=== PATIENT | female | born 1935 | race Caucasian/White ===

== ENCOUNTER 2020-07-05 07:04 | Outpatient (REF) | payer MEDICARE, SELFPAY ==
[2020-07-05 07:37] LABS: MANUAL DIFF FLAG NO
[2020-07-05 07:38] LABS: Basophils Percent Auto 0.3 % (0-2); Eosinophils Absolute Auto 0.3 X10*3/uL (0.0-0.4); Eosinophils Percent Auto 3.9 % (0-4); Hematocrit 40.5 % (37-47); Hemoglobin 12.7 g/dl (12.0-16.0); Imm Gran Abs Auto 0.02 X10*3/uL (0.00-0.03); Imm Gran Pct Auto 0.3 % (0.0-0.4); Lymphocytes Absolute Auto 1.1 X10*3/uL (1.2-4.9); Mean Corpuscular HGB Conc 31.4 g/dl (31.0-35.0); Mean Corpuscular Hemoglobin 29.1 pg (27.0-33.0); Mean Corpuscular Volume 92.9 fL (80-98); Mean Platelet Volume 10.6 fL (9.4-12.3); Monocytes Absolute Auto 0.5 X10*3/uL (0.1-1.2); Neutrophils Absolute Auto 4.7 X10*3/uL (2.0-8.3); Neutrophils Percent Auto 71.5 % (45-73); Platelet Count 166 X10*3/uL (160-400); Red Blood Count 4.36 X10*6/uL (4.20-5.50); Red Cell Distribution Width 14.3 % (11.0-16.0); White Blood Count 6.6 X10*3/uL (4.8-10.8)
[2020-07-05 08:06] LABS: Alanine Aminotransferase 16 U/L (0-31); Albumin Level 4.5 g/dL (3.5-5.0); Alkaline Phosphatase 102 U/L (39-117); Anion Gap 14 (12-20); Aspartate Amino Transferase 19 U/L (5-31); Bilirubin Total 0.6 mg/dL (0.0-1.0); Blood Urea Nitrogen 34 mg/dL (9-16); Calcium 9.4 mg/dL (8.4-10.2); Carbon Dioxide 32 mmol/L (22-29); Chloride 102 mmol/L (96-108); Cholesterol 109 mg/dL; Estimated Glomerular Filt Rate 29; Glucose Fasting 117 mg/dL (60-99); HDL Cholesterol 53 mg/dL; LDL Cholesterol Calculated 45 mg/dl; Magnesium 2.4 mg/dL (1.6-2.6); Potassium 4.1 mmol/l (3.3-5.1); Sodium 144 mmol/L (135-145); Total Protein 7.5 g/dL (6.5-8.0); Triglycerides 59 mg/dL
[2020-07-05 08:13] LABS: B Type Natriuretic Peptide 198 pg/mL (<100)
[2020-07-05 08:28] LABS: T4 Thyroxine 7.7 ug/dL (4.5-12.0); Thyroid Stimulating Hormone 1.16 uIU/mL (0.32-4.0); Vitamin D 25-OH Total 44.3 ng/mL (>30)
[2020-07-05 08:37] LABS: Creatinine Urine 93.92 mg/dL; Microalbum/Creatinine Ratio Ur 113.9 ug/mg cr
[2020-07-07 09:12] LABS: Folate > 20.0 ng/mL (> or = 4.0); Vitamin B12 859 pg/mL (200-900)
== END 2020-07-05 07:05 | disposition home or self-care (01) ==
LOC: HO.LAB 07:04
PROVIDERS: PCP Internal Medicine; Visit Provider Internal Medicine
DX: E11.65 Type 2 diabetes mellitus with hyperglycemia (principal); E78.00 Pure hypercholesterolemia, unspecified; I35.0 Nonrheumatic aortic (valve) stenosis; E66.01 Morbid (severe) obesity due to excess calories; I13.0 Hypertensive heart and chronic kidney disease with heart failure and stage 1 through stage 4 chronic kidney disease, or unspecified chronic kidney disease; N18.9 Chronic kidney disease, unspecified; I50.9 Heart failure, unspecified
CPT/HCPCS: 36415; 80053; 80061; 82043; 82306; 82607; 82746; 83735; 83880; 84436; 84443; 85025

== ENCOUNTER 2020-09-25 09:08 | Outpatient (REF) | payer MEDICARE, SELFPAY ==
--- NOTE | 2020-09-25 10:35 | XR_ITS ---
EXAMINATION: XR PELVIS CLINICAL INFORMATION: Pain in the hip COMPARISON: 11/02/2018 TECHNIQUE: AP view of the pelvis. FINDINGS: There is a total right hip arthroplasty. The femoral head component articulates appropriately with the acetabular component. No periprosthetic lucency or fracture. Mild degenerative change of the left hip with joint space narrowing and sclerosis. Pelvic rim is intact. The sacroiliac joints and pubic symphysis are intact. Otherwise bowel gas pattern is unremarkable. Vascular calcifications noted. XR/XR pelvis 1-2V IMPRESSION: Total right hip arthroplasty in typical positioning and alignment. Mild degenerative change at the left hip.
== END 2020-09-25 09:09 | disposition home or self-care (01) ==
LOC: HO.HOSX 09:08
PROVIDERS: Visit Provider Orthopaedic Surgery
DX: M25.551 Pain in right hip (principal); Z96.641 Presence of right artificial hip joint
CPT/HCPCS: 72170; 99202

== ENCOUNTER 2020-10-04 07:07 | Outpatient (REF) | payer MEDICARE, SELFPAY ==
[2020-10-04 08:43] LABS: MANUAL DIFF FLAG NO
[2020-10-04 08:49] LABS: Basophils Percent Auto 0.4 % (0-2); Eosinophils Absolute Auto 0.3 X10*3/uL (0.0-0.4); Eosinophils Percent Auto 4.5 % (0-4); Hematocrit 39.8 % (37-47); Hemoglobin 12.2 g/dl (12.0-16.0); Imm Gran Abs Auto 0.02 X10*3/uL (0.00-0.03); Imm Gran Pct Auto 0.3 % (0.0-0.4); Lymphocytes Absolute Auto 1.2 X10*3/uL (1.2-4.9); Lymphocytes Percent Auto 15.5 % (20-40); Mean Corpuscular HGB Conc 30.7 g/dl (31.0-35.0); Mean Corpuscular Hemoglobin 28.7 pg (27.0-33.0); Mean Corpuscular Volume 93.6 fL (80-98); Mean Platelet Volume 10.7 fL (9.4-12.3); Monocytes Absolute Auto 0.7 X10*3/uL (0.1-1.2); Monocytes Percent Auto 8.6 % (2-11); Neutrophils Absolute Auto 5.3 X10*3/uL (2.0-8.3); Neutrophils Percent Auto 70.7 % (45-73); Platelet Count 180 X10*3/uL (160-400); Red Blood Count 4.25 X10*6/uL (4.20-5.50); Red Cell Distribution Width 14.2 % (11.0-16.0); White Blood Count 7.6 X10*3/uL (4.8-10.8)
[2020-10-04 09:02] LABS: Anion Gap 16 (12-20); Blood Urea Nitrogen 28 mg/dL (9-16); Calcium 9.4 mg/dL (8.4-10.2); Carbon Dioxide 28 mmol/L (22-29); Chloride 103 mmol/L (96-108); Estimated Glomerular Filt Rate 33; Magnesium 2.4 mg/dL (1.6-2.6); Phosphorus 4.4 mg/dL (2.7-4.5); Potassium 3.9 mmol/L (3.3-5.1); Sodium 143 mmol/L (135-145)
[2020-10-04 09:05] LABS: Alanine Aminotransferase 16 U/L (0-31); Albumin Level 4.5 g/dL (3.5-5.0); Alkaline Phosphatase 94 U/L (39-117); Anion Gap 13 (12-20); Aspartate Amino Transferase 18 U/L (5-31); Bilirubin Total 0.7 mg/dL (0.0-1.0); Blood Urea Nitrogen 28 mg/dL (9-16); Calcium 9.7 mg/dL (8.4-10.2); Carbon Dioxide 31 mmol/L (22-29); Chloride 104 mmol/L (96-108); Estimated Glomerular Filt Rate 32; Glucose Random 120 mg/dL (60-115); Potassium 4.2 mmol/L (3.3-5.1); Sodium 144 mmol/L (135-145); Total Protein 7.5 g/dL (6.5-8.0)
[2020-10-04 09:05] LABS: Glucose Urine UA NEG (NEG); Leukocyte Esterase Urine 1+ (NEG); Nitrite Urine POS (NEG); Specific Gravity - Urine 1.015 (1.005-1.025); UACC Culture Trigger YES; Urine Blood NEG (NEG); Urine Ketones NEG (NEG); Urine Protein NEG (NEG-TRACE)
[2020-10-04 09:12] LABS: Appearance Urine HAZY; Color Urine YELLOW
[2020-10-04 09:19] LABS: B Type Natriuretic Peptide 190 pg/mL (<100)
[2020-10-04 09:24] LABS: Bacteria Urine 3+ /LPF; RBC Urine 0 /HPF (0); Squamous Epithelial Cell Urine 1+ /LPF; UACC CULT YES
[2020-10-04 09:25] LABS: Vitamin D 25-OH Total 45.8 ng/mL (>30)
[2020-10-04 09:40] LABS: Creatinine Urine 58.05 mg/dL; Microalbum/Creatinine Ratio Ur 182.6 ug/mg cr; Total Protein Urine Random 21 mg/dL (<12)
[2020-10-04 10:14] LABS: Renal w Reflex Lab Use Only Order verified
[2020-10-06 18:37] LABS: Calcium (PTHI) 9.8 mg/dL (8.6-10.4); PTHI 130 pg/mL (14-64)
== END 2020-10-04 07:08 | disposition home or self-care (01) ==
LOC: HO.LAB 07:07
PROVIDERS: PCP Internal Medicine; Visit Provider Internal Medicine Nephrology
DX: I13.0 Hypertensive heart and chronic kidney disease with heart failure and stage 1 through stage 4 chronic kidney disease, or unspecified chronic kidney disease (principal); E11.22 Type 2 diabetes mellitus with diabetic chronic kidney disease; N18.4 Chronic kidney disease, stage 4 (severe); I50.32 Chronic diastolic (congestive) heart failure; D63.1 Anemia in chronic kidney disease; N17.9 Acute kidney failure, unspecified
CPT/HCPCS: 36415; 80051; 80053; 81001; 82043; 82306; 82310; 82565; 83735; 83880; 83970; 84100; 84156; 84520; 85025; 87086

== ENCOUNTER → 2020-12-24 10:18 | Outpatient (REF) | payer MEDICARE, SELFPAY ==
--- NOTE | 2020-12-24 10:30 | CA_ITS ---
Transthoracic Echocardiogram Patient (Last, First, Middle): Allie Gonzalez M Gender: Female Date of : 1935 Age: 85 Procedure Date: 12/24/2020 Procedure Type: Transthoracic Echocardiogram Location: OP Height: 170.18 cm Weight: 113.4 kg BSA: 2.22 m2 Heart Rate: bpm BP: 126 / 72 mmHg Traffic Police Officer: BRI Antoine MD: Greg Thomas MD Fios Line Installer: Preston Kothari MD Symptoms: I35.0 NON RHEUMATIC Study Quality: Fair ECG Rhythm: Sinus Conclusions: - 1. Normal LV systolic function with mild LVH with grade 2 diastolic dysfunction 2. Moderately dilated left atrium 3. At least moderate aortic stenosis with valve area of 1 0-1.1 centimeters sq with mean gradient of 28 mm of mercury 4. Moderate mitral regurgitation with severe mitral annular calcification 5. Mildly elevated right ventricular systolic pressure 6. No pericardial effusion Findings Left Ventricle Normal left ventricular size and systolic function. There is mildly increased left ventricular wall thickness. The visually estimated ejection fraction is between 60-65%. Spectral Doppler is indicative of a pseudonormal filling pattern. E/E prime ratio is >15, consistent with elevated filling pressures. Evidence suggests grade II (moderate) diastolic dysfunction. Right Ventricle Normal right ventricular cavity size and systolic function. Atria The left atrium is moderately dilated. There is lipomatous hypertrophy of the interatrial septum. There is no evidence of interatrial shunt. The right atrium is likely dilated. Aortic Valve There is moderate calcification of the aortic valve. There is moderate thickening of the aortic valve. There is moderate to severe aortic valve stenosis. The peak aortic gradient is 53 mmHg.The aortic valve area is 1.01 cm2. There is mild aortic valve regurgitation. Mitral Valve There is moderate anterior and severe posterior mitral leaflet thickening. There is severe mitral annular calcification. There is moderate mitral valve regurgitation. There is no mitral valve stenosis. Pulmonic Valve The pulmonic valve was not well visualized. Tricuspid Valve Likely normal tricuspid valve structure and function. There is mild tricuspid valve regurgitation. Mild pulmonary hypertension is present. Great Vessels All visible segments of the aorta are normal in size. The pulmonary artery was not well visualized. Venous The inferior vena cava is normal in size and collapses greater than 50% with inspiration. Pericardium/Pleural There is no evidence of pericardial effusion. Prior Study Comparison No significant change compared to prior study dated: 04/29/2020. Measurements 2D Linear Measurements IVSd: 1.19 0.6-0.9/0.6-1.0 cm LVIDd: 4.12 3.9-5.3/4.2-5.9 cm LVIDd Index: 1.86 2.4-3.2/2.2-3.1 cm/m2 LVIDs: 3.31 2.0-3.6 cm LVPWd: 1.21 0.7-1.1 cm Ao Root: 3.10 2.1-3.5 cm LA Diam: 4.20 2.7-3.8/3.0-4.0 cm LAIDs Index: 1.89 1.5-2.3 cm/m2 LV Mass: 215.52 67-162/88-224 g LV Mass Index: 97.08 43-95/49-115 g/m2 LVOT Diam: 2.10 3.0+(-)1.3 cm 2D Systolic Function EF 4C: 66.90 >55% EF 2C: 63.10 >55% EF BiP: 65.70 >55% Mitral Valve MV VTI: 0.53 MV Pk Roland: 2.10 MV Mn Roland: 1.28 MV Pk Grad: 18.00 MV Mn Grad: 8.00 MV Pk E: 1.78 MV PK A: 1.49 MV Decel Time: 211.00 E/A: 1.20 E'Lateral: 7.64 E'Medial: 6.09 E/E' Med: 29.20 E/E' Lat: 23.30 PHT: 62.00 MVA PHT: 3.55 MVA Continuity: 1.63 Decel O'Brien: 8.44 Aortic Valve AoV Pk Roland: 3.64 AoV Mn Roland: 2.50 AoV VTI: 0.86 AoV Pk Grad: 53.00 Aov Mn Grad: 28.00 ARIANA Cont.VTI: 1.01 AI Pk Roland: 3.85 AI O'Brien: 3.20 LVOT LVOT Pk Roland: 1.08 LVOT Mn Roland: 0.78 LVOT VTI: 0.25 LVOT Pk Grad: 5.00 LVOT Mn Grad: 3.00 LVOT Diam: 2.10 LVOT Area: 3.46 Diastolic Function MV Pk E: 1.78 MV Pk A: 1.49 E/A: 1.20 E'Medial: 6.09 E/E' Med: 29.20 E' Laterial: 7.64 E/E' Lat: 23.30 Tricuspid Valve TR Pk Roland: 2.84 TR Pk Grad: 32.00 RA Press: 8.00 RVSP: 40.00 Great Vessels Aorta Ao Root-2D: 3.10 2.0-3.7 cm Ao Asc: 3.30 2.1-3.4 cm Updated in Other Vendor System with Status of Final Preston Kothari MD electronically signed on 12/24/2020 3:37:39 PM with status of Final
== END ==
LOC: HO.CARD 10:18
PROVIDERS: Visit Provider Internal Medicine
DX: I35.0 Nonrheumatic aortic (valve) stenosis (principal)
CPT/HCPCS: 93306

== ENCOUNTER → 2020-12-31 12:07 | Outpatient (BNVA) | payer MEDICARE, SELFPAY | PROVIDERS: PCP Internal Medicine; Visit Provider Internal Medicine | DX: I35.0 Nonrheumatic aortic (valve) stenosis (principal); I50.32 Chronic diastolic (congestive) heart failure; I44.30 Unspecified atrioventricular block; I10 Essential (primary) hypertension | CPT/HCPCS: 93005; 99212 ==

== ENCOUNTER 2021-04-18 07:01 | Outpatient (REF) | payer MEDICARE, SELFPAY ==
[2021-04-18 08:11] LABS: MANUAL DIFF FLAG NO
[2021-04-18 08:20] LABS: Basophils Percent Auto 0.3 % (0-2); Eosinophils Absolute Auto 0.4 X10*3/uL (0.0-0.4); Eosinophils Percent Auto 5.9 % (0-4); Hematocrit 39.6 % (37-47); Hemoglobin 12.4 g/dl (12.0-16.0); Imm Gran Abs Auto 0.02 X10*3/uL (0.00-0.03); Imm Gran Pct Auto 0.3 % (0.0-0.4); Lymphocytes Percent Auto 15.8 % (20-40); Mean Corpuscular HGB Conc 31.3 g/dl (31.0-35.0); Mean Corpuscular Hemoglobin 28.9 pg (27.0-33.0); Mean Corpuscular Volume 92.3 fL (80-98); Monocytes Absolute Auto 0.5 X10*3/uL (0.1-1.2); Monocytes Percent Auto 8.1 % (2-11); Neutrophils Absolute Auto 4.6 X10*3/uL (2.0-8.3); Neutrophils Percent Auto 69.6 % (45-73); Platelet Count 160 X10*3/uL (160-400); Red Blood Count 4.29 X10*6/uL (4.20-5.50); Red Cell Distribution Width 14.2 % (11.0-16.0); White Blood Count 6.6 X10*3/uL (4.8-10.8)
[2021-04-18 08:48] LABS: Estimated Average Glucose 134 mg/dL; Hemoglobin A1c % 6.3 %
[2021-04-18 08:56] LABS: Alanine Aminotransferase 16 U/L (0-31); Albumin Level 4.4 g/dL (3.5-5.0); Alkaline Phosphatase 84 U/L (39-117); Anion Gap 12 (12-20); Aspartate Amino Transferase 16 U/L (5-31); Bilirubin Total 0.7 mg/dL (0.0-1.0); Blood Urea Nitrogen 28 mg/dL (9-16); Carbon Dioxide 31 mmol/L (22-29); Chloride 104 mmol/L (96-108); Cholesterol 106 mg/dL; Estimated Glomerular Filt Rate 31; Glucose Random 113 mg/dL (60-115); HDL Cholesterol 45 mg/dL; LDL Cholesterol Calculated 45 mg/dl; Magnesium 2.3 mg/dL (1.6-2.6); Phosphorus 4.3 mg/dL (2.7-4.5); Potassium 4.1 mmol/L (3.3-5.1); Sodium 143 mmol/L (135-145); Total Protein 7.3 g/dL (6.5-8.0); Triglycerides 84 mg/dL
[2021-04-18 09:03] LABS: B Type Natriuretic Peptide 188 pg/mL (<100)
[2021-04-18 09:18] LABS: Free T4 (Free Thyroxine) 1.04 ng/dL (0.71-1.85); Thyroid Stimulating Hormone 1.39 uIU/mL (0.32-4.0); Vitamin D 25-OH Total 46.8 ng/mL (>30)
[2021-04-18 11:32] LABS: Glucose Urine UA NEG (NEG); Leukocyte Esterase Urine 2+ (NEG); Nitrite Urine POS (NEG); PH 7.5 (5.0-8.0); Urine Blood NEG (NEG); Urine Ketones NEG (NEG); Urine Protein NEG (NEG-TRACE)
[2021-04-18 11:36] LABS: Appearance Urine HAZY; Color Urine YELLOW
[2021-04-18 11:46] LABS: Bacteria Urine 4+ /LPF; Squamous Epithelial Cell Urine 1+ /LPF
[2021-04-18 11:53] LABS: Creatinine Urine 94.61 mg/dL; Microalbum/Creatinine Ratio Ur 39.1 ug/mg cr
[2021-04-18 12:10] LABS: Creatinine Urine 94.33 mg/dL; Protein/Creatinine Ratio, Ur 0.14 (<0.2); Total Protein Urine Random 13 mg/dL (<12)
[2021-04-20 04:10] LABS: Folate > 20.0 ng/mL (> or = 4.0); Vitamin B12 787 pg/mL (200-900)
[2021-04-20 13:41] LABS: Calcium (PTHI) 9.7 mg/dL (8.6-10.4); PTHI 101 pg/mL (14-64)
== END 2021-04-18 07:02 | disposition home or self-care (01) ==
LOC: HO.LAB 07:01
PROVIDERS: Absent Provider Internal Medicine Nephrology; PCP Internal Medicine; Visit Provider Internal Medicine
DX: I50.32 Chronic diastolic (congestive) heart failure (principal); E78.00 Pure hypercholesterolemia, unspecified; E11.65 Type 2 diabetes mellitus with hyperglycemia; E11.21 Type 2 diabetes mellitus with diabetic nephropathy; E11.22 Type 2 diabetes mellitus with diabetic chronic kidney disease; N18.32 Chronic kidney disease, stage 3b; N25.0 Renal osteodystrophy; Z79.4 Long term (current) use of insulin
CPT/HCPCS: 36415; 80053; 80061; 81001; 82043; 82306; 82607; 82746; 83036; 83735; 83880; 83970; 84100; 84156; 84439; 84443; 85025; 87086; 87088; 87186

== ENCOUNTER 2021-04-24 16:04 | Outpatient (REF) | payer MEDICARE, SELFPAY ==
--- NOTE | ~2021-04-24 | XR_ITS ---
EXAMINATION: XR CHEST CLINICAL INFORMATION: Shortness of breath COMPARISON: None TECHNIQUE: Frontal view of the chest was obtained. FINDINGS: The cardiac silhouette is upper normal in size. There are increased perihilar markings, right greater than left, particularly in the right infrahilar region. Appearance is more suggestive of pneumonia than pulmonary edema. There may be linear scarring or subsegmental atelectasis in the right upper lung. There is no pleural effusion or pneumothorax. There are degenerative changes of the spine. XR/XR chest 1V IMPRESSION: Upper normal-size cardiac silhouette. Increased perihilar markings, right greater than left. Chest x-ray appearance is more suggestive of pneumonia than pulmonary edema. Clinical correlation recommended.
== END 2021-04-24 16:05 | disposition home or self-care (01) ==
LOC: HO.XRAY 16:04
PROVIDERS: PCP Internal Medicine; Visit Provider Nurse Practitioner Family
DX: Z20.822 Contact with and (suspected) exposure to COVID-19 (principal); R06.02 Shortness of breath
CPT/HCPCS: 71045; U0003; U0005

== ENCOUNTER → 2021-06-09 13:32 | Outpatient (BNVA) | payer MEDICARE, SELFPAY | PROVIDERS: PCP Internal Medicine; Referring Provider Internal Medicine; Visit Provider Nurse Practitioner Family | DX: I44.2 Atrioventricular block, complete (principal); I35.0 Nonrheumatic aortic (valve) stenosis; I13.0 Hypertensive heart and chronic kidney disease with heart failure and stage 1 through stage 4 chronic kidney disease, or unspecified chronic kidney disease; I50.32 Chronic diastolic (congestive) heart failure; N18.4 Chronic kidney disease, stage 4 (severe); E11.22 Type 2 diabetes mellitus with diabetic chronic kidney disease; E11.65 Type 2 diabetes mellitus with hyperglycemia; E78.00 Pure hypercholesterolemia, unspecified; R53.83 Other fatigue; E66.9 Obesity, unspecified; Z68.39 Body mass index [BMI] 39.0-39.9, adult; Z45.018 Encounter for adjustment and management of other part of cardiac pacemaker; Z88.6 Allergy status to analgesic agent; Z88.0 Allergy status to penicillin; Z79.4 Long term (current) use of insulin; Z79.899 Other long term (current) drug therapy | CPT/HCPCS: 93005; 99212 ==

== ENCOUNTER 2021-06-27 07:00 | Outpatient (REF) | payer MEDICARE, SELFPAY ==
[2021-06-27 07:21] LABS: MANUAL DIFF FLAG NO
[2021-06-27 07:29] LABS: Basophils Percent Auto 0.2 % (0-2); Eosinophils Absolute Auto 0.3 X10*3/uL (0.0-0.4); Eosinophils Percent Auto 3.9 % (0-4); Hematocrit 35.7 % (37-47); Hemoglobin 11.1 g/dl (12.0-16.0); Imm Gran Abs Auto 0.02 X10*3/uL (0.00-0.03); Imm Gran Pct Auto 0.2 % (0.0-0.4); Lymphocytes Absolute Auto 0.8 X10*3/uL (1.2-4.9); Lymphocytes Percent Auto 8.9 % (20-40); Mean Corpuscular HGB Conc 31.1 g/dl (31.0-35.0); Mean Corpuscular Hemoglobin 29.1 pg (27.0-33.0); Mean Corpuscular Volume 93.5 fL (80-98); Mean Platelet Volume 10.3 fL (9.4-12.3); Monocytes Absolute Auto 0.6 X10*3/uL (0.1-1.2); Monocytes Percent Auto 7.4 % (2-11); Neutrophils Absolute Auto 6.8 X10*3/uL (2.0-8.3); Neutrophils Percent Auto 79.4 % (45-73); Platelet Count 197 X10*3/uL (160-400); Red Blood Count 3.82 X10*6/uL (4.20-5.50); Red Cell Distribution Width 15.4 % (11.0-16.0); White Blood Count 8.5 X10*3/uL (4.8-10.8)
[2021-06-27 07:52] LABS: Albumin Level 4.3 g/dL (3.5-5.0); Anion Gap 15 (12-20); Blood Urea Nitrogen 35 mg/dL (9-16); Calcium 9.6 mg/dL (8.4-10.2); Carbon Dioxide 30 mmol/L (22-29); Chloride 102 mmol/L (96-108); Estimated Glomerular Filt Rate 28; Magnesium 2.5 mg/dL (1.6-2.6); Phosphorus 4.4 mg/dL (2.7-4.5); Potassium 4.7 mmol/L (3.3-5.1); Sodium 142 mmol/L (135-145)
[2021-06-27 07:56] LABS: Appearance Urine HAZY; Color Urine YELLOW; Glucose Urine UA NEG (NEG); Leukocyte Esterase Urine 1+ (NEG); Nitrite Urine NEG (NEG); Urine Blood TRACE (NEG); Urine Ketones NEG (NEG); Urine Protein 2+ MG/DL (NEG-TRACE)
[2021-06-27 08:11] LABS: Bacteria Urine TRACE /LPF; RBC Urine 0-2 /HPF (0); Squamous Epithelial Cell Urine 3+ /LPF
[2021-06-27 08:15] LABS: Vitamin D 25-OH Total 51.6 ng/mL (>30)
[2021-06-27 08:41] LABS: Creatinine Urine 95.37 mg/dL; Protein/Creatinine Ratio, Ur 0.87 (<0.2); Total Protein Urine Random 83 mg/dL (<12)
[2021-06-27 08:45] LABS: Microalbum/Creatinine Ratio Ur 531.6 ug/mg cr
[2021-06-29 14:31] LABS: Calcium (PTHI) 9.7 mg/dL (8.6-10.4); PTHI 128 pg/mL (14-64)
== END 2021-06-27 07:01 | disposition home or self-care (01) ==
LOC: HO.LAB 07:00
PROVIDERS: PCP Internal Medicine; Visit Provider Internal Medicine Nephrology
DX: N17.9 Acute kidney failure, unspecified (principal); N25.0 Renal osteodystrophy; N18.32 Chronic kidney disease, stage 3b; E11.21 Type 2 diabetes mellitus with diabetic nephropathy
CPT/HCPCS: 36415; 80051; 81001; 82040; 82043; 82306; 82310; 82565; 83735; 83970; 84100; 84156; 84520; 85025; 87086

== ENCOUNTER → 2021-07-01 12:44 | Outpatient (BNVA) | payer MEDICARE, SELFPAY | PROVIDERS: PCP Internal Medicine; Referring Provider Internal Medicine; Visit Provider Internal Medicine | DX: I35.0 Nonrheumatic aortic (valve) stenosis (principal); I11.0 Hypertensive heart disease with heart failure; I50.33 Acute on chronic diastolic (congestive) heart failure; I44.30 Unspecified atrioventricular block; Z95.0 Presence of cardiac pacemaker | CPT/HCPCS: 99212 ==

== ENCOUNTER → 2021-07-10 07:41 | Outpatient (REF) | payer MEDICARE, SELFPAY ==
--- NOTE | 2021-07-10 07:54 | CA_ITS ---
Transthoracic Echocardiogram Patient (Last, First, Middle): Allie Gonzalez M Gender: Female Date of : 1935 Age: 86 Procedure Date: 07/10/2021 Procedure Type: Transthoracic Echocardiogram Location: OP Height: 170.18 cm Weight: 107.05 kg BSA: 2.17 m2 Heart Rate: bpm BP: 126 / 69 mmHg Human Machine Interface Engineer: BRI Referring MD: Greg Thomas MD Symptoms: I35.0 - Nonrheumatic aortic (valve) stenosis Study Quality: Fair ECG Rhythm: Ventriculary paced rhythm Conclusions: - The left ventricular systolic function is normal. The visually estimated ejection fraction is between 60-65%. - Evidence suggests grade II (moderate) diastolic dysfunction. - Moderately increased right ventricular cavity size. - There is severe calcification of the aortic valve. Borderline severe aortic stenosis. - Cannot exclude mild to moderate mitral stenosis. - Moderate to severe pulmonary hypertension is present. - The inferior vena cava is dilated and collapses less than 50% with inspiration. Findings Left Ventricle Normal left ventricular cavity size. There is mildly increased left ventricular wall thickness. The left ventricular systolic function is normal. The visually estimated ejection fraction is between 60-65%. There is no evidence of regional wall motion abnormalities. Evidence suggests grade II (moderate) diastolic dysfunction. Right Ventricle Moderately increased right ventricular cavity size. There is normal right ventricular systolic function. Atria The left atrium is severely dilated. The right atrium is normal in size. Aortic Valve There is severe calcification of the aortic valve. The peak aortic velocity is 3.85 m/s with a calculated peak gradient of 59 mmHg. The mean gradient is 38 mmHg. The aortic valve area is 0.92 cm2. Dimensionless index 0.26. Stroke volume index 40ml. Borderline severe aortic stenosis. Mitral Valve There is severe mitral annular calcification. There is mild mitral valve regurgitation. Mean gradient across the mitral valve 8 mm Hg at 80/min; calculated mitral valve area 2.5 sq cm by pressure half-time. Cannot exclude mild to moderate mitral stenosis. Pulmonic Valve The pulmonic valve was not well visualized. Tricuspid Valve Normal tricuspid valve structure. There is mild tricuspid valve regurgitation. The right ventricular systolic pressure is 66 mmHg. Moderate to severe pulmonary hypertension is present. Great Vessels The aortic annulus, sinuses of valsalva, and asc aorta are normal in size. Venous The inferior vena cava is dilated and collapses less than 50% with inspiration. Pericardium/Pleural There is no evidence of pericardial effusion. Prior Study Comparison Changes noted compared to prior study dated: 12/24/2020. Progression of valvular abnormalities; pulmonary hypertension. Measurements 2D Linear Measurements IVSd: 1.22 0.6-0.9/0.6-1.0 cm LVIDd: 4.20 3.9-5.3/4.2-5.9 cm LVIDd Index: 1.94 2.4-3.2/2.2-3.1 cm/m2 LVIDs: 2.79 2.0-3.6 cm LVPWd: 1.15 0.7-1.1 cm Ao Root: 3.00 2.1-3.5 cm LA Diam: 4.80 2.7-3.8/3.0-4.0 cm LAIDs Index: 2.21 1.5-2.3 cm/m2 LV Mass: 217.89 67-162/88-224 g LV Mass Index: 100.41 43-95/49-115 g/m2 LVOT Diam: 2.10 3.0+(-)1.3 cm 2D Systolic Function EF 4C: 59.70 >55% EF 2C: 60.30 >55% EF BiP: 60.30 >55% Mitral Valve MV VTI: 0.66 MV Pk Roland: 2.25 MV Mn Roland: 1.28 MV Pk Grad: 20.00 MV Mn Grad: 8.00 MV Pk E: 1.80 MV PK A: 1.59 MV Decel Time: 244.00 E/A: 1.10 E'Lateral: 7.07 E'Medial: 6.09 E/E' Med: 29.60 E/E' Lat: 25.50 PHT: 85.00 MVA PHT: 2.59 MVA Continuity: 1.33 Decel Hart: 7.95 Aortic Valve AoV Pk Roland: 3.85 AoV Mn Roland: 2.99 AoV VTI: 0.94 AoV Pk Grad: 59.00 Aov Mn Grad: 38.00 ARIANA Cont.VTI: 0.92 LVOT LVOT Pk Roland: 1.02 LVOT Mn Roland: 0.71 LVOT VTI: 0.25 LVOT Pk Grad: 4.00 LVOT Mn Grad: 2.00 LVOT Diam: 2.10 LVOT Area: 3.46 Diastolic Function MV Pk E: 1.80 MV Pk A: 1.59 E/A: 1.10 E'Medial: 6.09 E/E' Med: 29.60 E' Laterial: 7.07 E/E' Lat: 25.50 Right Ventricle TAPSE (mm): 2.58 TVS' Roland: 10.10 Tricuspid Valve TR Pk Roland: 3.57 TR Pk Grad: 51.00 RA Press: 15.00 RVSP: 66.00 Great Vessels Aorta Ao Root-2D: 3.00 2.0-3.7 cm Ao Asc: 2.90 2.1-3.4 cm Updated in Other Vendor System with Status of Final Greg Thomas MD electronically signed on 07/11/2021 2:57:55 PM with status of Final
[2021-07-10 08:34] LABS: Anion Gap 12 (12-20); Blood Urea Nitrogen 31 mg/dL (9-16); Calcium 9.6 mg/dL (8.4-10.2); Carbon Dioxide 32 mmol/L (22-29); Chloride 101 mmol/L (96-108); Estimated Glomerular Filt Rate 30; Glucose Random 201 mg/dL (60-115); Potassium 4.1 mmol/L (3.3-5.1); Sodium 141 mmol/L (135-145)
[2021-07-10 08:37] LABS: B Type Natriuretic Peptide 495 pg/mL (<100)
== END ==
LOC: HO.CARD 07:41
PROVIDERS: PCP Internal Medicine; Visit Provider Internal Medicine
DX: I35.0 Nonrheumatic aortic (valve) stenosis (principal)
CPT/HCPCS: 36415; 80048; 83880; 93306

== ENCOUNTER → 2021-07-14 09:49 | Outpatient (BNVA) | payer MEDICARE, SELFPAY | PROVIDERS: PCP Internal Medicine; Referring Provider Internal Medicine; Visit Provider Internal Medicine | DX: Z45.018 Encounter for adjustment and management of other part of cardiac pacemaker (principal) | CPT/HCPCS: 99212 ==

== ENCOUNTER 2021-09-10 06:31 | Outpatient (REF) | payer MEDICARE, SELFPAY ==
[2021-09-10 06:47] LABS: MANUAL DIFF FLAG NO
[2021-09-10 07:17] LABS: Basophils Percent Auto 0.4 % (0-2); Eosinophils Absolute Auto 0.5 X10*3/uL (0.0-0.4); Eosinophils Percent Auto 6.6 % (0-4); Hematocrit 36.1 % (37.0-47.0); Hemoglobin 10.9 g/dl (12.0-16.0); Imm Gran Abs Auto 0.03 X10*3/uL (0.00-0.03); Imm Gran Pct Auto 0.4 % (0.0-0.4); Lymphocytes Absolute Auto 0.7 X10*3/uL (1.2-4.9); Lymphocytes Percent Auto 10.6 % (20-40); Mean Corpuscular HGB Conc 30.2 g/dl (31.0-35.0); Mean Corpuscular Hemoglobin 27.5 pg (27.0-33.0); Mean Corpuscular Volume 90.9 fL (80.0-98.0); Mean Platelet Volume 10.2 fL (9.4-12.3); Monocytes Absolute Auto 0.6 X10*3/uL (0.1-1.2); Monocytes Percent Auto 8.1 % (2-11); Neutrophils Absolute Auto 5.2 x10*3/uL (2.0-8.3); Neutrophils Percent Auto 73.9 % (45-73); Platelet Count 195 X10*3/uL (160-400); Red Blood Count 3.97 X10*6/uL (4.20-5.50); Red Cell Distribution Width 15.7 % (11.0-16.0)
[2021-09-10 07:38] LABS: B Type Natriuretic Peptide 731 pg/mL (<100)
[2021-09-10 07:44] LABS: Alanine Aminotransferase 13 U/L (0-31); Albumin Level 4.3 g/dL (3.5-5.0); Alkaline Phosphatase 75 U/L (39-117); Anion Gap 17 (12-20); Aspartate Amino Transferase 16 U/L (5-31); Bilirubin Total 0.6 mg/dL (0.0-1.0); Blood Urea Nitrogen 32 mg/dL (9-16); Calcium 10.1 mg/dL (8.4-10.2); Carbon Dioxide 28 mmol/L (22-29); Chloride 102 mmol/L (96-108); Estimated Glomerular Filt Rate 24; Glucose Random 123 mg/dL (60-115); Potassium 4.2 mmol/L (3.3-5.1); Sodium 143 mmol/L (135-145); Total Protein 7.4 g/dL (6.5-8.0)
[2021-09-10 07:53] LABS: Thyroid Stimulating Hormone 1.72 uIU/mL (0.32-4.0)
[2021-09-10 08:06] LABS: Estimated Average Glucose 137 mg/dL; Hemoglobin A1c % 6.4 %
[2021-09-10 09:05] LABS: Creatinine Urine 117.66 mg/dL
== END 2021-09-10 06:32 | disposition home or self-care (01) ==
LOC: HO.LAB 06:31
PROVIDERS: PCP Internal Medicine; Visit Provider Internal Medicine
DX: E11.65 Type 2 diabetes mellitus with hyperglycemia (principal); I73.9 Peripheral vascular disease, unspecified; Z79.4 Long term (current) use of insulin
CPT/HCPCS: 36415; 80053; 83036; 83880; 84443; 85025

== ENCOUNTER → 2021-11-18 08:24 | Outpatient (REF) | payer MEDICARE, SELFPAY ==
[2021-10-28 13:19] VITALS: BP 128/64; BP 140/74
--- NOTE | 2021-11-18 08:30 | CA_ITS ---
Transthoracic Echocardiogram Patient (Last, First, Middle): Allie Gonzalez M Gender: Female Date of : 1935 Age: 86 Procedure Date: 11/18/2021 Procedure Type: Transthoracic Echocardiogram Location: OP Height: 167.64 cm Weight: 106.6 kg BSA: 2.14 m2 Heart Rate: bpm BP: 128 / 60 mmHg Reconsignment Clerk: Referring MD: Greg Thomas MD Director Of Managed Services: Preston Kothari MD Symptoms: Z95.3 - Presence of xenogenic heart valve, TAVR Study Quality: Fair ECG Rhythm: Sinus Conclusions: - 1. Normal LV systolic function with mild LVH with grade 2 diastolic dysfunction 2. Moderate left atrial enlargement 3. Moderately dilated right ventricle with normal systolic function 4. Bioprosthetic aortic valve present with mean gradient of 8 mmHg with normal function 5. Severe mitral calcification with possible mitral stenosis with [id number] mitral regurgitation 6. Moderately elevated right ventricular systolic pressure with elevated right atrial pressures 7. No gross pericardial effusion Findings Left Ventricle Normal left ventricular size and systolic function. There is mildly increased left ventricular wall thickness. The visually estimated ejection fraction is between 60-65%. Spectral Doppler is indicative of a pseudonormal filling pattern. E/E prime ratio is >15, consistent with elevated filling pressures. Evidence suggests grade II (moderate) diastolic dysfunction. Right Ventricle Moderately increased right ventricular cavity size. There is normal right ventricular systolic function. Atria The left atrium is moderately dilated. There is lipomatous hypertrophy of the interatrial septum. Interatrial shunt cannot be excluded. The right atrium is mildly dilated. Aortic Valve A bioprosthetic aortic valve is present. The prosthetic aortic valve appears to be functioning normally. The mean gradient is 8 mmHg. There is no aortic valve regurgitation. the bioprosthetic valve is well seated without abnormal rocking motion. The calculated effective orifice area is 1.55 centimeters sq Mitral Valve There is moderate anterior and severe posterior mitral leaflet thickening. The anterior mitral leaflet has restricted mobility and the posterior mitral leaflet is immobile. There is severe mitral annular calcification. There is mild to moderate mitral valve regurgitation. mean gradient across mitral valve is 6-7 mmHg. Mitral stenosis cannot be ruled out Pulmonic Valve The pulmonic valve was not well visualized. Tricuspid Valve Normal tricuspid valve structure. There is mild to moderate tricuspid valve regurgitation. Mildly elevated right atrial pressure. Moderate pulmonary hypertension is present. Great Vessels All visible segments of the aorta are normal in size. The pulmonary artery was not well visualized. Venous The inferior vena cava is moderately dilated and collapses less than 50% with inspiration. Pericardium/Pleural There is no evidence of pericardial effusion. Prior Study Comparison Changes noted compared to prior study dated: 07/10/2021. normally function bioprosthetic aortic valve is present in place of severe aortic stenosis. RV systolic pressure have improved mildly Measurements 2D Linear Measurements IVSd: 1.32 0.6-0.9/0.6-1.0 cm LVIDd: 5.10 3.9-5.3/4.2-5.9 cm LVIDd Index: 2.38 2.4-3.2/2.2-3.1 cm/m2 LVIDs: 3.35 2.0-3.6 cm LVPWd: 1.35 0.7-1.1 cm LA Diam: 5.20 2.7-3.8/3.0-4.0 cm LAIDs Index: 2.43 1.5-2.3 cm/m2 LV Mass: 349.90 67-162/88-224 g LV Mass Index: 163.51 43-95/49-115 g/m2 LVOT Diam: 2.00 3.0+(-)1.3 cm Mitral Valve MV VTI: 0.54 MV Pk Roland: 2.05 MV Mn Roland: 1.17 MV Pk Grad: 17.00 MV Mn Grad: 7.00 MV Pk E: 1.52 MV PK A: 1.33 MV Decel Time: 170.00 E/A: 1.10 E'Lateral: 9.14 E'Medial: 4.46 E/E' Med: 34.10 E/E' Lat: 16.60 PHT: 57.00 MVA PHT: 3.86 MVA Continuity: 1.19 Decel Baylor: 9.15 MR VTI: 1.95 Aortic Valve AoV Pk Roland: 1.81 AoV Mn Roland: 1.33 AoV VTI: 0.42 AoV Pk Grad: 13.00 Aov Mn Grad: 8.00 ARIANA Cont.VTI: 1.55 LVOT LVOT Pk Roland: 0.80 LVOT Mn Roland: 0.54 LVOT VTI: 0.21 LVOT Pk Grad: 3.00 LVOT Mn Grad: 1.00 LVOT Diam: 2.00 LVOT Area: 3.14 Diastolic Function MV Pk E: 1.52 MV Pk A: 1.33 E/A: 1.10 E'Medial: 4.46 E/E' Med: 34.10 E' Laterial: 9.14 E/E' Lat: 16.60 Right Ventricle TAPSE (mm): 35.00 TVS' Roland: 16.00 Tricuspid Valve TR Pk Roland: 3.50 TR Pk Grad: 49.00 RA Press: 8.00 RVSP: 57.00 Great Vessels Aorta Sinus of Valsalva: 2.80 2.0-3.5 cm Ao Asc: 3.10 2.1-3.4 cm Pulmonary Valve PV Pk Roland: 1.04 Peak PV Grad: 4.00 Updated in Other Vendor System with Status of Final Preston Kothari MD electronically signed on 11/18/2021 10:29:38 AM with status of Final
== END ==
LOC: HO.CARD 08:24
PROVIDERS: PCP Internal Medicine; Visit Provider Internal Medicine Interventional Cardiology
DX: Z95.3 Presence of xenogenic heart valve (principal)
CPT/HCPCS: 93306

== ENCOUNTER → 2021-11-25 14:49 | Outpatient (BNVA) | payer MEDICARE, SELFPAY ==
[2021-10-28 13:19] VITALS: BP 128/64; BP 140/74
== END ==
PROVIDERS: PCP Internal Medicine; Referring Provider Internal Medicine; Visit Provider Internal Medicine
DX: I44.30 Unspecified atrioventricular block (principal); E11.22 Type 2 diabetes mellitus with diabetic chronic kidney disease; I13.0 Hypertensive heart and chronic kidney disease with heart failure and stage 1 through stage 4 chronic kidney disease, or unspecified chronic kidney disease; N18.4 Chronic kidney disease, stage 4 (severe); I50.32 Chronic diastolic (congestive) heart failure; E11.8 Type 2 diabetes mellitus with unspecified complications; Z95.2 Presence of prosthetic heart valve; Z95.0 Presence of cardiac pacemaker
CPT/HCPCS: 99212

== ENCOUNTER 2021-12-28 06:49 | Outpatient (REF) | payer MEDICARE, SELFPAY ==
[2021-11-25 15:18] VITALS: BP 128/64; BP 140/74
[2021-12-28 06:49] VITALS: BP 108/60; BMI 36.8
[2021-12-28 08:40] LABS: MANUAL DIFF FLAG NO
[2021-12-28 08:51] LABS: Basophils Percent Auto 0.3 % (0-2); Eosinophils Absolute Auto 0.3 X10*3/uL (0.0-0.4); Eosinophils Percent Auto 4.4 % (0-4); Hematocrit 33.9 % (37.0-47.0); Hemoglobin 10.3 g/dl (12.0-16.0); Imm Gran Abs Auto 0.02 X10*3/uL (0.00-0.03); Imm Gran Pct Auto 0.3 % (0.0-0.4); Lymphocytes Absolute Auto 0.6 X10*3/uL (1.2-4.9); Lymphocytes Percent Auto 7.9 % (20-40); Mean Corpuscular HGB Conc 30.4 g/dl (31.0-35.0); Mean Corpuscular Hemoglobin 26.8 pg (27.0-33.0); Mean Corpuscular Volume 88.1 fL (80.0-98.0); Mean Platelet Volume 10.5 fL (9.4-12.3); Monocytes Absolute Auto 0.7 X10*3/uL (0.1-1.2); Monocytes Percent Auto 9.7 % (2-11); Neutrophils Absolute Auto 5.7 x10*3/uL (2.0-8.3); Neutrophils Percent Auto 77.4 % (45-73); Platelet Count 194 X10*3/uL (160-400); Red Blood Count 3.85 X10*6/uL (4.20-5.50); Red Cell Distribution Width 16.9 % (11.0-16.0); White Blood Count 7.3 X10*3/uL (4.8-10.8)
[2021-12-28 09:14] LABS: Albumin Level 4.1 g/dL (3.5-5.0); Anion Gap 17 (12-20); Blood Urea Nitrogen 59 mg/dL (9-16); Calcium 10.4 mg/dL (8.4-10.2); Carbon Dioxide 27 mmol/L (22-29); Chloride 100 mmol/L (96-108); Estimated Glomerular Filt Rate 18; Magnesium 2.4 mg/dL (1.6-2.6); Phosphorus 4.6 mg/dL (2.7-4.5); Potassium 4.5 mmol/L (3.3-5.1); Sodium 139 mmol/L (135-145)
[2021-12-28 09:36] LABS: Vitamin D 25-OH Total 53.8 ng/mL (>30)
[2021-12-28 09:55] LABS: Appearance Urine CLEAR; Color Urine YELLOW; Glucose Urine UA 500 MG/DL (NEG); Leukocyte Esterase Urine NEG (NEG); Nitrite Urine NEG (NEG); PH 5.5 (5.0-8.0); Specific Gravity - Urine 1.015 (1.005-1.025); Urine Blood TRACE (NEG); Urine Ketones NEG (NEG); Urine Protein 1+ MG/DL (NEG-TRACE)
[2021-12-28 10:07] LABS: Hyaline Casts Urine 0-2 /LPF; Squamous Epithelial Cell Urine 1+ /LPF
[2021-12-28 10:10] LABS: Granular Casts Urine 0-2 /LPF; Red Blood Cell Casts Urine 0-2 /LPF
[2021-12-28 10:11] LABS: Bacteria Urine TRACE /LPF; WBC Urine 0-2 /HPF (0-4)
[2021-12-28 10:48] LABS: Creatinine Urine 57.51 mg/dL; Microalbum/Creatinine Ratio Ur 558.1 ug/mg cr; Protein/Creatinine Ratio, Ur 0.82 (<0.2); Total Protein Urine Random 47 mg/dL (<12)
[2021-12-29 12:37] LABS: Calcium (PTHI) 10.2 mg/dL (8.6-10.4); PTHI 57 pg/mL (16-77)
== END 2021-12-28 06:50 | disposition home or self-care (01) ==
LOC: HO.LAB 06:49
PROVIDERS: PCP Internal Medicine; Visit Provider Internal Medicine Nephrology
DX: E11.29 Type 2 diabetes mellitus with other diabetic kidney complication (principal); I12.9 Hypertensive chronic kidney disease with stage 1 through stage 4 chronic kidney disease, or unspecified chronic kidney disease; N18.32 Chronic kidney disease, stage 3b; N25.0 Renal osteodystrophy
CPT/HCPCS: 36415; 80051; 81001; 82040; 82043; 82306; 82310; 82565; 83735; 83970; 84100; 84156; 84520; 85025; 87086

== ENCOUNTER 2022-01-05 09:16 | Outpatient (REF) | payer MEDICARE, SELFPAY ==
[2021-11-25 15:18] VITALS: BP 128/64; BP 140/74
[2022-01-05 10:56] LABS: Uric Acid 8.8 mg/dL (2.4-5.7)
== END 2022-01-05 09:17 | disposition home or self-care (01) ==
LOC: HO.LAB 09:16
PROVIDERS: PCP Internal Medicine; Visit Provider Nurse Practitioner Family
DX: M79.89 Other specified soft tissue disorders (principal)
CPT/HCPCS: 36415; 84550

== ENCOUNTER → 2022-02-08 13:26 | Outpatient (BNVA) | payer MEDICARE, SELFPAY ==
[2021-11-25 15:18] VITALS: BP 128/64; BP 140/74
[2022-02-04 15:36] VITALS: BP 126/50; BMI 35.5
== END ==
PROVIDERS: PCP Internal Medicine; Referring Provider Internal Medicine; Visit Provider Internal Medicine
DX: I13.0 Hypertensive heart and chronic kidney disease with heart failure and stage 1 through stage 4 chronic kidney disease, or unspecified chronic kidney disease (principal); I50.32 Chronic diastolic (congestive) heart failure; N18.4 Chronic kidney disease, stage 4 (severe); E11.22 Type 2 diabetes mellitus with diabetic chronic kidney disease; I44.30 Unspecified atrioventricular block; Z79.4 Long term (current) use of insulin; Z79.82 Long term (current) use of aspirin; Z45.018 Encounter for adjustment and management of other part of cardiac pacemaker; Z95.2 Presence of prosthetic heart valve
CPT/HCPCS: 93280; 99212

== ENCOUNTER 2022-02-12 07:01 | Outpatient (REF) | payer MEDICARE, SELFPAY ==
[2022-02-12 07:01] VITALS: BP 108/60; BP 118/64; BP 124/60; BMI 35.9
[2022-02-12 07:44] LABS: Anion Gap 13 (12-20); Blood Urea Nitrogen 40 mg/dL (9-16); Calcium 9.5 mg/dL (8.4-10.2); Carbon Dioxide 30 mmol/L (22-29); Chloride 101 mmol/L (96-108); Estimated Glomerular Filt Rate 22; Glucose Random 142 mg/dL (60-115); Potassium 4.4 mmol/L (3.3-5.1); Sodium 140 mmol/L (135-145)
== END 2022-02-12 07:02 | disposition home or self-care (01) ==
LOC: HO.LAB 07:01
PROVIDERS: PCP Internal Medicine; Visit Provider Internal Medicine
DX: I50.32 Chronic diastolic (congestive) heart failure (principal)
CPT/HCPCS: 36415; 80048

== ENCOUNTER 2022-03-27 07:02 | Outpatient (REF) | payer MEDICARE, SELFPAY ==
[2022-03-27 07:19] LABS: MANUAL DIFF FLAG NO
[2022-03-27 08:36] LABS: Basophils Percent Auto 0.4 % (0-2); Eosinophils Absolute Auto 0.3 X10*3/uL (0.0-0.4); Eosinophils Percent Auto 5.3 % (0-4); Hematocrit 35.8 % (37.0-47.0); Hemoglobin 11.2 g/dl (12.0-16.0); Imm Gran Abs Auto 0.01 X10*3/uL (0.00-0.03); Imm Gran Pct Auto 0.2 % (0.0-0.4); Lymphocytes Absolute Auto 0.7 X10*3/uL (1.2-4.9); Lymphocytes Percent Auto 14.1 % (20-40); Mean Corpuscular HGB Conc 31.3 g/dl (31.0-35.0); Mean Corpuscular Hemoglobin 28.6 pg (27.0-33.0); Mean Corpuscular Volume 91.3 fL (80.0-98.0); Mean Platelet Volume 10.7 fL (9.4-12.3); Monocytes Absolute Auto 0.6 X10*3/uL (0.1-1.2); Monocytes Percent Auto 11.5 % (2-11); Neutrophils Absolute Auto 3.4 x10*3/uL (2.0-8.3); Neutrophils Percent Auto 68.5 % (45-73); Platelet Count 153 X10*3/uL (160-400); Red Blood Count 3.92 X10*6/uL (4.20-5.50)
[2022-03-27 09:05] LABS: Albumin Level 4.5 g/dL (3.5-5.0); Anion Gap 18 (12-20); Blood Urea Nitrogen 45 mg/dL (9-16); Calcium 10.3 mg/dL (8.4-10.2); Carbon Dioxide 30 mmol/L (22-29); Chloride 98 mmol/L (96-108); Estimated Glomerular Filt Rate 21; Magnesium 2.4 mg/dL (1.6-2.6); Phosphorus 4.8 mg/dL (2.7-4.5); Potassium 4.8 mmol/L (3.3-5.1); Sodium 141 mmol/L (135-145)
[2022-03-27 09:27] LABS: Appearance Urine HAZY; Color Urine YELLOW; Glucose Urine UA 100 MG/DL (NEG); Leukocyte Esterase Urine 1+ (NEG); Nitrite Urine NEG (NEG); Specific Gravity - Urine 1.015 (1.005-1.025); Urine Blood TRACE (NEG); Urine Ketones NEG (NEG); Urine Protein 1+ MG/DL (NEG-TRACE)
[2022-03-27 09:43] LABS: Creatinine Urine 60.93 mg/dL; Microalbum/Creatinine Ratio Ur 421.7 ug/mg cr; Protein/Creatinine Ratio, Ur 0.66 (<0.2); Total Protein Urine Random 40 mg/dL (<12)
[2022-03-27 09:58] LABS: Squamous Epithelial Cell Urine 1+ /LPF
[2022-03-27 09:59] LABS: Bacteria Urine TRACE /LPF; RBC Urine 0-2 /HPF (0)
[2022-03-29 16:51] LABS: Calcium (PTHI) 10.4 mg/dL (8.6-10.4); PTHI 77 pg/mL (16-77)
== END 2022-03-27 07:03 | disposition home or self-care (01) ==
LOC: HO.LAB 07:02
PROVIDERS: PCP Internal Medicine; Visit Provider Internal Medicine Nephrology
DX: I12.9 Hypertensive chronic kidney disease with stage 1 through stage 4 chronic kidney disease, or unspecified chronic kidney disease (principal); N18.4 Chronic kidney disease, stage 4 (severe); E11.22 Type 2 diabetes mellitus with diabetic chronic kidney disease; N25.0 Renal osteodystrophy; M1A.9XX1 Chronic gout, unspecified, with tophus (tophi)
CPT/HCPCS: 36415; 80051; 81001; 82040; 82043; 82306; 82310; 82565; 83735; 83970; 84100; 84156; 84520; 84550; 85025; 87086

== ENCOUNTER → 2022-05-06 10:04 | Outpatient (BNVA) | payer MEDICARE, SELFPAY | PROVIDERS: PCP Internal Medicine; Visit Provider Internal Medicine Rheumatology | DX: M1A.9XX1 Chronic gout, unspecified, with tophus (tophi) (principal); M19.041 Primary osteoarthritis, right hand; M19.042 Primary osteoarthritis, left hand; N18.4 Chronic kidney disease, stage 4 (severe) | CPT/HCPCS: 99202 ==

== ENCOUNTER 2022-05-15 07:26 | Outpatient (REF) | payer MEDICARE, SELFPAY ==
--- NOTE | ~2022-05-15 | XR_ITS ---
EXAMINATION: XR HAND, RIGHT XR HAND, LEFT CLINICAL INFORMATION: Chronic gout with tophus. COMPARISON: None. TECHNIQUE: AP, oblique, and lateral views of the right and left hand. FINDINGS: Right Hand: Diffuse periarticular erosions throughout the interphalangeal joints as well as at to a lesser degree within the metacarpophalangeal joints. Findings are most severe at the 2nd distal interphalangeal joint where the head of the middle phalanx and distal phalanx are severely attenuated. There is prominent adjacent soft tissue swelling. Additional joint space narrowing with prominent marginal osteophytes and subchondral cystic change at the triscaphe and 1st carpometacarpal joints. No acute fracture or dislocation. Left Hand: Diffuse periarticular erosions with bony remodeling throughout the interphalangeal joints and to a lesser degree at the metacarpophalangeal joints. There is surrounding soft tissue swelling with small soft tissue calcifications adjacent to the 2nd distal interphalangeal joint. Additional severe joint space narrowing with subchondral cystic change and marginal osteophytes at the triscaphe and 1st carpometacarpal joints. No acute fracture or dislocation. XR/XR hand RT min 3V IMPRESSION: RIGHT HAND: Severe arthritis throughout the interphalangeal joints and to a lesser degree at the metacarpophalangeal joints. Prominent associated periarticular erosions, most severe at the 2nd distal interphalangeal joint with prominent soft tissue swelling. Findings are consistent with gout arthritis. LEFT HAND: Severe arthritis throughout the interphalangeal joints as well as to a lesser degree at the metacarpophalangeal joints with prominent periarticular erosions. Findings are consistent with gout arthritis.
--- NOTE | ~2022-05-15 | XR_ITS ---
EXAMINATION: XR HAND, RIGHT XR HAND, LEFT CLINICAL INFORMATION: Chronic gout with tophus. COMPARISON: None. TECHNIQUE: AP, oblique, and lateral views of the right and left hand. FINDINGS: Right Hand: Diffuse periarticular erosions throughout the interphalangeal joints as well as at to a lesser degree within the metacarpophalangeal joints. Findings are most severe at the 2nd distal interphalangeal joint where the head of the middle phalanx and distal phalanx are severely attenuated. There is prominent adjacent soft tissue swelling. Additional joint space narrowing with prominent marginal osteophytes and subchondral cystic change at the triscaphe and 1st carpometacarpal joints. No acute fracture or dislocation. Left Hand: Diffuse periarticular erosions with bony remodeling throughout the interphalangeal joints and to a lesser degree at the metacarpophalangeal joints. There is surrounding soft tissue swelling with small soft tissue calcifications adjacent to the 2nd distal interphalangeal joint. Additional severe joint space narrowing with subchondral cystic change and marginal osteophytes at the triscaphe and 1st carpometacarpal joints. No acute fracture or dislocation. XR/XR hand LT min 3V IMPRESSION: RIGHT HAND: Severe arthritis throughout the interphalangeal joints and to a lesser degree at the metacarpophalangeal joints. Prominent associated periarticular erosions, most severe at the 2nd distal interphalangeal joint with prominent soft tissue swelling. Findings are consistent with gout arthritis. LEFT HAND: Severe arthritis throughout the interphalangeal joints as well as to a lesser degree at the metacarpophalangeal joints with prominent periarticular erosions. Findings are consistent with gout arthritis.
[2022-05-15 08:37] LABS: Estimated Glomerular Filt Rate 23; Uric Acid 7.2 mg/dL (2.4-5.7)
== END 2022-05-15 07:27 | disposition home or self-care (01) ==
LOC: HO.LAB 07:26
PROVIDERS: PCP Internal Medicine; Visit Provider Internal Medicine Rheumatology
DX: M1A.9XX1 Chronic gout, unspecified, with tophus (tophi) (principal); M19.041 Primary osteoarthritis, right hand; M19.042 Primary osteoarthritis, left hand; N18.4 Chronic kidney disease, stage 4 (severe)
CPT/HCPCS: 36415; 73130; 82565; 84550

== ENCOUNTER 2022-06-17 11:10 | Outpatient (REF) | payer MEDICARE, SELFPAY ==
[2022-06-17 13:53] LABS: Estimated Glomerular Filt Rate 22; Uric Acid 4.9 mg/dL (2.4-5.7)
== END 2022-06-17 11:11 | disposition home or self-care (01) ==
LOC: HO.10HDL 11:10
PROVIDERS: Visit Provider Internal Medicine Rheumatology
DX: M1A.9XX1 Chronic gout, unspecified, with tophus (tophi) (principal); N18.4 Chronic kidney disease, stage 4 (severe); Z79.899 Other long term (current) drug therapy
CPT/HCPCS: 36415; 82565; 84550; 99212

== ENCOUNTER → 2022-08-10 15:03 | Outpatient (BNVA) | payer MEDICARE, SELFPAY ==
[2022-08-10 15:43] VITALS: BP 108/60; BP 118/64; BP 124/60; BMI 35.9
== END ==
PROVIDERS: PCP Internal Medicine; Referring Provider Internal Medicine; Visit Provider Internal Medicine
DX: I13.0 Hypertensive heart and chronic kidney disease with heart failure and stage 1 through stage 4 chronic kidney disease, or unspecified chronic kidney disease (principal); I50.32 Chronic diastolic (congestive) heart failure; E11.22 Type 2 diabetes mellitus with diabetic chronic kidney disease; N18.4 Chronic kidney disease, stage 4 (severe); I44.30 Unspecified atrioventricular block; Z95.2 Presence of prosthetic heart valve; Z95.0 Presence of cardiac pacemaker; Z79.4 Long term (current) use of insulin; Z79.82 Long term (current) use of aspirin
CPT/HCPCS: 93005; 99212

== ENCOUNTER 2022-09-13 06:37 | Outpatient (REF) | payer MEDICARE, SELFPAY ==
[2022-08-10 15:43] VITALS: BP 108/60; BP 118/64; BP 124/60; BMI 35.9
[2022-09-13 08:50] LABS: Estimated Glomerular Filt Rate 22; Uric Acid 4.9 mg/dL (2.4-5.7)
== END 2022-09-13 06:38 | disposition home or self-care (01) ==
LOC: HO.LAB 06:37
PROVIDERS: PCP Internal Medicine; Visit Provider Internal Medicine Rheumatology
DX: M1A.9XX1 Chronic gout, unspecified, with tophus (tophi) (principal); N18.4 Chronic kidney disease, stage 4 (severe)
CPT/HCPCS: 36415; 82565; 84550

== ENCOUNTER → 2022-09-22 10:23 | Outpatient (BNVA) | payer MEDICARE, SELFPAY ==
[2022-08-10 15:43] VITALS: BP 108/60; BP 118/64; BP 124/60; BMI 35.9
== END ==
PROVIDERS: PCP Internal Medicine; Visit Provider Internal Medicine Rheumatology
DX: M1A.9XX1 Chronic gout, unspecified, with tophus (tophi) (principal); N18.4 Chronic kidney disease, stage 4 (severe); M81.0 Age-related osteoporosis without current pathological fracture; M19.041 Primary osteoarthritis, right hand; M19.042 Primary osteoarthritis, left hand; M17.0 Bilateral primary osteoarthritis of knee
CPT/HCPCS: 99212

== ENCOUNTER → 2022-10-27 12:46 | Outpatient (REF) | payer MEDICARE, SELFPAY ==
[2022-08-10 15:43] VITALS: BP 108/60; BP 118/64; BP 124/60; BMI 35.9
--- NOTE | 2022-10-27 12:50 | CA_ITS ---
Transthoracic Echocardiogram Patient (Last, First, Middle): Allie Gonzalez M Gender: Female Date of : 1935 Age: 87 Procedure Date: 10/27/2022 Procedure Type: Transthoracic Echocardiogram Location: OP Height: 167.64 cm Weight: 98.88 kg BSA: 2.07 m2 Heart Rate: 75 bpm BP: 150 / 70 mmHg Hr Intern: SHELLIE Referring MD: Lianna Bolaños CNP Cds Sales Advisor: Preston Kothari MD Symptoms: S/P TRANSAORTIV VALVE REPLACEMENT Study Quality: Adequate ECG Rhythm: Arrhythmia Conclusions: - 1. Low normal LV systolic function with LVEF of 50-55%, with pseudonormal filling pattern. 2. Left atrium is moderately dilated. 3. Normally functioning bioprosthetic aortic valve. 4. 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 Normal RVSP Findings Left Ventricle Normal left ventricular cavity size. There is mildly increased left ventricular wall thickness. The left ventricular systolic function is low normal. The visually estimated ejection fraction is between 50-55%. Spectral Doppler is indicative of a pseudonormal filling pattern. Right Ventricle Normal right ventricular cavity size. Atria The left atrium is moderately dilated. Interatrial shunt cannot be excluded. The right atrium is likely dilated. Aortic Valve A bioprosthetic aortic valve is present. The prosthetic aortic valve appears to be functioning normally. The mean gradient is 4 mmHg. Mitral Valve There is moderate anterior and severe posterior mitral leaflet thickening. There is moderate mitral annular calcification. There is mild to moderate mitral valve regurgitation. There is no mitral valve stenosis. Pulmonic Valve The pulmonic valve is likely normal. There is trace to mild pulmonic valve regurgitation. Tricuspid Valve Normal tricuspid valve structure. There is mild tricuspid valve regurgitation. The right ventricular systolic pressure is 32 mmHg. There is no evidence of pulmonary hypertension. Great Vessels All visible segments of the aorta are normal in size. The pulmonary artery was not well visualized. Venous The inferior vena cava is normal in size and collapses greater than 50% with inspiration. Pericardium/Pleural There is no evidence of pericardial effusion. Prior Study Comparison No significant change compared to prior study dated: 11/18/2021. Measurements 2D Linear Measurements IVSd: 1.12 0.6-0.9/0.6-1.0 cm LVIDd: 4.27 3.9-5.3/4.2-5.9 cm LVIDd Index: 2.06 2.4-3.2/2.2-3.1 cm/m2 LVIDs: 3.57 2.0-3.6 cm LVPWd: 1.23 0.7-1.1 cm LA Diam: 4.60 2.7-3.8/3.0-4.0 cm LAIDs Index: 2.22 1.5-2.3 cm/m2 LV Mass: 220.75 67-162/88-224 g LV Mass Index: 106.64 43-95/49-115 g/m2 LVOT Diam: 1.80 3.0+(-)1.3 cm 2D Systolic Function EF 4C: 50.00 >55% EF 2C: 56.00 >55% EF BiP: 52.20 >55% Mitral Valve MV VTI: 0.48 MV Pk Roland: 1.91 MV Mn Roland: 1.19 MV Pk Grad: 15.00 MV Mn Grad: 7.00 MV Pk E: 1.92 MV PK A: 1.53 MV Decel Time: 261.00 E/A: 1.30 E'Lateral: 8.81 E'Medial: 5.77 E/E' Med: 33.30 E/E' Lat: 21.80 PHT: 76.00 MVA PHT: 2.89 MVA Continuity: 1.33 Decel Citrus: 7.37 MR Vol - PW Dopp: 8.70 MR VTI: 1.74 MR ERO: 5.00 MR Alias Roland: 0.47 MR RAD: 0.30 Aortic Valve AoV Pk Roland: 1.42 AoV Mn Roland: 0.94 AoV VTI: 0.30 AoV Pk Grad: 8.00 Aov Mn Grad: 4.00 ARIANA Cont.VTI: 2.16 LVOT LVOT Pk Roland: 1.23 LVOT Mn Roland: 0.84 LVOT VTI: 0.25 LVOT Pk Grad: 6.00 LVOT Mn Grad: 3.00 LVOT Diam: 1.80 LVOT Area: 2.54 Diastolic Function MV Pk E: 1.92 MV Pk A: 1.53 E/A: 1.30 E'Medial: 5.77 E/E' Med: 33.30 E' Laterial: 8.81 E/E' Lat: 21.80 Right Ventricle TAPSE (mm): 22.60 TVS' Roland: 9.55 Tricuspid Valve TR Pk Roland: 2.70 TR Pk Grad: 29.00 RA Press: 3.00 RVSP: 32.00 Great Vessels Aorta Sinus of Valsalva: 2.90 2.0-3.5 cm Ao Asc: 3.00 2.1-3.4 cm Pulmonary Valve PV Pk Roland: 1.00 Peak PV Grad: 4.00 Updated in Other Vendor System with Status of Final Preston Kohtari MD electronically signed on 10/28/2022 12:00:05 PM with status of Final
== END ==
LOC: HO.CARD 12:46
PROVIDERS: PCP Internal Medicine; Visit Provider Nurse Practitioner Acute Care
DX: Z95.4 Presence of other heart-valve replacement (principal)
CPT/HCPCS: 93306

== ENCOUNTER 2022-11-16 09:30 | Outpatient (RCR) | payer MEDICARE, SELFPAY ==
[2022-08-10 15:43] VITALS: BP 108/60; BP 118/64; BP 124/60; BMI 35.9
--- NOTE | 2022-10-11 16:34 | MHC.OT.EP ---
[address] [phone] Occupational Therapy Plan of Care Date of Evaluation: 10/08/22 Diagnosis: Right hand OA, Left hand OA Pain Location: 3-7 right index finger Pain Score: 7 Pain Scale Used: Numeric (0 - 10) Aggravating Factors: Using right hand Alleviating Factors: [place]tar[place] Medication Assessment: Pt is an 87 yo female with a 6 month ho worsening bilateral hand pain due to OA and right index with gout ~1 yr ago. She reports severe difficulty with some daily activities due to pain, weakness and right index finger deformity. Her goal is to have better use of her right hand for using a pen, using eating utensils and brushing her hair. 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 Thank you once again for your referral.
--- NOTE | 2022-11-16 13:15 | MHC.OT.DC ---
[address] [phone] F: [phone] Occupational Therapy Discharge Note Patient Name: Allie Gonzalez Provider: Yaya Cook Diagnosis: Right hand OA, Left hand OA Date of Surgery: Date of Evaluation: 10/08/22 Date of Discharge: Treatments to Date: 6 Cancellations to Date: 3 No Shows to Date: Discharge Status: Achieved Goals Improved Function Independent with HEP Discharge Summary: Bilateral hand pain and hand strength significantly improved R director of planning from 12 lb to 32 lb... L director of planning 35 lb from 25 lb Pt is indep with her HEP , awareness of jt protection and AD for hand OA She continues to avoid right index unstable DIP jt and wrapping for protection with Coban as needed I anticipate continued improvement in strength with her HEP Goals met. Electronically Signed By: Ellen Nicholas OT CHT CLT Reviewed/agree with student documentation: Therapist: Please Sign and return to therapist, thank you for your referral.
== END 2022-11-16 13:16 | disposition home or self-care (01) ==
LOC: HO.OT 09:30
PROVIDERS: PCP Internal Medicine; Visit Provider Internal Medicine Rheumatology
DX: M19.041 Primary osteoarthritis, right hand (principal); M19.042 Primary osteoarthritis, left hand
CPT/HCPCS: 29130; 97110; 97167; 97760

== ENCOUNTER 2022-12-03 06:44 | Outpatient (REF) | payer MEDICARE, SELFPAY ==
[2022-08-10 15:43] VITALS: BP 108/60; BP 118/64; BP 124/60; BMI 35.9
[2022-12-03 07:00] LABS: MANUAL DIFF FLAG NO
[2022-12-03 07:24] LABS: Basophils Percent Auto 0.7 % (0-2); Eosinophils Absolute Auto 0.3 X10*3/uL (0.0-0.4); Eosinophils Percent Auto 5.4 % (0-4); Hematocrit 36.1 % (37.0-47.0); Hemoglobin 11.6 g/dl (12.0-16.0); Imm Gran Abs Auto 0.02 X10*3/uL (0.00-0.03); Imm Gran Pct Auto 0.4 % (0.0-0.4); Lymphocytes Absolute Auto 1.2 X10*3/uL (1.2-4.9); Mean Corpuscular HGB Conc 32.1 g/dl (31.0-35.0); Mean Corpuscular Hemoglobin 30.2 pg (27.0-33.0); Mean Platelet Volume 10.9 fL (9.4-12.3); Monocytes Absolute Auto 0.6 X10*3/uL (0.1-1.2); Monocytes Percent Auto 10.5 % (2-11); Neutrophils Absolute Auto 3.4 x10*3/uL (2.0-8.3); Platelet Count 171 X10*3/uL (160-400); Red Blood Count 3.84 X10*6/uL (4.20-5.50); Red Cell Distribution Width 15.3 % (11.0-16.0); White Blood Count 5.5 X10*3/uL (4.8-10.8)
[2022-12-03 07:58] LABS: B Type Natriuretic Peptide 190 pg/mL (<100)
[2022-12-03 08:17] LABS: Alanine Aminotransferase 16 U/L (0-31); Albumin Level 4.5 g/dL (3.5-5.0); Alkaline Phosphatase 101 U/L (39-117); Anion Gap 15 (12-20); Aspartate Amino Transferase 23 U/L (5-31); Blood Urea Nitrogen 39 mg/dL (9-16); Calcium 9.9 mg/dL (8.4-10.2); Carbon Dioxide 29 mmol/L (22-29); Chloride 101 mmol/L (96-108); Cholesterol 133 mg/dL; Estimated Glomerular Filt Rate 22; Glucose Random 113 mg/dL (60-115); HDL Cholesterol 60 mg/dL; LDL Cholesterol Calculated 57 mg/dl; Sodium 141 mmol/L (135-145); Total Protein 7.1 g/dL (6.5-8.0); Triglycerides 84 mg/dL
[2022-12-03 08:35] LABS: Folate 18.2 ng/mL (> or = 4.0); Free T4 (Free Thyroxine) 0.96 ng/dL (0.71-1.85); Thyroid Stimulating Hormone 1.77 uIU/mL (0.32-4.0); Vitamin B12 1139 pg/mL (200-900); Vitamin D 25-OH Total 52.8 ng/mL (>30)
[2022-12-03 09:36] LABS: Creatinine Urine 78.17 mg/dL; Microalbum/Creatinine Ratio Ur 539.8 ug/mg cr
== END 2022-12-03 06:45 | disposition home or self-care (01) ==
LOC: HO.LAB 06:44
PROVIDERS: Absent Provider Internal Medicine; PCP Internal Medicine; Visit Provider Internal Medicine Rheumatology
DX: I50.32 Chronic diastolic (congestive) heart failure (principal); E78.00 Pure hypercholesterolemia, unspecified; E11.22 Type 2 diabetes mellitus with diabetic chronic kidney disease; E11.65 Type 2 diabetes mellitus with hyperglycemia; N18.4 Chronic kidney disease, stage 4 (severe); M1A.9XX1 Chronic gout, unspecified, with tophus (tophi); Z79.4 Long term (current) use of insulin
CPT/HCPCS: 36415; 80053; 80061; 82043; 82306; 82607; 82746; 83880; 84439; 84443; 84550; 85025

== ENCOUNTER → 2022-12-14 08:30 | Outpatient (BNVA) | payer MEDICARE, SELFPAY ==
[2022-08-10 15:43] VITALS: BP 108/60; BP 118/64; BP 124/60; BMI 35.9
== END ==
PROVIDERS: PCP Internal Medicine; Visit Provider Internal Medicine Rheumatology
DX: M1A.9XX1 Chronic gout, unspecified, with tophus (tophi) (principal); M19.042 Primary osteoarthritis, left hand; M19.041 Primary osteoarthritis, right hand; E11.65 Type 2 diabetes mellitus with hyperglycemia; E11.22 Type 2 diabetes mellitus with diabetic chronic kidney disease; I50.32 Chronic diastolic (congestive) heart failure; I13.0 Hypertensive heart and chronic kidney disease with heart failure and stage 1 through stage 4 chronic kidney disease, or unspecified chronic kidney disease; N18.4 Chronic kidney disease, stage 4 (severe); Z95.0 Presence of cardiac pacemaker; Z95.2 Presence of prosthetic heart valve
CPT/HCPCS: 99212

== ENCOUNTER 2023-01-07 12:59 | Outpatient (REF) | payer MEDICARE, SELFPAY ==
[2022-08-10 15:43] VITALS: BP 108/60; BP 118/64; BP 124/60; BMI 35.9
--- NOTE | ~2023-01-07 | MM_ITS ---
EXAMINATION: BONE DENSITOMETRY CLINICAL INDICATION: Osteoporosis. COMPARISON: None (current study represents initial baseline exam). TECHNIQUE: Using a [employer] DXA System (software version: 13.1) manufactured by [employer], dual-energy x-ray absorptiometry was performed of the lumbar spine and left hip. The images are of good technical quality. Summary results are attached. FINDINGS: AP SPINE L3-L4 (excluding L1 and L2): The data of L1-L4 has been changed to exclude the L1 and L2 vertebral bodies, because degenerative changes at these levels may cause overestimation of lumbar spine density. BMD 1.665 g/cm2, Z-score 4.7, T-score 3.9, normal. LEFT FEMUR, NECK: BMD 0.769 g/cm2, Z-score -0.3, T-score -1.9, osteopenia. LEFT FEMUR, TOTAL: BMD 0.795 g/cm2, Z-score -0.2, T-score -1.7, osteopenia. IDENTIFIED RISK FACTORS: Early menopause, hysterectomy, left oophorectomy, osteoporosis, renal, rheumatoid arthritis, secondary osteoporosis. HISTORY OF FRACTURE: None listed. MEDICATIONS: Multivitamin. MM/XR DEXA axial skeleton IMPRESSION: 1. DIAGNOSIS: Osteopenia based on the lowest T-score value of -1.9 in the femoral neck applying World Health Organization criteria. 2. 10-YEAR FRACTURE RISK PREDICTION, FRAX: Major osteoporotic fracture (clinical spine, forearm, hip or shoulder) 18.3%. Hip fracture 5.9%. 3. Treatment Recommendations: NOF guidelines recommend consideration for treatment in postmenopausal women and men age 50 and older presenting with the following: -A hip or vertebral (clinical or morphometric) fracture. -T-score less than or equal to -2.5 at the femoral neck or spine after appropriate evaluation to exclude secondary causes. -Low bone mass at the hip or spine and a 10-year fracture probability by FRAX of greater than or equal to 3% for hip fracture or greater than or equal to 20% for major osteoporotic fracture based on the [place] adapted WHO algorithm. 4. Other Recommendations: All treatment decisions require clinical judgment and consideration of individual patient factors, including patient preferences, comorbidities, previous drug use, risk factors not captured in the FRAX model (e.g. frailty, falls, vitamin D deficiency, increased bone turnover, interval significant decline in bone density) and possible under or overestimation of fracture risk by FRAX. Additional medical evaluation for secondary cause of low bone mineral density may be appropriate. FUTURE SCAN RECOMMENDATION: People with diagnosed cases of osteoporosis or at high risk for fracture should have regular bone mineral density tests. For patients eligible for Medicare, routine testing is allowed once every 2 years. The testing frequency can be increased to one year for patients who have rapidly progressing disease, those who are receiving or discontinuing medical therapy to restore bone mass, or have additional risk factors.
--- NOTE | ~2023-01-07 | MM_ITS ---
EXAMINATION: MM SCREENING DIGITAL BREAST TOMOSYNTHESIS, BILATERAL CLINICAL INFORMATION: Screening. Asymptomatic. COMPARISON: Mammography: 11/10/2017, 920 05/04/2018, 01/23/2015, 01/11/2014 TECHNIQUE: Digital breast tomosynthesis is performed in both the craniocaudal and mediolateral oblique views along with computer-aided detection (CAD). Synthesized 2D images are generated from the tomosynthesis. FINDINGS: There are scattered areas of fibroglandular density (ACR BI-RADS breast composition Category b). There are no significant masses, abnormal calcifications, or other abnormalities. Breast tissue composition borders on predominantly fatty. Background stromal and fibroglandular densities are similar to prior studies. Again, there are numerous bilateral predominantly ductal secretory calcifications as well as some benign round and vascular calcifications. Low posterior right axillary tail node is similar to 2014. There is no developing density or architectural abnormality. Portion of a pacemaker generator is seen at the posterior margin upper left breast on MLO view. No significant changes. MM/MM tomosynthesis screening BI IMPRESSION: No mammographic evidence of malignancy. ASSESSMENT: BI-RADS 2: Benign RECOMMENDATION: Routine annual mammography screening. This patient's information was entered into a reminder system with a target due date for their next mammogram.
== END 2023-01-07 13:00 | disposition home or self-care (01) ==
LOC: HO.MAMMO 12:59
PROVIDERS: PCP Internal Medicine; Visit Provider Internal Medicine
DX: Z12.31 Encounter for screening mammogram for malignant neoplasm of breast (principal); M81.0 Age-related osteoporosis without current pathological fracture
CPT/HCPCS: 77063; 77067; 77080

== ENCOUNTER 2023-03-07 12:28 | Outpatient (AMB) | payer MEDICARE, SELFPAY ==
[2022-08-10 15:43] VITALS: BP 108/60; BP 118/64; BP 124/60; BMI 35.9
[2023-03-07 12:56] VITALS: BP 124/50; PULSE 69; BMI 37.8
--- NOTE | 2023-03-07 12:56 | MHC.OFFVIS ---
Intake Vital Signs 03/07/23 12:56 Height 5 ft 4 in Weight 220 lb 7.396 oz BMI 37.8 BP 124/50 L Blood Pressure Location Lt brachial Position Sitting Pulse 69 Intake Visit Reasons: 6 mth f/up s/p echo and medtr[employer] Intake Note: 6 month follow up Fourth Officer Required: No Accompanied by: Daughter Allergies Penicillins [PENICILLINS] Allergy (Severe, Verified 03/07/23 12:57) SWELLING codeine [CODEINE] Allergy (Intermediate, Verified 03/07/23 12:57) SWELLING, Hives Medication List - Last Reconciled 03/07/23 by Greg Thomas MD acetaminophen (Tylenol) 325 mg PO QID PRN allopurinol 100 mg PO BID amlodipine 5 mg PO DAILY aspirin (Adult Aspirin Regimen) 81 mg PO DAILY atorvastatin 10 mg PO DAILY blood sugar diagnostic (FreeStyle Lite Strips) 1 strip miscellaneous TID 90 days colchicine 0.3 mg (1/2 x 0.6 mg) PO DAILY 30 days compress.stocking,knee,reg,lrg As directed 20-30 mm HG dapagliflozin propanediol (Farxiga) 5 mg PO DAILY 90 days diclofenac sodium 1% (Arthritis Pain (diclofenac)) 2 grams topical QID PRN dulaglutide (Trulicity) 0.75 mg (0.5 mL) subcut QWEEK fexofenadine 180 mg PO DAILY furosemide 20 mg PO Q12H insulin glargine (Lantus Solostar U-100 Insulin) 5 units (0.05 mL) subcut QPM insulin lispro (Humalog KwikPen (U-100) Insulin) inject 3 units before breakfast, 2 units before lunch, 3 units at dinner or as directed; 30 days lancets (FreeStyle Lancets) 28 gauge topical TID 90 days latanoprost 0.005% 0 drps ophthalmic (eye) meclizine 25 mg PO TID PRN miscellaneous medical supply miscellaneous; 2 pair of toeless, knee high compression stockings peg 400-propylene glycol (PF) 0.4-0.3 % (Systane Hydration (PF)) 1 drp ophthalmic (eye) TID PRN pen needle, diabetic As directed pen needle, diabetic (BD Ultra-Fine Mini Pen Needle) 1 ea subcut QID HPI HPI Comments History of Present Illness Details Allie returns for follow-up regarding various cardiac issues including TAVR, pacemaker, heart failure among others. Overall, she is doing okay. No specific cardiac complaints. [facility] Medical History Aortic stenosis, moderate Cataract Chronic heart failure with preserved ejection fraction CKD (chronic kidney disease) stage 4, GFR 15-29 ml/min DVT (deep venous thrombosis) Heart block atrioventricular Hypercholesterolemia Hypertension Normally functioning cardiac pacemaker present Obesity Thrombosis of right saphenous vein Type 2 diabetes mellitus with hyperglycemia Type 2 diabetes mellitus with unspecified complications URI (upper respiratory infection) Surgical History History of cholecystectomy History of eye surgery History of partial hysterectomy History of permanent cardiac pacemaker placement (~05/06/21) History of right hip replacement History of surgical procedure on eye proper using laser Status post transcatheter aortic valve replacement Family History Father No problems noted. Mother No problems noted. Social History Housing: House Alcohol intake: never Patient Tobacco Use Status: Never used Tobacco e-Cigarette/Vaping Use: Never Used Second Hand Smoke Exposure: Yes service: No Current occupational status: retired Cognitive needs: Yes (walker ) Hearing needs: No Vision needs: Yes Review of Systems Const Denies weakness ENT Denies dizziness Card Denies chest pain, Denies chest pain with activity, Denies syncope, Denies rapid heart rate, Denies pedal edema, Denies edema, Denies leg edema, Denies lightheadedness, Denies palpitations, Denies dyspnea, Denies dyspnea on exertion and Denies orthopnea Resp Denies cough, Denies dyspnea and Denies dyspnea on exertion GI Denies hematochezia and Denies change in stool character Musc Denies abnormal gait, Denies muscle cramps, Denies muscle weakness, Denies numbness, Denies radiating pain into limb and Denies tingling Neuro Denies abnormal gait, Denies dizziness, Denies syncope, Denies numbness, Denies tingling and Denies weakness Endo Denies palpitations Physical Exam Vital Signs: Last Vital Signs Pulse 69 03/07/23 12:56 BP 124/50 L 03/07/23 12:56 BMI result Body Mass Index 37.8 Const General: comfortable and no acute distress Orientation/consciousness: patient oriented x3 HEENT Other: Unremarkable Head: Yes normal to inspection Neck Neck: Yes normal visual inspection Chest Chest palpation & inspection: normal inspection of the chest Resp Auscultation: clear to auscultation bilaterally Cardio Palpation: normal PMI Heart sounds: S1 normal heart sound present, S2 normal heart sound present, no gallops, no murmurs and no rubs GI Palpation (GI): Soft to palpation Back/Spine/Pelvis Other: unremarkable Skin General skin exam: no rashes or lesions noted Neuro General: patient oriented x3 Extrem General: Yes normal to inspection Psych Mental Status: mental status grossly normal Office Procedures Cardiac Device Check Cardiac Device Check Details: Pacemaker interrogated today. Dual-chamber device, programmed in DDD mode. Battery status 10.5 years. Normal lead parameters. Atrial pacing 3%. Ventricular pacing 99.8%. Atrial fibrillation episode for about 30 minutes. Otherwise, nonsustained VT episodes. Overall, normal device function. 24276-LD Cardiac Device Check, pacemaker dual lead Procedure code (CPT) selection complete Assessment & Plan Assessment & Plan (1) Paroxysmal atrial fibrillation: Code(s): I48.0 - Paroxysmal atrial fibrillation Plan: Pacemaker interrogation episode of controlled atrial fibrillation for about 30 minutes. Discussed with patient daughter. We can stop the aspirin. Start Eliquis. (2) Chronic diastolic (congestive) heart failure: Code(s): I50.32 - Chronic diastolic (congestive) heart failure Plan: Continue diuretics. Very stable. (3) Status post transcatheter aortic valve replacement: Code(s): Z95.2 - Presence of prosthetic heart valve Plan: Last echocardiogram with normal prosthetic valve function. Usual infective endocarditis prophylaxis. In the past, nonobstructive disease on cardiac catheterization. (4) Heart block atrioventricular: Code(s): I44.30 - Unspecified atrioventricular block Plan: Status post pacemaker implantation. Office interrogation with normal pacemaker function. (5) Essential hypertension: Code(s): I10 - Essential (primary) hypertension Plan: Continue amlodipine. (6) Type 2 diabetes mellitus with unspecified complications: Code(s): E11.8 - Type 2 diabetes mellitus with unspecified complications Plan: On insulin, Trulicity, Farxiga. Last hemoglobin A1c 6.2%. (7) CKD (chronic kidney disease) stage 4, GFR 15-29 ml/min: Code(s): N18.4 - Chronic kidney disease, stage 4 (severe) Plan: Most recent creatinine is 2.1. Seems to be about the baseline. Plan Discussed with daughter who came for appointment. Medications: New apixaban (Eliquis) 2.5 mg PO BID 90 days 180 tabs 3RF Coding Level of Care Code Est Pt Level 4 (43815) Diagnoses Paroxysmal atrial fibrillation I48.0 Chronic diastolic (congestive) heart failure I50.32 Status post transcatheter aortic valve replacement Z95.2 Heart block atrioventricular I44.30 Essential hypertension I10 Type 2 diabetes mellitus with unspecified complications E11.8 CKD (chronic kidney disease) stage 4, GFR 15-29 ml/min N18.4 CPT Codes Cardiac Device Check - Cardiac Device 2: 28522-OF Cardiac Device Check, pacemaker dual lead ([id number])
== END 2023-03-07 13:24 | disposition home or self-care (01) ==
PROVIDERS: Visit Provider Internal Medicine
DX: I48.0 Paroxysmal atrial fibrillation (principal); I50.32 Chronic diastolic (congestive) heart failure; Z95.2 Presence of prosthetic heart valve; I44.30 Unspecified atrioventricular block; I12.9 Hypertensive chronic kidney disease with stage 1 through stage 4 chronic kidney disease, or unspecified chronic kidney disease; E11.8 Type 2 diabetes mellitus with unspecified complications; N18.4 Chronic kidney disease, stage 4 (severe)
CPT/HCPCS: 93280; 99214

== ENCOUNTER → 2023-03-07 12:28 | Outpatient (BNVA) | payer MEDICARE, SELFPAY ==
[2022-08-10 15:43] VITALS: BP 108/60; BP 118/64; BP 124/60; BMI 35.9
== END ==
PROVIDERS: Visit Provider Internal Medicine
DX: Z45.018 Encounter for adjustment and management of other part of cardiac pacemaker (principal); E11.22 Type 2 diabetes mellitus with diabetic chronic kidney disease; I13.0 Hypertensive heart and chronic kidney disease with heart failure and stage 1 through stage 4 chronic kidney disease, or unspecified chronic kidney disease; N18.4 Chronic kidney disease, stage 4 (severe); I50.32 Chronic diastolic (congestive) heart failure; I48.0 Paroxysmal atrial fibrillation; I44.30 Unspecified atrioventricular block; Z95.2 Presence of prosthetic heart valve
CPT/HCPCS: 93280; 99212

== ENCOUNTER 2023-04-04 09:32 | Outpatient (AMB) | payer MEDICARE, SELFPAY ==
[2022-08-10 15:43] VITALS: BP 108/60; BP 118/64; BP 124/60; BMI 35.9
[2023-04-04 09:39] VITALS: BP 136/70; PULSE 75; O2SAT 96; BMI 38.3
--- NOTE | 2023-04-04 09:39 | MHC.PC.OV ---
Vital Signs 04/04/23 09:39 Height 5 ft 4 in Weight 223 lb BMI 38.3 BP 136/70 Blood Pressure Location Lt brachial Position Sitting Pulse 75 Pulse Source Pulse Oximeter Pulse Oximetry (%) 96 Oxygen Delivery Method Room Air Intake Visit Reasons: DM , s/pAVR Allergies Penicillins [PENICILLINS] Allergy (Severe, Verified 04/04/23 09:39) SWELLING codeine [CODEINE] Allergy (Intermediate, Verified 04/04/23 09:39) SWELLING, Hives Tobacco use date assessed: 12/21/22 Fall risk assessment: No Falls in past year Last assessed Fall Risk: 04/04/23 Dental Screening Dental Screen Date: 04/04/23 Did you have a dental visit in the last 12 months?: Yes Did you have a dental problem in the last 6 months where you did not have access to dental care?: No Was dental information given to patient?: Patient has dentist HPI DM , s/pAVR HPI Details 87-year-old obese female with controlled diabetes mellitus aortic stenosis status post TAVR hypertension, hypercholesterolemia chronic kidney disease gout coming in for follow-up. Last seen in November 2022 blood work was requested. Patient is here for follow-up patient follows up with cardiology last seen in February 2023 pacemaker interrogated controlled atrial fibrillation aspirin. Continue with Eliquis 2.5 mg twice a day. Echocardiogram October 2022Low normal LV systolic function with LVEF of 50-55%, with ? pseudonormal filling pattern.? 2. Left atrium is moderately dilated.? 3. Normally functioning bioprosthetic aortic valve.? 4. 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 5. Normal RVSP ? Been doing fine otherwise review of the notes from rheumatology stops the colchicine and will monitor on gout. Patient's blood sugar has been going down times and discussed on taking out the short-acting insulin for now. Otherwise no other problems ? [facility] Medical History (Updated 04/04/23 @ 09:41 by Roberto Mckinney MD) Aortic stenosis, moderate Cataract Chronic heart failure with preserved ejection fraction CKD (chronic kidney disease) stage 4, GFR 15-29 ml/min DVT (deep venous thrombosis) Heart block atrioventricular Hypercholesterolemia Hypertension Normally functioning cardiac pacemaker present Obesity Thrombosis of right saphenous vein Type 2 diabetes mellitus with hyperglycemia Type 2 diabetes mellitus with unspecified complications URI (upper respiratory infection) Surgical History (Updated 04/04/23 @ 09:43 by Roberto Mckinney MD) History of cholecystectomy History of eye surgery History of partial hysterectomy History of permanent cardiac pacemaker placement (~05/06/21) History of right hip replacement History of surgical procedure on eye proper using laser Status post transcatheter aortic valve replacement Family History Father No problems noted. Mother No problems noted. Social History Housing: House Alcohol intake: never Patient Tobacco Use Status: Never used Tobacco e-Cigarette/Vaping Use: Never Used Second Hand Smoke Exposure: Yes service: No Current occupational status: retired Cognitive needs: Yes (walker ) Hearing needs: No Vision needs: Yes Questionnaire PHQ-9 Over the last 2 weeks, how often have you been bothered by any of the following problems? 1. Little interest or pleasure in doing things: not at all 2. Feeling down, depressed, or hopeless: not at all 3. Trouble falling or staying asleep, or sleeping too much: not at all 4. Feeling tired or having little energy: not at all 5. Poor appetite or overeating: not at all 6. Feeling bad about yourself - or that you are a failure or have let yourself or your family down: not at all 7. Trouble concentrating on things, such as reading the newspaper or watching television: not at all 8. Moving or speaking so slowly that other people could have noticed. Or the opposite - being so fidgety or restless that you have been moving around a lot more than usual: not at all 9. Thoughts that you would be better off or of hurting yourself in some way: not at all Total score: 0 Depression Screening Interpretation: Negative Source: Developed by Drs. Enrrique Avila, Asmita Quigley, Demond Aviles and colleagues, with an educational ruma from [employer]. Thrive Questionnaire Date Thrive assessed: 09/22/22 AUDIT C Alcohol Use Questionnaire (AUDIT-C) 1. How often do you have a drink containing alcohol?: Never 3. How often do you have six or more drinks on one occasion?: Never Total Score: 0 Score Reviewed/Action Taken: No AZAR-7 AMB Questionnaire AZAR-7 Date AZAR - 7 assessed: 09/22/22 Source: Developed by Drs. Enrrique Avila, Asmita Quigley, Demond Aviles and colleagues, with an educational ruma from [employer]. Physical exam (Primary Care) Vital Signs: Last Vital Signs Pulse 75 04/04/23 09:39 BP 136/70 04/04/23 09:39 Pulse Ox 96 04/04/23 09:39 Oxygen Delivery Method Room Air 04/04/23 09:39 BMI result Body Mass Index 38.3 Tobacco/Smoking Status: Tobacco use Status Tobacco use date assessed 12/21/22 04/04/23 09:40 Patient Tobacco Use Status Never used Tobacco 04/04/23 09:40 e-Cigarette/Vaping Use Never Used 04/04/23 09:40 PHQ-9: PHQ-9 Score PHQ-9: Total score 0 04/04/23 09:40 Depression Screening Interpretation: Negative Thrive Assessment: Date of Thrive Assessment Date Thrive assessed 09/22/22 04/04/23 09:40 Const General: alert; No acute distress Eyes Conjunctivae: conjunctivae normal Resp Auscultation: clear to auscultation bilaterally Cardio Rate: regular rate Rhythm: regular rhythm GI Inspection: Yes normal to inspection Extrem General: Yes normal to inspection and No edema Results AMB Hemoglobin A1c AMB Hemoglobin A1c 5.7 % Last Edit by Nani Powell CMA on 04/04/23 10:01 Assessment and Plan Assessment & Plan (1) Type 2 diabetes mellitus with hyperglycemia: Comment: Dr. Cisse 11/2022 Code(s): E11.65 - Type 2 diabetes mellitus with hyperglycemia Qualifiers: Diabetes mellitus buttermaker continuous churn insulin use: with shelter use Qualified Code(s): E11.65 - Type 2 diabetes mellitus with hyperglycemia; Z79.4 - buttermaker (current) use of insulin Plan: Decrease the amount of carbohydrate intake, pasta, bread, rice and potatoes are all sugar and that is aside from all the sweet stuff, remember that fruits are good but they are Sweet also. Hemoglobin A1c goal of less than 7.0 patient is presently on for seek a, Trulicity, Lantus and Humalog sliding scale. AIC is normal- 5.7 advised to stop the humalog (short acting insulin for now) (2) Status post transcatheter aortic valve replacement (TAVR) using bioprosthesis: Comment: September 2021, echocardiogram October 2022 Code(s): Z95.3 - Presence of xenogenic heart valve Plan: Patient is being followed up by Cardiology (3) Heart block atrioventricular: Code(s): I44.30 - Unspecified atrioventricular block Plan: Patient on a pacemaker and interrogation done cardiology (4) Hypertension: Comment: Cardiac catheterization no obstruction July 2015 Code(s): I10 - Essential (primary) hypertension Qualifiers: Hypertension type: essential hypertension Qualified Code(s): I10 - Essential (primary) hypertension Plan: Continue with blood pressure medication. Decrease salt intake and exercise continue with amlodipine 5 mg once a day (5) Obesity: Code(s): E66.9 - Obesity, unspecified Qualifiers: Body mass index: BMI 40.0-44.9 Obesity classification: adult class 3 (BMI >= 40) Obesity type: due to excess calories Serious obesity comorbidity presence: with serious comorbidity Qualified Code(s): E66.01 - Morbid (severe) obesity due to excess calories; Z68.41 - Body mass index [BMI]40.0-44.9, adult Plan: Diet and exercise (6) Osteopenia: Comment: December 2022 Code(s): M85.80 - Other specified disorders of bone density and structure, unspecified site Plan: Discussed about calcium and vitamin-D for the bone density in keeping active (7) Paroxysmal atrial fibrillation: Code(s): I48.0 - Paroxysmal atrial fibrillation Plan: Continue with anticoagulation with Eliquis (8) Hypercholesterolemia: Code(s): E78.00 - Pure hypercholesterolemia, unspecified Plan: Avoid fried foods, chicken skin, eggs, butter margarine, pastries and meat. Be it pork or beef they have a lot of cholesterol patient is on atorvastatin 10 mg once a day LDL last tested in July 2022 Orders: Orders AMB Hemoglobin A1c Today Z13.9 - Encounter for screening, unspecified Medications: Changed From insulin lispro (Humalog KwikPen (U-100) Insulin) inject 3 units before breakfast, 2 units before lunch, 3 units at dinner or as directed; 30 days 15 mL 11RF To insulin lispro (Humalog KwikPen (U-100) Insulin) inject 1 u TID 30 days 15 mL 11RF Discontinued colchicine (gout) Discontinued Reason: Doctor's Order 0.3 mg (1/2 x 0.6 mg) PO DAILY 30 days 30 tabs 3RF M10.9 - Gout, unspecified Coding Level of Care Code Est Pt Level 4 (80507) Diagnoses Type 2 diabetes mellitus with hyperglycemia E11.65; Z79.4 Diabetes mellitus shelter insulin use: with shelter use Status post transcatheter aortic valve replacement (TAVR) using bioprosthesis Z95.3 Heart block atrioventricular I44.30 Hypertension I10 Hypertension type: essential hypertension Obesity E66.01; Z68.41 Body mass index: BMI 40.0-44.9 Obesity classification: adult class 3 (BMI >= 40) Obesity type: due to excess calories Serious obesity comorbidity presence: with serious comorbidity Osteopenia M85.80 Paroxysmal atrial fibrillation I48.0 Hypercholesterolemia E78.00
== END 2023-04-04 10:42 | disposition home or self-care (01) ==
PROVIDERS: Visit Provider Internal Medicine
DX: E11.65 Type 2 diabetes mellitus with hyperglycemia (principal); Z79.4 Long term (current) use of insulin; I44.30 Unspecified atrioventricular block; I10 Essential (primary) hypertension; E66.01 Morbid (severe) obesity due to excess calories; Z68.41 Body mass index [BMI] 40.0-44.9, adult; I48.0 Paroxysmal atrial fibrillation
CPT/HCPCS: 83036; 99214

== ENCOUNTER 2023-05-20 05:56 | Inpatient (IN) | payer MEDICARE, SELFPAY ==
[2022-08-10 15:43] VITALS: BP 108/60; BP 118/64; BP 124/60; BMI 35.9
[2023-05-20] VITALS (7 sets, daily range): BP systolic 139–182; BP diastolic 57–80; PULSE 59–81; RESP 16–20; TEMP 36.2–37.3; O2SAT 90–98; BMI 34.5; BMI 37.2
--- NOTE | 2023-05-20 | ECG_ITS ---
Test Reason : DYSPNEA Blood Pressure : / mmHG Vent. Rate : 060 BPM Atrial Rate : 264 BPM P-R Int : 000 ms QRS Dur : 138 ms QT Int : 520 ms P-R-T Axes : 000 012 -05 degrees QTc Int : 520 ms Ventricular-paced rhythm Abnormal ECG When compared with ECG of 14-JUN-2017 15:31, Electronic ventricular pacemaker has replaced Sinus rhythm Referred By: Generic ED Physician Electronically Signed By:JN MONTES
--- NOTE | ~2023-05-20 | XR_ITS ---
EXAMINATION: XR CHEST CLINICAL INFORMATION: Shortness of breath. COMPARISON: 04/24/2021 TECHNIQUE: Frontal view of the chest was obtained. FINDINGS: Cardiac silhouette is within normal size range for an anteroposterior chest radiograph. Dual-chamber pacemaker in place. Multiple EKG wires overlie the chest. Status post transcatheter aortic valve replacement. Mitral valve annulus is calcified. There is atherosclerotic calcification of the aorta. The central pulmonary vessels are prominent. There appears to be pulmonary vascular congestion but no overt edema or pleural effusion. The perihilar regions of the lungs are somewhat difficult to evaluate on this anteroposterior chest radiograph. The visualized bones are intact. There are osteophytes at mildly degenerated glenohumeral joints. XR/XR chest 1V IMPRESSION: * Dual-chamber pacemaker in place. No fractured or abandoned leads. * Pulmonary vascular congestion without overt edema. * Prior transcatheter aortic valve replacement.
--- NOTE | 2023-05-20 07:19 | PC.NURSE ---
placed on 2L nasal cannula at 93%
[2023-05-20 07:34] LABS: MANUAL DIFF FLAG NO
[2023-05-20 07:35] LABS: Basophils Percent Auto 0.3 % (0-2); Eosinophils Absolute Auto 0.2 X10*3/uL (0.0-0.4); Eosinophils Percent Auto 1.7 % (0-4); Hematocrit 34.6 % (37.0-47.0); Hemoglobin 11.1 g/dl (12.0-16.0); Imm Gran Abs Auto 0.03 X10*3/uL (0.00-0.03); Imm Gran Pct Auto 0.3 % (0.0-0.4); Lymphocytes Absolute Auto 0.5 X10*3/uL (1.2-4.9); Lymphocytes Percent Auto 5.6 % (20-40); Mean Corpuscular HGB Conc 32.1 g/dl (31.0-35.0); Mean Corpuscular Hemoglobin 30.2 pg (27.0-33.0); Mean Corpuscular Volume 94.3 fL (80.0-98.0); Mean Platelet Volume 10.5 fL (9.4-12.3); Monocytes Absolute Auto 0.5 X10*3/uL (0.1-1.2); Monocytes Percent Auto 5.5 % (2-11); Neutrophils Absolute Auto 7.5 x10*3/uL (2.0-8.3); Neutrophils Percent Auto 86.6 % (45-73); Platelet Count 170 X10*3/uL (160-400); Red Blood Count 3.67 X10*6/uL (4.20-5.50); Red Cell Distribution Width 15.1 % (11.0-16.0); White Blood Count 8.7 X10*3/uL (4.8-10.8)
--- NOTE | 2023-05-20 07:40 | PC.NURSE ---
placed on roll weigher with paced rhythm. changed over into hospital attire, found to be 89-91% on room air, placed on 2L at 94%. labs and covid obtained. resting comfortably in room. call chicas within reach, daughter at bedside.
[2023-05-20 07:50] LABS: Alanine Aminotransferase 24 U/L (0-31); Albumin Level 4.3 g/dL (3.5-5.0); Alkaline Phosphatase 91 U/L (39-117); Anion Gap 15 (12-20); Aspartate Amino Transferase 23 U/L (5-31); Bilirubin Total 0.8 mg/dL (0.0-1.0); Blood Urea Nitrogen 43 mg/dL (9-16); Calcium 9.9 mg/dL (8.4-10.2); Carbon Dioxide 23 mmol/L (22-29); Chloride 107 mmol/L (96-108); Creatinine Clr Calc Pharmacy 22.5; Estimated Glomerular Filt Rate 21; Glucose Random 150 mg/dL (60-115); Potassium 4.4 mmol/L (3.3-5.1); Sodium 141 mmol/L (135-145); Total Protein 7.4 g/dL (6.5-8.0)
[2023-05-20 07:55] LABS: B Type Natriuretic Peptide 812 pg/mL (<100); Troponin-I High Sensitivity 38.5 ng/L (<3.5-17.0)
[2023-05-20 08:07] LABS: COVID-19 Test Negative (Negative); IDNOW Serial# BCCEAD1C
--- NOTE | 2023-05-20 10:24 | ED.SOB ---
HPI - SOB/Dyspnea General Chief Complaint: Dyspnea Stated Complaint: SoB Time Seen by Provider: 05/20/23 10:23 Source: patient and RN notes reviewed Mode of arrival: ambulatory Limitations: no limitations History of Present Illness HPI Narrative: This is a 87-year-old female, with a past medical history of aortic stenosis, CHF with preserved ejection fraction, chronic kidney disease stage 4, DVT, atrioventricular heart block, hypercholesterolemia, hypertension, type 2 diabetes, who presents to the emergency department with complaints of shortness of breath for the last several days. She states that she has specially notices this when she is laying down. She reports that yesterday she noticed a cough with clear colored sputum. She denies any fevers, chills, chest pain, headaches, dizziness, abdominal pain, nausea, vomiting or diarrhea. She is not typically on oxygen. No other complaints or concerns at this time. MD elicited complaint: shortness of breath and cough Pertinent past history: congestive heart failure and diabetes Onset (ago): day(s) Timing: constant Severity: moderate Exacerbating factors: lying flat and exertion Relieving factors: oxygen Known history of: congestive heart failure and diabetes Associated symptoms: cough and orthopnea Related Data Home oxygen amount: none Home Medications Medication Instructions Recorded Confirmed acetaminophen 325 mg tablet 325 mg PO QID PRN 07/15/20 03/07/23 (Tylenol) fexofenadine 180 mg tablet 180 mg PO DAILY 07/15/20 03/07/23 latanoprost 0.005 % eye drops 0 drp ophthalmic (eye) 07/14/21 03/07/23 meclizine 25 mg tablet 25 mg PO TID PRN 05/06/22 03/07/23 peg 400 0.4 %-propylene glycol 1 drp ophthalmic (eye) TID PRN 05/06/22 03/07/23 (PF) 0.3 % eye drops (Systane Hydration (PF)) Previous Rx's Medication Instructions Recorded pen needle, diabetic 31 gauge x #1,200 ea 10/14/2001/11 compress.stocking,knee,reg,lrg #12 ea 06/08/21 diclofenac sodium 1 % topical gel 2 g topical QID PRN pain #100 grams 01/05/22 (Arthritis Pain (diclofenac)) miscellaneous medical supply See Rx Instructions miscellaneous 07/02/22 .COMPLEX 20-30 mm HG #2 ea pen needle, diabetic 31 gauge x 1 ea subcut QID #400 ea 08/05/22 3/16 (BD Ultra-Fine Mini Pen Needle) amlodipine 5 mg tablet 5 mg PO DAILY #90 tabs 09/02/22 allopurinol 100 mg tablet 100 mg PO BID #180 tabs 09/22/22 insulin glargine 100 unit/mL (3 5 unit (0.05 mL) subcut QPM #15 mL 09/30/22 mL) subcutaneous pen (Lantus Solostar U-100 Insulin) dapagliflozin propanediol 5 mg 5 mg PO DAILY 90 days #90 tabs 10/30/22 tablet (Farxiga) blood sugar diagnostic (FreeStyle 1 strip miscellaneous TID 90 days 12/14/22 Lite Strips) #300 strips lancets 28 gauge (FreeStyle 28 gauge topical TID for diabetes 12/14/22 Lancets) mellitus 90 days #300 caps dulaglutide 0.75 mg/0.5 mL 0.75 mg (0.5 mL) subcut QWEEK #6 mL 01/09/23 subcutaneous pen injector (Trulicity) atorvastatin 10 mg tablet 10 mg PO DAILY #90 tabs 01/25/23 apixaban 2.5 mg tablet (Eliquis) 2.5 mg PO BID 90 days #180 tabs 03/07/23 insulin lispro 100 unit/mL See Rx Instructions .Route 04/04/23 subcutaneous pen (Humalog KwikPen .COMPLEX 30 days #15 mL (U-100) Insulin) furosemide 20 mg tablet 20 mg PO DIRECTED #630 tabs 05/16/23 Allergies Allergy/AdvReac Type Severity Reaction Status Date / Time Penicillins [PENICILLINS] Allergy Severe SWELLING Verified 04/04/23 09:39 codeine [CODEINE] Allergy Intermediate SWELLING, Verified 04/04/23 09:39 Hives Review of Systems Review of Systems: Yes all other systems are reviewed and are negative Constitutional: Constitutional: Reports as per [facility] Past Medical History Attestation statement: The following information was validated with the patient. Medical History (Updated 05/20/23 @ 11:37 by SHANA Stout) Type 2 diabetes mellitus with unspecified complications Normally functioning cardiac pacemaker present URI (upper respiratory infection) Heart block atrioventricular Chronic heart failure with preserved ejection fraction Thrombosis of right saphenous vein Hypercholesterolemia Cataract Hypertension Obesity Aortic stenosis, moderate CKD (chronic kidney disease) stage 4, GFR 15-29 ml/min DVT (deep venous thrombosis) Type 2 diabetes mellitus with hyperglycemia Surgical History (Updated 04/04/23 @ 09:43 by Roberto Mckinney MD) Status post transcatheter aortic valve replacement History of permanent cardiac pacemaker placement (~05/06/21) History of eye surgery History of surgical procedure on eye proper using laser History of right hip replacement History of partial hysterectomy History of cholecystectomy Family History Family History Father No problems noted. Mother No problems noted. Social History Social History Housing: House Alcohol intake: never Patient Tobacco Use Status: Never used Tobacco e-Cigarette/Vaping Use: Never Used Second Hand Smoke Exposure: Yes Advance Directives: Yes Advance Directives Information Provided: Yes Advance Directives on File: No service: No Current occupational status: retired Cognitive needs: Yes (walker ) Hearing needs: No Vision needs: Yes Physical Exam Vital Signs: Vital Signs: Last Vital Signs Temp 98.2 F 05/20/23 11:34 Pulse 66 05/20/23 11:34 Resp 20 05/20/23 11:34 BP 139/59 L 05/20/23 11:34 Pulse Ox 96 05/20/23 11:34 O2 Del Method Nasal Cannula 05/20/23 11:34 O2 Flow Rate 2 05/20/23 11:34 BMI result Body Mass Index 34.5 Const: Other: 2-3 words per sentences given dyspnea. General: cooperative, comfortable and no acute distress Orientation/consciousness: patient oriented x3 Limitations: no limitations HEENT: Head: Yes normal to inspection, Yes normocephalic and Yes atraumatic Ears: hearing grossly normal bilaterally General nose exam: Normal external nose present Face and sinus: Yes normal facial exam Mouth: Normal oral and palatal mucosa present, oropharynx normal and moist mucous membranes Throat: Yes posterior oropharynx normal Eyes: General: appearance normal, both eyes and all related structures Eyelids: Yes eyelids normal Conjunctivae: conjunctivae normal Sclerae: sclerae normal Pupils: Equal, round and reactive pupils present EOM: EOMs intact bilaterally Neck: Neck: Yes normal visual inspection, Yes full ROM and Yes no lymphadenopathy Lymphatic: no lymphadenopathy noted Chest: Chest palpation & inspection: normal inspection of the chest Resp: Other: faint crackles heard throughout all lung obrien, worse at the bilateral lower obrien. Effort & Inspection: normal respiratory effort and able to speak in complete sentences Auscultation: clear to auscultation bilaterally, no crackles, no rales, no rhonchi and no wheezes Cardio: Rate: regular rate Rhythm: regular rhythm Heart sounds: S1 normal heart sound present and S2 normal heart sound present GI: Inspection: Yes normal to inspection Skin: General skin exam: no rashes or lesions noted Trauma: no lacerations or abrasions Wounds: no wounds Neuro: General: patient oriented x3 and moves all extremities Cranial nerves: Yes Equal, round and reactive pupils present Extrem: Other: no pitting edema noted. No calf tenderness General: Yes normal to inspection Right upper extremity: normal to inspection Left upper extremity: normal to inspection Right lower extremity: normal to inspection Left lower extremity: normal to inspection Course Reevaluation(s) Reevaluation #1: BNP elevated at 812, troponin 38.5, creatinine 2.21 which is around her baseline. Patient appears to be in acute on chronic CHF. Chest x-ray does not show any consolidations to suggest pneumonia however does reveal pulmonary congestion, consistent with CHF. Patient will be medicated with Lasix 60 mg IV push. Discussed case with Dr. Govea, who agrees with this treatment plan and well talk to hospitalist for further treatment and evaluation and transfer of care. Time: 11:28 Reevaluation #2: Spoke to daughterBree, daughter [phone]. spoke about current status and plans to admit, no current questions at this time. Time: 12:20 Medications Administered Discontinued Medications Generic Name Dose Route Start Last Admin Trade Name Freq PRN Reason Stop Dose Admin Furosemide 60 mg 05/20/23 11:27 05/20/23 11:59 Furosemide 100 Mg/10 Ml Vial IVPUSH 05/20/23 11:28 60 mg ONCE ONE Administration Protocol Medical Decision Making Medical Decision Making MDM Narrative: This is a 87-year-old female, with a hx of aortic stenosis, CHF with preserved ejection fraction, chronic kidney disease stage 4, DVT, atrioventricular heart block, hypercholesterolemia, hypertension, type 2 diabetes, presenting to the emergency department for evaluation of shortness of breath. on arrival, patient oxygen saturation 91% on room air. Patient is not typically on oxygen at home. differential diagnoses include CHF exacerbation, pneumonia, ACS. Will obtain labs, EKG, chest x-ray, viral swabs. Will continue to stay on oxygen until further workup is performed. Differential Diagnosis Differential Diagnoses: The differential diagnosis associated with the presentation includes CHF exacerbation, ACS, pneumonia Admission/Observation Consideration of admission/observation: Escalation of care including admission/observation considered patient needs to be admitted for further management of acute on chronic CHF. Consult Healthcare Provider Management of the patient was discussed with: Hospitalist Lab Data MDM Lab Attestation statement: I reviewed the patient's lab results. No leukocytosis, normocytic anemia, at her baseline, creatinine 2.21, which is around her baseline, BNP 812 which is 8 times her normal level. Troponin elevated at 38.5. Likely demand ischemia. Second troponin is ordered 05/20/23 07:29 05/20/23 07:29 Labs: Lab Results 05/20/23 05/20/23 Range/Units 07:29 11:44 WBC 8.7 (4.8-10.8) X10*3/uL RBC 3.67 L (4.20-5.50) X10*6/uL Hgb 11.1 L (12.0-16.0) g/dl Hct 34.6 L (37.0-47.0) % MCV 94.3 (80.0-98.0) fL MCH 30.2 (27.0-33.0) pg MCHC 32.1 (31.0-35.0) g/dl RDW 15.1 (11.0-16.0) % Plt Count 170 (160-400) X10*3/uL MPV 10.5 (9.4-12.3) fL Immature Gran % (Auto) 0.3 (0.0-0.4) % Neut % (Auto) 86.6 H (45-73) % Lymph % (Auto) 5.6 L (20-40) % [place] % (Auto) 5.5 (2-11) % Eos % (Auto) 1.7 (0-4) % Baso % (Auto) 0.3 (0-2) % Lymph # (Auto) 0.5 L (1.2-4.9) X10*3/uL [place] # (Auto) 0.5 (0.1-1.2) X10*3/uL Eos # (Auto) 0.2 (0.0-0.4) X10*3/uL Baso # (Auto) 0.0 (0.0-0.2) X10*3/uL Abs Immat Gran (auto) 0.03 (0.00-0.03) X10*3/uL Absolute Neuts (auto) 7.5 (2.0-8.3) x10*3/uL Absolute Nucleated RBC 0.000 (0.0-0.012) X10*3/uL Nucleated RBC % (auto) 0.0 (0.0-0.2) /100WBC Sodium 141 (135-145) mmol/L Potassium 4.4 (3.3-5.1) mmol/L Chloride 107 (96-108) mmol/L Carbon Dioxide 23 (22-29) mmol/L Anion Gap 15 (12-20) BUN 43 H (9-16) mg/dL Creatinine 2.21 H (0.5-1.4) mg/dL Estim Creat Clear Calc 22.5 Estimated GFR 21 Random Glucose 150 H (60-115) mg/dL Calcium 9.9 (8.4-10.2) mg/dL Total Bilirubin 0.8 (0.0-1.0) mg/dL AST 23 (5-31) U/L ALT 24 (0-31) U/L Alkaline Phosphatase 91 (39-117) U/L Troponin I High Sens 38.5 H 44.3 H (<3.5-17.0) ng/L B-Natriuretic Peptide 812 H (<100) pg/mL Total Protein 7.4 (6.5-8.0) g/dL Albumin 4.3 (3.5-5.0) g/dL COVID-19 ([facility]) Negative (Negative) COVID-19 Clin Com See Note Independent Interpretation I performed an independent interpretation of an: EKG Interpretation: ventricular paced rhythm at a rate of 60 beats per minute, QRS 138. Radiology Impression Discussion of test interpretation with radiology: I have reviewed the radiologist's reading. Radiologist Impression: TECHNIQUE: Frontal view of the chest was obtained. FINDINGS: Cardiac silhouette is within normal size range for an anteroposterior chest radiograph. Dual-chamber pacemaker in place. Multiple EKG wires overlie the chest. Status post transcatheter aortic valve replacement. Mitral valve annulus is calcified. There is atherosclerotic calcification of the aorta. The central pulmonary vessels are prominent. There appears to be pulmonary vascular congestion but no overt edema or pleural effusion. The perihilar regions of the lungs are somewhat difficult to evaluate on this anteroposterior chest radiograph. The visualized bones are intact. There are osteophytes at mildly degenerated glenohumeral joints. XR/XR chest 1V IMPRESSION: * Dual-chamber pacemaker in place. No fractured or abandoned leads. * Pulmonary vascular congestion without overt edema. * Prior transcatheter aortic valve replacement. Dictated By: Ryder Benitez MD Discharge Plan Discharge Clinical Impression: CHF (congestive heart failure) Qualifiers: Heart failure type: unspecified Heart failure chronicity: acute on chronic Qualified Code(s): I50.9 - Heart failure, unspecified Prescriptions: No Action diclofenac sodium [Arthritis Pain (diclofenac)] 1 % gel 2 g topical QID PRN (Reason: pain) Qty: 100 0RF Rx Instructions: apply to single elbow, wrist or hand; for hand includes palm/fingers/back of hand pen needle, diabetic [BD Ultra-Fine Mini Pen Needle] 31 gauge x 3/16 needle 1 ea subcut QID Qty: 400 3RF amlodipine 5 mg tablet 5 mg PO DAILY Qty: 90 3RF Lantus Solostar U-100 Insulin 100 unit/mL (3 mL) insulin pen 5 unit subcut QPM Qty: 15 3RF Farxiga 5 mg tablet 5 mg PO DAILY 90 Days Qty: 90 2RF lancets [FreeStyle Lancets] 28 gauge misc 28 gauge topical TID 90 Days Qty: 300 6RF FreeStyle Lite Strips Strip 1 strip miscellaneous TID 90 Days Qty: 300 3RF Trulicity 0.75 mg/0.5 mL pen injector 0.75 mg subcut QWEEK Qty: 6 5RF atorvastatin 10 mg tablet 10 mg PO DAILY Qty: 90 3RF furosemide 20 mg tablet 20 mg PO DIRECTED Qty: 630 2RF Rx Instructions: Take 4 tabs (80mg) in the AM and 3 tabs (60mg) in the afternoon daily acetaminophen [Tylenol] 325 mg tablet 325 mg PO QID PRN fexofenadine 180 mg tablet 180 mg PO DAILY meclizine 25 mg tablet 25 mg PO TID PRN (DME) pen needle, diabetic 31 gauge x 5/16 needle See Rx Instructions .ROUTE .MEDSUPPLY Qty: 1200 3RF Rx Instructions: As directed (DME) compress.stocking,knee,reg,lrg Misc See Rx Instructions .Route Qty: 12 0RF Rx Instructions: As directed 20-30 mm HG insulin lispro [Humalog KwikPen Insulin] 100 unit/mL insulin pen See Rx Instructions .ROUTE .COMPLEX 30 Days Qty: 15 11RF Rx Instructions: inject 1 u TID miscellaneous medical supply Misc See Rx Instructions miscellaneous .COMPLEX Qty: 2 0RF Rx Instructions: miscellaneous; 2 pair of toeless, knee high compression stockings latanoprost 0.005 % drops 0 drp ophthalmic (eye) allopurinol 100 mg tablet 100 mg PO BID Qty: 180 5RF Eliquis 2.5 mg tablet 2.5 mg PO BID 90 Days Qty: 180 3RF Systane Hydration (PF) 0.4-0.3 % drops 1 drp ophthalmic (eye) TID PRN
[2023-05-20] MEDS: Furosemide 100 MG/10 ML VIAL 60 MG IVPUSH (11:59)
[2023-05-20 12:10] LABS: Troponin-I High Sensitivity 44.3 ng/L (<3.5-17.0)
--- NOTE | 2023-05-20 12:28 | PC.NURSE ---
ambulates to bathroom using walker. pt output <100 mL. reporting shortness of breath upon ambulating with oxygen however better with oxygen than past few days. iv established, medicated per the OCT.
--- NOTE | 2023-05-20 13:17 | P.HPHOSP_ITS ---
History of Present Illness Date of Service: 05/20/23 Attending physician on admission: Imelda Coles Chief Complaint: SOB Pt is an 87-year-old female with a PMH significant for?HFpEF with EF 50-55%, rheumatic fever, peripheral vascular disease, aortic stenosis s/p TAVR in September 2021, CAD, CKD 4, HTN, HLD, insulin-dependent diabetes type 2, pacemaker placed in 2020, and paroxysmal AFib on Eliquis who presents to the ED with?worsening shortness of breath the past few days. Patient says she began noticing increasing SOB with exertion 3-4 days ago that progressively worsened. Last night the patient could barely sleep because she kept waking up because she could not breathe. Has also experienced a mostly nonproductive cough. Patient is normally active and walks with assistance of a walker. Patient otherwise denies any acute medical complaints: No chest pain/pressure, palpitations. Denies fever, chills, nausea, vomiting, diarrhea. No abdominal pain. Patient states she has been eating and drinking normally, follows a low-salt diet. Has been compliant with her medications. Denies smoking or illicit substance use, occasional alcohol consumption. In the ED patient was afebrile but hypertensive up to 160/58, satting as low as 90% on RA. Labs were significant for stable normocytic anemia of 11.1/34.6, BUN 43, creatinine 2.21(from baseline), troponin 30 he 0.5 with repeat flat at 44.3, BNP elevated at 812. CXR showed pulmonary vascular congestion without overt edema. EKG demonstrated ventricular paced rhythm without evidence of ST elevattions or depressions. Pt was treated with furosemide 60 mg IV. Pt will be admitted to the hospital for treatment and further evaluation of acute HFpEF exacerbation. Review of Systems 2 Review of Systems: Worsening shortness of breath, dyspnea with exertion Orthopnea Fatigue Denies chest pain/pressure, palpitations No fever, chills, nausea, vomiting, diarrhea, abdominal pain Yes all other systems are reviewed and are negative [facility] Medical History Type 2 diabetes mellitus with unspecified complications Normally functioning cardiac pacemaker present URI (upper respiratory infection) Heart block atrioventricular Chronic heart failure with preserved ejection fraction Thrombosis of right saphenous vein Hypercholesterolemia Cataract Hypertension Obesity Aortic stenosis, moderate CKD (chronic kidney disease) stage 4, GFR 15-29 ml/min DVT (deep venous thrombosis) Type 2 diabetes mellitus with hyperglycemia Family History Father No problems noted. Mother No problems noted. Surgical History Status post transcatheter aortic valve replacement History of permanent cardiac pacemaker placement (~05/06/21) History of eye surgery History of surgical procedure on eye proper using laser History of right hip replacement History of partial hysterectomy History of cholecystectomy Social History Household Members: Family Housing: House Alcohol intake: never Patient Tobacco Use Status: Never used Tobacco e-Cigarette/Vaping Use: Never Used Second Hand Smoke Exposure: Yes Use of substances other than those prescribed or required for medical reasons: No Currently Displaying Signs/Symptoms of Drug Intoxication Withdrawal: No Have you been hit, kicked, punched, or otherwise hurt by someone within the past year? If so, by whom?: No Do you feel safe in your current relationship?: No Current Relationship Is there a partner from a previous relationship who is making you feel unsafe now?: No Are you made to feel afraid or neglected: No Advance Directives: Yes Advance Directives Information Provided: Yes Advance Directives on File: No Advance Directives Date on File: 05/20/23 Do you have thoughts of harming others: None Do you have a plan to hurt others: No Plan Recently lost weight without trying: No Nutrition Risks: No Nutritional Risk Patient : No : No Poor oral hygiene: No service: No Current occupational status: retired Cognitive needs: Yes (walker ) Hearing needs: No Vision needs: Yes Meds Allergies Allergy/AdvReac Type Severity Reaction Status Date / Time Penicillins [PENICILLINS] Allergy Severe SWELLING Verified 04/04/23 09:39 codeine [CODEINE] Allergy Intermediate SWELLING, Verified 04/04/23 09:39 Hives Home Medications Medication Instructions Recorded Confirmed Last Taken Type acetaminophen 325 mg tablet 325 mg PO QID PRN Pain 07/15/20 05/20/23 Unknown History (Tylenol) latanoprost 0.005 % eye drops 1 drp ophthalmic (eye) BEDTIME 07/14/21 05/20/2305/19/23 History calcium carbonate 600 mg-vitamin 1 tab PO DAILY 05/20/23 05/20/23 05/19/23 History D3 10 mcg (400 unit) tablet (Calcium 600 + D(3)) diclofenac sodium 1 % topical gel 2 g topical QD-BID PRN Pain 05/20/23 05/20/23 Unknown History fexofenadine 180 mg tablet 180 mg PO DAILY 05/20/23 05/20/23 05/19/23 History furosemide 20 mg tablet 60 mg PO BEDTIME 05/20/23 05/20/23 05/19/23 History furosemide 20 mg tablet 80 mg PO DAILY 05/20/23 05/20/23 05/19/23 History insulin glargine 100 unit/mL (3 5 unit subcut BEDTIME 05/20/23 05/20/23 05/19/23 History mL) subcutaneous pen (Lantus Solostar U-100 Insulin) multivitamin 1 tab PO DAILY 05/20/23 05/20/23 05/19/23 History propylene glycol 0.6 % eye drops 1 drp ophthalmic (eye) TID PRN Dry 05/20/23 05/20/23 Unknown History (Systane Complete) Eyes Physical Exam 2 Vital Signs and Narrative: Vital Signs: Last Vital Signs Temp 98.2 F 05/20/23 11:34 Pulse 66 05/20/23 11:34 Resp 20 05/20/23 11:34 BP 139/59 L 05/20/23 11:34 Pulse Ox 96 05/20/23 11:34 O2 Del Method Nasal Cannula 05/20/23 11:34 O2 Flow Rate 2 05/20/23 11:34 BMI result Body Mass Index 34.5 Constitutional: Alert, in no acute distress. Mental Status: Oriented to person, place and time. Eyes: Pupils are equal, round, and reactive to light. Ear, Nose, and Throat: Oropharynx clear, mucous membranes moist. Ears and nose without deformities. Trachea midline. Respiratory: Clear to auscultation bilaterally. No wheezing, rales, or rhonchi. Cardiovascular: S1, S2 regular. No murmurs, rubs, or gallops. Gastrointestinal: Abdomen soft, non-tender, non-distended. Normal bowel sounds. Neurologic: Cranial nerves II-XII are grossly intact bilaterally. No focal neurological deficits. Moves all extremities spontaneously. Skin: No rashes or lesions noted. Musculoskeletal: No cyanosis or clubbing. Extremities: 1+ bilateral pitting lower leg edema. Psychiatric: Normal mood and affect. Results Labs 05/21/23 06:55 05/21/23 06:55 Labs: Laboratory Results - last 24 hr 05/20/23 07:29 MCV 94.3 MCH 30.2 MCHC 32.1 RDW 15.1 Plt Count 170 MPV 10.5 Immature Gran % (Auto) 0.3 Neut % (Auto) 86.6 H Lymph % (Auto) 5.6 L [place] % (Auto) 5.5 Eos % (Auto) 1.7 Baso % (Auto) 0.3 Lymph # (Auto) 0.5 L [place] # (Auto) 0.5 Eos # (Auto) 0.2 Baso # (Auto) 0.0 Abs Immat Gran (auto) 0.03 Absolute Neuts (auto) 7.5 Absolute Nucleated RBC 0.000 Nucleated RBC % (auto) 0.0 Anion Gap 15 Estim Creat Clear Calc 22.5 Estimated GFR 21 Random Glucose 150 H Calcium 9.9 Total Bilirubin 0.8 AST 23 ALT 24 Alkaline Phosphatase 91 B-Natriuretic Peptide 812 H Total Protein 7.4 Albumin 4.3 COVID-19 ([facility]) Negative COVID-19 Clin Com See Note Imaging Radiologist's Impressions: Impressions Chest X-Ray 05/20/23 10:10 IMPRESSION: * Dual-chamber pacemaker in place. No fractured or abandoned leads. * Pulmonary vascular congestion without overt edema. * Prior transcatheter aortic valve replacement. Assessment and Plan (1) CHF (congestive heart failure): Qualifiers: Heart failure chronicity: acute on chronic Heart failure type: d iastolic Qualified Code(s): I50.33 - Acute on chronic diastolic (congestive) heart failure Status: Acute Plan Pt is an 87-year-old female with a PMH significant for?HFpEF with EF 50-55%, rheumatic fever, peripheral vascular disease, aortic stenosis s/p TAVR in September 2021, CAD, CKD 4, HTN, HLD, insulin-dependent diabetes type 2, pacemaker placed in 2020, and paroxysmal AFib on Eliquis who presents to the ED with?worsening shortness of breath the past few days. Acute on chronic HFpEF exacerbation Unclear etiology: Patient follows low-salt diet, says compliant with home medications, though has significant cardiac history Has been experiencing increasing SOB, bilateral pitting edema, elevated BNP, CXR showing pulmonary vascular congestion, hypoxia Furosemide 40 mg IV b.i.d. Follow lytes, MG, I/O Daily weights, low-salt diet Titrate supplemental O2 >92, wean as necessary Monitor on telemetry Paroxysmal AFib Continue Eliquis Insulin-dependent diabetes type 2 Sliding-scale insulin, Lantus Diabetic diet Gout Continue allopurinol HTN Continue amlodipine HLD Continue statin Full Code Attending:?Dr. Coles DVT Prophylaxis: On Eliquid Pt will require a hospitalization of at least two nights for treatment of?acute at CHF exacerbation with IV diuretics and close monitoring. Time Spent With Patient Time: Total time managing care of this patient today ____ minutes. Quality Stroke Does the patient have a stroke diagnosis?: No VTE Prior VTE?: No VTE Risk Level:: Medical - moderate - high VTE Device Contraindication: Treatment Not Indicated VTE Drug Contraindication: N/A - Med Ordered
--- NOTE | 2023-05-20 14:28 | PHA.MEDREC ---
Pharmacy Consult ? Medication Reconciliation Pharmacy has completed the medication reconciliation. Spoke to patient's daughter Bree to verified medication list. For furosemide 20mg, patient is taking 80mg in the morning and 60mg in the evening.
--- NOTE | 2023-05-20 15:10 | MHC.CM.PN ---
Met with pt to review d/c planning needs: Pt resides w/dtr and son in law who assist pt with any needs she may have including transportation. Pt uses a wheeled walker but has no service needs at this time. Pt states she will follow up with outpt services upon d/c. HCP copy requested from home, PCP Dr. Mckinney. D/C Plan: Home: no services anticipated: family to transport
[2023-05-20 16:45] LABS: Glucose, Whole Blood 120 mg/dL (60-115)
[2023-05-20] MEDS: Multivitamin TABLET 1 TAB PO (17:07)
[2023-05-20] MEDS: 0.9 % Sodium Chloride Flush 3 ML SYRINGE IVFLUSH ×2 (17:07→21:15)
[2023-05-20] MEDS: Atorvastatin Calcium 10 MG TABLET PO (17:07)
[2023-05-20] MEDS: amLODIPine Besylate 5 MG TABLET PO (17:07)
[2023-05-20] MEDS: Furosemide 40 MG/4 ML VIAL IVPUSH (18:32)
[2023-05-20 20:27] LABS: Glucose, Whole Blood 140 mg/dL (60-115)
[2023-05-20] MEDS: Insulin Glargine,Hum.rec.anlog 100 UNIT/ML 10 ML VIAL SUBCUT (21:14)
[2023-05-20] MEDS: allopurinoL 100 MG TABLET PO (21:14)
[2023-05-20] MEDS: Apixaban 2.5 MG TABLET PO (21:14)
[2023-05-20] MEDS: Latanoprost 0.005 % Ophth Sol 2.5 ML DROPS 1 DROP EYE-BOTH (21:23)
[2023-05-21 02:58] VITALS: BP 158/69; PULSE 80; RESP 18; TEMP 36.1; O2SAT 94
[2023-05-21 07:01] LABS: Glucose, Whole Blood 106 mg/dL (60-115)
[2023-05-21 07:14] VITALS: BP 167/74; PULSE 60; RESP 20; TEMP 37.4; O2SAT 95
[2023-05-21 07:15] LABS: Hematocrit 31.9 % (37.0-47.0); Hemoglobin 9.9 g/dl (12.0-16.0); Mean Corpuscular Volume 96.7 fL (80.0-98.0); Mean Platelet Volume 10.6 fL (9.4-12.3); Platelet Count 176 X10*3/uL (160-400); Red Cell Distribution Width 15.2 % (11.0-16.0)
[2023-05-21 07:30] LABS: Anion Gap 17 (12-20); Blood Urea Nitrogen 41 mg/dL (9-16); Calcium 9.3 mg/dL (8.4-10.2); Carbon Dioxide 25 mmol/L (22-29); Chloride 106 mmol/L (96-108); Creatinine Clr Calc Pharmacy 25.6; Estimated Glomerular Filt Rate 23; Glucose Random 117 mg/dL (60-115); Magnesium 2.6 mg/dL (1.6-2.6); Potassium 4.4 mmol/L (3.3-5.1); Sodium 144 mmol/L (135-145)
[2023-05-21 08:11] LABS: B Type Natriuretic Peptide 874 pg/mL (<100)
[2023-05-21] MEDS: amLODIPine Besylate 5 MG TABLET PO (10:27)
[2023-05-21] MEDS: Apixaban 2.5 MG TABLET PO ×2 (10:27→21:04)
[2023-05-21] MEDS: allopurinoL 100 MG TABLET PO ×2 (10:27→21:05)
[2023-05-21] MEDS: Atorvastatin Calcium 10 MG TABLET PO (10:27)
[2023-05-21] MEDS: Multivitamin TABLET 1 TAB PO (10:27)
[2023-05-21] MEDS: 0.9 % Sodium Chloride Flush 3 ML SYRINGE IVFLUSH ×3 (10:28→21:10)
[2023-05-21] MEDS: Furosemide 40 MG/4 ML VIAL IVPUSH ×2 (10:31→18:50)
[2023-05-21 10:57] LABS: Glucose, Whole Blood 173 mg/dL (60-115)
[2023-05-21 11:11] VITALS: BP 161/67; PULSE 60; RESP 20; TEMP 36.9; O2SAT 97
--- NOTE | 2023-05-21 11:54 | PM.CNCAR ---
History of Present Illness History of Present Illness Date of Service: 05/21/23 Requesting physician: Imelda Coles Chief complaint: CHF exacerbation Narrative: [age] year female status post transcatheter aortic valve replacement for aortic valve stenosis, chronic diastolic heart failure, paroxysmal atrial fibrillation, hypertension hyperlipidemia is presenting with shortness of breath progressive over the last few days. Clinically noticed to be in heart failure. She has been started on IV diuretics and is feeling little better. She has chronic lower extremity edema and uses compression stockings. Previous pacemaker placement. Appears to be compliant with medications. [facility] Past Medical History Medical History Type 2 diabetes mellitus with unspecified complications Normally functioning cardiac pacemaker present URI (upper respiratory infection) Heart block atrioventricular Chronic heart failure with preserved ejection fraction Thrombosis of right saphenous vein Hypercholesterolemia Cataract Hypertension Obesity Aortic stenosis, moderate CKD (chronic kidney disease) stage 4, GFR 15-29 ml/min DVT (deep venous thrombosis) Type 2 diabetes mellitus with hyperglycemia Family History Family History Father No problems noted. Mother No problems noted. Surgical History Surgical History Status post transcatheter aortic valve replacement History of permanent cardiac pacemaker placement (~05/06/21) History of eye surgery History of surgical procedure on eye proper using laser History of right hip replacement History of partial hysterectomy History of cholecystectomy Social History Social History Household Members: Family Housing: House Alcohol intake: never Patient Tobacco Use Status: Never used Tobacco e-Cigarette/Vaping Use: Never Used Second Hand Smoke Exposure: Yes Use of substances other than those prescribed or required for medical reasons: No Currently Displaying Signs/Symptoms of Drug Intoxication Withdrawal: No Have you been hit, kicked, punched, or otherwise hurt by someone within the past year? If so, by whom?: No Do you feel safe in your current relationship?: No Current Relationship Is there a partner from a previous relationship who is making you feel unsafe now?: No Are you made to feel afraid or neglected: No Advance Directives: Yes Advance Directives Information Provided: Yes Advance Directives on File: No Advance Directives Date on File: 05/20/23 Do you have thoughts of harming others: None Do you have a plan to hurt others: No Plan Recently lost weight without trying: No Nutrition Risks: No Nutritional Risk Patient : No : No Poor oral hygiene: No service: No Current occupational status: retired Cognitive needs: Yes (walker ) Hearing needs: No Vision needs: Yes Meds Allergies Allergy/AdvReac Type Severity Reaction Status Date / Time Penicillins [PENICILLINS] Allergy Severe SWELLING Verified 04/04/23 09:39 codeine [CODEINE] Allergy Intermediate SWELLING, Verified 04/04/23 09:39 Hives Active Medications: Current Medications Acetaminophen (Acetaminophen 325 Mg Tablet) 650 mg PO Q6H PRN PRN Reason: Pain, Mild (Pain Scale 1-3) Allopurinol (Allopurinol 100 Mg Tablet) 100 mg PO BID [facility] Last Admin: 05/21/23 10:27 Dose: 100 mg Amlodipine Besylate (Amlodipine Besylate 5 Mg Tablet) 5 mg PO DAILY [facility]; Protocol Last Admin: 05/21/23 10:27 Dose: 5 mg Apixaban (Apixaban 2.5 Mg Tablet) 2.5 mg PO BID [facility] Last Admin: 05/21/23 10:27 Dose: 2.5 mg Atorvastatin Calcium (Atorvastatin Calcium 10 Mg Tablet) 10 mg PO DAILY [facility] Last Admin: 05/21/23 10:27 Dose: 10 mg Dextrose (Dextrose 50 % 25 Gm/50 Ml Syringe) 25 gm IVPUSH Q15M PRN; Protocol PRN Reason: per Hypoglycemia Standing Ord. Docusate Sodium (Docusate Sodium 100 Mg Capsule) 100 mg PO DAILY PRN PRN Reason: Constipation Furosemide (Furosemide 40 Mg/4 Ml Vial) 40 mg IVPUSH BID@0900,1800 [facility]; Protocol Last Admin: 05/21/23 10:31 Dose: 40 mg Glucose (Glucose Gel 15 Gm Gel..Gram.) 15 gm PO Q15M PRN; Protocol PRN Reason: per Hypoglycemia Standing Ord. Insulin Glargine (Insulin Glargine,Hum.Rec.Anlog 100 Unit/Ml 10 Ml Vial) 4 unit SUBCUT BEDTIME [facility] Last Admin: 05/20/23 21:14 Dose: 4 unit Insulin Human Lispro (Insulin Lispro 100 Unit/Ml 3 Ml Vial) 0 unit SUBCUT QIDACHS [facility]; Protocol Last Admin: 05/21/23 10:28 Dose: Not Given Latanoprost (Latanoprost 0.005 % Ophth Barbara 2.5 Ml Drops) 1 drop EYE-BOTH BEDTIME [facility] Last Admin: 05/20/23 21:23 Dose: 1 drop Multivitamins/Vitamin C (Multivitamin Tablet) 1 tab PO DAILY [facility] Last Admin: 05/21/23 10:27 Dose: 1 tab Ondansetron HCl (Ondansetron Hcl 4 Mg/2 Ml Vial) 4 mg IVPUSH Q8H PRN PRN Reason: Nausea and Vomiting Sodium Chloride (0.9 % Sodium Chloride Flush 3 Ml Syringe) 3 ml IVFLUSH QSHIFT [facility] Last Admin: 05/21/23 10:28 Dose: 3 ml Home Medications Medication Instructions Recorded Confirmed Last Taken Type acetaminophen 325 mg tablet 325 mg PO QID PRN Pain 07/15/20 05/20/23 Unknown History (Tylenol) latanoprost 0.005 % eye drops 1 drp ophthalmic (eye) BEDTIME 07/14/21 05/20/23 05/19/23 History calcium carbonate 600 mg-vitamin 1 tab PO DAILY 05/20/23 05/20/23 05/19/23 History D3 10 mcg (400 unit) tablet (Calcium 600 + D(3)) diclofenac sodium 1 % topical gel 2 g topical QD-BID PRN Pain 05/20/23 05/20/23 Unknown History fexofenadine 180 mg tablet 180 mg PO DAILY 05/20/23 05/20/23 05/19/23 History furosemide 20 mg tablet 60 mg PO BEDTIME 05/20/23 05/20/23 05/19/23 History furosemide 20 mg tablet 80 mg PO DAILY 05/20/23 05/20/23 05/19/23 History insulin glargine 100 unit/mL (3 5 unit subcut BEDTIME 05/20/23 05/20/23 05/19/23 History mL) subcutaneous pen (Lantus Solostar U-100 Insulin) multivitamin 1 tab PO DAILY 05/20/23 05/20/23 05/19/23 History propylene glycol 0.6 % eye drops 1 drp ophthalmic (eye) TID PRN Dry 05/20/23 05/20/23 Unknown History (Systane Complete) Eyes Physical Exam Vital Signs: Vital Signs: Last Vital Signs Temp 98.4 F 05/21/23 11:11 Pulse 60 05/21/23 11:11 Resp 20 05/21/23 11:11 BP 161/67 H 05/21/23 11:11 Pulse Ox 97 05/21/23 11:11 O2 Del Method Nasal Cannula 05/21/23 11:11 O2 Flow Rate 2 05/21/23 11:11 BMI result Body Mass Index 37.2 GENERAL APPEARANCE: in no acute distress, pleasant. NECK: no carotid bruit, + jugular venous distention. SKIN: no suspicious lesions, warm and dry. HEART: no murmurs, regular rate and rhythm. LUNGS: Crackles at bases. ABDOMEN: soft, nontender. EXTREMITIES: no edema. PERIPHERAL PULSES: equal. 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 Objective Labs and Meds 05/21/23 06:55 05/21/23 06:55 Lab results: Laboratory Results - last 24 hr 05/20/23 05/20/23 05/20/23 11:44 16:41 20:22 WBC RBC Hgb Hct MCV MCH MCHC RDW Plt Count MPV Absolute Nucleated RBC Nucleated RBC % (auto) Sodium Potassium Chloride Carbon Dioxide Anion Gap BUN Creatinine Estim Creat Clear Calc Estimated GFR POC Glucose 120 H 140 H Random Glucose Calcium Magnesium Troponin I High Sens 44.3 H B-Natriuretic Peptide 05/21/23 05/21/23 05/21/23 06:55 06:57 10:50 WBC 7.0 RBC 3.30 L Hgb 9.9 L Hct 31.9 L MCV 96.7 MCH 30.0 MCHC 31.0 RDW 15.2 Plt Count 176 MPV 10.6 Absolute Nucleated RBC 0.000 Nucleated RBC % (auto) 0.0 Sodium 144 Potassium 4.4 Chloride 106 Carbon Dioxide 25 Anion Gap 17 BUN 41 H Creatinine 2.03 H Estim Creat Clear Calc 25.6 Estimated GFR 23 POC Glucose 106 173 H Random Glucose 117 H Calcium 9.3 D Magnesium 2.6 Troponin I High Sens B-Natriuretic Peptide 874 H Assessment and Plan (1) CHF (congestive heart failure): Qualifiers: Heart failure chronicity: acute on chronic Heart failure type: diastolic Qualified Code(s): I50.33 - Acute on chronic diastolic (congestive) heart failure Status: Acute Plan [age] year female presenting with congestive heart failure. She has known history of diastolic heart failure. Clinically appears to be overloaded. Continue IV Lasix 40 mg b.i.d.. If she does not respond well to that that can be changed to 80 mg twice a day. Blood pressure is elevated. Her amlodipine is at 5 mg. She has significant peripheral edema and I think amlodipine should not be increased further. Would add some isosorbide mononitrate which may help with some decongestion too. Thank you for allowing me to participate in the care of your patient. Please feel free to contact me if you have any questions. Time Spent With Patient Time: Total time managing care of this patient today ____ minutes. Procedures Date of Service Date of Service: 05/21/23
--- NOTE | 2023-05-21 13:02 | HO.PM.IMPN ---
Subjective Subjective Date of Service: 05/21/23 Interval History: chf excerebation Review of Systems sob somewhat improving has leg edema patient says she urinating a lot No cough or phlegm or fever or chest pain Physical Exam Vital Signs: Vital Signs: Last Vital Signs Temp 98.4 F 05/21/23 11:11 Pulse 60 05/21/23 11:11 Resp 20 05/21/23 11:11 BP 161/67 H 05/21/23 11:11 Pulse Ox 97 05/21/23 11:11 O2 Del Method Nasal Cannula 05/21/23 11:11 O2 Flow Rate 2 05/21/23 11:11 BMI result Body Mass Index 37.2 Appearance: Alert.? Oriented X3.? cvs: rrr, [id number] ,jvd + res: clear to auscultation ,no rhonchii or wheezing abd: no rebound or guarding ,nt, bs present. ext pulses present , no cyanosis ,leg edema . neuro: axo3 , nonfocal. Objective Data Active Medications Acetaminophen (Acetaminophen 325 Mg Tablet) 650 mg PO Q6H PRN PRN Reason: Pain, Mild (Pain Scale 1-3) Allopurinol (Allopurinol 100 Mg Tablet) 100 mg PO BID [facility] Last Admin: 05/21/23 10:27 Dose: 100 mg Documented By: AMERICA Amlodipine Besylate (Amlodipine Besylate 5 Mg Tablet) 5 mg PO DAILY [facility]; Protocol Last Admin: 05/21/23 10:27 Dose: 5 mg Documented By: AMERICA Apixaban (Apixaban 2.5 Mg Tablet) 2.5 mg PO BID [facility] Last Admin: 05/21/23 10:27 Dose: 2.5 mg Documented By: AMERICA Atorvastatin Calcium (Atorvastatin Calcium 10 Mg Tablet) 10 mg PO DAILY [facility] Last Admin: 05/21/23 10:27 Dose: 10 mg Documented By: AMERICA Dextrose (Dextrose 50 % 25 Gm/50 Ml Syringe) 25 gm IVPUSH Q15M PRN; Protocol PRN Reason: per Hypoglycemia Standing Ord. Docusate Sodium (Docusate Sodium 100 Mg Capsule) 100 mg PO DAILY PRN PRN Reason: Constipation Furosemide (Furosemide 40 Mg/4 Ml Vial) 40 mg IVPUSH BID@0900,1800 [facility]; Protocol Last Admin: 05/21/23 10:31 Dose: 40 mg Documented By: AMERICA Glucose (Glucose Gel 15 Gm Gel..Gram.) 15 gm PO Q15M PRN; Protocol PRN Reason: per Hypoglycemia Standing Ord. Insulin Glargine (Insulin Glargine,Hum.Rec.Anlog 100 Unit/Ml 10 Ml Vial) 4 unit SUBCUT BEDTIME [facility] Last Admin: 05/20/23 21:14 Dose: 4 unit Documented By: ROSARIO Insulin Human Lispro (Insulin Lispro 100 Unit/Ml 3 Ml Vial) 0 unit SUBCUT QIDACHS [facility]; Protocol Last Admin: 05/21/23 10:28 Dose: Not Given Documented By: AMERICA Non-Admin Reason: No Insulin Coverage Latanoprost (Latanoprost 0.005 % Ophth Barbara 2.5 Ml Drops) 1 drop EYE-BOTH BEDTIME [facility] Last Admin: 05/20/23 21:23 Dose: 1 drop Documented By: ROSARIO Multivitamins/Vitamin C (Multivitamin Tablet) 1 tab PO DAILY [facility] Last Admin: 05/21/23 10:27 Dose: 1 tab Documented By: AMERICA Ondansetron HCl (Ondansetron Hcl 4 Mg/2 Ml Vial) 4 mg IVPUSH Q8H PRN PRN Reason: Nausea and Vomiting Sodium Chloride (0.9 % Sodium Chloride Flush 3 Ml Syringe) 3 ml IVFLUSH QSHIFT [facility] Last Admin: 05/21/23 10:28 Dose: 3 ml Documented By: AMERICA Labs 05/21/23 06:55 05/21/23 06:55 Labs: Laboratory Results - last 24 hr 05/20/23 05/20/23 05/21/23 16:41 20:22 06:55 MCV 96.7 MCH 30.0 MCHC 31.0 RDW 15.2 Plt Count 176 MPV 10.6 Absolute Nucleated RBC 0.000 Nucleated RBC % (auto) 0.0 Anion Gap 17 Estim Creat Clear Calc 25.6 Estimated GFR 23 POC Glucose 120 H 140 H Random Glucose 117 H Calcium 9.3 D Magnesium 2.6 B-Natriuretic Peptide 874 H 05/21/23 05/21/23 06:57 10:50 MCV MCH MCHC RDW Plt Count MPV Absolute Nucleated RBC Nucleated RBC % (auto) Anion Gap Estim Creat Clear Calc Estimated GFR POC Glucose 106 173 H Random Glucose Calcium Magnesium B-Natriuretic Peptide Assessment and Plan (1) CHF (congestive heart failure): Status: Acute Plan 87-year-old female with a PMH significant for?HFpEF with EF 50-55%, rheumatic fever, peripheral vascular disease, aortic stenosis s/p TAVR in September 2021, CAD, CKD 4, HTN, HLD, insulin-dependent diabetes type 2, pacemaker placed in 2020, and paroxysmal AFib on Eliquis who presents to the ED with?worsening shortness of breath the past few days. Acute on chronic HFpEF exacerbation Unclear etiology: Patient follows low-salt diet, says compliant with home medications, though has significant cardiac history Has been experiencing increasing SOB, bilateral pitting edema, elevated BNP, CXR showing pulmonary vascular congestion, hypoxia sob somewhat improving,patient says she urinating a lot ( staff is aware to moniter i/o closely) her weight was 101 kg ( pcp visit 04/04/23), this admission weight 107.7 kg. bnp slightly up 874( on admisssion it was 812) Furosemide 40 mg IV b.i.d. Follow lytes, MG, I/O Daily weights, low-salt diet Titrate supplemental O2 >92, wean as necessary Monitor on telemetry Paroxysmal AFib Continue Eliquis Insulin-dependent diabetes type 2 Sliding-scale insulin, Lantus Diabetic diet Gout Continue allopurinol HTN Continue amlodipine HLD Continue statin Full Code DVT Prophylaxis: On Eliquid ongoing hospitalization -need treatment of?acute at CHF exacerbation with IV diuretics , i/o ,renal function/electrolytes as well as close respiratory monitoring. Time Spent With Patient Time: Total time managing care of this patient today ____ minutes. Quality Stroke Does the patient have a stroke diagnosis?: No VTE Prior VTE?: No VTE Risk Level:: Medical - moderate - high VTE Device Contraindication: Treatment Not Indicated VTE Drug Contraindication: N/A - Med Ordered
[2023-05-21] MEDS: Insulin Lispro 100 UNIT/ML 3 ML VIAL SUBCUT ×2 (13:29→21:05)
[2023-05-21 15:39] VITALS: BP 170/70; PULSE 60; RESP 20; TEMP 37.1; O2SAT 95
[2023-05-21 16:23] LABS: Glucose, Whole Blood 131 mg/dL (60-115)
[2023-05-21 19:23] VITALS: BP 157/70; PULSE 72; RESP 16; TEMP 36.3; O2SAT 96
[2023-05-21 20:55] LABS: Glucose, Whole Blood 169 mg/dL (60-115)
[2023-05-21] MEDS: Insulin Glargine,Hum.rec.anlog 100 UNIT/ML 10 ML VIAL SUBCUT (21:05)
[2023-05-21] MEDS: Latanoprost 0.005 % Ophth Sol 2.5 ML DROPS 1 DROP EYE-BOTH (21:05)
[2023-05-21 23:12] VITALS: BP 155/68; PULSE 63; RESP 18; TEMP 36.6; O2SAT 97
[2023-05-22 03:40] VITALS: BP 130/71; PULSE 60; RESP 18; TEMP 36.8; O2SAT 96
[2023-05-22 07:11] LABS: Glucose, Whole Blood 126 mg/dL (60-115)
[2023-05-22 07:22] VITALS: BP 160/72; PULSE 66; RESP 18; TEMP 37; O2SAT 96
[2023-05-22 08:42] LABS: Anion Gap 15 (12-20); Blood Urea Nitrogen 41 mg/dL (9-16); Calcium 9.5 mg/dL (8.4-10.2); Carbon Dioxide 24 mmol/L (22-29); Chloride 107 mmol/L (96-108); Creatinine Clr Calc Pharmacy 26.1; Estimated Glomerular Filt Rate 24; Glucose Random 128 mg/dL (60-115); Potassium 4.1 mmol/L (3.3-5.1); Sodium 142 mmol/L (135-145)
[2023-05-22 08:42] LABS: B Type Natriuretic Peptide 732 pg/mL (<100)
[2023-05-22] MEDS: amLODIPine Besylate 5 MG TABLET PO (09:26)
[2023-05-22] MEDS: Atorvastatin Calcium 10 MG TABLET PO (09:26)
[2023-05-22] MEDS: allopurinoL 100 MG TABLET PO ×2 (09:26→21:11)
[2023-05-22] MEDS: Apixaban 2.5 MG TABLET PO ×2 (09:26→21:11)
[2023-05-22] MEDS: Furosemide 40 MG/4 ML VIAL IVPUSH (09:26)
[2023-05-22] MEDS: Multivitamin TABLET 1 TAB PO (09:26)
[2023-05-22] MEDS: 0.9 % Sodium Chloride Flush 3 ML SYRINGE IVFLUSH ×3 (09:27→21:11)
[2023-05-22 11:11] LABS: Glucose, Whole Blood 158 mg/dL (60-115)
[2023-05-22 11:18] VITALS: BP 145/68; PULSE 61; RESP 20; TEMP 36.9; O2SAT 96
[2023-05-22] MEDS: Isosorbide Mononitrate 30 MG TAB.ER.24H PO (11:20)
[2023-05-22] MEDS: Insulin Lispro 100 UNIT/ML 3 ML VIAL SUBCUT ×3 (11:20→21:11)
--- NOTE | 2023-05-22 12:43 | PM.PNCARD ---
Subjective Subjective Date of Service: 05/22/23 Interval history: Seen and examined at bedside. Still short of breath. Physical Exam Vital Signs: Last Vital Signs Temp 98.4 F 05/22/23 11:18 Pulse 61 05/22/23 11:18 Resp 20 05/22/23 11:18 BP 145/68 H 05/22/23 11:18 Pulse Ox 96 05/22/23 11:18 O2 Del Method Nasal Cannula 05/22/23 11:18 O2 Flow Rate 2 05/22/23 11:18 BMI result Body Mass Index 37.2 GENERAL APPEARANCE: in no acute distress, pleasant. NECK: no carotid bruit, + jugular venous distention. SKIN: no suspicious lesions, warm and dry. HEART: no murmurs, regular rate and rhythm. LUNGS: Crackles at bases. ABDOMEN: soft, nontender. EXTREMITIES: no edema. PERIPHERAL PULSES: equal. 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 Objective Labs and Meds 05/21/23 06:55 05/22/23 07:59 Lab results: Laboratory Results - last 24 hr 05/21/23 05/21/23 05/22/23 16:18 20:48 07:02 Sodium Potassium Chloride Carbon Dioxide Anion Gap BUN Creatinine Estim Creat Clear Calc Estimated GFR POC Glucose 131 H 169 H 126 H Random Glucose Calcium B-Natriuretic Peptide 05/22/23 05/22/23 05/22/23 07:58 07:59 10:59 Sodium 142 Potassium 4.1 Chloride 107 Carbon Dioxide 24 Anion Gap 15 BUN 41 H Creatinine 1.99 H Estim Creat Clear Calc 26.1 Estimated GFR 24 POC Glucose 158 H Random Glucose 128 H Calcium 9.5 B-Natriuretic Peptide 732 H Progress Note: A&P Assessment and plan (1) CHF (congestive heart failure): Status: Acute Plan [age] year female with acute on chronic diastolic heart failure. Still volume overloaded. Increase the Lasix to 60 mg IV b.i.d.. Monitor electrolytes closely. Creatinine is stable. BNP level is coming down slowly. Thank you for allowing me to participate in the care of your patient. Please feel free to contact me if you have any questions. Time Spent With Patient Time: Total time managing care of this patient today ____ minutes. Progress Note: Quality Stroke Does the patient have a stroke diagnosis?: No Procedures Date of Service Date of Service: 05/22/23
[2023-05-22 15:28] VITALS: BP 152/70; PULSE 63; RESP 18; TEMP 36.6; O2SAT 95
[2023-05-22 16:05] LABS: Glucose, Whole Blood 164 mg/dL (60-115)
--- NOTE | 2023-05-22 16:11 | P.PNIM_ITS ---
Subjective Subjective Date of Service: 05/22/23 Interval History: chf execerebation Review of Systems Still gets short of breath with minimal exertion, has leg edema. Denies any cough or phlegm or fever. Physical Exam 2 Vital Signs: Vital Signs: Last Vital Signs Temp 97.8 F 05/22/23 15:28 Pulse 63 05/22/23 15:28 Resp 18 05/22/23 15:28 BP 152/70 H 05/22/23 15:28 Pulse Ox 95 05/22/23 15:28 O2 Del Method Nasal Cannula 05/22/23 15:28 O2 Flow Rate 2 05/22/23 15:28 BMI result Body Mass Index 37.2 Appearance: Alert.? Oriented X3.? cvs: rrr, [id number] ,jvd + res: clear to auscultation ,no rhonchii or wheezing abd: no rebound or guarding ,nt, bs present. ext pulses present , no cyanosis ,leg edema . neuro: axo3 , nonfocal. Objective Data Active Medications Acetaminophen (Acetaminophen 325 Mg Tablet) 650 mg PO Q6H PRN PRN Reason: Pain, Mild (Pain Scale 1-3) Allopurinol (Allopurinol 100 Mg Tablet) 100 mg PO BID [facility] Last Admin: 05/22/23 09:26 Dose: 100 mg Documented By: WARREN Amlodipine Besylate (Amlodipine Besylate 5 Mg Tablet) 5 mg PO DAILY [facility]; Protocol Last Admin: 05/22/23 09:26 Dose: 5 mg Documented By: WARREN Apixaban (Apixaban 2.5 Mg Tablet) 2.5 mg PO BID [facility] Last Admin: 05/22/23 09:26 Dose: 2.5 mg Documented By: WARREN Atorvastatin Calcium (Atorvastatin Calcium 10 Mg Tablet) 10 mg PO DAILY [facility] Last Admin: 05/22/23 09:26 Dose: 10 mg Documented By: WARREN Dextrose (Dextrose 50 % 25 Gm/50 Ml Syringe) 25 gm IVPUSH Q15M PRN; Protocol PRN Reason: per Hypoglycemia Standing Ord. Docusate Sodium (Docusate Sodium 100 Mg Capsule) 100 mg PO DAILY PRN PRN Reason: Constipation Furosemide (Furosemide 40 Mg/4 Ml Vial) 60 mg IVPUSH BID@0900,1800 [facility]; Protocol Glucose (Glucose Gel 15 Gm Gel..Gram.) 15 gm PO Q15M PRN; Protocol PRN Reason: per Hypoglycemia Standing Ord. Insulin Glargine (Insulin Glargine,Hum.Rec.Anlog 100 Unit/Ml 10 Ml Vial) 4 unit SUBCUT BEDTIME [facility] Last Admin: 05/21/23 21:05 Dose: 4 unit Documented By: ROSARIO Insulin Human Lispro (Insulin Lispro 100 Unit/Ml 3 Ml Vial) 0 unit SUBCUT QIDACHS [facility]; Protocol Last Admin: 05/22/23 11:20 Dose: 2 unit Documented By: WARREN Isosorbide Mononitrate (Isosorbide Mononitrate 30 Mg Tab.Er.24h) 30 mg PO DAILY [facility]; Protocol Last Admin: 05/22/23 11:20 Dose: 30 mg Documented By: WARREN Latanoprost (Latanoprost 0.005 % Ophth Barbara 2.5 Ml Drops) 1 drop EYE-BOTH BEDTIME [facility] Last Admin: 05/21/23 21:05 Dose: 1 drop Documented By: ROSARIO Multivitamins/Vitamin C (Multivitamin Tablet) 1 tab PO DAILY [facility] Last Admin: 05/22/23 09:26 Dose: 1 tab Documented By: WARREN Ondansetron HCl (Ondansetron Hcl 4 Mg/2 Ml Vial) 4 mg IVPUSH Q8H PRN PRN Reason: Nausea and Vomiting Sodium Chloride (0.9 % Sodium Chloride Flush 3 Ml Syringe) 3 ml IVFLUSH QSHIFT [facility] Last Admin: 05/22/23 09:27 Dose: 3 ml Documented By: WARREN Labs 05/21/23 06:55 05/22/23 07:59 Labs: Laboratory Results - last 24 hr 05/21/23 05/21/23 05/22/23 16:18 20:48 07:02 Anion Gap Estim Creat Clear Calc Estimated GFR POC Glucose 131 H 169 H 126 H Random Glucose Calcium B-Natriuretic Peptide 05/22/23 05/22/23 05/22/23 07:58 07:59 10:59 Anion Gap 15 Estim Creat Clear Calc 26.1 Estimated GFR 24 POC Glucose 158 H Random Glucose 128 H Calcium 9.5 B-Natriuretic Peptide 732 H 05/22/23 15:27 Anion Gap Estim Creat Clear Calc Estimated GFR POC Glucose 164 H Random Glucose Calcium B-Natriuretic Peptide Assessment and Plan (1) CHF (congestive heart failure): Status: Acute Plan 87-year-old female with a PMH significant for?HFpEF with EF 50-55%, rheumatic fever, peripheral vascular disease, aortic stenosis s/p TAVR in September 2021, CAD, CKD 4, HTN, HLD, insulin-dependent diabetes type 2, pacemaker placed in 2020, and paroxysmal AFib on Eliquis who presents to the ED with?worsening shortness of breath the past few days. Acute on chronic HFpEF exacerbation Unclear etiology: Patient follows low-salt diet, says compliant with home medications, though has significant cardiac history Has been experiencing increasing SOB, bilateral pitting edema, elevated BNP, CXR showing pulmonary vascular congestion, hypoxia sob somewhat improving,patient says she urinating a lot ( staff is aware to moniter i/o closely) her weight was 101 kg ( pcp visit 04/04/23), this admission weight 107.7 kg. bnp slightly up [phone] switch to Furosemide 60 mg IV b.i.d. Follow lytes, MG, I/O:-320 ml Daily weights, low-salt diet Titrate supplemental O2 >92, wean as necessary Monitor on telemetry Paroxysmal AFib Continue Eliquis Insulin-dependent diabetes type 2 Sliding-scale insulin, Lantus Diabetic diet Gout Continue allopurinol HTN Continue amlodipine HLD Continue statin Full Code DVT Prophylaxis: On Eliquis ongoing hospitalization -need treatment of?acute at CHF exacerbation with IV diuretics , i/o ,renal function/electrolytes as well as close respiratory monitoring. Time Spent With Patient Time: Total time managing care of this patient today ____ minutes. Quality Stroke Does the patient have a stroke diagnosis?: No VTE Prior VTE?: No VTE Risk Level:: Medical - moderate - high VTE Device Contraindication: Treatment Not Indicated VTE Drug Contraindication: N/A - Med Ordered
[2023-05-22] MEDS: Furosemide 40 MG/4 ML VIAL 60 MG IVPUSH (17:08)
[2023-05-22 20:00] VITALS: BP 154/67; PULSE 69; RESP 18; TEMP 37.1; O2SAT 95
[2023-05-22 20:13] LABS: Glucose, Whole Blood 170 mg/dL (60-115)
[2023-05-22] MEDS: Insulin Glargine,Hum.rec.anlog 100 UNIT/ML 10 ML VIAL SUBCUT (21:11)
[2023-05-22] MEDS: Latanoprost 0.005 % Ophth Sol 2.5 ML DROPS 1 DROP EYE-BOTH (21:13)
[2023-05-22 23:15] VITALS: BP 106/61; PULSE 67; RESP 18; TEMP 37; O2SAT 97
[2023-05-23 03:21] VITALS: BP 153/70; PULSE 62; RESP 18; TEMP 36.7; O2SAT 97
[2023-05-23 07:26] VITALS: BP 159/68; PULSE 60; RESP 20; TEMP 37.3; O2SAT 96
[2023-05-23 07:38] LABS: Anion Gap 15 (12-20); Blood Urea Nitrogen 41 mg/dL (9-16); Calcium 9.5 mg/dL (8.4-10.2); Carbon Dioxide 25 mmol/L (22-29); Chloride 106 mmol/L (96-108); Creatinine Clr Calc Pharmacy 24.8; Estimated Glomerular Filt Rate 23; Glucose Random 136 mg/dL (60-115); Potassium 4.2 mmol/L (3.3-5.1); Sodium 142 mmol/L (135-145)
[2023-05-23 07:44] LABS: B Type Natriuretic Peptide 533 pg/mL (<100)
[2023-05-23 07:57] LABS: Glucose, Whole Blood 132 mg/dL (60-115)
[2023-05-23] MEDS: 0.9 % Sodium Chloride Flush 3 ML SYRINGE IVFLUSH ×3 (08:56→20:53)
[2023-05-23] MEDS: Furosemide 40 MG/4 ML VIAL 60 MG IVPUSH (08:56)
[2023-05-23] MEDS: allopurinoL 100 MG TABLET PO ×2 (08:58→20:52)
[2023-05-23] MEDS: Atorvastatin Calcium 10 MG TABLET PO (08:59)
[2023-05-23] MEDS: Isosorbide Mononitrate 30 MG TAB.ER.24H PO (08:59)
[2023-05-23] MEDS: Multivitamin TABLET 1 TAB PO (08:59)
[2023-05-23] MEDS: Apixaban 2.5 MG TABLET PO ×2 (08:59→20:53)
[2023-05-23] MEDS: amLODIPine Besylate 5 MG TABLET PO (09:02)
--- NOTE | 2023-05-23 10:32 | PM.PNCARD ---
Subjective Subjective Date of Service: 05/23/23 Principal diagnosis: CHF, paroxysmal atrial fibrillation, TAVR Interval history: Patient says she stayed up all night going to the bathroom. She denies any worsening shortness of breath says this has improved. Blood pressure is elevated. Denies any bleeding issues or neurologic events. Leg edema is improved. Unclear about accuracy of urine output Review of Systems Constitutional: Reports no additional constitutional complaints Cardiovascular: Denies chest pain, Reports leg edema, Denies Loss of Consciousness, Denies palpitations and Reports dyspnea Respiratory: Reports dyspnea Endocrine: Denies palpitations Physical Exam Vital Signs: Last Vital Signs Temp 99.1 F 05/23/23 07:26 Pulse 60 05/23/23 07:26 Resp 20 05/23/23 07:26 BP 159/68 H 05/23/23 07:26 Pulse Ox 96 05/23/23 07:26 O2 Del Method Nasal Cannula 05/23/23 07:26 O2 Flow Rate 2 05/23/23 07:26 BMI result Body Mass Index 37.2 GENERAL APPEARANCE: in no acute distress, pleasant. NECK: no carotid bruit, + jugular venous distention. SKIN: no suspicious lesions, warm and dry. HEART: no murmurs, regular rate and rhythm. LUNGS: Crackles at bases. ABDOMEN: soft, nontender. EXTREMITIES: no edema. PERIPHERAL PULSES: equal. 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 Objective Labs and Meds 05/21/23 06:55 05/23/23 06:59 Lab results: Laboratory Results - last 24 hr 05/22/23 05/22/23 05/22/23 10:59 15:27 20:02 Sodium Potassium Chloride Carbon Dioxide Anion Gap BUN Creatinine Estim Creat Clear Calc Estimated GFR POC Glucose 158 H 164 H 170 H Random Glucose Calcium B-Natriuretic Peptide 05/23/23 05/23/23 06:59 07:53 Sodium 142 Potassium 4.2 Chloride 106 Carbon Dioxide 25 Anion Gap 15 BUN 41 H Creatinine 2.09 H Estim Creat Clear Calc 24.8 Estimated GFR 23 POC Glucose 132 H Random Glucose 136 H Calcium 9.5 B-Natriuretic Peptide 533 H Progress Note: A&P Assessment and plan (1) CHF (congestive heart failure): Status: Acute Assessment and Plan: Acute CHF with somewhat tepid response to diuretic which was increased yesterday. She says overnight she has had good urine output. She is feeling better from heart failure perspective. Continue IV Lasix for 1 more day. Trend renal function and BNP tomorrow. Can transition to oral diuretic and consider transitioning to Bumex 2 mg daily as an outpatient with additional as needed. Heart failure education to be provided. Continue better blood pressure control. Consider increasing amlodipine to 10 mg daily. (2) Paroxysmal atrial fibrillation: Status: Acute Assessment and Plan: Paroxysmal atrial fibrillation, currently rhythm control. Doing well from that perspective. Continue current therapy. Continue full oral anticoagulation Eliquis which is renally dose adjusted. (3) Status post transcatheter aortic valve replacement (TAVR) using bioprosthesis: Status: Acute Assessment and Plan: Status post aortic valve replacement which seems to be function well clinically. Continue oral anticoagulation as above. SBE prophylaxis as per [facility] guidelines. Will sign of the case. Will follow if need be. Thank you for allowing me to partake in her care Time Spent With Patient Time: Total time managing care of this patient today ____ minutes. Progress Note: Quality Stroke Does the patient have a stroke diagnosis?: No Procedures Date of Service Date of Service: 05/23/23
[2023-05-23 11:16] LABS: Glucose, Whole Blood 217 mg/dL (60-115)
[2023-05-23 11:32] VITALS: BP 150/62; PULSE 68; RESP 20; TEMP 36.7; O2SAT 96
[2023-05-23] MEDS: Insulin Lispro 100 UNIT/ML 3 ML VIAL SUBCUT ×2 (12:38→20:54)
--- NOTE | 2023-05-23 13:53 | MHC.CM.PN ---
Per rounds patient is not ready for discharge, potentially tomorrow.
[2023-05-23 16:20] VITALS: BP 171/74; PULSE 78; RESP 15; TEMP 36.4; O2SAT 98
[2023-05-23 16:38] LABS: Glucose, Whole Blood 118 mg/dL (60-115)
--- NOTE | 2023-05-23 16:53 | P.PNIM_ITS ---
Subjective Subjective Date of Service: 05/23/23 Interval History: chf execerbation Review of Systems short of breath at rest-somewhat improving but with exertion still for still feels short of breath. Denies any chest pain or nausea vomiting. Physical Exam 2 Vital Signs: Vital Signs: Last Vital Signs Temp 97.5 F 05/23/23 16:20 Pulse 78 05/23/23 16:20 Resp 15 05/23/23 16:20 BP 171/74 H 05/23/23 16:20 Pulse Ox 98 05/23/23 16:20 O2 Del Method Nasal Cannula 05/23/23 16:20 O2 Flow Rate 3 05/23/23 16:20 BMI result Body Mass Index 37.2 Appearance: Alert.? Oriented X3.? cvs: rrr, [id number] ,jvd equivocal res: clear to auscultation ,no rhonchii or wheezing abd: no rebound or guarding ,nt, bs present. ext pulses present , no cyanosis ,leg edema1+ . neuro: axo3 , nonfocal. Objective Data Active Medications Acetaminophen (Acetaminophen 325 Mg Tablet) 650 mg PO Q6H PRN PRN Reason: Pain, Mild (Pain Scale 1-3) Allopurinol (Allopurinol 100 Mg Tablet) 100 mg PO BID [facility] Last Admin: 05/23/23 08:58 Dose: 100 mg Documented By: ESTEBAN Amlodipine Besylate (Amlodipine Besylate 5 Mg Tablet) 5 mg PO DAILY [facility]; Protocol Last Admin: 05/23/23 09:02 Dose: 5 mg Documented By: ESTEBAN Apixaban (Apixaban 2.5 Mg Tablet) 2.5 mg PO BID [facility] Last Admin: 05/23/23 08:59 Dose: 2.5 mg Documented By: ESTEBAN Atorvastatin Calcium (Atorvastatin Calcium 10 Mg Tablet) 10 mg PO DAILY [facility] Last Admin: 05/23/23 08:59 Dose: 10 mg Documented By: ESTEBAN Dextrose (Dextrose 50 % 25 Gm/50 Ml Syringe) 25 gm IVPUSH Q15M PRN; Protocol PRN Reason: per Hypoglycemia Standing Ord. Docusate Sodium (Docusate Sodium 100 Mg Capsule) 100 mg PO DAILY PRN PRN Reason: Constipation Furosemide (Furosemide 40 Mg/4 Ml Vial) 60 mg IVPUSH DAILY [facility]; Protocol Furosemide (Furosemide 100 Mg/10 Ml Vial) 60 mg IVPUSH DAILY@1500 [facility]; Protocol Glucose (Glucose Gel 15 Gm Gel..Gram.) 15 gm PO Q15M PRN; Protocol PRN Reason: per Hypoglycemia Standing Ord. Insulin Glargine (Insulin Glargine,Hum.Rec.Anlog 100 Unit/Ml 10 Ml Vial) 4 unit SUBCUT BEDTIME [facility] Last Admin: 05/22/23 21:11 Dose: 4 unit Documented By: FERN Insulin Human Lispro (Insulin Lispro 100 Unit/Ml 3 Ml Vial) 0 unit SUBCUT QIDACHS [facility]; Protocol Last Admin: 05/23/23 12:38 Dose: 4 unit Documented By: ESTEBAN Isosorbide Mononitrate (Isosorbide Mononitrate 30 Mg Tab.Er.24h) 30 mg PO DAILY [facility]; Protocol Last Admin: 05/23/23 08:59 Dose: 30 mg Documented By: ESTEBAN Latanoprost (Latanoprost 0.005 % Ophth Barbara 2.5 Ml Drops) 1 drop EYE-BOTH BEDTIME [facility] Last Admin: 05/22/23 21:13 Dose: 1 drop Documented By: FERN Multivitamins/Vitamin C (Multivitamin Tablet) 1 tab PO DAILY [facility] Last Admin: 05/23/23 08:59 Dose: 1 tab Documented By: ESTEBAN Ondansetron HCl (Ondansetron Hcl 4 Mg/2 Ml Vial) 4 mg IVPUSH Q8H PRN PRN Reason: Nausea and Vomiting Sodium Chloride (0.9 % Sodium Chloride Flush 3 Ml Syringe) 3 ml IVFLUSH QSHIFT [facility] Last Admin: 05/23/23 08:56 Dose: 3 ml Documented By: ESTEBAN Labs 05/21/23 06:55 05/23/23 06:59 Labs: Laboratory Results - last 24 hr 05/22/23 05/23/23 05/23/23 20:02 06:59 07:53 Anion Gap 15 Estim Creat Clear Calc 24.8 Estimated GFR 23 POC Glucose 170 H 132 H Random Glucose 136 H Calcium 9.5 B-Natriuretic Peptide 533 H 05/23/23 05/23/23 11:12 16:28 Anion Gap Estim Creat Clear Calc Estimated GFR POC Glucose 217 H 118 H Random Glucose Calcium B-Natriuretic Peptide Assessment and Plan (1) CHF (congestive heart failure): Status: Acute Plan 87-year-old female with a PMH significant for?HFpEF with EF 50-55%, rheumatic fever, peripheral vascular disease, aortic stenosis s/p TAVR in September 2021, CAD, CKD 4, HTN, HLD, insulin-dependent diabetes type 2, pacemaker placed in 2020, and paroxysmal AFib on Eliquis who presents to the ED with?worsening shortness of breath the past few days. Acute on chronic HFpEF exacerbation Unclear etiology: Patient follows low-salt diet, says compliant with home medications, though has significant cardiac history Has been experiencing increasing SOB, bilateral pitting edema, elevated BNP, CXR showing pulmonary vascular congestion, hypoxia sob somewhat improving,patient says she urinating a lot ( staff is aware to moniter i/o closely) her weight was 101 kg ( pcp visit 04/04/23), this admission weight 107.7 kg. bnp slightly up [phone] Furosemide 60 mg IV b.i.d. Follow lytes, MG, I/O:-360 ml( patient says she is urinating a lot, staff is aware to do strict I&O.) Daily weights, low-salt diet Titrate supplemental O2 >92, wean as necessary Monitor on telemetry Paroxysmal AFib Continue Eliquis Insulin-dependent diabetes type 2 Sliding-scale insulin, Lantus Diabetic diet Gout Continue allopurinol HTN Continue amlodipine HLD Continue statin Full Code DVT Prophylaxis: On Eliquis ongoing hospitalization -need treatment of?acute at CHF exacerbation with IV diuretics , i/o ,renal function/electrolytes as well as close respiratory monitoring. Time Spent With Patient Time: Total time managing care of this patient today ____ minutes. Quality Stroke Does the patient have a stroke diagnosis?: No VTE Prior VTE?: No VTE Risk Level:: Medical - moderate - high VTE Device Contraindication: Treatment Not Indicated VTE Drug Contraindication: N/A - Med Ordered
[2023-05-23] MEDS: Furosemide 100 MG/10 ML VIAL 60 MG IVPUSH (16:54)
[2023-05-23 17:00] VITALS: BP 146/66; PULSE 69
[2023-05-23 19:03] VITALS: BP 149/68; PULSE 73; RESP 18; TEMP 36.6; O2SAT 97
[2023-05-23 20:49] LABS: Glucose, Whole Blood 195 mg/dL (60-115)
[2023-05-23] MEDS: Latanoprost 0.005 % Ophth Sol 2.5 ML DROPS 1 DROP EYE-BOTH (20:53)
[2023-05-23] MEDS: Insulin Glargine,Hum.rec.anlog 100 UNIT/ML 10 ML VIAL SUBCUT (20:53)
[2023-05-24] VITALS: BP 148/67; PULSE 60; RESP 15; TEMP 36.7; O2SAT 100
[2023-05-24 04:00] VITALS: BP 160/69; PULSE 60; RESP 16; TEMP 36.3; O2SAT 97
[2023-05-24 06:00] VITALS: BMI 37.2
[2023-05-24 07:08] VITALS: BP 160/72; PULSE 62; RESP 16; TEMP 37; O2SAT 96
[2023-05-24 07:19] LABS: Glucose, Whole Blood 137 mg/dL (60-115)
[2023-05-24 07:27] LABS: B Type Natriuretic Peptide 513 pg/mL (<100)
[2023-05-24 07:46] LABS: Anion Gap 17 (12-20); Blood Urea Nitrogen 41 mg/dL (9-16); Calcium 9.4 mg/dL (8.4-10.2); Carbon Dioxide 25 mmol/L (22-29); Chloride 103 mmol/L (96-108); Creatinine Clr Calc Pharmacy 25.3; Estimated Glomerular Filt Rate 23; Glucose Random 135 mg/dL (60-115); Potassium 4.1 mmol/L (3.3-5.1); Sodium 141 mmol/L (135-145)
[2023-05-24] MEDS: Atorvastatin Calcium 10 MG TABLET PO (09:13)
[2023-05-24] MEDS: Multivitamin TABLET 1 TAB PO (09:13)
[2023-05-24] MEDS: Isosorbide Mononitrate 30 MG TAB.ER.24H PO (09:13)
[2023-05-24] MEDS: Apixaban 2.5 MG TABLET PO (09:13)
[2023-05-24] MEDS: Bumetanide 1 MG TABLET 2 MG PO (09:13)
[2023-05-24] MEDS: amLODIPine Besylate 5 MG TABLET PO (09:14)
[2023-05-24] MEDS: allopurinoL 100 MG TABLET PO (09:14)
[2023-05-24] MEDS: 0.9 % Sodium Chloride Flush 3 ML SYRINGE IVFLUSH (09:16)
[2023-05-24 11:14] VITALS: BP 162/71; PULSE 63; RESP 16; TEMP 36.4; O2SAT 90
[2023-05-24 11:24] LABS: Glucose, Whole Blood 184 mg/dL (60-115)
[2023-05-24] MEDS: Insulin Lispro 100 UNIT/ML 3 ML VIAL SUBCUT (11:59)
--- NOTE | 2023-05-24 13:17 | P.PNIM_ITS ---
Subjective Subjective Date of Service: 05/24/23 Interval History: feels better, less swelling in the legs Physical Exam 2 Vital Signs: Vital Signs: Last Vital Signs Temp 97.6 F 05/24/23 11:14 Pulse 63 05/24/23 11:14 Resp 16 05/24/23 11:14 BP 162/71 H 05/24/23 11:14 Pulse Ox 90 L 05/24/23 11:14 O2 Del Method Room Air 05/24/23 11:14 O2 Flow Rate 2 05/24/23 07:08 BMI result Body Mass Index 37.2 Const: Other: General: AO X 3, no acute distress Resp: CTA bilateral CVS: S1,S2, 2+ pitting leg edema GI: +BS, NT, no distention Skin: No rash Neuro: motor grossly intact Psych: appropriate affect Objective Data Active Medications Acetaminophen (Acetaminophen 325 Mg Tablet) 650 mg PO Q6H PRN PRN Reason: Pain, Mild (Pain Scale 1-3) Allopurinol (Allopurinol 100 Mg Tablet) 100 mg PO BID [facility] Last Admin: 05/24/23 09:14 Dose: 100 mg Documented By: ESTEBAN Amlodipine Besylate (Amlodipine Besylate 5 Mg Tablet) 5 mg PO DAILY [facility]; Protocol Last Admin: 05/24/23 09:14 Dose: 5 mg Documented By: ESTEBAN Apixaban (Apixaban 2.5 Mg Tablet) 2.5 mg PO BID [facility] Last Admin: 05/24/23 09:13 Dose: 2.5 mg Documented By: ESTEBAN Atorvastatin Calcium (Atorvastatin Calcium 10 Mg Tablet) 10 mg PO DAILY [facility] Last Admin: 05/24/23 09:13 Dose: 10 mg Documented By: ESTEBAN Bumetanide (Bumetanide 1 Mg Tablet) 2 mg PO DAILY [facility]; Protocol Last Admin: 05/24/23 09:13 Dose: 2 mg Documented By: ESTEBAN Dextrose (Dextrose 50 % 25 Gm/50 Ml Syringe) 25 gm IVPUSH Q15M PRN; Protocol PRN Reason: per Hypoglycemia Standing Ord. Docusate Sodium (Docusate Sodium 100 Mg Capsule) 100 mg PO DAILY PRN PRN Reason: Constipation Glucose (Glucose Gel 15 Gm Gel..Gram.) 15 gm PO Q15M PRN; Protocol PRN Reason: per Hypoglycemia Standing Ord. Insulin Glargine (Insulin Glargine,Hum.Rec.Anlog 100 Unit/Ml 10 Ml Vial) 4 unit SUBCUT BEDTIME [facility] Last Admin: 05/23/23 20:53 Dose: 4 unit Documented By: MATHEW Insulin Human Lispro (Insulin Lispro 100 Unit/Ml 3 Ml Vial) 0 unit SUBCUT QIDACHS [facility]; Protocol Last Admin: 05/24/23 11:59 Dose: 2 unit Documented By: ESTEBAN Isosorbide Mononitrate (Isosorbide Mononitrate 30 Mg Tab.Er.24h) 30 mg PO DAILY [facility]; Protocol Last Admin: 05/24/23 09:13 Dose: 30 mg Documented By: ESTEBAN Latanoprost (Latanoprost 0.005 % Ophth Barbara 2.5 Ml Drops) 1 drop EYE-BOTH BEDTIME [facility] Last Admin: 05/23/23 20:53 Dose: 1 drop Documented By: MATHEW Multivitamins/Vitamin C (Multivitamin Tablet) 1 tab PO DAILY [facility] Last Admin: 05/24/23 09:13 Dose: 1 tab Documented By: ESTEBAN Ondansetron HCl (Ondansetron Hcl 4 Mg/2 Ml Vial) 4 mg IVPUSH Q8H PRN PRN Reason: Nausea and Vomiting Sodium Chloride (0.9 % Sodium Chloride Flush 3 Ml Syringe) 3 ml IVFLUSH QSHIFT [facility] Last Admin: 05/24/23 09:16 Dose: 3 ml Documented By: ESTEBAN Labs 05/21/23 06:55 05/24/23 06:05 Labs: Laboratory Results - last 24 hr 05/23/23 05/23/23 05/24/23 16:28 19:49 06:05 Anion Gap 17 Estim Creat Clear Calc 25.3 Estimated GFR 23 POC Glucose 118 H 195 H Random Glucose 135 H Calcium 9.4 B-Natriuretic Peptide 513 H 05/24/23 05/24/23 07:12 11:20 Anion Gap Estim Creat Clear Calc Estimated GFR POC Glucose 137 H 184 H Random Glucose Calcium B-Natriuretic Peptide Assessment and Plan (1) CHF (congestive heart failure): Status: Acute Plan 87-year-old female with a PMH significant for?HFpEF with EF 50-55%, rheumatic fever, peripheral vascular disease, aortic stenosis s/p TAVR in September 2021, CAD, CKD 4, HTN, HLD, insulin-dependent diabetes type 2, pacemaker placed in 2020, and paroxysmal AFib on Eliquis who presents to the ED with?worsening shortness of breath the past few days. Acute on chronic HFpEF exacerbation--acute exacerbation resolved,has been transitioned to oral Bumex 2 mg daily per cardiology recommendaton, off O2 Paroxysmal AFib Continue Eliquis Insulin-dependent diabetes type 2 Sliding-scale insulin, Lantus Diabetic diet Gout Continue allopurinol HTN Continue amlodipine HLD Continue statin Full Code DVT Prophylaxis: On Eliquis ongoing hospitalization -need treatment of?acute at CHF exacerbation with IV diuretics , i/o ,renal function/electrolytes as well as close respiratory monitoring. discharge home if daughter able to take her home Time Spent With Patient Time: Total time managing care of this patient today ____ minutes. Quality Stroke Does the patient have a stroke diagnosis?: No VTE Prior VTE?: No VTE Risk Level:: Medical - moderate - high VTE Device Contraindication: Treatment Not Indicated VTE Drug Contraindication: N/A - Med Ordered
[2023-05-24 15:43] VITALS: BP 160/68; PULSE 62; RESP 18; TEMP 36.3; O2SAT 92
--- NOTE | 2023-05-24 16:14 | PM.DS ---
DS: Providers Provider Date of Service: 05/24/23 Date of admission: 05/20/23 13:16 Primary care physician: Roberto Mckinney MD Consults: 05/21/23 07:35 Consult to Cardiology Routine Consulting Provider: [facility] Reason for consultation: chf excerebation Has provider been notified: No DS: Diagnosis Discharge Diagnosis (1) CHF (congestive heart failure): Status: Acute DS: Summary Hospital Course Hospital Course: Chief Complaint: SOB Pt is an 87-year-old female with a PMH significant for?HFpEF with EF 50-55%, rheumatic fever, peripheral vascular disease, aortic stenosis s/p TAVR in September 2021, CAD, CKD 4, HTN, HLD, insulin-dependent diabetes type 2, pacemaker placed in 2020, and paroxysmal AFib on Eliquis who presents to the ED with?worsening shortness of breath the past few days. Patient says she began noticing increasing SOB with exertion 3-4 days ago that progressively worsened. Last night the patient could barely sleep because she kept waking up because she could not breathe. Has also experienced a mostly nonproductive cough. Patient is normally active and walks with assistance of a walker. Patient otherwise denies any acute medical complaints: No chest pain/pressure, palpitations. Denies fever, chills, nausea, vomiting, diarrhea. No abdominal pain. Patient states she has been eating and drinking normally, follows a low-salt diet. Has been compliant with her medications. Denies smoking or illicit substance use, occasional alcohol consumption. In the ED patient was afebrile but hypertensive up to 160/58, satting as low as 90% on RA. Labs were significant for stable normocytic anemia of 11.1/34.6, BUN 43, creatinine 2.21(from baseline), troponin 30 he 0.5 with repeat flat at 44.3, BNP elevated at 812. CXR showed pulmonary vascular congestion without overt edema. EKG demonstrated ventricular paced rhythm without evidence of ST elevattions or depressions. Pt was treated with furosemide 60 mg IV. Pt will be admitted to the hospital for treatment and further evaluation of acute HFpEF exacerbation. Hospital course: Patient presented with shortness of breath, leg edema and weight gain, elevated BNP and was admitted for decompensated HFpEF. She was treated with IV Lasix with improvement in her symptoms, leg edema and overall has been feeling much better; she was initially requiring O2 but is no longer on O2. She was seen in consultation by refrigeration mechanic helper Dr. Kothari with recommendation to change Lasix to Bumex at discharge, she will therefore be on Bumex 2 mg daily and stop lasix. Additionally fluid restriction is advised along with low keshawn. Will arrange for visiting nurse upon discharge Time Spent with Patient Time attestation: Total time managing care of this patient today ____ minutes. Discharge coordination time: Greater than 30 minutes Quality: Safe Use of Opioids Does Pt have an Active Cancer Diagnosis on the Problem List?: No Quality: Stroke Does the patient have a stroke diagnosis?: No Physical Exam Vital Signs: Vital Signs: Last Vital Signs Temp 97.4 F 05/24/23 15:43 Pulse 62 05/24/23 15:43 Resp 18 05/24/23 15:43 BP 160/68 H 05/24/23 15:43 Pulse Ox 92 05/24/23 15:43 O2 Del Method Room Air 05/24/23 15:43 O2 Flow Rate 2 05/24/23 07:08 BMI result Body Mass Index 37.2 Const: Other: see progress note DS: Data Data Completed and Pending Labs on day of discharge: Laboratory Results - last 24 hr 05/23/23 05/23/23 05/24/23 16:28 19:49 06:05 Sodium 141 Potassium 4.1 Chloride 103 Carbon Dioxide 25 Anion Gap 17 BUN 41 H Creatinine 2.05 H Estim Creat Clear Calc 25.3 Estimated GFR 23 POC Glucose 118 H 195 H Random Glucose 135 H Calcium 9.4 B-Natriuretic Peptide 513 H 05/24/23 05/24/23 07:12 11:20 Sodium Potassium Chloride Carbon Dioxide Anion Gap BUN Creatinine Estim Creat Clear Calc Estimated GFR POC Glucose 137 H 184 H Random Glucose Calcium B-Natriuretic Peptide Discharge Plan Discharge Anticipated Discharge Date/Time: 05/24/23 16:01 Patient Disposition: Home Health Service Discharge Diagnosis: Exacerbation of CHF Referrals: Po,Roberto Bruner MD [Primary Care Provider] - 1 Week Discharge Medications: Continued amlodipine 5 mg tablet 5 mg PO DAILY Qty: 90 3RF Farxiga 5 mg tablet 5 mg PO DAILY 90 Days Qty: 90 2RF Trulicity 0.75 mg/0.5 mL pen injector 0.75 mg subcut QWEEK Qty: 6 5RF atorvastatin 10 mg tablet 10 mg PO DAILY Qty: 90 3RF insulin glargine [Lantus Solostar U-100 Insulin] 100 unit/mL (3 mL) insulin pen 5 unit subcut BEDTIME multivitamin Tablet 1 tab PO DAILY calcium carbonate-vitamin D3 [Calcium 600 + D(3)] 600 mg-10 mcg (400 unit) Tablet 1 tab PO DAILY Systane Complete 0.6 % Drops 1 drp OPHTHALMIC (EYE) TID PRN (Reason: Dry Eyes) diclofenac sodium 1 % Gel 2 g TOPICAL QD-BID PRN (Reason: Pain) Rx Instructions: apply to single elbow, wrist or hand; for hand includes palm/fingers/back of hand fexofenadine 180 mg Tablet 180 mg PO DAILY acetaminophen [Tylenol] 325 mg tablet 325 mg PO QID PRN (Reason: Pain) (DME) pen needle, diabetic 31 gauge x 5/16 needle See Rx Instructions .ROUTE .MEDSUPPLY Qty: 1200 3RF Rx Instructions: As directed (DME) compress.stocking,knee,reg,lrg Misc See Rx Instructions .Route Qty: 12 0RF Rx Instructions: As directed 20-30 mm HG insulin lispro [Humalog KwikPen Insulin] 100 unit/mL insulin pen See Rx Instructions .ROUTE .COMPLEX 30 Days Qty: 15 11RF Patient Comments: Dr. Mckinney told patient to hold off on this insulin unless her sugar is greater than 150 per daughter Bree Rx Instructions: inject 1 u TID latanoprost 0.005 % drops 1 drp ophthalmic (eye) BEDTIME allopurinol 100 mg tablet 100 mg PO BID Qty: 180 5RF Eliquis 2.5 mg tablet 2.5 mg PO BID 90 Days Qty: 180 3RF Discontinued furosemide 20 mg tablet 80 mg PO DAILY furosemide 20 mg tablet 60 mg PO BEDTIME Discharge Orders: Discharge Order (Routine); Ordered 05/24/23 Ordered By: Josh Ash Diet: Diabetic diet Activity on Discharge: As tolerated Stand Alone Forms: Patient Portal Discharge page Care Plan Goals: full recovery from heart failure and prevention of rehospitalization Health Concerns: Chronic heart failure Plan of Treatment: Stop taking Lasix and in place Bumex 2 mg daily, avoid drinking too much, no more 1500 ML a day, call your health care proxy if you gain more than 2 Ib in a day, avoid salty food and try to weight yourself daily Assessment: as above
--- NOTE | 2023-05-24 16:29 | W.MHC.F2F ---
Service Date Service Date: 05/24/23 Encounter Date of encounter: 05/24/23 Reasons for Services Signs and symptoms assessed: Heart failure Reason for correction: medication treatment and teach disease management Homebound: Leaving the home is medically contraindicated at this time without the asist of a device and/or another person due th the listed conditions above and below. Reason homebound: shortness of breath with minimal effort Homebound supporting statement: homebound due to heart failure causing shortness of with minimal exertion and therefore needs the help of another person Certification: Based on the above findings, I certify that this patient is confined to the home and needs intermittent correction care, physical therapy and/or speech therapy, or continues to need occupational therapy. The patient is under my care, and I have initiated the establishment of the plan of care. The patient will be followed by a physician who will periodically review the plan of care. Time Spent With Patient Time: Total time managing care of this patient today ____ minutes.
[2023-05-24 16:32] LABS: Glucose, Whole Blood 117 mg/dL (60-115)
== END 2023-05-24 18:18 | disposition home health service (06) | DRG 291 ==
LOC: HO.ED 10:23 → HO.EDOVER 13:29 → HO.IMC 15:26
PROVIDERS: Internal Medicine; Physician Assistant Medical; Admitting Provider Student in an Organized Health Care Education/Training Program; Emergency Provider Emergency Medicine Emergency Medical Services; PCP Internal Medicine; Visit Provider Internal Medicine
DX: I13.0 Hypertensive heart and chronic kidney disease with heart failure and stage 1 through stage 4 chronic kidney disease, or unspecified chronic kidney disease (principal); I50.33 Acute on chronic diastolic (congestive) heart failure; N18.4 Chronic kidney disease, stage 4 (severe); E11.22 Type 2 diabetes mellitus with diabetic chronic kidney disease; E78.00 Pure hypercholesterolemia, unspecified; M10.9 Gout, unspecified; I48.0 Paroxysmal atrial fibrillation; Z20.822 Contact with and (suspected) exposure to COVID-19; Z95.0 Presence of cardiac pacemaker; Z95.2 Presence of prosthetic heart valve; Z79.4 Long term (current) use of insulin; Z79.01 Long term (current) use of anticoagulants; Z79.899 Other long term (current) drug therapy
CPT/HCPCS: 36415; 71045; 80048; 80053; 82947; 83735; 83880; 84484; 85025; 85027; 87635; 93005; 99285; J1940

== ENCOUNTER → 2023-05-20 13:16 | Outpatient (BNV) | payer MEDICARE, SELFPAY ==
[2022-08-10 15:43] VITALS: BP 108/60; BP 118/64; BP 124/60; BMI 35.9
== END ==
PROVIDERS: Admitting Provider Student in an Organized Health Care Education/Training Program; Emergency Provider Emergency Medicine Emergency Medical Services; PCP Internal Medicine; Visit Provider Student in an Organized Health Care Education/Training Program
DX: I50.33 Acute on chronic diastolic (congestive) heart failure (principal)
CPT/HCPCS: 99223; 99232; 99239; G0180

== ENCOUNTER → 2023-05-20 13:16 | Outpatient (BNV) | payer MEDICARE, SELFPAY ==
[2022-08-10 15:43] VITALS: BP 108/60; BP 118/64; BP 124/60; BMI 35.9
== END ==
PROVIDERS: Admitting Provider Student in an Organized Health Care Education/Training Program; Emergency Provider Emergency Medicine Emergency Medical Services; PCP Internal Medicine; Visit Provider Internal Medicine Cardiovascular Disease
DX: I50.33 Acute on chronic diastolic (congestive) heart failure (principal); I48.0 Paroxysmal atrial fibrillation; Z95.3 Presence of xenogenic heart valve
CPT/HCPCS: 99222; 99232; 99233

== ENCOUNTER 2023-05-27 11:24 | Outpatient (AMB) | payer MEDICARE, SELFPAY ==
[2022-08-10 15:43] VITALS: BP 108/60; BP 118/64; BP 124/60; BMI 35.9
[2023-05-27 11:29] VITALS: BP 138/68; PULSE 85; O2SAT 94; BMI 31.6
--- NOTE | 2023-05-27 11:29 | MHC.PC.OV ---
Vital Signs 05/27/23 11:29 Height 5 ft 7 in Weight 202 lb BMI 31.6 BP 138/68 Blood Pressure Location Lt brachial Position Sitting Pulse 85 Pulse Source Pulse Oximeter Pulse Oximetry (%) 94 Oxygen Delivery Method Room Air Intake Visit Reasons: ED f/u SOB, edema Game Operator Required: No Accompanied by: Self / Same As Patient Allergies Penicillins [PENICILLINS] Allergy (Severe, Verified 05/27/23 11:42) SWELLING codeine [CODEINE] Allergy (Intermediate, Verified 05/27/23 11:42) SWELLING, Hives Medication List - Last Reconciled 05/27/23 by ANDREW Ledesma acetaminophen (Tylenol) 325 mg PO QID PRN allopurinol 100 mg PO BID amlodipine 5 mg PO DAILY apixaban (Eliquis) 2.5 mg PO BID 90 days atorvastatin 10 mg PO DAILY bumetanide 2 mg See Protocol PO DAILY calcium carbonate-vitamin D3 600 mg-10 mcg (400 unit) (Calcium 600 + D(3)) 1 tab PO DAILY compress.stocking,knee,reg,lrg As directed 20-30 mm HG dapagliflozin propanediol (Farxiga) 5 mg PO DAILY 90 days diclofenac sodium 1% 2 grams topical QD-BID PRN dulaglutide (Trulicity) 0.75 mg (0.5 mL) subcut QWEEK fexofenadine 180 mg PO DAILY insulin glargine (Lantus Solostar U-100 Insulin) 5 units subcut BEDTIME insulin lispro (Humalog KwikPen (U-100) Insulin) inject 1 u TID 30 days isosorbide mononitrate ER 30 mg See Protocol PO DAILY latanoprost 0.005% 1 drp ophthalmic (eye) BEDTIME multivitamin 1 tab PO DAILY pen needle, diabetic As directed propylene glycol 0.6% (Systane Complete) 1 drp ophthalmic (eye) TID PRN Tobacco use date assessed: 05/27/23 Fall risk assessment: No Falls in past year Last assessed Fall Risk: 05/27/23 Dental Screening Dental Screen Date: 05/27/23 Did you have a dental visit in the last 12 months?: Yes Did you have a dental problem in the last 6 months where you did not have access to dental care?: No Was dental information given to patient?: Patient has dentist HPI HPI Comments History of Present Illness Details 87-year-old female past medical history significant for type 2 diabetes mellitus, moderate aortic stenosis, status post TAVR, CHF, paroxysmal AFib, hypertension, hypercholesteremia, PVD, CKD. Patient of Dr. DOE last seen in march presents today for hospital discharge follow-up. D/ C summary: Dr. Ash Chief Complaint: SOB Pt is an 87-year-old female with a PMH significant for?HFpEF with EF 50-55%, rheumatic fever, peripheral vascular disease, aortic stenosis s/p TAVR in September 2021, CAD, CKD 4, HTN, HLD, insulin-dependent diabetes type 2, pacemaker placed in 2020, and paroxysmal AFib on Eliquis who presents to the ED with?worsening shortness of breath the past few days. Patient says she began noticing increasing SOB with exertion 3-4 days ago that progressively worsened. Last night the patient could barely sleep because she kept waking up because she could not breathe. Has also experienced a mostly nonproductive cough. Patient is normally active and walks with assistance of a walker. Patient otherwise denies any acute medical complaints: No chest pain/pressure, palpitations. Denies fever, chills, nausea, vomiting, diarrhea. No abdominal pain. Patient states she has been eating and drinking normally, follows a low-salt diet. Has been compliant with her medications. Denies smoking or illicit substance use, occasional alcohol consumption. In the ED patient was afebrile but hypertensive up to 160/58, satting as low as 90% on RA. Labs were significant for stable normocytic anemia of 11.1/34.6, BUN 43, creatinine 2.21(from baseline), troponin 30 he 0.5 with repeat flat at 44.3, BNP elevated at 812. CXR showed pulmonary vascular congestion without overt edema. EKG demonstrated ventricular paced rhythm without evidence of ST elevattions or depressions. Pt was treated with furosemide 60 mg IV. Pt will be admitted to the hospital for treatment and further evaluation of acute HFpEF exacerbation. Hospital course: Patient presented with shortness of breath, leg edema and weight gain, elevated BNP and was admitted for decompensated HFpEF. She was treated with IV Lasix with improvement in her symptoms, leg edema and overall has been feeling much better; she was initially requiring O2 but is no longer on O2. She was seen in consultation by cafe or restaurant manager Dr. Kothari with recommendation to change Lasix to Bumex at discharge, she will therefore be on Bumex 2 mg daily and stop lasix. Additionally fluid restriction is advised along with low keshawn. Will arrange for visiting nurse upon discharge Patient presents to this appointment today with her daughter. Patient and daughter report that patient has been experiencing worsening shortness of breath. Patient stated that she thought the day prior to appointment she was improving however now today she feels like she is worsening states that she is short of breath, reports lower extremity edema left greater than right. Patient was discharged home from hospital on Bumex 2 mg p.o. daily. Patient states that she has not yet seen Cardiology. During this appointment patient's daughter called in notify Cardiology of patient's worsening symptoms. This QUALITY INTERN sent message for specialist recommendations to Cardiology nurse practitioner Sol Gonzalez. [facility] Medical History Type 2 diabetes mellitus with unspecified complications Normally functioning cardiac pacemaker present URI (upper respiratory infection) Heart block atrioventricular Chronic heart failure with preserved ejection fraction Thrombosis of right saphenous vein Hypercholesterolemia Cataract Hypertension Obesity Aortic stenosis, moderate CKD (chronic kidney disease) stage 4, GFR 15-29 ml/min DVT (deep venous thrombosis) Type 2 diabetes mellitus with hyperglycemia Surgical History Status post transcatheter aortic valve replacement History of permanent cardiac pacemaker placement (~05/06/21) History of eye surgery History of surgical procedure on eye proper using laser History of right hip replacement History of partial hysterectomy History of cholecystectomy Family History Father No problems noted. Mother No problems noted. Social History Household Members: Family Housing: House Alcohol intake: never Patient Tobacco Use Status: Never used Tobacco e-Cigarette/Vaping Use: Never Used Second Hand Smoke Exposure: Yes Advance Directives Date on File: 05/20/23 service: No Current occupational status: retired Cognitive needs: Yes (walker ) Hearing needs: No Vision needs: Yes Questionnaire PHQ-9 Over the last 2 weeks, how often have you been bothered by any of the following problems? 1. Little interest or pleasure in doing things: not at all 2. Feeling down, depressed, or hopeless: not at all 3. Trouble falling or staying asleep, or sleeping too much: not at all 4. Feeling tired or having little energy: not at all 5. Poor appetite or overeating: not at all 6. Feeling bad about yourself - or that you are a failure or have let yourself or your family down: not at all 7. Trouble concentrating on things, such as reading the newspaper or watching television: not at all 8. Moving or speaking so slowly that other people could have noticed. Or the opposite - being so fidgety or restless that you have been moving around a lot more than usual: not at all 9. Thoughts that you would be better off or of hurting yourself in some way: not at all Total score: 0 Depression Screening Interpretation: Negative Source: Developed by Drs. Enrrique Avila, Asmita Quigley, Demond Aviles and colleagues, with an educational ruma from [employer]. Thrive Questionnaire Date Thrive assessed: 05/27/23 I am a: Patient What is your living situation today?: I have a steady place to live Within the past 12 months, did the food you bought not last and you didn't have the money to get more?: Never true Within the past 12 months, did you worry whether your food would run out before you got money to buy more?: Never true Do you have trouble paying for medicines?: No Do you have trouble getting transportation to medical appointments?: No Do you have trouble paying your heating and electricity bill?: No Do you have trouble taking care of your child, family member or friend?: No Do you have trouble with day-to-day activities such as bathing, preparing meals, shopping, managing finances, etc.?: No Are you currently unemployed and looking for a job?: No Are you interested in more education?: No Please select the resources that you would like help with: None Currently or been in a relationship where the following occur: no concerns reported AUDIT C Alcohol Use Questionnaire (AUDIT-C) 1. How often do you have a drink containing alcohol?: Never 3. How often do you have six or more drinks on one occasion?: Never Total Score: 0 Score Reviewed/Action Taken: No AZAR-7 AMB Questionnaire AZAR-7 Date AZAR - 7 assessed: 05/27/23 Feeling nervous, anxious, or on edge: 0 = Not at all Not being able to stop or control worryin = Not at all Worrying too much about different things: 0 = Not at all Trouble relaxin = Not at all Being so restless that it is hard to sit still: 0 = Not at all Becoming easily annoyed or irritable: 0 = Not at all Feeling afraid as if something awful might happen: 0 = Not at all Total AZAR-7 score (0-4 normal; 5-9 mild; 10-14 moderate; 15-21 severe): 0 Source: Developed by Drs. Enrrique Avila, Asmita Quigley, Demond Aviles and colleagues, with an educational ruma from [employer]. Review of Systems Const Denies chills, Denies fatigue, Denies fever(s) and Denies poor appetite Eyes Denies no additional complaints ENT Reports Normal hearing present Card Denies chest pain, Denies syncope, Denies rapid heart rate, Reports leg edema and Reports dyspnea Resp Denies cough and Reports dyspnea GI Denies change in stool character, Denies constipation, Denies diarrhea, Denies nausea and Denies vomiting Denies urinary frequency, Denies dysuria and Denies urinary urgency Neuro Reports Normal hearing present, Denies confusion and Denies syncope Psych Denies confusion Endo Denies fatigue Physical exam (Primary Care) Vital Signs: Last Vital Signs Pulse 85 05/27/23 11:29 BP 138/68 05/27/23 11:29 Pulse Ox 94 05/27/23 11:29 Oxygen Delivery Method Room Air 05/27/23 11:29 BMI result Body Mass Index 31.6 Tobacco/Smoking Status: Tobacco use Status Tobacco use date assessed 05/27/23 05/27/23 11:36 Patient Tobacco Use Status Never used Tobacco 05/27/23 11:36 e-Cigarette/Vaping Use Never Used 05/27/23 11:36 PHQ-9: PHQ-9 Score PHQ-9: Total score 0 05/27/23 11:36 Depression Screening Interpretation: Negative Thrive Assessment: Date of Thrive Assessment Date Thrive assessed 05/27/23 05/27/23 11:36 Currently or been in a relationship where the following occur: no concerns reported Const General: No confusion Orientation/consciousness: No confusion HENMT Head: Yes normocephalic and Yes atraumatic Eyes Conjunctivae: conjunctivae normal Chest Chest palpation & inspection: normal inspection of the chest Resp Effort & Inspection: normal respiratory effort Auscultation: clear to auscultation bilaterally, no crackles, no rhonchi and no wheezes Cardio Rate: regular rate Rhythm: regular rhythm Heart sounds: S1 normal heart sound present and S2 normal heart sound present GI Inspection: Yes normal to inspection Neuro General: No confusion Cranial nerves: Yes Normal hearing present Extrem General: Yes edema (Bilateral 2+ pitting edema ) Assessment and Plan Assessment & Plan (1) Type 2 diabetes mellitus with hyperglycemia: Comment: Dr. Cisse 11/2022 Code(s): E11.65 - Type 2 diabetes mellitus with hyperglycemia Qualifiers: Diabetes mellitus group home insulin use: with meterman use Qualified Code(s): E11.65 - Type 2 diabetes mellitus with hyperglycemia; Z79.4 - FDC (current) use of insulin Plan: Continue on Humalog, Lantus, Trulicity (2) Hypertension: Comment: Cardiac catheterization no obstruction July 2015 Code(s): I10 - Essential (primary) hypertension Qualifiers: Hypertension type: essential hypertension Qualified Code(s): I10 - Essential (primary) hypertension Plan: Continue on amlodipine, Imdur 30mg. Follow low-salt diet. (3) Hypercholesterolemia: Code(s): E78.00 - Pure hypercholesterolemia, unspecified Plan: Continue on atorvastatin. Follow low-cholesterol diet. (4) Chronic diastolic (congestive) heart failure: Code(s): I50.32 - Chronic diastolic (congestive) heart failure Plan: Cardiology and QUALITY INTERN Sol Gonzalez consulted on this case, Given patient's history of CKD it was recommended by Cardiology patient increases her Bumex to 2 mg b.i.d. x3 days then dropped back down to 2 mg of Bumex daily. Follow low-salt diet and a 40 oz fluid restriction follow-up with cardiology next Tuesday for BMP and BNP labs. Patient's daughter was called and notified of above recommendations and agreeable with plan. Follow up with Cardiology scheduled for next week. (5) Paroxysmal atrial fibrillation: Code(s): I48.0 - Paroxysmal atrial fibrillation Plan: Continue on a Eliquis 2.5 mg b.i.d. (6) Hospital discharge follow-up: Code(s): Z09 - Encounter for follow-up examination after completed treatment for conditions other than malignant neoplasm Plan Keep scheduled follow-up with PCP or follow-up sooner if needed. Orders: Orders B Type Natriuretic Peptide 05/27/23 I50.9 - Heart failure, unspecified Comprehensive Met. Panel 05/27/23 I50.9 - Heart failure, unspecified Complete Blood Count Auto Diff 05/27/23 I50.32 - Chronic diastolic (congestive) heart failure Medications: Refilled bumetanide 2 mg See Protocol PO DAILY 60 tabs 3RF isosorbide mononitrate ER 30 mg See Protocol PO DAILY 30 tabs 2RF Coding Level of Care Code Est Pt Level 4 (83630) Diagnoses Type 2 diabetes mellitus with hyperglycemia, with long-term current use of insulin E11.65; Z79.4 Diabetes mellitus group home insulin use: with group home use Essential hypertension I10 Hypertension type: essential hypertension Hypercholesterolemia E78.00 Chronic diastolic (congestive) heart failure I50.32 Paroxysmal atrial fibrillation I48.0 Hospital discharge follow-up Z09
== END 2023-05-27 12:15 | disposition home or self-care (01) ==
PROVIDERS: PCP Internal Medicine; Visit Provider Nurse Practitioner Family
DX: E11.65 Type 2 diabetes mellitus with hyperglycemia (principal); Z79.4 Long term (current) use of insulin; I11.0 Hypertensive heart disease with heart failure; I50.32 Chronic diastolic (congestive) heart failure; E78.00 Pure hypercholesterolemia, unspecified; I48.0 Paroxysmal atrial fibrillation; Z09 Encounter for follow-up examination after completed treatment for conditions other than malignant neoplasm
CPT/HCPCS: 99214

== ENCOUNTER 2023-05-30 12:28 | Outpatient (AMB) | payer MEDICARE, SELFPAY ==
[2022-08-10 15:43] VITALS: BP 108/60; BP 118/64; BP 124/60; BMI 35.9
--- NOTE | 2023-05-30 12:40 | A.OFFVIS_ITS ---
Intake Vital Signs 05/30/23 12:41 Height 5 ft 7 in Weight 231 lb 7.766 oz BMI 36.3 BP 120/59 L Blood Pressure Location Rt brachial Position Sitting Pulse 79 Intake Visit Reasons: follow-up [facility] [place] Intake Note: follow up Enterprise Data Architect Required: No Accompanied by: Self / Same As Patient Allergies Penicillins [PENICILLINS] Allergy (Severe, Verified 05/30/23 12:43) SWELLING codeine [CODEINE] Allergy (Intermediate, Verified 05/30/23 12:43) SWELLING, Hives Medication List - Last Reconciled 05/30/23 by Greg Thomas MD acetaminophen (Tylenol) 325 mg PO QID PRN allopurinol 100 mg PO BID amlodipine 5 mg PO DAILY apixaban (Eliquis) 2.5 mg PO BID 90 days atorvastatin 10 mg PO DAILY calcium carbonate-vitamin D3 600 mg-10 mcg (400 unit) (Calcium 600 + D(3)) 1 tab PO DAILY compress.stocking,knee,reg,lrg As directed 20-30 mm HG dapagliflozin propanediol (Farxiga) 5 mg PO DAILY 90 days diclofenac sodium 1% 2 grams topical QD-BID PRN dulaglutide (Trulicity) 0.75 mg (0.5 mL) subcut QWEEK fexofenadine 180 mg PO DAILY furosemide 4 tabs am and 3 tabs pm insulin glargine (Lantus Solostar U-100 Insulin) 5 units subcut BEDTIME insulin lispro (Humalog KwikPen (U-100) Insulin) inject 1 u TID 30 days isosorbide mononitrate ER 30 mg See Protocol PO DAILY latanoprost 0.005% 1 drp ophthalmic (eye) BEDTIME multivitamin 1 tab PO DAILY pen needle, diabetic As directed propylene glycol 0.6% (Systane Complete) 1 drp ophthalmic (eye) TID PRN HPI HPI Comments History of Present Illness Details Allie returns for follow-up regarding various cardiac issues including TAVR, pacemaker, heart failure among others. For the last few weeks or so she has not been feeling good. She has been increasingly short of breath and also developed leg swelling. Then she was hospitalized for congestive heart failure. It seems that her Lasix was stopped and she was put on Bumex. However, she still feels short of breath. Leg swelling is not too different either. [facility] Medical History Type 2 diabetes mellitus with unspecified complications Normally functioning cardiac pacemaker present URI (upper respiratory infection) Heart block atrioventricular Chronic heart failure with preserved ejection fraction Thrombosis of right saphenous vein Hypercholesterolemia Cataract Hypertension Obesity Aortic stenosis, moderate CKD (chronic kidney disease) stage 4, GFR 15-29 ml/min DVT (deep venous thrombosis) Type 2 diabetes mellitus with hyperglycemia Surgical History Status post transcatheter aortic valve replacement History of permanent cardiac pacemaker placement (~05/06/21) History of eye surgery History of surgical procedure on eye proper using laser History of right hip replacement History of partial hysterectomy History of cholecystectomy Family History Father No problems noted. Mother No problems noted. Social History Household Members: Family Housing: House Alcohol intake: never Patient Tobacco Use Status: Never used Tobacco e-Cigarette/Vaping Use: Never Used Second Hand Smoke Exposure: Yes Advance Directives Date on File: 05/20/23 service: No Current occupational status: retired Cognitive needs: Yes (walker ) Hearing needs: No Vision needs: Yes Review of Systems Const Denies weakness ENT Denies dizziness Card Denies chest pain, Denies chest pain with activity, Denies syncope, Denies rapid heart rate, Denies pedal edema, Denies edema, Denies leg edema, Denies lightheadedness, Denies palpitations, Denies dyspnea, Denies dyspnea on exertion and Denies orthopnea Resp Denies cough, Denies dyspnea and Denies dyspnea on exertion GI Denies hematochezia and Denies change in stool character Musc Denies abnormal gait, Denies muscle cramps, Denies muscle weakness, Denies numbness, Denies radiating pain into limb and Denies tingling Neuro Denies abnormal gait, Denies dizziness, Denies syncope, Denies numbness, Denies tingling and Denies weakness Endo Denies palpitations Physical Exam Vital Signs: Last Vital Signs Pulse 79 05/30/23 12:41 BP 120/59 L 05/30/23 12:41 BMI result Body Mass Index 36.3 Const General: comfortable and no acute distress Orientation/consciousness: patient oriented x3 HEENT Other: Unremarkable Head: Yes normal to inspection Neck Neck: Yes normal visual inspection Chest Chest palpation & inspection: normal inspection of the chest Resp Other: Few basal inspiratory crackles Cardio Palpation: normal PMI Heart sounds: S1 normal heart sound present, S2 normal heart sound present, no gallops, Murmur heart sound present systolic II/ and at the right sternal border and no rubs GI Palpation (GI): Soft to palpation Back/Spine/Pelvis Other: unremarkable Skin General skin exam: no rashes or lesions noted Neuro General: patient oriented x3 Extrem Other: 2+ edema General: Yes normal to inspection Psych Mental Status: mental status grossly normal Office Procedures EKG Details: EKG with ventricular paced rhythm. Underlying rhythm is either atrial flutter or fibrillation. [id number], Complete Assessment & Plan Assessment & Plan (1) Acute on chronic diastolic (congestive) heart failure: Code(s): I50.33 - Acute on chronic diastolic (congestive) heart failure Plan: She might have gone into acute heart failure due to atrial fibrillation. Explained about this to patient and daughter in law. She has been on uninterrupted anticoagulation. Hence can plan cardioversion. Will try to schedule for the next day or 2. After that, possibly amiodarone. She was doing well on Lasix in the past and hence can just use that for now. Hopefully, with restoring sinus rhythm, she should be back to her baseline fluid status. (2) Paroxysmal atrial fibrillation: Code(s): I48.0 - Paroxysmal atrial fibrillation Plan: Plan cardioversion as above. Continue anticoagulation. Post cardioversion, may use amiodarone. (3) Status post transcatheter aortic valve replacement: Code(s): Z95.2 - Presence of prosthetic heart valve Plan: Last echocardiogram with normal prosthetic valve function. Usual infective endocarditis prophylaxis. In the past, nonobstructive disease on cardiac catheterization. (4) Heart block atrioventricular: Code(s): I44.30 - Unspecified atrioventricular block Plan: Status post pacemaker implantation. Office interrogation with normal pacemaker function. (5) Essential hypertension: Code(s): I10 - Essential (primary) hypertension Plan: Continue amlodipine. (6) Type 2 diabetes mellitus with unspecified complications: Code(s): E11.8 - Type 2 diabetes mellitus with unspecified complications Plan: On insulin, Trulicity, Farxiga. Last hemoglobin A1c 5.7%. (7) CKD (chronic kidney disease) stage 4, GFR 15-29 ml/min: Code(s): N18.4 - Chronic kidney disease, stage 4 (severe) Plan: Most recent creatinine is 2.05. Seems to be about the baseline. Plan Discussed with daughter in law who came for appointment. Coding Level of Care Code Est Pt Level 5 (08949) Diagnoses Acute on chronic diastolic (congestive) heart failure I50.33 Paroxysmal atrial fibrillation I48.0 Status post transcatheter aortic valve replacement Z95.2 Heart block atrioventricular I44.30 Essential hypertension I10 Type 2 diabetes mellitus with unspecified complications E11.8 CKD (chronic kidney disease) stage 4, GFR 15-29 ml/min N18.4 CPT Codes EKG - CPT: 78468-[id number], Complete ([id number])
[2023-05-30 12:41] VITALS: BP 120/59; PULSE 79; BMI 36.3
== END 2023-05-30 13:27 | disposition home or self-care (01) ==
PROVIDERS: PCP Internal Medicine; Visit Provider Internal Medicine
DX: I50.33 Acute on chronic diastolic (congestive) heart failure (principal); I48.0 Paroxysmal atrial fibrillation; Z95.2 Presence of prosthetic heart valve; I44.30 Unspecified atrioventricular block; I12.9 Hypertensive chronic kidney disease with stage 1 through stage 4 chronic kidney disease, or unspecified chronic kidney disease; E11.8 Type 2 diabetes mellitus with unspecified complications; N18.4 Chronic kidney disease, stage 4 (severe)
CPT/HCPCS: 93010; 99215

== ENCOUNTER → 2023-05-30 12:28 | Outpatient (BNVA) | payer MEDICARE, SELFPAY ==
[2022-08-10 15:43] VITALS: BP 108/60; BP 118/64; BP 124/60; BMI 35.9
== END ==
PROVIDERS: PCP Internal Medicine; Visit Provider Internal Medicine
DX: E11.22 Type 2 diabetes mellitus with diabetic chronic kidney disease (principal); I13.0 Hypertensive heart and chronic kidney disease with heart failure and stage 1 through stage 4 chronic kidney disease, or unspecified chronic kidney disease; N18.4 Chronic kidney disease, stage 4 (severe); I50.32 Chronic diastolic (congestive) heart failure; I48.0 Paroxysmal atrial fibrillation; I44.30 Unspecified atrioventricular block; E11.8 Type 2 diabetes mellitus with unspecified complications; Z95.2 Presence of prosthetic heart valve
CPT/HCPCS: 93005; 99212

== ENCOUNTER 2023-06-01 08:08 | Day surgery (SDC) | payer MEDICARE, SELFPAY ==
[2022-08-10 15:43] VITALS: BP 108/60; BP 118/64; BP 124/60; BMI 35.9
--- NOTE | 2023-05-31 09:08 | HO.ANESPROP2 ---
HPI - Anesthesia Eval Consult details Narrative: 88yo F for Cardioversion Pacer in situ S/p TAVR Eliquis for afib 04/2023 [facility] [place] with [place]F [facility] Active Problems Active Problems: All Active Problems (Updated 05/20/23 @ 16:02 by SHANA Ham) CHF (congestive heart failure) (Acute) Osteopenia (Acute) Paroxysmal atrial fibrillation (Acute) Osteoarthritis of knees, bilateral (Acute) Tophaceous gout (Acute) Osteoarthritis of hands, bilateral (Acute) Chronic diastolic (congestive) heart failure (Acute) Status post transcatheter aortic valve replacement (TAVR) using bioprosthesis (Acute) CKD (chronic kidney disease) stage 4, GFR 15-29 ml/min (Acute) Peripheral vascular disease (Acute) Heart block atrioventricular (Acute) Hypercholesterolemia (Acute) Hypertension (Acute) Obesity (Acute) Aortic stenosis, moderate (Acute) Type 2 diabetes mellitus with hyperglycemia (Acute) Past Medical History Medical History CHF (congestive heart failure) Paroxysmal atrial fibrillation Type 2 diabetes mellitus with unspecified complications Normally functioning cardiac pacemaker present URI (upper respiratory infection) Heart block atrioventricular Chronic heart failure with preserved ejection fraction Thrombosis of right saphenous vein Hypercholesterolemia Cataract Hypertension Obesity Aortic stenosis, moderate CKD (chronic kidney disease) stage 4, GFR 15-29 ml/min DVT (deep venous thrombosis) Type 2 diabetes mellitus with hyperglycemia Family History Family History Father No problems noted. Mother No problems noted. Surgical History Surgical History Status post transcatheter aortic valve replacement (TAVR) using bioprosthesis History of permanent cardiac pacemaker placement (~05/06/21) History of eye surgery History of surgical procedure on eye proper using laser History of right hip replacement History of partial hysterectomy History of cholecystectomy Social History Social History Household Members: Family Housing: House Alcohol intake: never Patient Tobacco Use Status: Never used Tobacco e-Cigarette/Vaping Use: Never Used Second Hand Smoke Exposure: Yes Advance Directives Date on File: 05/20/23 service: No Current occupational status: retired Cognitive needs: Yes (walker ) Hearing needs: No Vision needs: Yes Meds Allergies Allergy/AdvReac Type Severity Reaction Status Date / Time Penicillins [PENICILLINS] Allergy Severe SWELLING Verified 06/07/23 14:25 codeine [CODEINE] Allergy Intermediate SWELLING, Verified 06/07/23 14:25 Hives Home Medications Medication Instructions Recorded Confirmed Last Taken Type acetaminophen 325 mg tablet 325 mg PO QID PRN Pain 07/15/20 06/07/23 Unknown History (Tylenol) latanoprost 0.005 % eye drops 1 drp ophthalmic (eye) BEDTIME 07/14/21 06/07/23 05/19/23 History calcium carbonate 600 mg-vitamin 1 tab PO DAILY 05/20/23 06/07/23 05/19/23 History D3 10 mcg (400 unit) tablet (Calcium 600 + D(3)) diclofenac sodium 1 % topical gel 2 g topical QD-BID PRN Pain 05/20/23 06/07/23 Unknown History fexofenadine 180 mg tablet 180 mg PO DAILY 05/20/23 06/07/23 05/19/23 History insulin glargine 100 unit/mL (3 5 unit subcut BEDTIME 05/20/23 06/07/23 05/31/23 21:00 History mL) subcutaneous pen (Lantus 5 units Solostar U-100 Insulin) multivitamin 1 tab PO DAILY 05/20/23 06/07/23 05/19/23 History propylene glycol 0.6 % eye drops 1 drp ophthalmic (eye) TID PRN Dry 05/20/23 06/07/23 Unknown History (Systane Complete) Eyes Exam Exam Date and Time: May 31, 2023 0908 Pertinent Lab Results Pertinent Lab Results: Laboratory Tests 05/21/23 05/24/23 05/24/23 06:55 06:05 06:05 WBC 7.0 Hgb 9.9 L Hct 31.9 L Plt Count 176 Sodium 141 Potassium 4.1 Chloride 103 Carbon Dioxide 25 BUN 41 H Creatinine 2.05 H Narrative Narrative: Cardiac Device Check 02/2023 Details: Pacemaker interrogated today. Dual-chamber device, programmed in DDD mode. Battery status 10.5 years. Normal lead parameters. Atrial pacing 3%. Ventricular pacing 99.8%. Atrial fibrillation episode for about 30 minutes. Otherwise, nonsustained VT episodes. Overall, normal device function. EKG 04/2023 Vent. Rate : 060 BPM Atrial Rate : 264 BPM P-R Int : 000 ms QRS Dur : 138 ms QT Int : 520 ms P-R-T Axes : 000 012 -05 degrees QTc Int : 520 ms Ventricular-paced rhythm Abnormal ECG When compared with ECG of 14-JUN-2017 15:31, Electronic ventricular pacemaker has replaced Sinus rhythm ECHO 10/2022 Conclusions: - 1. Low normal LV systolic function with LVEF of 50-55%, with pseudonormal filling pattern. 2. Left atrium is moderately dilated. 3. Normally functioning bioprosthetic aortic valve. 4. 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 Normal RVSP Assessment and Plan Assessment Anesthesia Assessment: Chart Reviewed
--- NOTE | 2023-06-01 08:46 | ECG_ITS ---
Test Reason : pre op Blood Pressure : / mmHG Vent. Rate : 063 BPM Atrial Rate : 252 BPM P-R Int : 000 ms QRS Dur : 134 ms QT Int : 514 ms P-R-T Axes : 000 -07 -37 degrees QTc Int : 525 ms Ventricular-paced rhythm Abnormal ECG When compared with ECG of 20-MAY-2023 06:18, Vent. rate has increased BY 3 BPM Referred By: Greg Thomas Electronically Signed By:JN MONTES
[2023-06-01 09:04] VITALS: BP 148/67; PULSE 64; RESP 16; TEMP 37.1; O2SAT 95; BMI 35.4
[2023-06-01 09:10] LABS: Glucose, Whole Blood 145 mg/dL (60-115)
[2023-06-01] MEDS: Lactated Ringers 1,000 ML 50 ML IVCONT (09:33)
--- NOTE | 2023-06-01 09:44 | MHC.SHP ---
Pre-Procedural Eval Section A Date of Service: 06/01/23 The patient is an INPATIENT: No The History & Physical has been completed within 30 days and I have reviewed it.: Yes Section B Chief Complaint: Paroxysmal atrial fibrillation Allergies: Allergies Allergy/AdvReac Type Severity Reaction Status Date / Time Penicillins [PENICILLINS] Allergy Severe SWELLING Verified 06/01/23 09:10 codeine [CODEINE] Allergy Intermediate SWELLING, Verified 06/01/23 09:10 Hives Plan I have reviewed the history and physical and performed a pertinent physical examination on my patient. No changes have occurred unless specified. Time Spent With Patient Time: Total time managing care of this patient today ____ minutes.
--- NOTE | 2023-06-01 09:44 | HO.CARDIVERS ---
Cardioversion Procedure Note Cardioversion Date of Procedure: 06/01/2023 Ordering Provider: Dr. Thomas Performing Provider: Dr. Thomas Indication for Procedure: Atrial fibrillation with congestive heart failure Pre-Op Diagnosis: Atrial flutter or fibrillation with controlled rate Post-Op Diagnosis: Sinus rhythm MONTSERRAT findings (if MONTSERRAT Performed): Not performed History: See office notes in detail. Consent: Informed consent obtained. Procedure: After informed consent was obtained, patient was taken to the PACU. The patient was then positioned appropriately. The cardioversion pads were placed in anteroposterior position. Once under anesthesia, 120 joules of synchronized shock was administered. The rhythm converted from atrial fibrillation to sinus rhythm. Patient remained in sinus rhythm after the end of procedure. Complications: None. Impression: Successful cardioversion. Recommendations: Start amiodarone. Will arrange clinic visit/pacemaker check. Discussed with family.
--- NOTE | 2023-06-01 10:02 | ECG_ITS ---
Test Reason : postop Blood Pressure : / mmHG Vent. Rate : 079 BPM Atrial Rate : 079 BPM P-R Int : 170 ms QRS Dur : 136 ms QT Int : 478 ms P-R-T Axes : 065 079 151 degrees QTc Int : 548 ms Atrial-sensed ventricular-paced rhythm Abnormal ECG When compared with ECG of 01-JUN-2023 08:51, Vent. rate has increased BY 16 BPM Referred By: Greg Thomas Electronically Signed By:JN MONTES
[2023-06-01 10:06] VITALS: BP 131/65; PULSE 83; RESP 15; TEMP 36.3; O2SAT 94
[2023-06-01 10:21] VITALS: BP 143/59; PULSE 84; RESP 19; O2SAT 99
[2023-06-01] MEDS: Amiodarone HCL 200 MG TABLET 400 MG PO (10:24)
[2023-06-01 10:36] VITALS: BP 148/57; PULSE 76; RESP 16; TEMP 36.4; O2SAT 96
[2023-06-01 10:51] VITALS: BP 145/73; PULSE 83; RESP 14; TEMP 36.4; O2SAT 96
== END 2023-06-01 12:15 | disposition home or self-care (01) ==
PROVIDERS: PCP Internal Medicine; Visit Provider Internal Medicine
PROC: 5A2204Z Restoration of Cardiac Rhythm, Single (ICD-10-PCS; principal; 2023-06-01 10:00)
DX: I48.0 Paroxysmal atrial fibrillation (principal); I13.0 Hypertensive heart and chronic kidney disease with heart failure and stage 1 through stage 4 chronic kidney disease, or unspecified chronic kidney disease; I50.33 Acute on chronic diastolic (congestive) heart failure; I44.30 Unspecified atrioventricular block; Z95.2 Presence of prosthetic heart valve; N18.4 Chronic kidney disease, stage 4 (severe); E11.22 Type 2 diabetes mellitus with diabetic chronic kidney disease; Z79.4 Long term (current) use of insulin; Z79.85 Long-term (current) use of injectable non-insulin antidiabetic drugs; Z79.01 Long term (current) use of anticoagulants; Z79.899 Other long term (current) drug therapy
CPT/HCPCS: 82947; 92960; 93005

== ENCOUNTER → 2023-06-01 08:08 | Outpatient (BNV) | payer MEDICARE, SELFPAY ==
[2022-08-10 15:43] VITALS: BP 108/60; BP 118/64; BP 124/60; BMI 35.9
== END ==
PROVIDERS: PCP Internal Medicine; Visit Provider Internal Medicine
DX: I48.0 Paroxysmal atrial fibrillation (principal)
CPT/HCPCS: 92960

== ENCOUNTER 2023-06-07 13:58 | Outpatient (AMB) | payer MEDICARE, SELFPAY ==
[2023-06-02 09:54] VITALS: BP 108/60; BP 118/64; BP 124/60; BMI 35.9
--- NOTE | 2023-06-07 14:25 | MHC.OFFVIS ---
Intake Vital Signs 06/07/23 14:26 Height 5 ft 7 in Weight 231 lb 7.766 oz BMI 36.3 BP 118/60 Blood Pressure Location Lt brachial Position Sitting Pulse 82 Intake Visit Reasons: Hemophilia [facility] device check Intake Note: device check w/ EKG Fluid Jet Cutter Operator Required: No Accompanied by: Self / Same As Patient Allergies Penicillins [PENICILLINS] Allergy (Severe, Verified 06/07/23 14:25) SWELLING codeine [CODEINE] Allergy (Intermediate, Verified 06/07/23 14:25) SWELLING, Hives Medication List - Last Reconciled 06/07/23 by Greg Thomas MD acetaminophen (Tylenol) 325 mg PO QID PRN allopurinol 100 mg PO BID amiodarone 200 mg PO DIRECTED amlodipine 5 mg PO DAILY apixaban (Eliquis) 2.5 mg PO BID 90 days atorvastatin 10 mg PO DAILY calcium carbonate-vitamin D3 600 mg-10 mcg (400 unit) (Calcium 600 + D(3)) 1 tab PO DAILY compress.stocking,knee,reg,lrg As directed 20-30 mm HG dapagliflozin propanediol (Farxiga) 5 mg PO DAILY 90 days diclofenac sodium 1% 2 grams topical QD-BID PRN dulaglutide (Trulicity) 0.75 mg (0.5 mL) subcut QWEEK fexofenadine 180 mg PO DAILY furosemide 4 tabs every AM (80mg) and 3 tabs (60mg) every PM insulin glargine (Lantus Solostar U-100 Insulin) 5 units subcut BEDTIME insulin lispro (Humalog KwikPen (U-100) Insulin) inject 1 u TID 30 days isosorbide mononitrate ER 30 mg See Protocol PO DAILY latanoprost 0.005% 1 drp ophthalmic (eye) BEDTIME multivitamin 1 tab PO DAILY pen needle, diabetic As directed propylene glycol 0.6% (Systane Complete) 1 drp ophthalmic (eye) TID PRN HPI HPI Comments History of Present Illness Details Allie returns for follow-up regarding various cardiac issues including TAVR, pacemaker, heart failure among others. Recent hospitalization for congestive heart failure. The precipitating factor seems to be atrial fibrillation. Subsequently, seen in the clinic and then we had arranged elective cardioversion. This was done last week. After that, some improvement. Leg swelling is slightly better. She does not feel as tight in her legs as before. Breathing is just about the same. Otherwise, slight improvement after cardioversion. [facility] Medical History CHF (congestive heart failure) Paroxysmal atrial fibrillation Type 2 diabetes mellitus with unspecified complications Normally functioning cardiac pacemaker present URI (upper respiratory infection) Heart block atrioventricular Chronic heart failure with preserved ejection fraction Thrombosis of right saphenous vein Hypercholesterolemia Cataract Hypertension Obesity Aortic stenosis, moderate CKD (chronic kidney disease) stage 4, GFR 15-29 ml/min DVT (deep venous thrombosis) Type 2 diabetes mellitus with hyperglycemia Surgical History Status post transcatheter aortic valve replacement (TAVR) using bioprosthesis History of permanent cardiac pacemaker placement (~05/06/21) History of eye surgery History of surgical procedure on eye proper using laser History of right hip replacement History of partial hysterectomy History of cholecystectomy Family History Father No problems noted. Mother No problems noted. Social History Household Members: Family Housing: House Alcohol intake: never Patient Tobacco Use Status: Never used Tobacco e-Cigarette/Vaping Use: Never Used Second Hand Smoke Exposure: Yes Advance Directives Date on File: 05/20/23 service: No Current occupational status: retired Cognitive needs: Yes (walker ) Hearing needs: No Vision needs: Yes Review of Systems Const Denies weakness ENT Denies dizziness Card Denies chest pain, Denies chest pain with activity, Denies syncope, Denies rapid heart rate, Denies pedal edema, Denies edema, Denies leg edema, Denies lightheadedness, Denies palpitations, Denies dyspnea, Denies dyspnea on exertion and Denies orthopnea Resp Denies cough, Denies dyspnea and Denies dyspnea on exertion GI Denies hematochezia and Denies change in stool character Musc Denies abnormal gait, Denies muscle cramps, Denies muscle weakness, Denies numbness, Denies radiating pain into limb and Denies tingling Neuro Denies abnormal gait, Denies dizziness, Denies syncope, Denies numbness, Denies tingling and Denies weakness Endo Denies palpitations Physical Exam Vital Signs: Last Vital Signs Pulse 82 06/07/23 14:26 BP 118/60 06/07/23 14:26 BMI result Body Mass Index 36.3 Const General: comfortable and no acute distress Orientation/consciousness: patient oriented x3 HEENT Other: Unremarkable Head: Yes normal to inspection Neck Neck: Yes normal visual inspection Chest Chest palpation & inspection: normal inspection of the chest Resp Other: Few basal inspiratory crackles Cardio Palpation: normal PMI Heart sounds: S1 normal heart sound present, S2 normal heart sound present, no gallops, Murmur heart sound present systolic II/ and at the right sternal border and no rubs GI Palpation (GI): Soft to palpation Back/Spine/Pelvis Other: unremarkable Skin General skin exam: no rashes or lesions noted Neuro General: patient oriented x3 Extrem Other: 1+ edema General: Yes normal to inspection Psych Mental Status: mental status grossly normal Office Procedures Cardiac Device Check Cardiac Device Check Details: Pacemaker interrogated to ensure normal function post cardioversion. Battery status 10 years. Programmed DDD mode. 60/120. Ventricular pacing 99.8%. Atrial pacing 0.9%. Normal lead parameters. Overall, normal device function. [id number] Cardiac Device Check, pacemaker dual lead Procedure code (CPT) selection complete EKG Details: EKG shows atrial sensed, ventricular paced rhythm at 82/Min. QT interval is slightly prolonged but she also has a wide QRS with paced rhythm and hence difficult interpret. Suspect less than computer read. [id number], Complete Assessment & Plan Assessment & Plan (1) Paroxysmal atrial fibrillation: Code(s): I48.0 - Paroxysmal atrial fibrillation Plan: Continue amiodarone. Slight prolongation of QT but there is also difficult interpretation as it is a paced rhythm with wide QRS. Also not much of a choice otherwise. Continue anticoagulation. (2) Acute on chronic diastolic (congestive) heart failure: Code(s): I50.33 - Acute on chronic diastolic (congestive) heart failure Plan: Slight improvement after cardioversion. Leg swelling seems better. Continue Lasix as before. Advised to call us back in a week or 2 if she still does not feel better. In that case, add metolazone. (3) Status post transcatheter aortic valve replacement: Code(s): Z95.2 - Presence of prosthetic heart valve Plan: Last echocardiogram with normal prosthetic valve function. Usual infective endocarditis prophylaxis. In the past, nonobstructive disease on cardiac catheterization. (4) Heart block atrioventricular: Code(s): I44.30 - Unspecified atrioventricular block Plan: Status post pacemaker implantation. (5) Essential hypertension: Code(s): I10 - Essential (primary) hypertension Plan: Continue amlodipine. (6) Type 2 diabetes mellitus with unspecified complications: Code(s): E11.8 - Type 2 diabetes mellitus with unspecified complications Plan: On insulin, Trulicity, Farxiga. Last hemoglobin A1c 5.7%. (7) CKD (chronic kidney disease) stage 4, GFR 15-29 ml/min: Code(s): N18.4 - Chronic kidney disease, stage 4 (severe) Plan: Most recent creatinine is 2.05. Seems to be about the baseline. Plan Discussed with daughter in law who came for appointment. Medications: Discontinued isosorbide mononitrate ER Discontinued Reason: Doctor's Order 30 mg See Protocol PO DAILY 30 tabs 2RF Coding Level of Care Code Est Pt Level 4 (07852) Diagnoses Paroxysmal atrial fibrillation I48.0 Acute on chronic diastolic (congestive) heart failure I50.33 Status post transcatheter aortic valve replacement Z95.2 Heart block atrioventricular I44.30 Essential hypertension I10 Type 2 diabetes mellitus with unspecified complications E11.8 CKD (chronic kidney disease) stage 4, GFR 15-29 ml/min N18.4 CPT Codes Cardiac Device Check - Cardiac Device 2: [id number] Cardiac Device Check, pacemaker dual lead ([id number]) EKG - CPT: 80181-[id number], Complete ([id number])
[2023-06-07 14:26] VITALS: BP 118/60; PULSE 82; BMI 36.3
== END 2023-06-07 14:45 | disposition home or self-care (01) ==
PROVIDERS: PCP Internal Medicine; Visit Provider Internal Medicine
DX: I48.0 Paroxysmal atrial fibrillation (principal); I50.33 Acute on chronic diastolic (congestive) heart failure; Z95.2 Presence of prosthetic heart valve; I44.30 Unspecified atrioventricular block; I12.9 Hypertensive chronic kidney disease with stage 1 through stage 4 chronic kidney disease, or unspecified chronic kidney disease; E11.8 Type 2 diabetes mellitus with unspecified complications; N18.4 Chronic kidney disease, stage 4 (severe)
CPT/HCPCS: 93010; 93280; 99214

== ENCOUNTER → 2023-06-07 13:58 | Outpatient (BNVA) | payer MEDICARE, SELFPAY ==
[2023-06-02 09:54] VITALS: BP 108/60; BP 118/64; BP 124/60; BMI 35.9
== END ==
PROVIDERS: PCP Internal Medicine; Visit Provider Internal Medicine
DX: Z45.018 Encounter for adjustment and management of other part of cardiac pacemaker (principal); E11.8 Type 2 diabetes mellitus with unspecified complications; E11.22 Type 2 diabetes mellitus with diabetic chronic kidney disease; I13.0 Hypertensive heart and chronic kidney disease with heart failure and stage 1 through stage 4 chronic kidney disease, or unspecified chronic kidney disease; N18.4 Chronic kidney disease, stage 4 (severe); I50.33 Acute on chronic diastolic (congestive) heart failure; I48.0 Paroxysmal atrial fibrillation; I44.30 Unspecified atrioventricular block
CPT/HCPCS: 93005; 93280; 99212

== ENCOUNTER 2023-07-02 07:03 | Outpatient (REF) | payer MEDICARE, SELFPAY ==
[2023-06-02 09:54] VITALS: BP 108/60; BP 118/64; BP 124/60; BMI 35.9
[2023-07-02 07:19] LABS: MANUAL DIFF FLAG NO
[2023-07-02 07:34] LABS: Basophils Percent Auto 0.2 % (0-2); Eosinophils Absolute Auto 0.3 X10*3/uL (0.0-0.4); Eosinophils Percent Auto 5.7 % (0-4); Hematocrit 34.4 % (37.0-47.0); Hemoglobin 11.1 g/dl (12.0-16.0); Imm Gran Abs Auto 0.01 X10*3/uL (0.00-0.03); Imm Gran Pct Auto 0.2 % (0.0-0.4); Lymphocytes Absolute Auto 0.6 X10*3/uL (1.2-4.9); Lymphocytes Percent Auto 9.7 % (20-40); Mean Corpuscular HGB Conc 32.3 g/dl (31.0-35.0); Mean Corpuscular Hemoglobin 29.9 pg (27.0-33.0); Mean Corpuscular Volume 92.7 fL (80.0-98.0); Mean Platelet Volume 10.4 fL (9.4-12.3); Monocytes Absolute Auto 0.5 X10*3/uL (0.1-1.2); Monocytes Percent Auto 9.2 % (2-11); Neutrophils Absolute Auto 4.4 x10*3/uL (2.0-8.3); Platelet Count 183 X10*3/uL (160-400); Red Blood Count 3.71 X10*6/uL (4.20-5.50); Red Cell Distribution Width 16.1 % (11.0-16.0); White Blood Count 5.8 X10*3/uL (4.8-10.8)
[2023-07-02 08:01] LABS: Alanine Aminotransferase 14 U/L (0-31); Albumin Level 4.5 g/dL (3.5-5.0); Alkaline Phosphatase 96 U/L (39-117); Anion Gap 16 (12-20); Aspartate Amino Transferase 20 U/L (5-31); Bilirubin Total 0.7 mg/dL (0.0-1.0); Blood Urea Nitrogen 38 mg/dL (9-16); Carbon Dioxide 27 mmol/L (22-29); Chloride 103 mmol/L (96-108); Estimated Glomerular Filt Rate 19; Glucose Random 122 mg/dL (60-115); Potassium 4.1 mmol/L (3.3-5.1); Sodium 142 mmol/L (135-145); Total Protein 7.6 g/dL (6.5-8.0)
[2023-07-02 08:05] LABS: B Type Natriuretic Peptide 608 pg/mL (<100)
[2023-07-02 08:06] LABS: Uric Acid 5.4 mg/dL (2.4-5.7)
== END 2023-07-02 07:04 | disposition home or self-care (01) ==
LOC: HO.LAB 07:03
PROVIDERS: Absent Provider Internal Medicine; PCP Internal Medicine; Visit Provider Nurse Practitioner Family
DX: I50.32 Chronic diastolic (congestive) heart failure (principal); M1A.9XX1 Chronic gout, unspecified, with tophus (tophi)
CPT/HCPCS: 36415; 80053; 83880; 84550; 85025

== ENCOUNTER 2023-07-11 09:33 | Outpatient (AMB) | payer MEDICARE, SELFPAY ==
[2023-06-02 09:54] VITALS: BP 108/60; BP 118/64; BP 124/60; BMI 35.9
[2023-07-11 09:48] VITALS: BP 128/54; PULSE 90; RESP 17; O2SAT 95; BMI 42.7
--- NOTE | 2023-07-11 09:48 | A.OFFPC_ITS ---
Vital Signs 07/11/23 09:48 Height 5 ft 1.02 in Weight 226 lb 6 oz BMI 42.7 BP 128/54 L Blood Pressure Location Lt brachial Position Sitting Respiration 17 Pulse 90 Pulse Source Pulse Oximeter Pulse Oximetry (%) 95 Oxygen Delivery Method Room Air Intake Visit Reasons: 3 month f/u Intake Note: Pt is here for 3 months F/U on DMII [employer] Required: No Accompanied by: Daughter in law Allergies Penicillins [PENICILLINS] Allergy (Severe, Verified 07/11/23 09:55) SWELLING codeine [CODEINE] Allergy (Intermediate, Verified 07/11/23 09:55) SWELLING, Hives Tobacco use date assessed: 05/27/23 Fall risk assessment: No Falls in past year Last assessed Fall Risk: 07/11/23 Dental Screening Dental Screen Date: 07/11/23 Did you have a dental visit in the last 12 months?: Yes Did you have a dental problem in the last 6 months where you did not have access to dental care?: No Was dental information given to patient?: Patient has dentist HPI 3 month f/u HPI Details 88-year-old obese female with controlled diabetes mellitus hypertension hypercholesterolemia congestive heart failure atrial fibrillation coming in for follow-up. Last seen in April 2023 from a hospital discharge. Review of the notes in May followed up with Cardiology status post TAVR having cardioversion(06/01/2023) continuing with amiodarone last echocardiogram normal prosthetic valve pacemaker implantation due to heart block [facility] Medical History (Updated 07/11/23 @ 10:07 by Roberto Mckinney MD) Paroxysmal atrial fibrillation CHF (congestive heart failure) Type 2 diabetes mellitus with unspecified complications Normally functioning cardiac pacemaker present URI (upper respiratory infection) Heart block atrioventricular Chronic heart failure with preserved ejection fraction Thrombosis of right saphenous vein Hypercholesterolemia Cataract Hypertension Obesity Aortic stenosis, moderate CKD (chronic kidney disease) stage 4, GFR 15-29 ml/min DVT (deep venous thrombosis) Type 2 diabetes mellitus with hyperglycemia Surgical History (Updated 07/11/23 @ 10:05 by Roberto Mckinney MD) Status post transcatheter aortic valve replacement (TAVR) using bioprosthesis History of permanent cardiac pacemaker placement (~05/06/21) History of eye surgery History of surgical procedure on eye proper using laser History of right hip replacement History of partial hysterectomy History of cholecystectomy Family History Father No problems noted. Mother No problems noted. Social History Household Members: Family Housing: House Alcohol intake: never Patient Tobacco Use Status: Never used Tobacco e-Cigarette/Vaping Use: Never Used Second Hand Smoke Exposure: Yes Advance Directives Date on File: 05/20/23 service: No Current occupational status: retired Cognitive needs: Yes (walker ) Hearing needs: No Vision needs: Yes Questionnaire Thrive Questionnaire Date Thrive assessed: 05/27/23 AZAR-7 AMB Questionnaire AZAR-7 Date AZAR - 7 assessed: 05/27/23 Source: Developed by Drs. Enrrique Avila, Asmita Quigley, Demond Aviles and colleagues, with an educational ruma from [employer]. Physical exam (Primary Care) Vital Signs: Last Vital Signs Pulse 90 07/11/23 09:48 Resp 17 07/11/23 09:48 BP 128/54 L 07/11/23 09:48 Pulse Ox 95 07/11/23 09:48 Oxygen Delivery Method Room Air 07/11/23 09:48 BMI result Body Mass Index 42.7 Tobacco/Smoking Status: Tobacco use Status Tobacco use date assessed 05/27/23 07/11/23 09:53 Patient Tobacco Use Status Never used Tobacco 07/11/23 09:53 e-Cigarette/Vaping Use Never Used 07/11/23 09:53 Thrive Assessment: Date of Thrive Assessment Date Thrive assessed 05/27/23 07/11/23 09:53 Const General: alert; No acute distress Eyes Conjunctivae: conjunctivae normal Resp Auscultation: clear to auscultation bilaterally Cardio Other: regular rate and rhythm Rate: regular rate Rhythm: regular rhythm GI Inspection: Yes normal to inspection Extrem Other: +2 edema bilateral lower extremities left more than the right General: Yes normal to inspection and Yes edema Results AMB Hemoglobin A1c AMB Hemoglobin A1c 6.6 % Last Edit by KUSHAL Matrínez on 07/11/23 10:15 Assessment and Plan Assessment & Plan (1) Aortic stenosis, moderate: Comment: June 2015 moderate, September 2016, October 2017 normal LV grade 2 diastolic dysfunction moderate , MR November 2018 normal LV II diastolic dysfunction moderate moderate MR, April 2020 Code(s): I35.0 - Nonrheumatic aortic (valve) stenosis Plan: Status post TAVR and last echo stable (2) Status post transcatheter aortic valve replacement (TAVR) using bioprosthesis: Comment: September 2021, echocardiogram October 2022 Code(s): Z95.3 - Presence of xenogenic heart valve Plan: October 2022 echocardiogramLow normal LV systolic function with LVEF of 50-55%, with pseudonormal filling pattern. 2. Left atrium is moderately dilated. 3. Normally functioning bioprosthetic aortic valve. 4. 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 Normal RVSP (3) Paroxysmal atrial fibrillation: Comment: Cardioversion May 2020 Code(s): I48.0 - Paroxysmal atrial fibrillation Plan: Cardioversion done May 2023 patient is on anticoagulation (4) Chronic diastolic (congestive) heart failure: Code(s): I50.32 - Chronic diastolic (congestive) heart failure Plan: Continue with diuretic, weigh daily and record (5) CKD (chronic kidney disease) stage 4, GFR 15-29 ml/min: Code(s): N18.4 - Chronic kidney disease, stage 4 (severe) Plan: Will continue to monitor patient on diuretics congestive heart failure- will be seeing NEPHRO (6) Heart block atrioventricular: Code(s): I44.30 - Unspecified atrioventricular block Plan: Pacemaker present (7) Hypertension: Comment: Cardiac catheterization no obstruction July 2015 Code(s): I10 - Essential (primary) hypertension Qualifiers: Hypertension type: essential hypertension Qualified Code(s): I10 - Essential (primary) hypertension Plan: Continue with blood pressure medication. Decrease salt intake and exercise patient takes amlodipine 5 mg once a day (can cause leg swelling also) (8) Type 2 diabetes mellitus with hyperglycemia: Comment: Dr. Cisse 11/2022 Code(s): E11.65 - Type 2 diabetes mellitus with hyperglycemia Qualifiers: Diabetes mellitus mcc insulin use: with middle or intermediate school principal use Qualified Code(s): E11.65 - Type 2 diabetes mellitus with hyperglycemia; Z79.4 - roasterman (current) use of insulin Plan: Continue with Farxiga, Trulicity Lantus and Humalog. Decrease the amount of carbohydrate intake, pasta, bread, rice and potatoes are all sugar and that is aside from all the sweet stuff, remember that fruits are good but they are Sweet also. Hemoglobin A1c goal of less than 7.0. Orders: Orders AMB Hemoglobin A1c Today E11.65 - Type 2 diabetes mellitus with hyperglycemia Comprehensive Met. Panel 3 Months I50.32 - Chronic diastolic (congestive) heart failure Ferritin 3 Months I50.32 - Chronic diastolic (congestive) heart failure IRON PROFILE 3 Months I50.32 - Chronic diastolic (congestive) heart failure Reticulocyte Count 3 Months I50.32 - Chronic diastolic (congestive) heart failure Vitamin B12 and Folate 3 Months I50.32 - Chronic diastolic (congestive) heart failure Complete Blood Count Auto Diff 3 Months I50.32 - Chronic diastolic (congestive) heart failure B Type Natriuretic Peptide 3 Months I50.32 - Chronic diastolic (congestive) heart failure Magnesium 3 Months I50.32 - Chronic diastolic (congestive) heart failure Coding Level of Care Code Est Pt Level 4 (55324) Diagnoses Aortic stenosis, moderate I35.0 Status post transcatheter aortic valve replacement (TAVR) using bioprosthesis Z95.3 Paroxysmal atrial fibrillation I48.0 Chronic diastolic (congestive) heart failure I50.32 CKD (chronic kidney disease) stage 4, GFR 15-29 ml/min N18.4 Heart block atrioventricular I44.30 Essential hypertension I10 Hypertension type: essential hypertension Type 2 diabetes mellitus with hyperglycemia, with long-term current use of insulin E11.65; Z79.4 Diabetes mellitus middle or intermediate school principal insulin use: with mcc use
== END 2023-07-11 11:06 | disposition home or self-care (01) ==
PROVIDERS: PCP Internal Medicine; Visit Provider Internal Medicine
DX: I13.0 Hypertensive heart and chronic kidney disease with heart failure and stage 1 through stage 4 chronic kidney disease, or unspecified chronic kidney disease (principal); I50.32 Chronic diastolic (congestive) heart failure; E11.65 Type 2 diabetes mellitus with hyperglycemia; N18.4 Chronic kidney disease, stage 4 (severe); I48.0 Paroxysmal atrial fibrillation; Z79.4 Long term (current) use of insulin; I35.0 Nonrheumatic aortic (valve) stenosis; Z95.3 Presence of xenogenic heart valve; I44.30 Unspecified atrioventricular block
CPT/HCPCS: 83036; 99214

== ENCOUNTER 2023-07-19 06:32 | Outpatient (REF) | payer MEDICARE, SELFPAY ==
[2023-06-02 09:54] VITALS: BP 108/60; BP 118/64; BP 124/60; BMI 35.9
[2023-07-19 07:12] LABS: Anion Gap 15 (12-20); Blood Urea Nitrogen 35 mg/dL (9-16); Calcium 10.4 mg/dL (8.4-10.2); Carbon Dioxide 28 mmol/L (22-29); Chloride 102 mmol/L (96-108); Estimated Glomerular Filt Rate 18; Glucose Random 131 mg/dL (60-115); Potassium 4.3 mmol/L (3.3-5.1); Sodium 141 mmol/L (135-145)
[2023-07-19 07:17] LABS: B Type Natriuretic Peptide 622 pg/mL (<100)
== END 2023-07-19 06:33 | disposition home or self-care (01) ==
LOC: HO.LAB 06:32
PROVIDERS: PCP Internal Medicine; Visit Provider Nurse Practitioner
DX: I50.32 Chronic diastolic (congestive) heart failure (principal)
CPT/HCPCS: 36415; 80048; 83880

== ENCOUNTER 2023-08-03 08:53 | Outpatient (AMB) | payer MEDICARE, SELFPAY ==
[2023-06-02 09:54] VITALS: BP 108/60; BP 118/64; BP 124/60; BMI 35.9
--- NOTE | 2023-08-03 08:59 | MHC.OFFVIS ---
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 Accompanied by: Daughter Allergies Penicillins [PENICILLINS] Allergy (Severe, Verified 08/03/23 09:04) SWELLING codeine [CODEINE] Allergy (Intermediate, Verified 08/03/23 09:04) SWELLING, Hives Medication List - Last Reconciled 08/03/23 by Tasia Goode RN acetaminophen (Tylenol) 325 mg PO QID PRN allopurinol 100 mg PO BID amiodarone 200 mg PO DIRECTED amlodipine 5 mg PO DAILY apixaban (Eliquis) 2.5 mg PO BID 90 days atorvastatin 10 mg PO DAILY calcium carbonate-vitamin D3 600 mg-10 mcg (400 unit) (Calcium 600 + D(3)) 1 tab PO DAILY compress.stocking,knee,reg,lrg As directed 20-30 mm HG dapagliflozin propanediol (Farxiga) 5 mg PO DAILY 90 days diclofenac sodium 1% 2 grams topical QD-BID PRN dulaglutide (Trulicity) 0.75 mg (0.5 mL) subcut QWEEK fexofenadine 180 mg PO DAILY furosemide 4 tabs every AM (80mg) and 3 tabs (60mg) every PM insulin glargine (Lantus Solostar U-100 Insulin) 5 units subcut BEDTIME insulin lispro (Humalog KwikPen (U-100) Insulin) inject 1 u TID 30 days latanoprost 0.005% 1 drp ophthalmic (eye) BEDTIME metolazone 2.5 mg PO DIRECTED PRN multivitamin 1 tab PO DAILY pen needle, diabetic As directed propylene glycol 0.6% (Systane Complete) 1 drp ophthalmic (eye) TID PRN HPI HPI Comments History of Present Illness Details The patient returns with her daughter for evaluation of her gout. She remains on allopurinol taking 100 mg twice a day. At her last visit in November I had stopped her colchicine. There have been no flare-ups of gout since then. She did have a hospital admission for CHF associated with atrial fibrillation. She was on higher doses of diuretics initially that have been tapered back. She had a cardioversion as well. She says breathing and leg edema seem back to normal for now. There are no skin rashes. [facility] Medical History Paroxysmal atrial fibrillation CHF (congestive heart failure) Type 2 diabetes mellitus with unspecified complications Normally functioning cardiac pacemaker present URI (upper respiratory infection) Heart block atrioventricular Chronic heart failure with preserved ejection fraction Thrombosis of right saphenous vein Hypercholesterolemia Cataract Hypertension Obesity Aortic stenosis, moderate CKD (chronic kidney disease) stage 4, GFR 15-29 ml/min DVT (deep venous thrombosis) Type 2 diabetes mellitus with hyperglycemia Surgical History Status post transcatheter aortic valve replacement (TAVR) using bioprosthesis History of permanent cardiac pacemaker placement (~05/06/21) History of eye surgery History of surgical procedure on eye proper using laser History of right hip replacement History of partial hysterectomy History of cholecystectomy Family History Father No problems noted. Mother No problems noted. Social History Household Members: Family Housing: House Alcohol intake: never Patient Tobacco Use Status: Never used Tobacco e-Cigarette/Vaping Use: Never Used Second Hand Smoke Exposure: Yes Advance Directives Date on File: 05/20/23 service: No Current occupational status: retired Cognitive needs: Yes (walker ) Hearing needs: No Vision needs: Yes Review of Systems Const Details: Negative for appetite change, weight change, fever, chills, malaise and fatigue ENT Details: Negative for hearing change, tinnitus, oral ulcer, nose bleeds and oral dryness. Card Details: Recent bout with atrial fibrillation giving her CHF but stable now. Still some slight ankle edema but much better. Negative chest pain, palpitations and syncope Resp Details: Negative for SOB, cough and wheezing [place]/Lymph Details: Negative for excessive bruising or bleeding. Physical Exam Vital Signs: Last Vital Signs Temp 97.2 F 08/03/23 09:00 Pulse 73 08/03/23 09:00 Resp 16 08/03/23 09:00 BP 122/54 L 08/03/23 09:00 Pulse Ox 97 08/03/23 09:00 Oxygen Delivery Method Room Air 08/03/23 09:00 BMI result Body Mass Index 39.8 APPEARANCE: Patient in no acute distress EXTREMITIES:? Trace edema, compression stockings in place.? No calf tenderness. SKIN:? No inflammatory or neoplastic lesions.? Normal color and turgor JOINT EXAM:?? Hands:? Right:? There is mild bony enlargement at the thumb IP and all the PIP joints.? Enlargement is most prominent at the 4th PIP with there is decreased range of motion.? The 3rd PIP is slightly tender today. Range of motion at the PIP is slightly diminished.? There is mild bony enlargement at the 3rd through 5th DIP joints and these are not tender.? There is bony enlargement but no tenderness at the 2nd DIP.? That joint also has a flexion deformity and slight ulnar deviation. It has no palpable nodule today. There is laxity of the joints in all planes of motion. It is not able to be actively flex. Today I do not feel any tophus under the skin..? There is no break in the skin currently.? There is minimal nontender in moderate bony enlargement at the base of the thumb.? Left:? There is bony enlargement at all the PIP and the IP joints.? Range of motion at many of the PIP is is somewhat limited.? None of these are particularly tender.? No soft tissue swelling, thenar atrophy or sensory loss. Wrists:? Normal pain-free range of motion without tenderness, swelling, increased warmth or erythema. Elbows:Normal pain-free range of motion without tenderness, swelling, increased warmth or erythema. Shoulders: Full range of motion without pain. No tenderness, weakness, swelling, increased warmth or erythema. Feet: Stockings not removed. No tenderness. 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 She has significant CKD but that seems to be stable. There are multiple findings in the hands consistent with osteoarthritis, this is probably primary OA but there may be some tophaceous deposits that have caused some secondary OA. She should stay with the current dose of allopurinol. We will see her back in about a year. Medications: Refilled allopurinol 100 mg PO BID 180 tabs 5RF M1A.9XX1 - Chronic gout, unspecified, with tophus (tophi) Coding Level of Care Code Est Pt Level 3 (89885) Diagnoses Osteoarthritis of hands, bilateral M19.041; M19.042 CKD (chronic kidney disease) stage 4, GFR 15-29 ml/min N18.4 Tophaceous gout M1A.[id number]
[2023-08-03 09:00] VITALS: BP 122/54; PULSE 73; RESP 16; TEMP 36.2; O2SAT 97; BMI 39.8
== END 2023-08-03 09:50 | disposition home or self-care (01) ==
PROVIDERS: PCP Internal Medicine; Visit Provider Internal Medicine Rheumatology
DX: M19.041 Primary osteoarthritis, right hand (principal); M19.042 Primary osteoarthritis, left hand; N18.4 Chronic kidney disease, stage 4 (severe); M1A.9XX1 Chronic gout, unspecified, with tophus (tophi)
CPT/HCPCS: 99213

== ENCOUNTER → 2023-08-03 08:53 | Outpatient (BNVA) | payer MEDICARE, SELFPAY ==
[2023-06-02 09:54] VITALS: BP 108/60; BP 118/64; BP 124/60; BMI 35.9
== END ==
PROVIDERS: Visit Provider Internal Medicine Rheumatology
DX: M1A.9XX1 Chronic gout, unspecified, with tophus (tophi) (principal); M19.041 Primary osteoarthritis, right hand; M19.042 Primary osteoarthritis, left hand; N18.4 Chronic kidney disease, stage 4 (severe)
CPT/HCPCS: 99212

== ENCOUNTER 2023-08-17 06:34 | Outpatient (REF) | payer MEDICARE, SELFPAY ==
[2023-06-02 09:54] VITALS: BP 108/60; BP 118/64; BP 124/60; BMI 35.9
[2023-08-17 07:31] LABS: Alanine Aminotransferase 14 U/L (0-31); Albumin Level 4.3 g/dL (3.5-5.0); Alkaline Phosphatase 99 U/L (39-117); Anion Gap 16 (12-20); Aspartate Amino Transferase 19 U/L (5-31); B Type Natriuretic Peptide 653 pg/mL (<100); Bilirubin Total 0.6 mg/dL (0.0-1.0); Blood Urea Nitrogen 45 mg/dL (9-16); Carbon Dioxide 28 mmol/L (22-29); Chloride 101 mmol/L (96-108); Estimated Glomerular Filt Rate 15; Glucose Random 114 mg/dL (60-115); Potassium 4.4 mmol/L (3.3-5.1); Sodium 141 mmol/L (135-145); Total Protein 7.6 g/dL (6.5-8.0)
== END 2023-08-17 06:35 | disposition home or self-care (01) ==
LOC: HO.LAB 06:34
PROVIDERS: PCP Internal Medicine; Visit Provider Nurse Practitioner
DX: I50.32 Chronic diastolic (congestive) heart failure (principal)
CPT/HCPCS: 36415; 80053; 83880

== ENCOUNTER 2023-09-02 21:53 | Inpatient (IN) | payer MEDICARE, SELFPAY ==
[2023-06-02 09:54] VITALS: BP 108/60; BP 118/64; BP 124/60; BMI 35.9
[2023-09-02 22:03] VITALS: BP 119/58; BP 120/68; PULSE 100; PULSE 93; RESP 16; TEMP 37.7; O2SAT 91; O2SAT 94; BMI 35.4
[2023-09-02 22:33] VITALS: TEMP 39.1
--- NOTE | 2023-09-02 22:54 | ED.GENADULT ---
HPI - General Adult General Chief complaint: Fall Stated complaint: Fall, flu like s/s, Time Seen by Provider: 09/02/23 22:33 Source: patient and family Mode of arrival: ambulatory Limitations: no limitations History of Present Illness HPI narrative: patient comes to the emergency room accompanied by her daughter. Patient comes by ambulance from home. patient states that today she has been feeling weak, has had fever chills and generalized malaise. Today, patient states that she tried to get out of bed to go to the bathroom, patient slid out of bed. Patient states that this was not a fall, she lowered herself to the ground. Patient did not hit her head or lost consciousness, no pain . Patient states that she was too weak to get up and go to the bathroom, patient needed additional assistance from her family. according to EMS, patient was found saturating at 85% on room air. Patient is not oxygen dependent. Related Data Home Medications Medication Instructions Recorded Confirmed acetaminophen 325 mg tablet 325 mg PO QID PRN Pain 07/15/20 08/03/23 (Tylenol) latanoprost 0.005 % eye drops 1 drp ophthalmic (eye) BEDTIME 07/14/21 08/03/23 calcium carbonate 600 mg-vitamin 1 tab PO DAILY 05/20/23 08/03/23 D3 10 mcg (400 unit) tablet (Calcium 600 + D(3)) diclofenac sodium 1 % topical gel 2 g topical QD-BID PRN Pain 05/20/23 08/03/23 fexofenadine 180 mg tablet 180 mg PO DAILY 05/20/23 08/03/23 insulin glargine 100 unit/mL (3 5 unit subcut BEDTIME 05/20/23 08/03/23 mL) subcutaneous pen (Lantus Solostar U-100 Insulin) multivitamin 1 tab PO DAILY 05/20/23 08/03/23 propylene glycol 0.6 % eye drops 1 drp ophthalmic (eye) TID PRN Dry 05/20/23 08/03/23 (Systane Complete) Eyes Previous Rx's Medication Instructions Recorded pen needle, diabetic 31 gauge x #1,200 ea 10/14/2001/11 compress.stocking,knee,reg,lrg #12 ea 06/08/21 dulaglutide 0.75 mg/0.5 mL 0.75 mg (0.5 mL) subcut QWEEK #6 mL 01/09/23 subcutaneous pen injector (Trulicity) atorvastatin 10 mg tablet 10 mg PO DAILY #90 tabs 01/25/23 apixaban 2.5 mg tablet (Eliquis) 2.5 mg PO BID 90 days #180 tabs 03/07/23 amiodarone 200 mg tablet 200 mg PO DIRECTED #90 tabs 06/08/23 dapagliflozin propanediol 5 mg 5 mg PO DAILY 90 days #90 tabs 06/28/23 tablet (Farxiga) metolazone 2.5 mg tablet 2.5 mg PO DIRECTED PRN fluid 07/20/23 retention #8 tabs allopurinol 100 mg tablet 100 mg PO BID #180 tabs 08/03/23 insulin lispro 100 unit/mL See Rx Instructions .Route 08/08/23 subcutaneous pen (Humalog KwikPen .COMPLEX 30 days #15 mL (U-100) Insulin) amlodipine 5 mg tablet 5 mg PO DAILY #90 tabs 08/10/23 furosemide 20 mg tablet 20 mg PO .COMPLEX 90 days #630 tabs 09/02/23 Allergies Allergy/AdvReac Type Severity Reaction Status Date / Time Penicillins [PENICILLINS] Allergy Severe SWELLING Verified 09/02/23 22:08 codeine [CODEINE] Allergy Intermediate SWELLING, Verified 09/02/23 22:08 Hives Review of Systems Review of Systems: Constitutional : No Weight loss, Complaining of fever and chills, fatigue and weakness,No Night Sweats ENT/Mouth : No Hearing loss, No Ear Pain, No Nasal Congestion, No Sinus Pain, No Hoarseness, No sore throat, No Rhinorrhea, No Swallowing Difficulty Eyes: No Eye Pain, No Swelling, No Redness, No Foreign Body, No Discharge, No Vision Changes Cardiovascular : No Chest Pain, No SOB, No Dyspnea on Exertion, No Orthopnea, No Edema, No Palpitations Respiratory : No Cough, No Sputum, No Wheezing, No Smoke Exposure, No Dyspnea Gastrointestinal : No Nausea, No Vomiting, No Diarrhea, No Constipation, No abdominal Pain, No Hematochezia, No Melena Genitourinary : no irregular bleeding, No Dysuria, No Urinary Frequency, No Hematuria, No Urinary Incontinence, No Urgency, No Flank Pain, No Urinary Flow Changes, No Hesitancy Musculoskeletal : No joint pain, No Myalgias, No Joint Swelling Skin : No Skin Lesions, No rash Neuro : No Weakness, No Numbness, No Paresthesias, No Loss of Consciousness, No Dizziness, No Headache Psych : No Anxiety/Panic, No Depression, No SI/HI/AH/VH, No Social Issues, Heme/Lymph: No Bruising, No Bleeding,No Lymphadenopathy Endocrine : No Polyuria, No Polydipsia, No Temperature Intolerance PMFSH Past Medical History Onset Date is defined in the Problem List Problems that require an onset date and time if occurred within 24 hrs of arrival to the ED Aortic Dissection and Rupture; Neurologic impairment; Cardiopulmonary Arrest; Endotracheal Intubation; Insertion or Replacement of Mechanical Circulatory Assist Device Medical History Paroxysmal atrial fibrillation CHF (congestive heart failure) Type 2 diabetes mellitus with unspecified complications Normally functioning cardiac pacemaker present URI (upper respiratory infection) Heart block atrioventricular Chronic heart failure with preserved ejection fraction Thrombosis of right saphenous vein Hypercholesterolemia Cataract Hypertension Obesity Aortic stenosis, moderate CKD (chronic kidney disease) stage 4, GFR 15-29 ml/min DVT (deep venous thrombosis) Type 2 diabetes mellitus with hyperglycemia Surgical History Status post transcatheter aortic valve replacement (TAVR) using bioprosthesis History of permanent cardiac pacemaker placement (~05/06/21) History of eye surgery History of surgical procedure on eye proper using laser History of right hip replacement History of partial hysterectomy History of cholecystectomy Family History Family History Father No problems noted. Mother No problems noted. Social History Social History Household Members: Family Housing: House Alcohol intake: never Patient Tobacco Use Status: Never used Tobacco Smoked in Last 30 Days: No e-Cigarette/Vaping Use: Never Used Second Hand Smoke Exposure: Yes Use of substances other than those prescribed or required for medical reasons: No Advance Directives: Yes Advance Directives on File: Yes Advance Directives Date on File: 05/20/23 service: No Current occupational status: retired Cognitive needs: Yes (walker ) Hearing needs: No Vision needs: Yes Physical Exam ED Vital Signs: Vital Signs - 24 hr 09/02/23 22:03 09/02/23 22:33 09/03/23 01:05 Temperature 99.9 F 102.3 F H 100.8 F H Pulse Rate 93 84 Respiratory Rate 16 18 Blood Pressure 119/58 L 108/46 L Pulse Oximetry 91 L 96 Oxygen Delivery Method Room Air Nasal Cannula Oxygen Flow Rate 2 BMI result Body Mass Index 35.4 Const Other: Appearance: Alert. Oriented X3. seems weak Eyes: Pupils equal, round and reactive to light. ENT: Pharynx normal. Dry oral mucosa Neck: Normal inspection. Neck supple. No lymph nodes noted. No crepitus CVS: Normal heart rate and rhythm. Pulses normal. Normal S1 and S2 Respiratory: No respiratory distress. Breath sounds normal. No Wheezing. No rales Abdomen: Soft and nontender. No rigidity. No distention. Skin: very warm to touch,Normal skin color. Normal skin turgor. Extremities: No lower extremity edema. No Lacerations. No Rash Neuro: Oriented X 3. No motor deficit. No sensory deficit. Moving all extremities. No slurred speech. CN 2 through 12 grossly intact Psych: calm, cooperative, normal affect Course Course Course Narrative: all of patient's labs and imaging pending - patient is dehydrated, she is receiving fluids, gentle hydration, patient has CHF. - patient has a fever, otherwise vitals are stable. Sepsis is not suspected Medications Administered Generic Name Dose Route Start Last Admin Trade Name Freq PRN Reason Stop Dose Admin Sodium Chloride 1,000 mls @ 200 mls/hr 09/02/23 23:00 09/02/23 23:03 Ns IVCONT 09/03/23 03:59 200 mls/hr .Q5H ROE Administration Discontinued Medications Generic Name Dose Route Start Last Admin Trade Name Freq PRN Reason Stop Dose Admin Acetaminophen 975 mg 09/02/23 22:51 09/02/23 23:03 Acetaminophen 325 Mg Tablet PO 09/02/23 22:52 975 mg ONCE ONE Administration Ceftriaxone Sodium 1 gm/ 50 mls @ 100 mls/hr 09/02/23 23:25 09/03/23 00:15 Sodium Chloride IV 09/02/23 23:54 Infused ONCE ONE Infusion Medical Decision Making Medical Decision Making [facility] Narrative: - patient receiving IV fluids -2319 I received a phone call from the lab at this time, patient has a white blood cell count of 16.6 and 10% bands. Serology is negative for COVID RSV and influenza. The rest of the labs and imaging pending. Patient empirically being treated with ceftriaxone for possible UTI versus pneumonia. Patient's vitals remained stable, still has fever. Patient already received acetaminophen p.o.. - patient likely has a UTI And pneumonia given her respiratory symptoms. - CT scan of the chest without contrast pending. - Sepsis not suspected - discussed the patient with Dr. Myrick, patient being admitted Differential Diagnosis Differential Diagnoses: The differential diagnosis associated with the presentation includes ( UTI, COVID, influenza, pneumonia) Admission/Observation Consideration of admission/observation: Escalation of care including admission/observation considered Consult Healthcare Provider Management of the patient was discussed with: Hospitalist Lab Data MDM Lab Attestation statement: I reviewed the patient's lab results. 09/02/23 22:23 09/02/23 22:23 Labs: Lab Results 09/02/23 09/02/23 09/02/23 Range/Units 22:23 22:35 23:28 WBC 16.6 H (4.8-10.8) X10*3/uL RBC 3.79 L (4.20-5.50) X10*6/uL Hgb 10.9 L (12.0-16.0) g/dl Hct 33.2 L (37.0-47.0) % MCV 87.6 (80.0-98.0) fL MCH 28.8 (27.0-33.0) pg MCHC 32.8 (31.0-35.0) g/dl RDW 17.2 H (11.0-16.0) % Plt Count 154 L (160-400) X10*3/uL MPV 10.5 (9.4-12.3) fL Immature Gran % (Auto) Cancelled Neut % (Auto) Cancelled Lymph % (Auto) Cancelled [place] % (Auto) Cancelled Eos % (Auto) Cancelled Baso % (Auto) Cancelled Lymph # (Auto) Cancelled [place] # (Auto) Cancelled Eos # (Auto) Cancelled Baso # (Auto) Cancelled Abs Immat Gran (auto) Cancelled Absolute Neuts (auto) Cancelled Absolute Nucleated RBC 0.000 (0.0-0.012) X10*3/uL Nucleated RBC % (auto) 0.0 (0.0-0.2) /100WBC Neutrophils % (Manual) 86 H (45-73) % Band Neutrophils % 10 H (3-5) % Lymphocytes % (Manual) 1 L (20-40) % Monocytes % (Manual) 3 (2-11) % Abs Neuts (Manual) 15.9 H (2.0-8.3) X10*3/uL Lymphocytes # (Manual) 0.2 L (1.2-4.9) X10*3/uL Monocytes # (Manual) 0.5 (0.1-1.2) X10*3/uL Platelet Estimate NORMAL (NORMAL) Plt Morphology Comment NORMAL RBC Morphology NORMAL VBG pH (7.32-7.43) VBG pCO2 mmHg VBG pO2 mmHg VBG HCO3 (22-26) mmol/L VBG O2 Saturation % VBG Base Excess mmol/L Sodium 141 (135-145) mmol/L Potassium 3.7 (3.3-5.1) mmol/L Chloride 102 (96-108) mmol/L Carbon Dioxide 25 (22-29) mmol/L Anion Gap 18 (12-20) BUN 44 H (9-16) mg/dL Creatinine 2.49 H (0.5-1.4) mg/dL Estim Creat Clear Calc 17.3 Estimated GFR 18 Random Glucose 147 H (60-115) mg/dL Lactic Acid 1.6 (0.5-2.0) mmol/L Calcium 9.9 (8.4-10.2) mg/dL Total Bilirubin 1.2 H (0.0-1.0) mg/dL AST 22 (5-31) U/L ALT 12 (0-31) U/L Alkaline Phosphatase 80 (39-117) U/L Troponin I High Sens 40.0 H (<3.5-17.0) ng/L B-Natriuretic Peptide 741 H (<100) pg/mL Total Protein 7.3 (6.5-8.0) g/dL Albumin 4.2 (3.5-5.0) g/dL Urine Color Urine Appearance Urine pH (5.0-9.0) Ur Specific [place] (1.005-1.025) Urine Protein (Neg-Trace) mg/dL Urine Glucose (UA) (Negative) mg/dL Urine Ketones (Negative) mg/dL Urine Blood (Negative) Urine Nitrite (Negative) Ur Leukocyte Esterase (Negative) Urine RBC (0-2) /HPF Urine WBC (0-5) /HPF Ur Squamous Epith Cells (0-2) /HPF Urine Bacteria (None Seen) Hyaline Casts (0-2) /LPF Influenza Type A (PCR) NEGATIVE (Negative) Influenza Type B (PCR) NEGATIVE (Negative) RSV RNA Qual (PCR) NEGATIVE (Negative) SARS-CoV-2 RNA (RT-PCR) NEGATIVE (Negative) 09/02/23 09/03/23 Range/Units 23:31 01:26 WBC (4.8-10.8) X10*3/uL RBC (4.20-5.50) X10*6/uL Hgb (12.0-16.0) g/dl Hct (37.0-47.0) % MCV (80.0-98.0) fL MCH (27.0-33.0) pg MCHC (31.0-35.0) g/dl RDW (11.0-16.0) % Plt Count (160-400) X10*3/uL MPV (9.4-12.3) fL Immature Gran % (Auto) Neut % (Auto) Lymph % (Auto) [place] % (Auto) Eos % (Auto) Baso % (Auto) Lymph # (Auto) [place] # (Auto) Eos # (Auto) Baso # (Auto) Abs Immat Gran (auto) Absolute Neuts (auto) Absolute Nucleated RBC (0.0-0.012) X10*3/uL Nucleated RBC % (auto) (0.0-0.2) /100WBC Neutrophils % (Manual) (45-73) % Band Neutrophils % (3-5) % Lymphocytes % (Manual) (20-40) % Monocytes % (Manual) (2-11) % Abs Neuts (Manual) (2.0-8.3) X10*3/uL Lymphocytes # (Manual) (1.2-4.9) X10*3/uL Monocytes # (Manual) (0.1-1.2) X10*3/uL Platelet Estimate (NORMAL) Plt Morphology Comment RBC Morphology VBG pH 7.46 H (7.32-7.43) VBG pCO2 35 mmHg VBG pO2 61 mmHg VBG HCO3 25 (22-26) mmol/L VBG O2 Saturation 89.0 % VBG Base Excess 2.0 mmol/L Sodium (135-145) mmol/L Potassium (3.3-5.1) mmol/L Chloride (96-108) mmol/L Carbon Dioxide (22-29) mmol/L Anion Gap (12-20) BUN (9-16) mg/dL Creatinine (0.5-1.4) mg/dL Estim Creat Clear Calc Estimated GFR Random Glucose (60-115) mg/dL Lactic Acid (0.5-2.0) mmol/L Calcium (8.4-10.2) mg/dL Total Bilirubin (0.0-1.0) mg/dL AST (5-31) U/L ALT (0-31) U/L Alkaline Phosphatase (39-117) U/L Troponin I High Sens (<3.5-17.0) ng/L B-Natriuretic Peptide (<100) pg/mL Total Protein (6.5-8.0) g/dL Albumin (3.5-5.0) g/dL Urine Color Yellow Urine Appearance Clear Urine pH 5.0 (5.0-9.0) Ur Specific [place] 1.015 (1.005-1.025) Urine Protein 30 (1+) H (Neg-Trace) mg/dL Urine Glucose (UA) 500 H (Negative) mg/dL Urine Ketones Negative (Negative) mg/dL Urine Blood Moderate (2+) H (Negative) Urine Nitrite Negative (Negative) Ur Leukocyte Esterase Small (1+) H (Negative) Urine RBC 0-2 (0-2) /HPF Urine WBC 6-10 H (0-5) /HPF Ur Squamous Epith Cells 3-5 (0-2) /HPF Urine Bacteria 2+ (None Seen) Hyaline Casts 0-2 (0-2) /LPF Influenza Type A (PCR) (Negative) Influenza Type B (PCR) (Negative) RSV RNA Qual (PCR) (Negative) SARS-CoV-2 RNA (RT-PCR) (Negative) Independent Interpretation I performed an independent interpretation of an: Plain X-Ray ( my interpretation of x-ray: Possible pneumonia right lower lobe, defibrillator in place) Radiology Impression Discussion of test interpretation with radiology: I have reviewed the radiologist's reading. Radiologist Impression: Stable cardiomegaly. Left-sided pacer with leads projecting over the right atrium and right ventricle. Similar positioning of aortic valve replacement. Redemonstration of mitral valve annular calcifications. Diffuse interstitial thickening/coarsening is not significantly changed. No focal consolidation, pleural effusion or pneumothorax. No acute osseous findings. XR/XR chest 1V IMPRESSION: Diffuse interstitial thickening/coarsening is not significantly changed, could be related with chronic small airways disease or chronic interstitial lung disease. Independent Historian Clinical information obtained from an independent historian. History obtained from or confirmed by: Other ( daughter) Critical Care Time Critical Care Time Critical Care Time: Yes Total Critical Care Time: 75 Attestation: I have personally provided critical care time. Time includes review of lab data, radiology results, discussion with consultants, and monitoring for potential decompensation. Intervention performed as documented. Discharge Plan Discharge Clinical Impression: Acute dehydration, Acute UTI, Pneumonia, Generalized weakness Patient Disposition: Admitted As Inpatient Prescriptions: No Action Trulicity 0.75 mg/0.5 mL pen injector 0.75 mg subcut QWEEK Qty: 6 5RF atorvastatin 10 mg tablet 10 mg PO DAILY Qty: 90 3RF amiodarone 200 mg tablet 200 mg PO DIRECTED Qty: 90 3RF Farxiga 5 mg tablet 5 mg PO DAILY 90 Days Qty: 90 2RF metolazone 2.5 mg tablet 2.5 mg PO DIRECTED PRN (Reason: fluid retention) Qty: 8 2RF Rx Instructions: Take 1 tablet in the AM on Tuesday and 1 tablet in the AM on Saturdays ONLY as needed for fluid retention insulin lispro [Humalog KwikPen Insulin] 100 unit/mL insulin pen See Rx Instructions .ROUTE .COMPLEX 30 Days Qty: 15 11RF Patient Comments: Dr. Mckinney told patient to hold off on this insulin unless her sugar is greater than 150 per daughter Bree Rx Instructions: inject 1 u TID amlodipine 5 mg tablet 5 mg PO DAILY Qty: 90 3RF furosemide 20 mg tablet 20 mg PO .COMPLEX 90 Days Qty: 630 1RF Rx Instructions: 4 tabs every AM (80mg) and 3 tabs (60mg) every PM insulin glargine [Lantus Solostar U-100 Insulin] 100 unit/mL (3 mL) insulin pen 5 unit subcut BEDTIME multivitamin Tablet 1 tab PO DAILY calcium carbonate-vitamin D3 [Calcium 600 + D(3)] 600 mg-10 mcg (400 unit) Tablet 1 tab PO DAILY Systane Complete 0.6 % Drops 1 drp OPHTHALMIC (EYE) TID PRN (Reason: Dry Eyes) diclofenac sodium 1 % Gel 2 g TOPICAL QD-BID PRN (Reason: Pain) Rx Instructions: apply to single elbow, wrist or hand; for hand includes palm/fingers/back of hand fexofenadine 180 mg Tablet 180 mg PO DAILY acetaminophen [Tylenol] 325 mg tablet 325 mg PO QID PRN (Reason: Pain) (DME) pen needle, diabetic 31 gauge x 5/16 needle See Rx Instructions .ROUTE .MEDSUPPLY Qty: 1200 3RF Rx Instructions: As directed (DME) compress.stocking,knee,reg,lrg Misc See Rx Instructions .Route Qty: 12 0RF Rx Instructions: As directed 20-30 mm HG latanoprost 0.005 % drops 1 drp ophthalmic (eye) BEDTIME Eliquis 2.5 mg tablet 2.5 mg PO BID 90 Days Qty: 180 3RF allopurinol 100 mg tablet 100 mg PO BID Qty: 180 5RF
--- NOTE | 2023-09-02 23:44 | PC.NURSE ---
this rn medicated per oct.
[2023-09-03 01:05] VITALS: BP 108/46; PULSE 84; RESP 18; TEMP 38.2; O2SAT 96
--- NOTE | 2023-09-03 01:31 | PC.NURSE ---
pt able to urinate at bedside commode to obtain ua. no straight cath needed dr. morrissey aware. temp 100.8F ice packs given.
--- NOTE | 2023-09-03 03:23 | PM.IMHP ---
History of Present Illness Date of Service: 09/03/23 Chief Complaint: Fever and chills This is a 88-year-old female with pertinent history of congestive heart failure with preserved ejection fraction, chronic kidney disease, essential hypertension, insulin-dependent diabetes mellitus, mixed hyperlipidemia, paroxysmal atrial fibrillation on Eliquis, aortic stenosis status post TAVR in September 2021, coronary artery disease, gout who presents to the emergency department for evaluation of fevers and chills. Patient states that she started having fever on the day of presentation. Has associated chills and generalized weakness. Patient tried to get up for bathroom but almost fell due to generalized weakness. She denies cough or dyspnea. Endorses urinary urgency. No chest discomfort, palpitations, abdominal pain, changes in bowel habits. In the emergency department, patient was found to be septic. Urine concerning for UTI. Review of Systems Constitutional: Constitutional: Reports chills and Reports fever(s) Cardiovascular: Cardiovascular: Reports no additional cardiovascular complaints Respiratory: Respiratory: Reports no additional respiratory complaints Genitourinary: Genitourinary: Reports urinary urgency [facility] Medical History Paroxysmal atrial fibrillation CHF (congestive heart failure) Type 2 diabetes mellitus with unspecified complications Normally functioning cardiac pacemaker present URI (upper respiratory infection) Heart block atrioventricular Chronic heart failure with preserved ejection fraction Thrombosis of right saphenous vein Hypercholesterolemia Cataract Hypertension Obesity Aortic stenosis, moderate CKD (chronic kidney disease) stage 4, GFR 15-29 ml/min DVT (deep venous thrombosis) Type 2 diabetes mellitus with hyperglycemia Family History Father No problems noted. Mother No problems noted. Surgical History Status post transcatheter aortic valve replacement (TAVR) using bioprosthesis History of permanent cardiac pacemaker placement (~05/06/21) History of eye surgery History of surgical procedure on eye proper using laser History of right hip replacement History of partial hysterectomy History of cholecystectomy Social History Household Members: Family Housing: House Alcohol intake: never Patient Tobacco Use Status: Never used Tobacco Smoked in Last 30 Days: No e-Cigarette/Vaping Use: Never Used Second Hand Smoke Exposure: Yes Use of substances other than those prescribed or required for medical reasons: No Advance Directives: Yes Advance Directives on File: Yes Advance Directives Date on File: 05/20/23 service: No Current occupational status: retired Cognitive needs: Yes (walker ) Hearing needs: No Vision needs: Yes Meds Allergies Allergy/AdvReac Type Severity Reaction Status Date / Time Penicillins [PENICILLINS] Allergy Severe SWELLING Verified 09/02/23 22:08 codeine [CODEINE] Allergy Intermediate SWELLING, Verified 09/02/23 22:08 Hives Active Medications: Current Medications Sodium Chloride (Ns) 1,000 mls @ 200 mls/hr IVCONT .Q5H ROE Stop: 09/03/23 03:59 Last Admin: 09/02/23 23:03 Dose: 200 mls/hr Home Medications Medication Instructions Recorded Confirmed Last Taken Type acetaminophen 325 mg tablet 325 mg PO QID PRN Pain 07/15/20 09/03/23 Unknown History (Tylenol) latanoprost 0.005 % eye drops 1 drp ophthalmic (eye) BEDTIME 07/14/21 09/03/23 05/19/23 History calcium carbonate 600 mg-vitamin 1 tab PO DAILY 05/20/23 09/03/23 05/19/23 History D3 10 mcg (400 unit) tablet (Calcium 600 + D(3)) diclofenac sodium 1 % topical gel 2 g topical QD-BID PRN Pain 05/20/23 09/03/23 Unknown History fexofenadine 180 mg tablet 180 mg PO DAILY 05/20/23 09/03/23 05/19/23 History insulin glargine 100 unit/mL (3 5 unit subcut BEDTIME 05/20/23 09/03/23 05/31/23 21:00 History mL) subcutaneous pen (Lantus 5 units Solostar U-100 Insulin) multivitamin 1 tab PO DAILY 05/20/23 09/03/23 05/19/23 History propylene glycol 0.6 % eye drops 1 drp ophthalmic (eye) TID PRN Dry 05/20/23 09/03/23 Unknown History (Systane Complete) Eyes Physical Exam Vital Signs and Narrative: Vital Signs: Last Vital Signs Temp 100.8 F H 09/03/23 01:05 Pulse 84 09/03/23 01:05 Resp 18 09/03/23 01:05 BP 108/46 L 09/03/23 01:05 Pulse Ox 96 09/03/23 01:05 O2 Del Method Nasal Cannula 09/03/23 01:05 O2 Flow Rate 2 09/03/23 01:05 BMI result Body Mass Index 35.4 Elderly female lying in bed in no distress on supplemental oxygen Neck supple, no JVD Regular rate and rhythm, S1-S2 heard Regular breath sounds bilaterally, no wheezing or crackles appreciated Abdomen soft nontender, no guarding, no rigidity Patient is awake, alert and oriented to self, place, time and person ; no focal motor deficit Psych: Normal mood No pedal edema Results Labs 09/02/23 22:23 09/02/23 22:23 Labs: Laboratory Results - last 24 hr 09/02/23 09/02/23 09/02/23 22:23 22:35 23:28 MCV 87.6 MCH 28.8 MCHC 32.8 RDW 17.2 H Plt Count 154 L MPV 10.5 Immature Gran % (Auto) Cancelled Neut % (Auto) Cancelled Lymph % (Auto) Cancelled [place] % (Auto) Cancelled Eos % (Auto) Cancelled Baso % (Auto) Cancelled Lymph # (Auto) Cancelled [place] # (Auto) Cancelled Eos # (Auto) Cancelled Baso # (Auto) Cancelled Abs Immat Gran (auto) Cancelled Absolute Neuts (auto) Cancelled Absolute Nucleated RBC 0.000 Nucleated RBC % (auto) 0.0 Neutrophils % (Manual) 86 H Band Neutrophils % 10 H Lymphocytes % (Manual) 1 L Monocytes % (Manual) 3 Abs Neuts (Manual) 15.9 H Lymphocytes # (Manual) 0.2 L Monocytes # (Manual) 0.5 Platelet Estimate NORMAL Plt Morphology Comment NORMAL RBC Morphology NORMAL VBG pH VBG pCO2 VBG pO2 VBG HCO3 VBG O2 Saturation VBG Base Excess Anion Gap 18 Estim Creat Clear Calc 17.3 Estimated GFR 18 Random Glucose 147 H Lactic Acid 1.6 Calcium 9.9 Total Bilirubin 1.2 H AST 22 ALT 12 Alkaline Phosphatase 80 B-Natriuretic Peptide 741 H Total Protein 7.3 Albumin 4.2 Urine Color Urine Appearance Urine pH Ur Specific [place] Urine Protein Urine Glucose (UA) Urine Ketones Urine Blood Urine Nitrite Ur Leukocyte Esterase Urine RBC Urine WBC Ur Squamous Epith Cells Urine Bacteria Hyaline Casts Influenza Type A (PCR) NEGATIVE Influenza Type B (PCR) NEGATIVE RSV RNA Qual (PCR) NEGATIVE SARS-CoV-2 RNA (RT-PCR) NEGATIVE 09/02/23 09/03/23 23:31 01:26 MCV MCH MCHC RDW Plt Count MPV Immature Gran % (Auto) Neut % (Auto) Lymph % (Auto) [place] % (Auto) Eos % (Auto) Baso % (Auto) Lymph # (Auto) [place] # (Auto) Eos # (Auto) Baso # (Auto) Abs Immat Gran (auto) Absolute Neuts (auto) Absolute Nucleated RBC Nucleated RBC % (auto) Neutrophils % (Manual) Band Neutrophils % Lymphocytes % (Manual) Monocytes % (Manual) Abs Neuts (Manual) Lymphocytes # (Manual) Monocytes # (Manual) Platelet Estimate Plt Morphology Comment RBC Morphology VBG pH 7.46 H VBG pCO2 35 VBG pO2 61 VBG HCO3 25 VBG O2 Saturation 89.0 VBG Base Excess 2.0 Anion Gap Estim Creat Clear Calc Estimated GFR Random Glucose Lactic Acid Calcium Total Bilirubin AST ALT Alkaline Phosphatase B-Natriuretic Peptide Total Protein Albumin Urine Color Yellow Urine Appearance Clear Urine pH 5.0 Ur Specific [place] 1.015 Urine Protein 30 (1+) H Urine Glucose (UA) 500 H Urine Ketones Negative Urine Blood Moderate (2+) H Urine Nitrite Negative Ur Leukocyte Esterase Small (1+) H Urine RBC 0-2 Urine WBC 6-10 H Ur Squamous Epith Cells 3-5 Urine Bacteria 2+ Hyaline Casts 0-2 Influenza Type A (PCR) Influenza Type B (PCR) RSV RNA Qual (PCR) SARS-CoV-2 RNA (RT-PCR) Imaging Radiologist's Impressions: Impressions Chest X-Ray 09/02/23 23:30 IMPRESSION: Diffuse interstitial thickening/coarsening is not significantly changed, could be related with chronic small airways disease or chronic interstitial lung disease. Assessment and Plan (1) Acute UTI: Status: Acute Plan This is a 88-year-old female with pertinent history of congestive heart failure with preserved ejection fraction, chronic kidney disease, essential hypertension, insulin-dependent diabetes mellitus, mixed hyperlipidemia, paroxysmal atrial fibrillation on Eliquis, aortic stenosis status post TAVR in September 2021, coronary artery disease, gout who presents to the emergency department for evaluation of fevers and chills. #. Sepsis due to acute UTI: Resuscitated with IV crystalloids. Initiating empiric IV antibiotics. Lactic acid and blood culture obtained. #. ?Acute hypoxic respiratory failure due to above. Will trial off o2. Is 97% on 2L #. Paroxysmal atrial fibrillation: Rate controlled in the ER. On Eliquis and amiodarone #. Insulin-dependent diabetes mellitus: Hold Lantus. Initiating Accu-Cheks with sliding scale insulin #. Gout: On allopurinol #. Essential hypertension: Hold antihypertensives in the setting of sepsis #. Congestive heart failure with preserved ejection fraction: No decompensation during admission. #. Mixed hyperlipidemia: On high-intensity statin #. Chronic kidney disease: At baseline Med rec pending DVT prophylaxis: Eliquis Full code. Discussed with patient at bedside Admit as inpatient and will require two night minimum hospital stay for IV antibiotics (as above), which is not possible in a lesser acute setting. Quality Stroke Does the patient have a stroke diagnosis?: No VTE Prior VTE?: No VTE Risk Level:: Medical - moderate - high VTE Device Contraindication: Treatment Not Indicated VTE Drug Contraindication: N/A - Med Ordered
--- NOTE | 2023-09-03 03:58 | PC.NURSE ---
med rec completed per pt med list given by pt.
[2023-09-03 04:03] VITALS: BP 122/50; PULSE 83; RESP 16; TEMP 37.2; O2SAT 97
[2023-09-03 06:46] VITALS: O2SAT 99
--- NOTE | 2023-09-03 07:15 | PHA.MEDREC ---
Pharmacy Consult ? Medication Reconciliation Pharmacy has reviewed the medication reconciliation done byJose AN.
--- NOTE | 2023-09-03 08:58 | MHC.EDTECH ---
Patient transfer to hospital bed for comfort patient giving bed bath thelma care done, oral care done, Patient linen replace.
[2023-09-03 09:15] VITALS: BP 124/52; PULSE 80; RESP 17; O2SAT 95
--- NOTE | 2023-09-03 12:16 | PM.EVENT ---
Event Note Date of Service: 09/03/23 Event Note: This is a 88-year-old female with pertinent history of congestive heart failure with preserved ejection fraction, chronic kidney disease, essential hypertension, insulin-dependent diabetes mellitus, mixed hyperlipidemia, paroxysmal atrial fibrillation on Eliquis, aortic stenosis status post TAVR in September 2021, coronary artery disease, gout who presents to the emergency department for evaluation of fevers and chills. Sepsis due to acute GPC UTI sepsis resolved Resuscitated with IV crystalloids. Initiating empiric IV antibiotics, rocephin, will add Doxycycline for GPC GPC bacteremia ? UTI related continue rocephin and doxycline Paroxysmal atrial fibrillation Rate controlled in the ER. On Eliquis and amiodarone Insulin-dependent diabetes mellitus Hold Lantus. Initiating Accu-Checks with sliding scale insulin Gout On allopurinol Essential hypertension Hold antihypertensives in the setting of sepsis Congestive heart failure with preserved ejection fraction No decompensation at this time Mixed hyperlipidemia On high-intensity statin Chronic kidney disease 4 At baseline DVT prophylaxis: Gayatri Attending Dr. Ash Full code. Discussed with patient at bedside Updated daughter Bree Admit as inpatient and will require two night minimum hospital stay for IV antibiotics (as above), which is not possible in a lesser acute setting. Time Spent With Patient Time: Total time managing care of this patient today ____ minutes.
[2023-09-03 14:29] VITALS: BP 130/58; PULSE 86; RESP 18; TEMP 37.3; O2SAT 94
[2023-09-03 20:08] VITALS: BMI 39.1
--- NOTE | 2023-09-03 22:15 | W.PM.IDCN ---
History of Present Illness Data of Consult Service Date: 09/03/23 Requesting physician: Viviane Glasgow Primary Care Provider: Unknown Physician HPI Reason for consult: sepsis She presents with weakness as well as chills for a day. She has no nausea,vomiting or diarrhea. She has hypoxia with 85% RA. She has malaise. She had gone to dentist in [place] two weeks ago but reports cleaning only so didnt take any antibiotics. She had TAVR bioprosthetic valve in 2021 and permanent pacer transplant 2020. Blood culture is gram positive cocci x2 chains and short chains. She has tachycardia 93 and temperature of 102.5. Review of Systems Review of Systems: Yes all other systems are reviewed and are negative PMF Past Medical History Medical History (Updated 09/03/23 @ 22:31 by Maria Eugenia Leach MD) Bacteremia due to Gram-positive bacteria Paroxysmal atrial fibrillation CHF (congestive heart failure) Type 2 diabetes mellitus with unspecified complications Normally functioning cardiac pacemaker present URI (upper respiratory infection) Heart block atrioventricular Chronic heart failure with preserved ejection fraction Thrombosis of right saphenous vein Hypercholesterolemia Cataract Hypertension Obesity Aortic stenosis, moderate CKD (chronic kidney disease) stage 4, GFR 15-29 ml/min DVT (deep venous thrombosis) Type 2 diabetes mellitus with hyperglycemia Family History Family History Father No problems noted. Mother No problems noted. Family history: reviewed and not pertinent Surgical History Surgical History Status post transcatheter aortic valve replacement (TAVR) using bioprosthesis History of permanent cardiac pacemaker placement (~05/06/21) History of eye surgery History of surgical procedure on eye proper using laser History of right hip replacement History of partial hysterectomy History of cholecystectomy Social History Social History Household Members: Family Housing: House Do you presently have visiting nurse or other home services: No Alcohol intake: never Patient Tobacco Use Status: Never used Tobacco e-Cigarette/Vaping Use: Never Used Second Hand Smoke Exposure: Yes Advance Directives Date on File: 05/20/23 service: No Current occupational status: retired Cognitive needs: Yes (walker ) Hearing needs: No Vision needs: Yes Meds Allergies Allergy/AdvReac Type Severity Reaction Status Date / Time Penicillins [PENICILLINS] Allergy Severe SWELLING Verified 09/02/23 22:08 codeine [CODEINE] Allergy Intermediate SWELLING, Verified 09/02/23 22:08 Hives Active Medications: Current Medications Acetaminophen (Acetaminophen 325 Mg Tablet) 650 mg PO Q6H PRN PRN Reason: Pain, Mild (Pain Scale 1-3) Dextrose (Dextrose 50 % 25 Gm/50 Ml Syringe) 25 gm IVPUSH Q15M PRN; Protocol PRN Reason: per Hypoglycemia Standing Ord. Glucose (Glucose Gel 15 Gm Gel..Gram.) 15 gm PO Q15M PRN; Protocol PRN Reason: per Hypoglycemia Standing Ord. Ceftriaxone Sodium 1 gm/ (Sodium Chloride) 50 mls @ 100 mls/hr IV Q24H [facility] Last Infusion: 09/03/23 11:07 Dose: Infused Doxycycline Hyclate 100 mg/ (Sodium Chloride) 250 mls @ 166.67 mls/hr IV Q12H [facility] Last Infusion: 09/03/23 20:07 Dose: Infused Insulin Human Lispro (Insulin Lispro 100 Unit/Ml 3 Ml Vial) 0 unit SUBCUT QIDACHS [facility]; Protocol Last Admin: 09/03/23 20:27 Dose: Not Given Melatonin (Melatonin 3 Mg Tablet) 6 mg PO BEDTIME PRN PRN Reason: Insomnia Ondansetron HCl (Ondansetron Hcl 4 Mg/2 Ml Vial) 4 mg IVPUSH Q8H PRN PRN Reason: Nausea and Vomiting Sodium Chloride (0.9 % Sodium Chloride Flush 3 Ml Syringe) [facility] Last Admin: 09/03/23 14:29 Dose: Not Given Home Medications Medication Instructions Recorded Confirmed Last Taken Type acetaminophen 325 mg tablet 325 mg PO QID PRN Pain 07/15/20 09/03/23 Unknown History (Tylenol) latanoprost 0.005 % eye drops 1 drp ophthalmic (eye) BEDTIME 07/14/21 09/03/23 05/19/23 History calcium carbonate 600 mg-vitamin 1 tab PO DAILY 05/20/23 09/03/23 05/19/23 History D3 10 mcg (400 unit) tablet (Calcium 600 + D(3)) diclofenac sodium 1 % topical gel 2 g topical QD-BID PRN Pain 05/20/23 09/03/23 Unknown History fexofenadine 180 mg tablet 180 mg PO DAILY 05/20/23 09/03/23 05/19/23 History insulin glargine 100 unit/mL (3 5 unit subcut BEDTIME 05/20/23 09/03/23 05/31/23 21:00 History mL) subcutaneous pen (Lantus 5 units Solostar U-100 Insulin) multivitamin 1 tab PO DAILY 05/20/23 09/03/23 05/19/23 History propylene glycol 0.6 % eye drops 1 drp ophthalmic (eye) TID PRN Dry 05/20/23 09/03/23 Unknown History (Systane Complete) Eyes Physical Exam Vital Signs: Vital Signs: Last Vital Signs Temp 99.1 F 09/03/23 14:29 Pulse 86 09/03/23 14:29 Resp 18 09/03/23 14:29 BP 130/58 L 09/03/23 14:29 Pulse Ox 94 09/03/23 14:29 O2 Del Method Room Air 09/03/23 14:29 O2 Flow Rate 2 09/03/23 04:03 BMI result Body Mass Index 39.1 Const: General: cooperative HEENT: Head: Yes normal to inspection Face and sinus: Yes normal facial exam Mouth: Normal oral and palatal mucosa present Teeth and gingiva: dentition normal Eyes: General: appearance normal, both eyes and all related structures Pupils: Equal, round and reactive pupils present Resp: Effort & Inspection: normal respiratory effort Cardio: Rate: regular rate Rhythm: regular rhythm Heart sounds: Murmur heart sound present (2/6 GAY) GI: Palpation (GI): Soft to palpation and nontender : General: Yes no CVA tenderness Back/Spine/Pelvis: Back: no CVA tenderness Skin: General skin exam: no rashes or lesions noted Neuro: General: moves all extremities Cranial nerves: Yes Equal, round and reactive pupils present Extrem: General: Yes normal to inspection Psych: Appearance: grossly normal Results Labs 09/03/23 05:55 09/03/23 05:55 Labs: Short CBC 09/02/23 09/03/23 Range/Units 22:23 05:55 WBC 16.6 H 25.8 H (4.8-10.8) X10*3/uL Hgb 10.9 L 10.0 L (12.0-16.0) g/dl Hct 33.2 L 30.8 L (37.0-47.0) % Plt Count 154 L 152 L (160-400) X10*3/uL BMP 09/02/23 09/03/23 22:23 05:55 Sodium 141 138 Potassium 3.7 4.3 Chloride 102 103 Carbon Dioxide 25 25 BUN 44 H 44 H Creatinine 2.49 H 2.52 H Calcium 9.9 9.4 Liver Function 09/02/23 Range/Units 22:23 Total Bilirubin 1.2 H (0.0-1.0) mg/dL AST 22 (5-31) U/L ALT 12 (0-31) U/L Alkaline Phosphatase 80 (39-117) U/L Albumin 4.2 (3.5-5.0) g/dL Urine 09/03/23 Range/Units 01:26 Urine Color Yellow Urine Appearance Clear Urine pH 5.0 (5.0-9.0) Ur Specific [place] 1.015 (1.005-1.025) Urine Protein 30 (1+) H (Neg-Trace) mg/dL Urine Glucose (UA) 500 H (Negative) mg/dL Microbiology Microbiology Results: Microbiology 09/02/23 23:00 Blood - Venous Blood Culture - Preliminary Prelim: GPC Gram Stain only 09/02/23 23:28 Blood - Venous Blood Culture - Preliminary Prelim: GPC Gram Stain only Assessment and Plan (1) Bacteremia due to Gram-positive bacteria: Status: Acute She possibly has strep such as Group A strep or other such as enterococcus. Less likely is strep pneumonia All-PCN CKD with GFR of 17 Plan Continue Ceftriaxone 2g IV daily. Check TTE (may need [place] check pacer wires). Can stop Doxycycline as would not add additional benefit. She will probably need IV antibiotics for four weeks. Antibiotics when goes to dentist and has procedures if endocarditis as suspect.
[2023-09-04] VITALS: BP 139/64; PULSE 81; RESP 18; TEMP 36.9; O2SAT 93
[2023-09-04 03:09] VITALS: BP 134/60; PULSE 77; RESP 18; TEMP 36.4; O2SAT 95
[2023-09-04 07:59] VITALS: BP 117/58; PULSE 76; RESP 18; TEMP 36.8; O2SAT 92
[2023-09-04 08:01] LABS: Anion Gap 14 (12-20); Blood Urea Nitrogen 49 mg/dL (9-16); Calcium 9.5 mg/dL (8.4-10.2); Carbon Dioxide 23 mmol/L (22-29); Chloride 104 mmol/L (96-108); Creatinine Clr Calc Pharmacy 18.4; Estimated Glomerular Filt Rate 18; Glucose Random 107 mg/dL (60-115); Potassium 4.2 mmol/L (3.3-5.1); Sodium 137 mmol/L (135-145)
--- NOTE | 2023-09-04 12:57 | HO.PM.IMPN ---
Subjective Subjective Date of Service: 09/04/23 Review of Systems Follow up bacteremia Physical Exam Vital Signs: Vital Signs: Last Vital Signs Temp 98.3 F 09/04/23 07:59 Pulse 76 09/04/23 07:59 Resp 18 09/04/23 07:59 BP 117/58 L 09/04/23 07:59 Pulse Ox 92 09/04/23 07:59 O2 Del Method Room Air 09/04/23 07:59 O2 Flow Rate 2 09/03/23 04:03 BMI result Body Mass Index 39.1 Appearing in no acute distress lung sounds are clear to auscultation heart regular rate rhythm, clear S1, S2 positive bowel sounds, abdomen is soft, nontender neuro patient is alert x3, no focal deficits Objective Data Active Medications Acetaminophen (Acetaminophen 325 Mg Tablet) 650 mg PO Q6H PRN PRN Reason: Pain, Mild (Pain Scale 1-3) Dextrose (Dextrose 50 % 25 Gm/50 Ml Syringe) 25 gm IVPUSH Q15M PRN; Protocol PRN Reason: per Hypoglycemia Standing Ord. Glucose (Glucose Gel 15 Gm Gel..Gram.) 15 gm PO Q15M PRN; Protocol PRN Reason: per Hypoglycemia Standing Ord. Ceftriaxone Sodium 2 gm/ (Sodium Chloride) 50 mls @ 100 mls/hr IV Q24H [facility] Last Infusion: 09/03/23 23:53 Dose: Infused Documented By: TONE Insulin Human Lispro (Insulin Lispro 100 Unit/Ml 3 Ml Vial) 0 unit SUBCUT QIDACHS [facility]; Protocol Last Admin: 09/04/23 09:41 Dose: Not Given Documented By: JANINA Non-Admin Reason: No Insulin Coverage Melatonin (Melatonin 3 Mg Tablet) 6 mg PO BEDTIME PRN PRN Reason: Insomnia Ondansetron HCl (Ondansetron Hcl 4 Mg/2 Ml Vial) 4 mg IVPUSH Q8H PRN PRN Reason: Nausea and Vomiting Sodium Chloride (0.9 % Sodium Chloride Flush 3 Ml Syringe) 3 ml IVFLUSH QSHIFT [facility] Last Admin: 09/04/23 10:52 Dose: Not Given Documented By: JANINA Non-Admin Reason: Previously Administered Labs 09/04/23 07:14 09/04/23 07:15 Labs: Laboratory Results - last 24 hr 09/03/23 09/03/2324 14:12 17:17 20:21 MCV MCH MCHC RDW Plt Count MPV Immature Gran % (Auto) Neut % (Auto) Lymph % (Auto) [place] % (Auto) Eos % (Auto) Baso % (Auto) Lymph # (Auto) [place] # (Auto) Eos # (Auto) Baso # (Auto) Abs Immat Gran (auto) Absolute Neuts (auto) Absolute Nucleated RBC Nucleated RBC % (auto) Anion Gap Estim Creat Clear Calc Estimated GFR POC Glucose 161 H 173 H 74 Random Glucose Calcium 09/04/23 09/04/23 09/04/23 07:14 07:15 08:07 MCV 89.2 MCH 29.2 MCHC 32.8 RDW 17.4 H Plt Count 120 L MPV 11.3 Immature Gran % (Auto) 0.9 H Neut % (Auto) 89.9 H Lymph % (Auto) 2.5 L [place] % (Auto) 6.2 Eos % (Auto) 0.3 Baso % (Auto) 0.2 Lymph # (Auto) 0.5 L [place] # (Auto) 1.1 Eos # (Auto) 0.1 Baso # (Auto) 0.0 Abs Immat Gran (auto) 0.17 H Absolute Neuts (auto) 16.3 H Absolute Nucleated RBC 0.000 Nucleated RBC % (auto) 0.0 Anion Gap 14 Estim Creat Clear Calc 18.4 Estimated GFR 18 POC Glucose 100 Random Glucose 107 Calcium 9.5 09/04/23 11:14 MCV MCH MCHC RDW Plt Count MPV Immature Gran % (Auto) Neut % (Auto) Lymph % (Auto) [place] % (Auto) Eos % (Auto) Baso % (Auto) Lymph # (Auto) [place] # (Auto) Eos # (Auto) Baso # (Auto) Abs Immat Gran (auto) Absolute Neuts (auto) Absolute Nucleated RBC Nucleated RBC % (auto) Anion Gap Estim Creat Clear Calc Estimated GFR POC Glucose 164 H Random Glucose Calcium Microbiology Microbiology Results: Microbiology 09/03/23 Unknown Urine Culture - Final Urine clean catch - Clean Catch Midstream 09/02/23 23:00 Blood Culture - Preliminary Blood - Venous Prelim: GPC Gram Stain only 09/02/23 23:28 Blood Culture - Preliminary Blood - Venous Prelim: GPC Gram Stain only Assessment and Plan (1) Bacteremia due to Gram-positive bacteria: Status: Acute Plan This is a 88-year-old female with pertinent history of congestive heart failure with preserved ejection fraction, chronic kidney disease, essential hypertension, insulin-dependent diabetes mellitus, mixed hyperlipidemia, paroxysmal atrial fibrillation on Eliquis, aortic stenosis status post TAVR in September 2021, coronary artery disease, gout who presents to the emergency department for evaluation of fevers and chills. Sepsis due to acute GPC UTI sepsis resolved Resuscitated with IV crystalloids. continue empiric IV antibiotics, rocephin GPC bacteremia ? UTI related continue rocephin and doxycline ID following Paroxysmal atrial fibrillation Rate controlled in the ER. On Eliquis and amiodarone Insulin-dependent diabetes mellitus Hold Lantus. Initiating Accu-Checks with sliding scale insulin Gout On allopurinol Essential hypertension Hold antihypertensives in the setting of sepsis Congestive heart failure with preserved ejection fraction No decompensation at this time Mixed hyperlipidemia On high-intensity statin Chronic kidney disease 4 At baseline DVT prophylaxis: Gayatri Attending Dr. Ash Full code. Discussed with patient at bedside Updated daughter Bree continue hospital stay for IV antibiotics (as above), which is not possible in a lesser acute setting. Quality Stroke Does the patient have a stroke diagnosis?: No VTE Prior VTE?: No VTE Risk Level:: Medical - moderate - high VTE Device Contraindication: Treatment Not Indicated VTE Drug Contraindication: N/A - Med Ordered
[2023-09-04 15:52] VITALS: BP 136/63; PULSE 83; RESP 18; TEMP 36.1; O2SAT 94
[2023-09-04 19:21] VITALS: BP 133/63; PULSE 76; RESP 18; TEMP 37.1; O2SAT 94
[2023-09-04 23:57] VITALS: BP 121/60; PULSE 73; RESP 19; TEMP 36.7; O2SAT 92
[2023-09-05 02:50] VITALS: BP 131/59; PULSE 75; RESP 18; TEMP 37.1; O2SAT 92
[2023-09-05 07:33] VITALS: BP 109/54; PULSE 68; RESP 18; TEMP 36.4; O2SAT 94
--- NOTE | 2023-09-05 09:48 | HO.PM.IMPN ---
Subjective Subjective Date of Service: 09/05/23 Review of Systems Follow up bacteremia no pain or discomfort Physical Exam Vital Signs: Vital Signs: Last Vital Signs Temp 97.5 F 09/05/23 07:33 Pulse 68 09/05/23 07:33 Resp 18 09/05/23 07:33 BP 109/54 L 09/05/23 07:33 Pulse Ox 94 09/05/23 07:33 O2 Del Method Room Air 09/05/23 07:33 O2 Flow Rate 2 09/03/23 04:03 BMI result Body Mass Index 39.1 Appearing in no acute distress lung sounds are clear to auscultation heart regular rate rhythm, clear S1, S2 positive bowel sounds, abdomen is soft, nontender neuro patient is alert x3, no focal deficits Objective Data Active Medications Acetaminophen (Acetaminophen 325 Mg Tablet) 650 mg PO Q6H PRN PRN Reason: Pain, Mild (Pain Scale 1-3) Allopurinol (Allopurinol 100 Mg Tablet) 100 mg PO BID [facility] Last Admin: 09/05/23 09:34 Dose: 100 mg Documented By: OSMANI Amiodarone HCl (Amiodarone Hcl 200 Mg Tablet) 200 mg PO DAILY [facility] Last Admin: 09/05/23 09:33 Dose: 200 mg Documented By: OSMANI Amlodipine Besylate (Amlodipine Besylate 5 Mg Tablet) 5 mg PO DAILY [facility]; Protocol Last Admin: 09/05/23 09:33 Dose: 5 mg Documented By: OSMANI Apixaban (Apixaban 2.5 Mg Tablet) 2.5 mg PO BID [facility] Last Admin: 09/05/23 09:33 Dose: 2.5 mg Documented By: OSMANI Atorvastatin Calcium (Atorvastatin Calcium 10 Mg Tablet) 10 mg PO DAILY [facility] Last Admin: 09/05/23 09:33 Dose: 10 mg Documented By: OSMANI Dextrose (Dextrose 50 % 25 Gm/50 Ml Syringe) 25 gm IVPUSH Q15M PRN; Protocol PRN Reason: per Hypoglycemia Standing Ord. Furosemide (Furosemide 20 Mg Tablet) 80 mg PO DAILY [facility]; Protocol Last Admin: 09/05/23 09:33 Dose: 80 mg Documented By: OSMANI Furosemide (Furosemide 20 Mg Tablet) 60 mg PO DAILY@1999 [facility]; Protocol Last Admin: 09/04/23 19:32 Dose: 60 mg Documented By: HO.CASTILM Comments: BP 133/63 H 76 Glucose (Glucose Gel 15 Gm Gel..Gram.) 15 gm PO Q15M PRN; Protocol PRN Reason: per Hypoglycemia Standing Ord. Ceftriaxone Sodium 2 gm/ (Sodium Chloride) 50 mls @ 100 mls/hr IV Q24H [facility] Last Infusion: 09/04/23 23:20 Dose: Infused Documented By: SHELLI Insulin Glargine (Insulin Glargine,Hum.Rec.Anlog 100 Unit/Ml 10 Ml Vial) 5 unit SUBCUT BEDTIME [facility] Last Admin: 09/04/23 22:04 Dose: 5 unit Documented By: SHELLI Insulin Human Lispro (Insulin Lispro 100 Unit/Ml 3 Ml Vial) 0 unit SUBCUT QIDACHS [facility]; Protocol Last Admin: 09/05/23 07:59 Dose: Not Given Documented By: OSMANI Non-Admin Reason: No Insulin Coverage Latanoprost (Latanoprost 0.005 % Ophth Barbara 2.5 Ml Drops) 1 drop EYE-BOTH BEDTIME [facility] Last Admin: 09/04/23 22:31 Dose: Not Given Documented By: SHELLI Non-Admin Reason: Med Not Available Melatonin (Melatonin 3 Mg Tablet) 6 mg PO BEDTIME PRN PRN Reason: Insomnia Metolazone (Metolazone 2.5 Mg Tablet) 2.5 mg PO WeSa PRN PRN Reason: fluid retention Multivitamins/Vitamin C (Multivitamin Tablet) 1 tab PO DAILY [facility] Last Admin: 09/05/23 09:33 Dose: 1 tab Documented By: OSMANI Non-Formulary Medication (Dulaglutide [Trulicity]) 0.75 mg SUBCUT QWEEK [facility] Ondansetron HCl (Ondansetron Hcl 4 Mg/2 Ml Vial) 4 mg IVPUSH Q8H PRN PRN Reason: Nausea and Vomiting Sodium Chloride (0.9 % Sodium Chloride Flush 3 Ml Syringe) 3 ml IVFLUSH QSHIFT [facility] Last Admin: 09/05/23 09:33 Dose: 3 ml Documented By: OSMANI Labs 09/04/23 07:14 09/04/23 07:15 Labs: Laboratory Results - last 24 hr 09/04/23 09/04/23 09/04/23 11:14 16:31 17:39 POC Glucose 164 H 176 H 162 H 09/04/23 09/05/23 19:20 07:24 POC Glucose 185 H 136 H Microbiology Microbiology Results: Microbiology 09/02/23 23:28 Blood Culture - Final Blood - Venous Strep agalactiae (Grp B) 09/02/23 23:00 Blood Culture - Final Blood - Venous Strep agalactiae (Grp B) 09/03/23 Unknown Urine Culture - Final Urine clean catch - Clean Catch Midstream Assessment and Plan (1) Bacteremia due to Gram-positive bacteria: Status: Acute Plan This is a 88-year-old female with pertinent history of congestive heart failure with preserved ejection fraction, chronic kidney disease, essential hypertension, insulin-dependent diabetes mellitus, mixed hyperlipidemia, paroxysmal atrial fibrillation on Eliquis, aortic stenosis status post TAVR in September 2021, coronary artery disease, gout who presents to the emergency department for evaluation of fevers and chills. Sepsis due to acute UTI sepsis resolved Resuscitated with IV crystalloids. continue empiric IV antibiotics, rocephin grp B strep bacteremia UTI related continue rocephin ID following, discuss re home tx TTE could not r/o vegetation, MONTSERRAT ordered Paroxysmal atrial fibrillation Rate controlled in the ER. On Eliquis and amiodarone Insulin-dependent diabetes mellitus Hold Lantus. Initiating Accu-Checks with sliding scale insulin Gout On allopurinol Essential hypertension Hold antihypertensives in the setting of sepsis Congestive heart failure with preserved ejection fraction No decompensation at this time Mixed hyperlipidemia On high-intensity statin Chronic kidney disease 4 At baseline DVT prophylaxis: Gayatri Attending Dr. Cool Full code. Updated daughter Bree continue hospital stay for IV antibiotics (as above), which is not possible in a lesser acute setting. Quality Stroke Does the patient have a stroke diagnosis?: No VTE Prior VTE?: No VTE Risk Level:: Medical - moderate - high VTE Device Contraindication: Treatment Not Indicated VTE Drug Contraindication: N/A - Med Ordered
--- NOTE | 2023-09-05 13:20 | MHC.CM.PN ---
IMM delivered. Patient is from home with daughter and son-in-law. Uses a walker for ambulation. Daughter minimally assists w/ ADL's. No services. Has a shower chair. PCP: Roberto Mckinney MD HCP: Daughter Korin - on file and verified DP: Awaiting PT eval. Has had [facility] in the past and is open to home services again. Has been to a SNF x1, but does not wish to return. Daughter to transport home. CM will continue to follow.
[2023-09-05 14:30] VITALS: BMI 39.1
--- NOTE | 2023-09-05 14:39 | MHC.CLN ---
NUTRITION CONSULT FOR STAGE II WOUND TO LEFT BUTTOCK. DIET=DIABETIC 1800 KCALS-APPROPRIATE. INCREASED PROTEIN NEEDS DUE TO STAGE II PRESSURE INJURY TO LEFT BUTTOCK. INTAKE APPEARS TO BE VERY GOOD. NOT ADDING ADDITIONAL PROTEIN TO DIET AT THIS TIME DUE TO CKD STAGE 4 WITH ELEVATED BUN AND Cr AND GOOD INTAKE AT MEALS. FOLLOW FOR INTAKE AND WOUND HEALING. SEE CLINICAL NUTRITION ASSESSMENT 09/05/23.
--- NOTE | 2023-09-05 14:59 | P.CDIM_ITS ---
PROVIDER RESPONSE TEXT: To clarify, the appropriate diagnosis supported by the clinical indicators: Pressure ulcer left buttock stage 2, POA QUERY TEXT: PHYSICIAN'S DOCUMENTATION REQUEST Date of Query: 09/05/2023 12:44 PM EST Patient Name: Allie Gonzalez Admit Date: 09/03/2023 Dear Viviane Glasgow, A review of the medical record indicates additional documentation may be needed. Please review below and update the documentation accordingly. Clinical Indicators: Per Nursing Pressure Injury Assessment 09/04/23: Stage 2 wound left buttock, open to air, Triad cream Based on the above, could you please provide further information regarding the ulcer/wound: Pressure ulcer left buttock stage 2, POA Traumatic wound Please specify the location and laterality of the ulcer/wound Other (explain) Clinically unable to determine (explain) Thank you, Sharon Niño RN Use of terms such as suspected, likely, concern for, or probable (associated with a specific diagnosi s that is being evaluated, monitored, or treated as if it exists) are acceptable and can be coded in the inpatient se tting, when documented at the time of discharge. Please use your independent medical judgment in providing your response. THIS QUERY IS PART OF THE PERMANENT MEDICAL RECORD
[2023-09-05 15:17] VITALS: BP 134/62; PULSE 67; RESP 18; TEMP 36.7; O2SAT 96
--- NOTE | 2023-09-05 16:25 | HO.WOUND ---
Wound Consult: Initial 88yr old [place] admitted [place] [facility] [place]03/23 03:22 - See progress notes and H&P for detailed history. Wound consult placed for buttocks wound present on admission. Arrival to bedside pt was agreeable to assessment and photo documentation. Sacrum Etiology: ??Deep Tissue Injury Present on Admission Measurements: see charting for details Wound Bed: partial thickness tissue loss with red moist wound bed surrounded by light purple nonblanchable tissue - moist macerated edges Drainage / Odor: none noted Edges: ? irregular and macerated Adamaris wound: Red slow to tara moist tissue No Induration, Fluctuance or Warmth noted Pain: denies Goals of Treatment: ? Triad to act as a barrier to moisture and friction Recommendations: 1. Turn and Reposition every 2 hours and as needed for patient comfort.? Use pillows or wedges to support off loading positions. 2. Off Load all bony prominences with use of pillows and heel boots if needed.? Apply Preventative foams where needed. ? 3. Monitor for incontinence and moisture control, use barrier creams when needed for prevention and treatment. 4. Provide adequate and supplemental nutrition. 5. Order or Continue low air loss mattress. 6. Maintain blood glucose levels per Providers orders. 7. Sacrum and Buttock - Off Load Pressure - Cleanse with PH balance spray or wipes, pat dry. ?Apply thin layer of Triad to wound bed - only pat and dab no scrub and rub when soiling occurs. Reapply thin layer PRN after each episode of incontinence. Re-consult wound care Nurse for wound deterioration or wound changes.
[2023-09-05 16:43] LABS: Glucose, Whole Blood 149 mg/dL (60-115)
[2023-09-05] MEDS: Furosemide 20 MG TABLET 60 MG PO (19:38)
[2023-09-05] MEDS: Apixaban 2.5 MG TABLET PO (19:38)
[2023-09-05] MEDS: allopurinoL 100 MG TABLET PO (19:38)
[2023-09-05 19:47] VITALS: BP 139/62; PULSE 65; RESP 17; TEMP 37.1; O2SAT 96
[2023-09-05 20:04] LABS: Glucose, Whole Blood 169 mg/dL (60-115)
[2023-09-05] MEDS: Insulin Lispro 100 UNIT/ML 3 ML VIAL SUBCUT (21:29)
[2023-09-05] MEDS: Insulin Glargine,Hum.rec.anlog 100 UNIT/ML 10 ML VIAL SUBCUT (21:29)
[2023-09-05 23:24] VITALS: BP 116/58; PULSE 66; RESP 18; TEMP 36.6; O2SAT 92
[2023-09-06 03:03] VITALS: BP 119/56; PULSE 65; RESP 18; TEMP 36.7; O2SAT 95
[2023-09-06 06:18] LABS: Anion Gap 13 (12-20); Blood Urea Nitrogen 50 mg/dL (9-16); Calcium 9.5 mg/dL (8.4-10.2); Carbon Dioxide 25 mmol/L (22-29); Chloride 104 mmol/L (96-108); Creatinine Clr Calc Pharmacy 18.7; Estimated Glomerular Filt Rate 19; Glucose Random 116 mg/dL (60-115); Potassium 3.9 mmol/L (3.3-5.1); Sodium 138 mmol/L (135-145)
[2023-09-06 06:31] LABS: Hematocrit 30.6 % (37.0-47.0); Hemoglobin 9.9 g/dl (12.0-16.0); Mean Corpuscular HGB Conc 32.4 g/dl (31.0-35.0); Mean Corpuscular Hemoglobin 29.1 pg (27.0-33.0); Mean Platelet Volume 11.9 fL (9.4-12.3); Platelet Count 142 X10*3/uL (160-400); Red Cell Distribution Width 17.2 % (11.0-16.0); White Blood Count 6.9 X10*3/uL (4.8-10.8)
[2023-09-06 07:14] VITALS: BP 141/66; PULSE 74; RESP 18; TEMP 36.5; O2SAT 92
[2023-09-06 07:47] LABS: Glucose, Whole Blood 122 mg/dL (60-115)
[2023-09-06] MEDS: Multivitamin TABLET 1 TAB PO (09:18)
[2023-09-06] MEDS: Furosemide 20 MG TABLET 80 MG PO (09:19)
[2023-09-06] MEDS: Apixaban 2.5 MG TABLET PO ×2 (09:19→21:17)
[2023-09-06] MEDS: amLODIPine Besylate 5 MG TABLET PO (09:19)
[2023-09-06] MEDS: Atorvastatin Calcium 10 MG TABLET PO (09:19)
[2023-09-06] MEDS: allopurinoL 100 MG TABLET PO ×2 (09:19→21:18)
[2023-09-06] MEDS: Amiodarone HCL 200 MG TABLET PO (09:19)
[2023-09-06 11:33] LABS: Glucose, Whole Blood 113 mg/dL (60-115)
--- NOTE | 2023-09-06 11:58 | P.PNIM_ITS ---
Subjective Subjective Date of Service: 09/06/23 Review of Systems Follow up bacteremia no pain or discomfort Physical Exam 2 Vital Signs: Vital Signs: Last Vital Signs Temp 97.7 F 09/06/23 07:14 Pulse 74 09/06/23 07:14 Resp 18 09/06/23 07:14 BP 141/66 H 09/06/23 07:14 Pulse Ox 92 09/06/23 07:14 O2 Del Method Room Air 09/06/23 07:14 O2 Flow Rate 2 09/03/23 04:03 BMI result Body Mass Index 39.1 Appearing in no acute distress lung sounds are clear to auscultation heart regular rate rhythm, clear S1, S2 positive bowel sounds, abdomen is soft, nontender neuro patient is alert x3, no focal deficits Objective Data Active Medications Acetaminophen (Acetaminophen 325 Mg Tablet) 650 mg PO Q6H PRN PRN Reason: Pain, Mild (Pain Scale 1-3) Allopurinol (Allopurinol 100 Mg Tablet) 100 mg PO BID [facility] Last Admin: 09/06/23 09:19 Dose: 100 mg Documented By: OSMANI Amiodarone HCl (Amiodarone Hcl 200 Mg Tablet) 200 mg PO DAILY [facility] Last Admin: 09/06/23 09:19 Dose: 200 mg Documented By: OSMANI Amlodipine Besylate (Amlodipine Besylate 5 Mg Tablet) 5 mg PO DAILY [facility]; Protocol Last Admin: 09/06/23 09:19 Dose: 5 mg Documented By: OSMANI Apixaban (Apixaban 2.5 Mg Tablet) 2.5 mg PO BID [facility] Last Admin: 09/06/23 09:19 Dose: 2.5 mg Documented By: OSMANI Atorvastatin Calcium (Atorvastatin Calcium 10 Mg Tablet) 10 mg PO DAILY [facility] Last Admin: 09/06/23 09:19 Dose: 10 mg Documented By: OSMANI Dextrose (Dextrose 50 % 25 Gm/50 Ml Syringe) 25 gm IVPUSH Q15M PRN; Protocol PRN Reason: per Hypoglycemia Standing Ord. Furosemide (Furosemide 20 Mg Tablet) 80 mg PO DAILY [facility]; Protocol Last Admin: 09/06/23 09:19 Dose: 80 mg Documented By: OSMANI Furosemide (Furosemide 20 Mg Tablet) 60 mg PO DAILY@1999 [facility]; Protocol Last Admin: 09/05/23 19:38 Dose: 60 mg Documented By: SHELLI Glucose (Glucose Gel 15 Gm Gel..Gram.) 15 gm PO Q15M PRN; Protocol PRN Reason: per Hypoglycemia Standing Ord. Ceftriaxone Sodium 2 gm/ (Sodium Chloride) 50 mls @ 100 mls/hr IV Q24H [facility] Last Infusion: 09/06/23 00:02 Dose: Infused Documented By: SHELLI Insulin Glargine (Insulin Glargine,Hum.Rec.Anlog 100 Unit/Ml 10 Ml Vial) 5 unit SUBCUT BEDTIME [facility] Last Admin: 09/05/23 21:29 Dose: 5 unit Documented By: SHELLI Insulin Human Lispro (Insulin Lispro 100 Unit/Ml 3 Ml Vial) 0 unit SUBCUT QIDACHS [facility]; Protocol Last Admin: 09/06/23 08:01 Dose: Not Given Documented By: OSMANI Non-Admin Reason: No Insulin Coverage Latanoprost (Latanoprost 0.005 % Ophth Barbara 2.5 Ml Drops) 1 drop EYE-BOTH BEDTIME [facility] Last Admin: 09/05/23 19:38 Dose: 1 drop Documented By: SHELLI Melatonin (Melatonin 3 Mg Tablet) 6 mg PO BEDTIME PRN PRN Reason: Insomnia Metolazone (Metolazone 2.5 Mg Tablet) 2.5 mg PO WeSa PRN PRN Reason: fluid retention Multivitamins/Vitamin C (Multivitamin Tablet) 1 tab PO DAILY [facility] Last Admin: 09/06/23 09:18 Dose: 1 tab Documented By: OSMANI Non-Formulary Medication (Dulaglutide [Trulicity]) 0.75 mg SUBCUT QWEEK [facility] Ondansetron HCl (Ondansetron Hcl 4 Mg/2 Ml Vial) 4 mg IVPUSH Q8H PRN PRN Reason: Nausea and Vomiting Sodium Chloride (0.9 % Sodium Chloride Flush 3 Ml Syringe) 3 ml IVFLUSH QSHIFT [facility] Last Admin: 09/06/23 09:18 Dose: 3 ml Documented By: OSMANI Labs 09/06/23 05:35 09/06/23 05:35 Labs: Laboratory Results - last 24 hr 09/05/23 09/05/23 09/06/23 16:37 19:46 05:35 MCV 90.0 MCH 29.1 MCHC 32.4 RDW 17.2 H Plt Count 142 L MPV 11.9 Absolute Nucleated RBC 0.000 Nucleated RBC % (auto) 0.0 Anion Gap 13 Estim Creat Clear Calc 18.7 Estimated GFR 19 POC Glucose 149 H 169 H Random Glucose 116 H Calcium 9.5 09/06/23 09/06/23 07:24 11:24 MCV MCH MCHC RDW Plt Count MPV Absolute Nucleated RBC Nucleated RBC % (auto) Anion Gap Estim Creat Clear Calc Estimated GFR POC Glucose 122 H 113 Random Glucose Calcium Assessment and Plan (1) Bacteremia due to Gram-positive bacteria: Status: Acute Plan This is a 88-year-old female with pertinent history of congestive heart failure with preserved ejection fraction, chronic kidney disease, essential hypertension, insulin-dependent diabetes mellitus, mixed hyperlipidemia, paroxysmal atrial fibrillation on Eliquis, aortic stenosis status post TAVR in September 2021, coronary artery disease, gout who presents to the emergency department for evaluation of fevers and chills. Sepsis due to acute UTI sepsis resolved Resuscitated with IV crystalloids. continue empiric IV antibiotics, rocephin grp B strep bacteremia UTI related continue rocephin ID following, discuss re home tx TTE could not r/o vegetation, MONTSERRAT ordered Paroxysmal atrial fibrillation Rate controlled in the ER. On Eliquis and amiodarone Insulin-dependent diabetes mellitus Hold Lantus. Initiating Accu-Checks with sliding scale insulin Gout On allopurinol Essential hypertension Hold antihypertensives in the setting of sepsis Congestive heart failure with preserved ejection fraction No decompensation at this time Mixed hyperlipidemia On high-intensity statin Chronic kidney disease 4 At baseline DVT prophylaxis: Gayatri Attending Dr. Cool Full code. Updated daughter Bree continue hospital stay for IV antibiotics (as above), which is not possible in a lesser acute setting. Quality Stroke Does the patient have a stroke diagnosis?: No VTE Prior VTE?: No VTE Risk Level:: Medical - moderate - high VTE Device Contraindication: Treatment Not Indicated VTE Drug Contraindication: N/A - Med Ordered
[2023-09-06 15:21] VITALS: BP 139/63; PULSE 65; RESP 18; TEMP 36.7; O2SAT 94
[2023-09-06 16:23] LABS: Glucose, Whole Blood 97 mg/dL (60-115)
--- NOTE | 2023-09-06 16:42 | P.CDIM_ITS ---
PROVIDER RESPONSE TEXT: To clarify, the appropriate diagnosis supported by the clinical indicators: Deep tissue injury sacrum, present on admission QUERY TEXT: PHYSICIAN'S DOCUMENTATION REQUEST Date of Query: 09/06/2023 01:08 PM EST Patient Name: Allie Gonzalez Admit Date: 09/03/2023 Dear Viviane Glasgow, A review of the medical record indicates additional documentation may be needed. Please review below and update the documentation accordingly. Clinical Indicators: Per Wound Note 09/05/23: Sacrum Etiology: Deep Tissue Injury Present on Admission Measurements: see charting for details Wound Bed: partial thickness tissue loss with red moist wound bed surrounded by light purple nonblanc hable tissue - moist macerated edges Drainage / Odor: none noted Edges: irregular and macerated Adamaris wound: Red slow to tara moist tissue No Induration, Fluctuance or Warmth noted Pain: denies Goals of Treatment: Triad to act as a barrier to moisture and friction Based on the above, could you clarify the appropriate diagnosis, if significant, that supports the ab ove abnormalities and additional evaluation, monitoring, and/or treatment rendered: Deep tissue injury sacrum, present on admission Other (explain) Clinically unable to determine (explain) Thank you, Sharon Niño RN Use of terms such as suspected, likely, concern for, or probable (associated with a specific diagnosi s that is being evaluated, monitored, or treated as if it exists) are acceptable and can be coded in the inpatient se tting, when documented at the time of discharge. Please use your independent medical judgment in providing your response. THIS QUERY IS PART OF THE PERMANENT MEDICAL RECORD
--- NOTE | 2023-09-06 17:24 | MHC.SHP ---
Pre-Procedural Eval Section A Date of Service: 09/06/23 The patient is an INPATIENT: Yes Changes since office visit: Yes New Medical Problems, Yes Changes in Medication and Yes Patient answered all questions; No Cold of Flu in the past 2 weeks The History & Physical has been completed within 30 days and I have reviewed it.: Yes Section B Chief Complaint: Fever Allergies: Allergies Allergy/AdvReac Type Severity Reaction Status Date / Time Penicillins [PENICILLINS] Allergy Severe SWELLING Verified 09/02/23 22:08 codeine [CODEINE] Allergy Intermediate SWELLING, Verified 09/02/23 22:08 Hives Plan I have reviewed the history and physical and performed a pertinent physical examination on my patient. No changes have occurred unless specified. Time Spent With Patient Time: Total time managing care of this patient today ____ minutes.
[2023-09-06 19:22] VITALS: BP 146/63; PULSE 68; RESP 17; TEMP 36.4; O2SAT 94
[2023-09-06 19:51] LABS: Glucose, Whole Blood 162 mg/dL (60-115)
[2023-09-06] MEDS: Insulin Glargine,Hum.rec.anlog 100 UNIT/ML 10 ML VIAL SUBCUT (21:17)
[2023-09-06] MEDS: Furosemide 20 MG TABLET 60 MG PO (21:18)
[2023-09-06 23:26] VITALS: BP 135/70; PULSE 70; RESP 17; TEMP 36.4; O2SAT 95
[2023-09-07 03:05] VITALS: BP 143/60; PULSE 70; RESP 17; TEMP 36.1; O2SAT 93
--- NOTE | 2023-09-07 07:00 | CA_ITS ---
Transesophageal Echocardiogram Patient (Last, First, Middle): Allie Gonzalez M Gender: Female Date of : 1935 Age: 88 Procedure Date: 09/07/2023 Procedure Type: Transesophageal Echocardiogram Location: S3E Height: 157.48 cm Weight: 81.65 kg BSA: 1.83 m2 Heart Rate: bpm Disability Examiner: DILIP Referring MD: Preston Kothari MD Cook Boat: Preston Kothari MD Symptoms: Rule out endocarditis Conclusion: ??? 1. No clear evidence of intracardiac vegetations or suggestion of abscess including on the pacemaker leads visualized portions 2. Normal LV ejection fraction 55-60% 3. Biatrial enlargement, left greater than right 4. Moderate to severe mitral regurgitation 5. At least moderate tricuspid regurgitation 6. Normal bioprosthetic aortic valve with mild aortic regurgitation 7. [id number] atherosclerotic changes noted in thoracic aorta 8. No gross pericardial effusion Findings Procedure Information Consent was obtained prior to the procedure. Pre MONTSERRAT oral cavity was checked and revealed mild overcrowding. The adult 3D probe was passed with no difficulty. This was a technically good study. Left Ventricle The visually estimated ejection fraction is between 55-60%. due to both sharp doing artifact from the mitral annular calcification as well as from the aortic valve struts some portions of the left ventricular wall were not well visualized. Overall left ventricular systolic function appears preserved with possibly mild LVH. No clear thrombus or masses seen in the left ventricle Right Ventricle Normal right ventricular cavity size and systolic function. There is a pacemaker wire seen in the right ventricle. There is no evidence of mass in the right ventricle. the RV lead is attached to the proximal septum consistent with a left bundle-branch pacing lead. The lead traverses through the tricuspid valve without any obvious restriction. The no clear vegetations seen on the RV lead on the visualized portion through the right ventricular as well as right atrium and up to 2 cm into the SVC Atria The left atrium is severely dilated. There is lipomatous hypertrophy of the interatrial septum. There is no evidence of interatrial shunt. the left atrium is free of any significant thrombus or masses. The left upper, right upper and right lower pulmonary vein drain normally into the left atrium. The left atrial appendage was free of any thrombus or masses. The right atrium is likely dilated. The right atrium is free of any thrombi or masses. The right atrial lead was seen in its entirety in the right atrial cavity in up to 2 cm into the SVC. There are no clear masses or vegetations statin the right atrial lead. Th SVC and IVC drain normally into the right atrium. Aortic Valve A bioprosthetic aortic valve is present. The prosthetic aortic valve appears to be functioning normally. There is mild aortic valve regurgitation. The valve with his stress is well seated without any abnormal rocking motion. There is a gap between the ascending aortic wall and the valve stress which is natural. The inter valvular fibrosis appears to be thin without any lucency suggestive of abscess. Aortic leaflets were difficult to visualize was seen in multiple different views and a thin and Wilmer with normal motion. The no clear large vegetation seen attached to the aortic leaflets. There is mild central aortic regurgitation noted Mitral Valve There is mild anterior and posterior mitral leaflet thickening. There is moderate mitral annular calcification. There is moderate to severe mitral valve regurgitation. There is no mitral valve stenosis. there is a central jet of mitral regurgitation noted which is moderate to severe with calculated regurgitant volume of 59 mL. There is systolic flow reversal in her right lower pulmonary vein. There is no masses or vegetation attached to the mitral valve leaflet. Pulmonic Valve pulmonic valve was difficult to visualize but no clear large vegetations attached to the pulmonic well. There is mild pulmonary regurgitation Tricuspid Valve Normal tricuspid valve structure. There is moderate to severe tricuspid valve regurgitation. There are no masses of agitation attached to tricuspid valve leaflets. Great Vessels All visible segments of the aorta are normal in size. The visualized portions of the pulmonary artery and branches are normal. there is mild-to moderate atherosclerotic changes noted in the descending an arch of the thoracic aorta Venous The inferior vena cava is normal in size. Pericardium/Pleural There is no evidence of pericardial effusion. Measurements Mitral Valve MR Vol - PW Dopp: 59.16 MR VTI: 1.74 MR ERO: 34.00 MR Alias Roland: 0.35 MR RAD: 0.90 Updated by Preston Kothari on 11:03 AM with Status of Final Preston Kothari MD electronically signed on 09/08/2023 11:03:04 AM with status of Final
[2023-09-07 07:33] VITALS: BP 152/70; PULSE 67; RESP 18; TEMP 36.8; O2SAT 95
[2023-09-07 07:41] LABS: Glucose, Whole Blood 111 mg/dL (60-115)
[2023-09-07] MEDS: allopurinoL 100 MG TABLET PO (07:59)
[2023-09-07] MEDS: Furosemide 20 MG TABLET 80 MG PO (07:59)
[2023-09-07] MEDS: Amiodarone HCL 200 MG TABLET PO (08:00)
[2023-09-07] MEDS: Multivitamin TABLET 1 TAB PO (08:00)
[2023-09-07] MEDS: amLODIPine Besylate 5 MG TABLET PO (08:00)
[2023-09-07] MEDS: Atorvastatin Calcium 10 MG TABLET PO (08:00)
[2023-09-07] MEDS: Apixaban 2.5 MG TABLET PO (08:45)
[2023-09-07 09:06] VITALS: BP 145/60; PULSE 71; RESP 16; TEMP 37.2; O2SAT 97
--- NOTE | 2023-09-07 09:19 | MHC.SHP ---
Pre-Procedural Eval Section A Date of Service: 09/07/23 Section B Chief Complaint: Fever Details of Present Illness: Bacteremia with TAVR. See hospitalist note for details Relevant Family History (Specify if Yes): No Relevant Social History: Other (specify) Present Medications: see Short Stay Collaborative assessment Medical History: Significant History History of Previous Operations: Relevant previous surgery/procedure and date(s) Allergies: Allergies Allergy/AdvReac Type Severity Reaction Status Date / Time Penicillins [PENICILLINS] Allergy Severe SWELLING Verified 09/02/23 22:08 codeine [CODEINE] Allergy Intermediate SWELLING, Verified 09/02/23 22:08 Hives Review of Systems Sugical H&P ROS: Negative: Constitution, Respiratory, Neurological, Psychiatric and Hem-Onc and Yes, Specify: Cardiovascular Exam Surgical H&P Exam: Normal: HEENT, Normal: Heart, Normal: Lungs and Normal: Extremities Plan Diagnosis/Plan: Unchanged I have reviewed the history and physical and performed a pertinent physical examination on my patient. No changes have occurred unless specified. MONTSERRAT in needed to r/o endocarditis Time Spent With Patient Time: Total time managing care of this patient today ____ minutes.
[2023-09-07 10:16] VITALS: BP 130/60; PULSE 66; RESP 18; TEMP 36.3; O2SAT 98
[2023-09-07 10:31] VITALS: BP 136/59; PULSE 68; RESP 18; TEMP 36.2; O2SAT 95
--- NOTE | 2023-09-07 10:47 | PM.DS ---
DS: Providers Provider Date of Service: 09/07/23 Date of admission: 09/03/23 03:22 Primary care physician: Roberto Mckinney MD Consults: 09/03/23 13:11 Consult to Infectious Diseases [place]ine [place] [facility] [place] Reason for consultation: bacteremia 09/04/23 19:45 Consult to Wound Care Routine Reason for consultation: stage II left buttock DS: Diagnosis Discharge Diagnosis (1) Bacteremia due to Gram-positive bacteria: Status: Acute DS: Summary Hospital Course Hospital Course: history and physical as per admitting provider. This is a 88-year-old female with pertinent history of congestive heart failure with preserved ejection fraction, chronic kidney disease, essential hypertension, insulin-dependent diabetes mellitus, mixed hyperlipidemia, paroxysmal atrial fibrillation on Eliquis, aortic stenosis status post TAVR in September 2021, coronary artery disease, gout who presents to the emergency department for evaluation of fevers and chills. Patient states that she started having fever on the day of presentation. Has associated chills and generalized weakness. Patient tried to get up for bathroom but almost fell due to generalized weakness. She denies cough or dyspnea. Endorses urinary urgency. No chest discomfort, palpitations, abdominal pain, changes in bowel habits. In the emergency department, patient was found to be septic. Urine concerning for UTI. 88-year-old woman treated for sepsis secondary to UTI and group B strep bacteremia. Patient initially treated with IV Rocephin, IV fluids. Vidal negative for vegetation. Seen evaluated by Infectious Disease provider. Possible urine source. Will treat with total 14 days of antibiotics, home with Ceftin. patient will be discharged home with family. Paroxysmal atrial fibrillation. continue amiodarone, apixaban Diabetes mellitus type 2. Continue home medications Gout. Continue allopurinol Hypertension. Continue amlodipine, Lasix Time Attestation Discharge coordination time: Greater than 30 minutes Quality: Safe Use of Opioids Does Pt have an Active Cancer Diagnosis on the Problem List?: No Quality: Stroke Does the patient have a stroke diagnosis?: No Physical Exam Vital Signs: Vital Signs: Last Vital Signs Temp 97.2 F 09/07/23 10:31 Pulse 68 09/07/23 10:31 Resp 18 09/07/23 10:31 BP 136/59 L 09/07/23 10:31 Pulse Ox 95 09/07/23 10:31 O2 Del Method Room Air 09/07/23 10:31 O2 Flow Rate 6 09/07/23 10:16 BMI result Body Mass Index 39.1 Appearing in no acute distress head is normocephalic atraumatic eyes pupils are PERRLA sclera is anicteric mouth throat mucous membranes are intact and moist neck is supple no lymphadenopathy, no JVD noted lung sounds are clear to auscultation heart regular rate rhythm, clear S1, S2 positive bowel sounds, abdomen is soft, nontender neuro patient is alert x3, no focal deficits DS: Data Data Completed and Pending Labs on day of discharge: Laboratory Results - last 24 hr 09/06/23 09/06/23 09/06/23 11:24 16:19 19:47 POC Glucose 113 97 162 H 09/07/23 07:36 POC Glucose 111 Discharge Plan Discharge Anticipated Discharge Date/Time: 09/07/23 10:29 Patient Disposition: Home, Self-Care Discharge Diagnosis: Sepsis UTI Group B strep bacteremia Referrals: Hank,Roberto Bruner MD [Primary Care Provider] - 1 Week Discharge Medications: New cefuroxime axetil 500 mg tablet 500 mg PO BID Qty: 20 0RF Continued Trulicity 0.75 mg/0.5 mL pen injector 0.75 mg subcut QWEEK Qty: 6 5RF atorvastatin 10 mg tablet 10 mg PO DAILY Qty: 90 3RF amiodarone 200 mg tablet 200 mg PO DIRECTED Qty: 90 3RF Farxiga 5 mg tablet 5 mg PO DAILY 90 Days Qty: 90 2RF metolazone 2.5 mg tablet 2.5 mg PO DIRECTED PRN (Reason: fluid retention) Qty: 8 2RF Rx Instructions: Take 1 tablet in the AM on Tuesday and 1 tablet in the AM on Saturdays ONLY as needed for fluid retention insulin lispro [Humalog KwikPen Insulin] 100 unit/mL insulin pen See Rx Instructions .ROUTE .COMPLEX 30 Days Qty: 15 11RF Patient Comments: Dr. Mckinney told patient to hold off on this insulin unless her sugar is greater than 150 per daughter Bree Rx Instructions: inject 1 u TID amlodipine 5 mg tablet 5 mg PO DAILY Qty: 90 3RF furosemide 20 mg tablet 20 mg PO .COMPLEX 90 Days Qty: 630 1RF Rx Instructions: 4 tabs every AM (80mg) and 3 tabs (60mg) every PM insulin glargine [Lantus Solostar U-100 Insulin] 100 unit/mL (3 mL) insulin pen 5 unit subcut BEDTIME multivitamin Tablet 1 tab PO DAILY calcium carbonate-vitamin D3 [Calcium 600 + D(3)] 600 mg-10 mcg (400 unit) Tablet 1 tab PO DAILY Systane Complete 0.6 % Drops 1 drp OPHTHALMIC (EYE) TID PRN (Reason: Dry Eyes) diclofenac sodium 1 % Gel 2 g TOPICAL QD-BID PRN (Reason: Pain) Rx Instructions: apply to single elbow, wrist or hand; for hand includes palm/fingers/back of hand fexofenadine 180 mg Tablet 180 mg PO DAILY acetaminophen [Tylenol] 325 mg tablet 325 mg PO QID PRN (Reason: Pain) (DME) pen needle, diabetic 31 gauge x 5/16 needle See Rx Instructions .ROUTE .MEDSUPPLY Qty: 1200 3RF Rx Instructions: As directed (DME) compress.stocking,knee,reg,lrg Misc See Rx Instructions .Route Qty: 12 0RF Rx Instructions: As directed 20-30 mm HG latanoprost 0.005 % drops 1 drp ophthalmic (eye) BEDTIME Eliquis 2.5 mg tablet 2.5 mg PO BID 90 Days Qty: 180 3RF allopurinol 100 mg tablet 100 mg PO BID Qty: 180 5RF Discharge Orders: Discharge Order (Routine); Ordered 09/07/23 Ordered By: Viviane Glasgow Diet: Advance to usual diet Activity on Discharge: As tolerated Stand Alone Forms: Patient Portal Discharge page Care Plan Goals: Complete course of antibiotics for bacteremia, Ceftin 500 mg twice daily Health Concerns: sepsis UTI Group B strep bacteremia Plan of Treatment: Follow-up with primary care provider as needed Take all medications as prescribed Assessment: See discharge summary
[2023-09-07 10:48] VITALS: BP 151/67; PULSE 61; RESP 16; TEMP 36.5; O2SAT 92
--- NOTE | 2023-09-07 10:49 | MHC.CLN ---
F/U REVIEW OF WOUND NURSE DOC SHOWS SKIN WITH DTI TO COCCYX AND LEFT BUTTOCK. NPO TODAY FOR PROCEDURE. RECOMMEND CONTINUE DIABETIC 1800 KCAL DIET WHEN ABLE. USUAL INTAKE VERY GOOD. FOLLOW FOR INTAKE AND WOUND HEALING.
[2023-09-07 11:06] LABS: Glucose, Whole Blood 106 mg/dL (60-115)
--- NOTE | 2023-09-07 11:25 | MHC.CM.PN ---
pt home no skilled servies needed checked with sasha kingsley who does not feel pt needs homept
== END 2023-09-07 15:19 | disposition home or self-care (01) | DRG 871 ==
LOC: HO.ED 09-03 02:18 → HO.EDOVER 09-03 03:26 → HO.S3 09-03 18:32
PROVIDERS: Internal Medicine Cardiovascular Disease; Admitting Provider Student in an Organized Health Care Education/Training Program; Emergency Provider Emergency Medicine; PCP Internal Medicine; Visit Provider Nurse Practitioner Acute Care
PROC: B24BZZ4 Ultrasonography of Heart with Aorta, Transesophageal (ICD-10-PCS; CPT 93312; principal; 2023-09-07 09:30)
DX: A41.9 Sepsis, unspecified organism (principal); J96.01 Acute respiratory failure with hypoxia; N39.0 Urinary tract infection, site not specified; I13.0 Hypertensive heart and chronic kidney disease with heart failure and stage 1 through stage 4 chronic kidney disease, or unspecified chronic kidney disease; N18.4 Chronic kidney disease, stage 4 (severe); I50.32 Chronic diastolic (congestive) heart failure; L89.156 Pressure-induced deep tissue damage of sacral region; E78.2 Mixed hyperlipidemia; B95.1 Streptococcus, group B, as the cause of diseases classified elsewhere; Z95.2 Presence of prosthetic heart valve; E86.0 Dehydration; L89.322 Pressure ulcer of left buttock, stage 2; E11.22 Type 2 diabetes mellitus with diabetic chronic kidney disease; M10.9 Gout, unspecified; I48.0 Paroxysmal atrial fibrillation; Z20.822 Contact with and (suspected) exposure to COVID-19; Z95.0 Presence of cardiac pacemaker; Z86.718 Personal history of other venous thrombosis and embolism; Z79.4 Long term (current) use of insulin; Z79.01 Long term (current) use of anticoagulants; Z79.899 Other long term (current) drug therapy
CPT/HCPCS: 0241U; 36415; 71045; 71250; 80048; 80053; 81001; 82803; 82947; 83605; 83880; 84484; 85007; 85025; 85027; 87040; 87086; 87147; 87205; 93005; 93306; 97161; 99285; J0696; J2704; Q9957

== ENCOUNTER → 2023-09-02 22:51 | Outpatient (BNV) | payer MEDICARE, SELFPAY ==
[2023-06-02 09:54] VITALS: BP 108/60; BP 118/64; BP 124/60; BMI 35.9
== END ==
PROVIDERS: Admitting Provider Student in an Organized Health Care Education/Training Program; Emergency Provider Emergency Medicine; Visit Provider Internal Medicine Cardiovascular Disease
DX: R94.31 Abnormal electrocardiogram [ECG] [EKG] (principal)
CPT/HCPCS: 93010

== ENCOUNTER 2023-09-03 03:22 | Outpatient (BNV) | payer MEDICARE, SELFPAY ==
[2023-06-02 09:54] VITALS: BP 108/60; BP 118/64; BP 124/60; BMI 35.9
== END 2023-09-05 07:00 ==
PROVIDERS: Admitting Provider Student in an Organized Health Care Education/Training Program; Emergency Provider Emergency Medicine; PCP Internal Medicine; Visit Provider Internal Medicine Cardiovascular Disease
DX: I34.0 Nonrheumatic mitral (valve) insufficiency (principal); I34.81 Nonrheumatic mitral (valve) annulus calcification
CPT/HCPCS: 93306

== ENCOUNTER 2023-09-03 03:22 | Outpatient (BNV) | payer MEDICARE, SELFPAY ==
[2023-06-02 09:54] VITALS: BP 108/60; BP 118/64; BP 124/60; BMI 35.9
== END 2023-09-07 07:00 ==
PROVIDERS: Admitting Provider Student in an Organized Health Care Education/Training Program; Emergency Provider Emergency Medicine; PCP Internal Medicine; Visit Provider Internal Medicine Cardiovascular Disease
DX: R78.81 Bacteremia (principal)
CPT/HCPCS: 93312; 93320; 93325

== ENCOUNTER → 2023-09-03 03:22 | Outpatient (BNV) | payer MEDICARE, SELFPAY ==
[2023-06-02 09:54] VITALS: BP 108/60; BP 118/64; BP 124/60; BMI 35.9
== END ==
PROVIDERS: Admitting Provider Student in an Organized Health Care Education/Training Program; Emergency Provider Emergency Medicine; Visit Provider Student in an Organized Health Care Education/Training Program
DX: R78.81 Bacteremia (principal)
CPT/HCPCS: 99222; 99232; 99239; 99499

== ENCOUNTER → 2023-09-03 03:22 | Outpatient (BNV) | payer MEDICARE, SELFPAY ==
[2023-06-02 09:54] VITALS: BP 108/60; BP 118/64; BP 124/60; BMI 35.9
== END ==
PROVIDERS: Admitting Provider Student in an Organized Health Care Education/Training Program; Emergency Provider Emergency Medicine; Visit Provider Internal Medicine
DX: R78.81 Bacteremia (principal)
CPT/HCPCS: 99222

== ENCOUNTER 2023-09-12 06:58 | Outpatient (REF) | payer MEDICARE, SELFPAY ==
[2023-06-02 09:54] VITALS: BP 108/60; BP 118/64; BP 124/60; BMI 35.9
[2023-09-12 07:13] LABS: MANUAL DIFF FLAG NO
[2023-09-12 07:45] LABS: Basophils Percent Auto 0.3 % (0-2); Eosinophils Absolute Auto 0.3 X10*3/uL (0.0-0.4); Eosinophils Percent Auto 3.8 % (0-4); Hematocrit 34.4 % (37.0-47.0); Imm Gran Abs Auto 0.12 X10*3/uL (0.00-0.03); Imm Gran Pct Auto 1.6 % (0.0-0.4); Lymphocytes Percent Auto 13.2 % (20-40); Mean Corpuscular Hemoglobin 28.4 pg (27.0-33.0); Mean Corpuscular Volume 88.7 fL (80.0-98.0); Monocytes Absolute Auto 0.6 X10*3/uL (0.1-1.2); Monocytes Percent Auto 7.3 % (2-11); Neutrophils Absolute Auto 5.6 x10*3/uL (2.0-8.3); Neutrophils Percent Auto 73.8 % (45-73); Platelet Count 240 X10*3/uL (160-400); Red Blood Count 3.88 X10*6/uL (4.20-5.50); Red Cell Distribution Width 17.4 % (11.0-16.0); Retic HGB Equivalent 32.3 pg (30.0-35.0); Reticulocyte Percent 1.9 % (0.5-1.8); Reticulocytes Absolute 0.075 X10*6/uL (0.026-0.095); White Blood Count 7.6 X10*3/uL (4.8-10.8)
[2023-09-12 08:08] LABS: B Type Natriuretic Peptide 519 pg/mL (<100)
[2023-09-12 08:18] LABS: Alanine Aminotransferase 15 U/L (0-31); Albumin Level 4.2 g/dL (3.5-5.0); Alkaline Phosphatase 75 U/L (39-117); Anion Gap 17 (12-20); Aspartate Amino Transferase 18 U/L (5-31); Bilirubin Total 0.5 mg/dL (0.0-1.0); Blood Urea Nitrogen 40 mg/dL (9-16); Calcium 9.8 mg/dL (8.4-10.2); Carbon Dioxide 27 mmol/L (22-29); Chloride 101 mmol/L (96-108); Estimated Glomerular Filt Rate 18; Glucose Random 122 mg/dL (60-115); Iron 47 mcg/dL (30-160); Magnesium 2.4 mg/dL (1.6-2.6); Percent Iron Saturation 17 % (15-50); Potassium 3.8 mmol/L (3.3-5.1); Sodium 141 mmol/L (135-145); Total Iron Binding Capacity 273 mcg/dL (228-428); Total Protein 7.5 g/dL (6.5-8.0); Unsaturated Iron Binding 226 ug/dL
[2023-09-12 08:38] LABS: Ferritin 103 ng/mL (10-250)
[2023-09-12 08:39] LABS: Folate 15.2 ng/mL (> or = 4.0); Vitamin B12 1316 pg/mL (200-900)
== END 2023-09-12 06:59 | disposition home or self-care (01) ==
LOC: HO.LAB 06:58
PROVIDERS: PCP Internal Medicine; Visit Provider Internal Medicine
DX: I50.32 Chronic diastolic (congestive) heart failure (principal)
CPT/HCPCS: 36415; 80053; 82607; 82728; 82746; 83540; 83735; 83880; 85025; 85045

== ENCOUNTER 2023-09-26 09:45 | Outpatient (AMB) | payer MEDICARE, SELFPAY ==
[2023-06-02 09:54] VITALS: BP 108/60; BP 118/64; BP 124/60; BMI 35.9
[2023-09-26 09:46] VITALS: BP 122/60; PULSE 81; O2SAT 94; BMI 39.5
--- NOTE | 2023-09-26 09:46 | A.OFFVIS_ITS ---
Intake Vital Signs 09/26/23 09:46 Height 5 ft 3 in Weight 223 lb 0.8 oz BMI 39.5 BP 122/60 Blood Pressure Location Lt brachial Position Sitting Pulse 81 Pulse Source Pulse Oximeter Pulse Oximetry (%) 94 Oxygen Delivery Method Room Air Intake Visit Reasons: [facility] Bar Host/Hostess Required: No Allergies Penicillins [PENICILLINS] Allergy (Severe, Verified 09/26/23 09:47) SWELLING codeine [CODEINE] Allergy (Intermediate, Verified 09/26/23 09:47) SWELLING, Hives Medication List - Last Reconciled 09/26/23 by Roberto Mckinney MD acetaminophen (Tylenol) 325 mg PO QID PRN allopurinol 100 mg PO DAILY amiodarone 200 mg PO DAILY amlodipine 5 mg PO DAILY apixaban (Eliquis) 2.5 mg PO BID 90 days atorvastatin 10 mg PO DAILY calcium carbonate-vitamin D3 600 mg-10 mcg (400 unit) (Calcium 600 + D(3)) 1 tab PO DAILY compress.stocking,knee,reg,lrg As directed 20-30 mm HG dapagliflozin propanediol (Farxiga) 5 mg PO DAILY 90 days diclofenac sodium 1% 2 grams topical QD-BID PRN dulaglutide (Trulicity) 0.75 mg (0.5 mL) subcut QWEEK fexofenadine 180 mg PO DAILY furosemide 4 tabs every AM (80mg) and 3 tabs (60mg) every PM 90 days insulin glargine (Lantus Solostar U-100 Insulin) 5 units subcut BEDTIME insulin lispro (Humalog KwikPen (U-100) Insulin) inject 1 u TID 30 days latanoprost 0.005% 1 drp ophthalmic (eye) BEDTIME metolazone 2.5 mg PO DIRECTED PRN multivitamin 1 tab PO DAILY pen needle, diabetic As directed propylene glycol 0.6% (Systane Complete) 1 drp ophthalmic (eye) TID PRN Fall Risk Assessment Fall risk assessment: No Falls in past year Date Fall Risk Assessed: 09/26/23 HPI ADELAIDAV HPI Details 88-year-old obese female with a history of aortic stenosis status post TAVR atrial fibrillation congestive heart failure with diastolic dysfunction chronic kidney disease pacemaker present due to heart block hypertension diabetes mellitus last seen in June 2023. Patient is here for an annual well visit. Review of the notes was in the hospital in 09/08/2023 echocardiogram done 1. No clear evidence of intracardiac vegetations or suggestion of abscess including on the pacemaker leads visualized portions 2. Normal LV ejection fraction 55-60% 3. Biatrial enlargement, left greater th an right 4. Moderate to severe mitral regurgitati on 5. At least moderate tricuspid regurgita tion 6. Normal bioprosthetic aortic valve wit h mild aortic regurgitation 7. [id number] atherosclerotic greenwood ges noted in thoracic aorta 8. No gross pericardial effusion had fever and chills has urinary urgency found to be septic with urine question of UTI Rocephin given no vegetations patient also follows up with Rheumatology in July for rheumatoid arthritis and gout. Patient also has seen Nephrology diagnosis of chronic kidney disease. Will reschedule well visit as the patient was just discharged. [facility] Medical History (Updated 09/15/23 @ 00:03 by Background Daemon) Bacteremia due to Gram-positive bacteria Paroxysmal atrial fibrillation CHF (congestive heart failure) Type 2 diabetes mellitus with unspecified complications Normally functioning cardiac pacemaker present URI (upper respiratory infection) Heart block atrioventricular Chronic heart failure with preserved ejection fraction Thrombosis of right saphenous vein Hypercholesterolemia Cataract Hypertension Obesity Aortic stenosis, moderate CKD (chronic kidney disease) stage 4, GFR 15-29 ml/min DVT (deep venous thrombosis) Type 2 diabetes mellitus with hyperglycemia Surgical History (Updated 09/15/23 @ 00:03 by Background Daemon) Status post transcatheter aortic valve replacement (TAVR) using bioprosthesis History of permanent cardiac pacemaker placement (~05/06/21) History of eye surgery History of surgical procedure on eye proper using laser History of right hip replacement History of partial hysterectomy History of cholecystectomy Family History Father No problems noted. Mother No problems noted. Social History Household Members: Family Housing: House Do you presently have visiting nurse or other home services: No Alcohol intake: never Patient Tobacco Use Status: Never used Tobacco e-Cigarette/Vaping Use: Never Used Second Hand Smoke Exposure: Yes Advance Directives Date on File: 05/20/23 service: No Current occupational status: retired Cognitive needs: Yes (walker ) Hearing needs: No Vision needs: Yes Questionnaire Medicare Wellness Checkup What is your age?: 80 or older What gender do you identify with?: female During the past 4 weeks, how much have you been bothered by emotional problems such as feeling anxious, depressed, irritable, sad or downhearted, and blue?: not at all During the past 4 weeks, has your physical & emotional health limited your social activities with family, friends, neighbors, or groups?: not at all During the past 4 weeks, how much bodily pain have you generally had?: very mild pain During the past 4 weeks, was someone available to help you if you needed & wanted help?: yes, as much as I wanted During the past 4 weeks, what was the hardest physical activity you could do for at least 2 minutes?: moderate Can you get to places out of walking distance without help? (For eg., can you travel alone on buses, taxis or drive your car?): No Can you go shopping for groceries or clothes without someone's help?: No Can you prepare your own meals?: Yes Can you do your housework without help?: Yes Because of any health problems, do you need the help of another person with your personal care needs such as eating, bathing, dressing or getting around the house?: No Can you handle your own money without help?: Yes During the past 4 weeks, how would you rate your health in general?: very good During the past 4 weeks how have things been going for you?: pretty well Are you having difficulties driving your car?: not applicable, I don't use a car Do you always fasten your seat belt when you are in a car?: yes, usually During past 4 weeks, have you been bothered by the following: never: Sexual problems?, Trouble eating well?, Teeth or denture problems? and Problems using the telephone?, seldom: Tiredness or fatigue? and sometimes: Falling or dizzy when standing up Have you fallen 2 or more times in the past year?: No Are you afraid of falling?: No Are you a smoker?: no During the past 4 weeks, how many drinks of wine, beer, or other alcoholic beverages did you have?: no alcohol at all Do you exercise for about 20 minutes 3 or more times a week?: yes, most of the time Have you been given information to help with the following?: yes: Hazards in your house that might hurt you? and yes: Keeping track of your medications? How often do you have trouble taking medicines the way you have been told to take them?: I always take medicine as prescribed How confident are you that you can control & manage most of your health problems?: very confident What is your race?: White PHQ-9 Over the last 2 weeks, how often have you been bothered by any of the following problems? 1. Little interest or pleasure in doing things: not at all 2. Feeling down, depressed, or hopeless: not at all 3. Trouble falling or staying asleep, or sleeping too much: several days 4. Feeling tired or having little energy: not at all 5. Poor appetite or overeating: not at all 6. Feeling bad about yourself - or that you are a failure or have let yourself or your family down: not at all 7. Trouble concentrating on things, such as reading the newspaper or watching television: not at all 8. Moving or speaking so slowly that other people could have noticed. Or the opposite - being so fidgety or restless that you have been moving around a lot more than usual: not at all 9. Thoughts that you would be better off or of hurting yourself in some way: not at all Total score: 1 Depression Screening Interpretation: Negative Depression Screening Done: Yes Source: Developed by Drs. Enrrique Avila, Asmita Quigley, Demond Aviles and colleagues, with an educational ruma from [employer]. AZAR-7 AMB Questionnaire AZAR-7 Date AZAR - 7 assessed: 09/26/23 Source: Developed by Asmita Faye Kurt Kroenke and colleagues, with an educational ruma from [employer]. Thrive Questionnaire Date Thrive assessed: 09/26/23 Physical Exam Vital Signs: Last Vital Signs Pulse 81 09/26/23 09:46 BP 122/60 09/26/23 09:46 Pulse Ox 94 09/26/23 09:46 Oxygen Delivery Method Room Air 09/26/23 09:46 BMI result Body Mass Index 39.5 Const General: alert; No acute distress Eyes Conjunctivae: conjunctivae normal Resp Auscultation: clear to auscultation bilaterally Cardio Rate: regular rate Rhythm: regular rhythm GI Inspection: Yes normal to inspection Extrem General: Yes normal to inspection and No edema Assessment & Plan Assessment & Plan (1) Paroxysmal atrial fibrillation: Comment: Cardioversion May 2020 Code(s): I48.0 - Paroxysmal atrial fibrillation Plan: Patient continue to follow-up with cardiology echocardiogram recently done. (2) Status post transcatheter aortic valve replacement (TAVR) using bioprosthesis: Comment: September 2021, echocardiogram October 2022 Code(s): Z95.3 - Presence of xenogenic heart valve Plan: Continue to follow up with Cardiology (3) Tophaceous gout: Comment: R 2nd DIP; allopurinol started 04/2022 Code(s): M1A.9XX1 - Chronic gout, unspecified, with tophus (tophi) Plan: Low purine diet keep well hydrated follows up with Rheumatology (4) CKD (chronic kidney disease) stage 4, GFR 15-29 ml/min: Code(s): N18.4 - Chronic kidney disease, stage 4 (severe) Plan: Patient also sees Nephrology keep sugars under control keep blood pressure under control (5) Type 2 diabetes mellitus with hyperglycemia: Comment: Dr. Cisse 11/2022 Code(s): E11.65 - Type 2 diabetes mellitus with hyperglycemia Qualifiers: Diabetes mellitus penitentiary insulin use: with intermission coordinator use Qualified Code(s): E11.65 - Type 2 diabetes mellitus with hyperglycemia; Z79.4 - longterm (current) use of insulin Plan: Decrease the amount of carbohydrate intake, pasta, bread, rice and potatoes are all sugar and that is aside from all the sweet stuff, remember that fruits are good but they are Sweet also. Patient presently on Trulicity , Farxiga and insulin (6) Hypertension: Comment: Cardiac catheterization no obstruction July 2015 Code(s): I10 - Essential (primary) hypertension Qualifiers: Hypertension type: essential hypertension Qualified Code(s): I10 - Essential (primary) hypertension Plan: Continue with blood pressure medication. Decrease salt intake and exercise on amlodipine 5 mg once a day (7) Hypercholesterolemia: Code(s): E78.00 - Pure hypercholesterolemia, unspecified Plan: Avoid fried foods, chicken skin, eggs, butter margarine, pastries and meat. Be it pork or beef they have a lot of cholesterol atorvastatin 10 mg once a day (8) Group B streptococcal infection: Code(s): A49.1 - Streptococcal infection, unspecified site Plan: UTI source patient was treated in a hospital. Orders: Orders Comprehensive Met. Panel 2 Months I48.0 - Paroxysmal atrial fibrillation Ferritin 2 Months I48.0 - Paroxysmal atrial fibrillation IRON PROFILE 2 Months I48.0 - Paroxysmal atrial fibrillation Thyroid Stimulating Hormone 2 Months I48.0 - Paroxysmal atrial fibrillation UA CC w/rflx Micro + Cult 2 Months E11.65 - Type 2 diabetes mellitus with hyperglycemia, R30.0 - Dysuria, Z79.4 - terminal gauger (current) use of insulin Complete Blood Count Auto Diff 2 Months I48.0 - Paroxysmal atrial fibrillation Reticulocyte Count 2 Months I48.0 - Paroxysmal atrial fibrillation Free T4 (Free Thyroxine) 2 Months I48.0 - Paroxysmal atrial fibrillation Vitamin B12 and Folate 2 Months E11.65 - Type 2 diabetes mellitus with hyperglycemia, Z79.4 - longterm (current) use of insulin Lipid Panel 2 Months E11.65 - Type 2 diabetes mellitus with hyperglycemia, E78.00 - Pure hypercholesterolemia, unspecified, Z79.4 - longterm (current) use of insulin B Type Natriuretic Peptide 2 Months E11.65 - Type 2 diabetes mellitus with hyperglycemia, Z79.4 - terminal gauger (current) use of insulin Medications: Changed From amiodarone 200 mg PO DIRECTED 90 tabs 3RF To amiodarone 200 mg PO DAILY From allopurinol 100 mg PO BID 180 tabs 5RF M1A.9XX1 - Chronic gout, unspecified, with tophus (tophi) To allopurinol 100 mg PO DAILY 180 tabs 5RF M1A.9XX1 - Chronic gout, unspecified, with tophus (tophi) Quality Reporting (2019) Fall Risk Screening ([facility]) Last assessed Fall Risk: 09/26/23 Fall risk assessment: No Falls in past year Depression/Bipolar (159/160/161/177) PHQ-9: Total score: 1 Coding Level of Care Code Est Pt Level 4 (62483) Diagnoses Paroxysmal atrial fibrillation I48.0 Status post transcatheter aortic valve replacement (TAVR) using bioprosthesis Z95.3 Tophaceous gout M1A.9XX1 CKD (chronic kidney disease) stage 4, GFR 15-29 ml/min N18.4 Type 2 diabetes mellitus with hyperglycemia, with long-term current use of insulin E11.65; Z79.4 Diabetes mellitus penitentiary insulin use: with penitentiary use Essential hypertension I10 Hypertension type: essential hypertension Hypercholesterolemia E78.00 Group B streptococcal infection A49.1
== END 2023-09-26 11:14 | disposition home or self-care (01) ==
PROVIDERS: Visit Provider Internal Medicine
DX: I12.9 Hypertensive chronic kidney disease with stage 1 through stage 4 chronic kidney disease, or unspecified chronic kidney disease (principal); I48.0 Paroxysmal atrial fibrillation; N18.4 Chronic kidney disease, stage 4 (severe); Z79.4 Long term (current) use of insulin; E11.65 Type 2 diabetes mellitus with hyperglycemia; Z95.3 Presence of xenogenic heart valve; M1A.9XX1 Chronic gout, unspecified, with tophus (tophi); E78.00 Pure hypercholesterolemia, unspecified; A49.1 Streptococcal infection, unspecified site
CPT/HCPCS: 99214

== ENCOUNTER 2023-10-20 12:22 | Outpatient (AMB) | payer MEDICARE, SELFPAY ==
[2023-06-02 09:54] VITALS: BP 108/60; BP 118/64; BP 124/60; BMI 35.9
--- NOTE | 2023-10-20 12:32 | MHC.OFFVIS ---
Intake Vital Signs 10/20/23 12:35 Height 5 ft 3 in Weight 220 lb 14.451 oz BMI 39.1 BP 140/60 H Blood Pressure Location Lt brachial Position Sitting Pulse 75 Intake Visit Reasons: R/S 6 month follow up Intake Note: 6 month follow up Public Health Director Required: No Accompanied by: Daughter Allergies Penicillins [PENICILLINS] Allergy (Severe, Verified 10/20/23 12:36) SWELLING codeine [CODEINE] Allergy (Intermediate, Verified 10/20/23 12:36) SWELLING, Hives Medication List - Last Reconciled 10/20/23 by Greg Thomas MD acetaminophen (Tylenol) 325 mg PO QID PRN allopurinol 100 mg PO DAILY amiodarone 200 mg PO DAILY amlodipine 5 mg PO DAILY apixaban (Eliquis) 2.5 mg PO BID 90 days atorvastatin 10 mg PO DAILY calcium carbonate-vitamin D3 600 mg-10 mcg (400 unit) (Calcium 600 + D(3)) 1 tab PO DAILY compress.stocking,knee,reg,lrg As directed 20-30 mm HG dapagliflozin propanediol (Farxiga) 5 mg PO DAILY 90 days diclofenac sodium 1% 2 grams topical QD-BID PRN dulaglutide (Trulicity) 0.75 mg (0.5 mL) subcut QWEEK fexofenadine 180 mg PO DAILY furosemide 4 tabs every AM (80mg) and 3 tabs (60mg) every PM 90 days insulin glargine (Lantus Solostar U-100 Insulin) 5 units subcut BEDTIME insulin lispro (Humalog KwikPen (U-100) Insulin) inject 1 u TID 30 days latanoprost 0.005% 1 drp ophthalmic (eye) BEDTIME metolazone 2.5 mg PO DIRECTED PRN multivitamin 1 tab PO DAILY pen needle, diabetic As directed propylene glycol 0.6% (Systane Complete) 1 drp ophthalmic (eye) TID PRN HPI HPI Comments History of Present Illness Details Allie returns for follow-up regarding various cardiac issues including TAVR, pacemaker, heart failure among others. Few months back, hospitalization for congestive heart failure. The precipitating factor seems to be atrial fibrillation. Then had cardioversion. After that, improved. For the most part, she is generally doing okay. Had a mechanical fall and some scalp injury. In spite of all her comorbidities, for the most part she is stable. [facility] Medical History (Updated 09/15/23 @ 00:03 by Cydney Desai) Bacteremia due to Gram-positive bacteria Paroxysmal atrial fibrillation CHF (congestive heart failure) Type 2 diabetes mellitus with unspecified complications Normally functioning cardiac pacemaker present URI (upper respiratory infection) Heart block atrioventricular Chronic heart failure with preserved ejection fraction Thrombosis of right saphenous vein Hypercholesterolemia Cataract Hypertension Obesity Aortic stenosis, moderate CKD (chronic kidney disease) stage 4, GFR 15-29 ml/min DVT (deep venous thrombosis) Type 2 diabetes mellitus with hyperglycemia Surgical History Status post transcatheter aortic valve replacement (TAVR) using bioprosthesis History of permanent cardiac pacemaker placement (~05/06/21) History of eye surgery History of surgical procedure on eye proper using laser History of right hip replacement History of partial hysterectomy History of cholecystectomy Family History Father No problems noted. Mother No problems noted. Social History Household Members: Family Housing: House Do you presently have visiting nurse or other home services: No Alcohol intake: never Patient Tobacco Use Status: Never used Tobacco e-Cigarette/Vaping Use: Never Used Second Hand Smoke Exposure: Yes Advance Directives Date on File: 05/20/23 service: No Current occupational status: retired Cognitive needs: Yes (walker ) Hearing needs: No Vision needs: Yes Review of Systems Const Denies weakness ENT Denies dizziness Card Denies chest pain, Denies chest pain with activity, Denies syncope, Denies rapid heart rate, Denies pedal edema, Denies edema, Denies leg edema, Denies lightheadedness, Denies palpitations, Denies dyspnea, Denies dyspnea on exertion and Denies orthopnea Resp Denies cough, Denies dyspnea and Denies dyspnea on exertion GI Denies hematochezia and Denies change in stool character Musc Denies abnormal gait, Denies muscle cramps, Denies muscle weakness, Denies numbness, Denies radiating pain into limb and Denies tingling Neuro Denies abnormal gait, Denies dizziness, Denies syncope, Denies numbness, Denies tingling and Denies weakness Endo Denies palpitations Physical Exam Vital Signs: Last Vital Signs Pulse 75 10/20/23 12:35 BP 140/60 H 10/20/23 12:35 BMI result Body Mass Index 39.1 Const General: comfortable and no acute distress Orientation/consciousness: patient oriented x3 HEENT Other: Unremarkable Head: Yes normal to inspection Neck Neck: Yes normal visual inspection Chest Chest palpation & inspection: normal inspection of the chest Resp Other: Few basal inspiratory crackles Cardio Palpation: normal PMI Heart sounds: S1 normal heart sound present, S2 normal heart sound present, no gallops, Murmur heart sound present systolic II/ and at the right sternal border and no rubs GI Palpation (GI): Soft to palpation Back/Spine/Pelvis Other: unremarkable Skin General skin exam: no rashes or lesions noted Neuro General: patient oriented x3 Extrem Other: 1+ edema General: Yes normal to inspection Psych Mental Status: mental status grossly normal Office Procedures EKG Details: EKG with atrial sensed, ventricular paced rhythm at 75/Min. [id number], Complete Assessment & Plan Assessment & Plan (1) Paroxysmal atrial fibrillation: Comment: Cardioversion May 2020 Code(s): I48.0 - Paroxysmal atrial fibrillation Plan: Continue amiodarone. Slight prolongation of QT but there is also difficult interpretation as it is a paced rhythm with wide QRS. Also not much of a choice otherwise. Continue anticoagulation. (2) Chronic diastolic (congestive) heart failure: Code(s): I50.32 - Chronic diastolic (congestive) heart failure Plan: Continue diuretics. (3) Status post transcatheter aortic valve replacement: Code(s): Z95.2 - Presence of prosthetic heart valve Plan: Last echocardiogram with normal prosthetic valve function. Usual infective endocarditis prophylaxis. In the past, nonobstructive disease on cardiac catheterization. (4) Heart block atrioventricular: Code(s): I44.30 - Unspecified atrioventricular block Plan: Status post pacemaker implantation. (5) Essential hypertension: Code(s): I10 - Essential (primary) hypertension Plan: Continue amlodipine. (6) Type 2 diabetes mellitus with unspecified complications: Code(s): E11.8 - Type 2 diabetes mellitus with unspecified complications Plan: On insulin, Trulicity, Farxiga. Last hemoglobin A1c 5.7%. (7) CKD (chronic kidney disease) stage 4, GFR 15-29 ml/min: Code(s): N18.4 - Chronic kidney disease, stage 4 (severe) Plan: New baseline seems to be around 2.5. Plan Discussed with family. Coding Level of Care Code Est Pt Level 4 (38014) Diagnoses Paroxysmal atrial fibrillation I48.0 Chronic diastolic (congestive) heart failure I50.32 Status post transcatheter aortic valve replacement Z95.2 Heart block atrioventricular I44.30 Essential hypertension I10 Type 2 diabetes mellitus with unspecified complications E11.8 CKD (chronic kidney disease) stage 4, GFR 15-29 ml/min N18.4 CPT Codes EKG - CPT: 04526-[id number], Complete ([id number])
[2023-10-20 12:35] VITALS: BP 140/60; PULSE 75; BMI 39.1
== END 2023-10-20 12:58 | disposition home or self-care (01) ==
PROVIDERS: PCP Internal Medicine; Visit Provider Internal Medicine
DX: I48.0 Paroxysmal atrial fibrillation (principal); I50.32 Chronic diastolic (congestive) heart failure; Z95.2 Presence of prosthetic heart valve; I44.30 Unspecified atrioventricular block; I12.9 Hypertensive chronic kidney disease with stage 1 through stage 4 chronic kidney disease, or unspecified chronic kidney disease; E11.8 Type 2 diabetes mellitus with unspecified complications; N18.4 Chronic kidney disease, stage 4 (severe)
CPT/HCPCS: 93010; 99214

== ENCOUNTER → 2023-10-20 12:22 | Outpatient (BNVA) | payer MEDICARE, SELFPAY ==
[2023-06-02 09:54] VITALS: BP 108/60; BP 118/64; BP 124/60; BMI 35.9
== END ==
PROVIDERS: PCP Internal Medicine; Visit Provider Internal Medicine
DX: I48.0 Paroxysmal atrial fibrillation (principal); I44.30 Unspecified atrioventricular block; E11.22 Type 2 diabetes mellitus with diabetic chronic kidney disease; I13.0 Hypertensive heart and chronic kidney disease with heart failure and stage 1 through stage 4 chronic kidney disease, or unspecified chronic kidney disease; N18.4 Chronic kidney disease, stage 4 (severe); I50.32 Chronic diastolic (congestive) heart failure; E11.8 Type 2 diabetes mellitus with unspecified complications; Z95.2 Presence of prosthetic heart valve
CPT/HCPCS: 93005; 99212

== ENCOUNTER 2023-11-10 06:32 | Outpatient (REF) | payer MEDICARE, SELFPAY ==
[2023-10-20 15:41] VITALS: BP 108/60; BP 118/64; BP 124/60; BMI 35.9
[2023-11-10 06:46] LABS: MANUAL DIFF FLAG NO
[2023-11-10 06:50] LABS: Basophils Percent Auto 0.5 % (0-2); Eosinophils Absolute Auto 0.6 X10*3/uL (0.0-0.4); Eosinophils Percent Auto 9.9 % (0-4); Hematocrit 33.6 % (37.0-47.0); Hemoglobin 10.8 g/dl (12.0-16.0); Imm Gran Abs Auto 0.02 X10*3/uL (0.00-0.03); Imm Gran Pct Auto 0.3 % (0.0-0.4); Lymphocytes Absolute Auto 0.7 X10*3/uL (1.2-4.9); Mean Corpuscular HGB Conc 32.1 g/dl (31.0-35.0); Mean Corpuscular Hemoglobin 28.6 pg (27.0-33.0); Mean Corpuscular Volume 89.1 fL (80.0-98.0); Mean Platelet Volume 9.4 fL (9.4-12.3); Monocytes Absolute Auto 0.6 X10*3/uL (0.1-1.2); Monocytes Percent Auto 9.7 % (2-11); Neutrophils Absolute Auto 4.3 x10*3/uL (2.0-8.3); Neutrophils Percent Auto 68.6 % (45-73); Platelet Count 169 X10*3/uL (160-400); Red Blood Count 3.77 X10*6/uL (4.20-5.50); Red Cell Distribution Width 18.1 % (11.0-16.0); White Blood Count 6.3 X10*3/uL (4.8-10.8)
[2023-11-10 07:10] LABS: Parathyroid Hormone Intact 248.3 pg/mL (8.7-77.1)
[2023-11-10 07:12] LABS: Albumin Level 4.4 g/dL (3.5-5.0); Anion Gap 17 (12-20); Blood Urea Nitrogen 50 mg/dL (9-16); Calcium 10.4 mg/dL (8.4-10.2); Carbon Dioxide 28 mmol/L (22-29); Chloride 101 mmol/L (96-108); Estimated Glomerular Filt Rate 15; Magnesium 2.6 mg/dL (1.6-2.6); Phosphorus 4.8 mg/dL (2.7-4.5); Potassium 3.7 mmol/L (3.3-5.1); Sodium 142 mmol/L (135-145)
[2023-11-10 07:27] LABS: Vitamin D 25-OH Total 55.1 ng/mL (>30)
[2023-11-10 07:56] LABS: Appearance Urine Clear; Color Urine Yellow; Glucose Urine UA Negative (Negative); Leukocyte Esterase Urine Small (1+) (Negative); Nitrite Urine Negative (Negative); PH 5.5 (5.0-9.0); UMIC TRIGGER UA YES; Urine Blood Trace (Negative); Urine Ketones Negative (Negative); Urine Protein Negative (Neg-Trace)
[2023-11-10 08:12] LABS: Creatinine Urine 45.59 mg/dL; Microalbum/Creatinine Ratio Ur 157.9 ug/mg cr (<30); Protein/Creatinine Ratio, Ur 0.29 (<0.2); Total Protein Urine Random 13 mg/dL (<12)
[2023-11-10 08:16] LABS: Bacteria Urine None Seen (None Seen); RBC Urine 0-2 /HPF (0-2); WBC Urine 0-5 /HPF (0-5)
== END 2023-11-10 06:33 | disposition home or self-care (01) ==
LOC: HO.LAB 06:32
PROVIDERS: PCP Internal Medicine; Visit Provider Internal Medicine Nephrology
DX: E11.22 Type 2 diabetes mellitus with diabetic chronic kidney disease (principal); I12.9 Hypertensive chronic kidney disease with stage 1 through stage 4 chronic kidney disease, or unspecified chronic kidney disease; N18.4 Chronic kidney disease, stage 4 (severe); N25.0 Renal osteodystrophy
CPT/HCPCS: 36415; 80051; 81001; 82040; 82043; 82306; 82310; 82565; 82570; 83735; 83970; 84100; 84156; 84520; 85025

== ENCOUNTER 2023-12-17 07:07 | Outpatient (REF) | payer MEDICARE, SELFPAY ==
[2023-10-20 15:41] VITALS: BP 108/60; BP 118/64; BP 124/60; BMI 35.9
[2023-12-17 07:35] LABS: MANUAL DIFF FLAG NO
[2023-12-17 08:55] LABS: Appearance Urine Clear; Color Urine Yellow; Glucose Urine UA 250 mg/dL (Negative); Leukocyte Esterase Urine Trace (Negative); Nitrite Urine Negative (Negative); UMIC TRIGGER UACC YES; Urine Blood Negative (Negative); Urine Ketones Negative (Negative); Urine Protein Trace mg/dL (Neg-Trace)
[2023-12-17 09:00] LABS: Basophils Percent Auto 0.5 % (0-2); Eosinophils Absolute Auto 0.4 X10*3/uL (0.0-0.4); Eosinophils Percent Auto 5.8 % (0-4); Hematocrit 34.2 % (37.0-47.0); Hemoglobin 10.8 g/dl (12.0-16.0); Imm Gran Abs Auto 0.02 X10*3/uL (0.00-0.03); Imm Gran Pct Auto 0.3 % (0.0-0.4); Lymphocytes Absolute Auto 0.4 X10*3/uL (1.2-4.9); Lymphocytes Percent Auto 7.1 % (20-40); Mean Corpuscular HGB Conc 31.6 g/dl (31.0-35.0); Mean Corpuscular Hemoglobin 28.8 pg (27.0-33.0); Mean Corpuscular Volume 91.2 fL (80.0-98.0); Mean Platelet Volume 11.2 fL (9.4-12.3); Monocytes Absolute Auto 0.6 X10*3/uL (0.1-1.2); Monocytes Percent Auto 9.7 % (2-11); Neutrophils Absolute Auto 4.7 x10*3/uL (2.0-8.3); Neutrophils Percent Auto 76.6 % (45-73); Platelet Count 168 X10*3/uL (160-400); Red Blood Count 3.75 X10*6/uL (4.20-5.50); Red Cell Distribution Width 17.5 % (11.0-16.0); Reticulocyte Percent 1.1 % (0.5-1.8); White Blood Count 6.2 X10*3/uL (4.8-10.8)
[2023-12-17 09:01] LABS: Bacteria Urine None Seen (None Seen); Hyaline Casts Urine 0-2 /LPF (0-2); RBC Urine 0-2 /HPF (0-2); Squamous Epithelial Cell Urine 0-2 /HPF (0-2); WBC Urine 0-5 /HPF (0-5)
[2023-12-17 09:35] LABS: B Type Natriuretic Peptide 674 pg/mL (<100)
[2023-12-17 09:41] LABS: Alanine Aminotransferase 18 U/L (0-31); Albumin Level 4.4 g/dL (3.5-5.0); Alkaline Phosphatase 113 U/L (39-117); Anion Gap 15 (12-20); Aspartate Amino Transferase 22 U/L (5-31); Bilirubin Total 0.7 mg/dL (0.0-1.0); Blood Urea Nitrogen 64 mg/dL (9-16); Calcium 10.1 mg/dL (8.4-10.2); Carbon Dioxide 30 mmol/L (22-29); Chloride 100 mmol/L (96-108); Cholesterol 112 mg/dL (<200); Estimated Glomerular Filt Rate 16; Glucose Random 120 mg/dL (60-115); HDL Cholesterol 59 mg/dL (>40); Iron 44 mcg/dL (30-160); LDL Cholesterol Calculated 46 mg/dL (<100); Percent Iron Saturation 15 % (15-50); Potassium 4.3 mmol/L (3.3-5.1); Sodium 141 mmol/L (135-145); Total Iron Binding Capacity 299 mcg/dL (228-428); Total Protein 7.6 g/dL (6.5-8.0); Triglycerides 35 mg/dL (<150); Unsaturated Iron Binding 255 ug/dL
[2023-12-17 10:01] LABS: Ferritin 61 ng/mL (10-250); Free T4 (Free Thyroxine) 1.11 ng/dL (0.71-1.85); Thyroid Stimulating Hormone 1.47 uIU/mL (0.32-4.0)
[2023-12-18 00:11] LABS: Folate 14.2 ng/mL (> or = 4.0); Vitamin B12 1160 pg/mL (200-900)
== END 2023-12-17 07:08 | disposition home or self-care (01) ==
LOC: HO.LAB 07:07
PROVIDERS: PCP Internal Medicine; Visit Provider Internal Medicine
DX: E11.65 Type 2 diabetes mellitus with hyperglycemia (principal); I48.0 Paroxysmal atrial fibrillation; I50.32 Chronic diastolic (congestive) heart failure; E78.00 Pure hypercholesterolemia, unspecified; Z79.4 Long term (current) use of insulin; R30.0 Dysuria
CPT/HCPCS: 36415; 80053; 80061; 81001; 82607; 82728; 82746; 83540; 83880; 84439; 84443; 85025; 85045

== ENCOUNTER 2023-12-30 12:11 | Outpatient (AMB) | payer MEDICARE, SELFPAY ==
[2023-10-20 15:41] VITALS: BP 108/60; BP 118/64; BP 124/60; BMI 35.9
[2023-12-30 12:19] VITALS: BP 116/56; PULSE 70; O2SAT 95; BMI 37.7
--- NOTE | 2023-12-30 12:19 | AM.OFFVISMDC ---
Intake Vital Signs 12/30/23 12:19 Height 5 ft 3 in Weight 213 lb 0.2 oz BMI 37.7 BP 116/56 L Blood Pressure Location Lt brachial Position Sitting Pulse 70 Pulse Source Pulse Oximeter Pulse Oximetry (%) 95 Oxygen Delivery Method Room Air Intake Visit Reasons: sawv Allergies Penicillins [PENICILLINS] Allergy (Severe, Verified 12/30/23 12:20) SWELLING codeine [CODEINE] Allergy (Intermediate, Verified 12/30/23 12:20) SWELLING, Hives Medication List - Last Reconciled 12/30/23 by Roberto Mckinney MD acetaminophen (Tylenol) 325 mg PO QID PRN allopurinol 100 mg PO DAILY amiodarone 200 mg PO DAILY amlodipine 5 mg PO DAILY apixaban (Eliquis) 2.5 mg PO BID 90 days atorvastatin 10 mg PO DAILY calcium carbonate-vitamin D3 600 mg-10 mcg (400 unit) (Calcium 600 + D(3)) 1 tab PO DAILY compress.stocking,knee,reg,lrg As directed 20-30 mm HG compress.stocking,knee,reg,lrg As directed 20-30 mm HG dapagliflozin propanediol (Farxiga) 5 mg PO DAILY 90 days diclofenac sodium 1% 2 grams topical QD-BID PRN dulaglutide (Trulicity) 0.75 mg (0.5 mL) subcut QWEEK fexofenadine 180 mg PO DAILY furosemide 20 mg PO DIRECTED 30 days insulin glargine (Lantus Solostar U-100 Insulin) 5 units subcut BEDTIME insulin lispro (Humalog KwikPen (U-100) Insulin) inject 1 u TID 30 days latanoprost 0.005% 1 drp ophthalmic (eye) BEDTIME metolazone 2.5 mg PO DIRECTED PRN multivitamin 1 tab PO DAILY pen needle, diabetic As directed propylene glycol 0.6% (Systane Complete) 1 drp ophthalmic (eye) TID PRN HPI sawv HPI Details 88-year-old obese female with atrial fibrillation status post TAVR, gout chronic kidney disease diabetes mellitus hypertension hypercholesterolemia coming in for annual well visit. Last seen in August 2023. Patient is due for mammogram and up-to-date with bone density. Review of the notes patient has followed up with Nephrology October 2023 chronic kidney disease stage 4 underlying diabetes nephropathy hypertension renal protection unable to use JOB inhibitors or ARB, continue with SGLT2 Farxiga advised to addKerendiaget LDL down avoid NSAID. Patient also follows up with Cardiology recent admission congestive heart failure secondary to atrial fibrillation. Cardioversion which improved continue with amiodarone continue with anticoagulation continue with diuretics fall had laceration head- [facility] Medical History (Updated 12/30/23 @ 12:37 by Roberto Mckinney MD) Bacteremia due to Gram-positive bacteria Paroxysmal atrial fibrillation CHF (congestive heart failure) Type 2 diabetes mellitus with unspecified complications Normally functioning cardiac pacemaker present URI (upper respiratory infection) Heart block atrioventricular Chronic heart failure with preserved ejection fraction Thrombosis of right saphenous vein Hypercholesterolemia Cataract Hypertension Obesity Aortic stenosis, moderate CKD (chronic kidney disease) stage 4, GFR 15-29 ml/min DVT (deep venous thrombosis) Type 2 diabetes mellitus with hyperglycemia Surgical History Status post transcatheter aortic valve replacement (TAVR) using bioprosthesis History of permanent cardiac pacemaker placement (~05/06/21) History of eye surgery History of surgical procedure on eye proper using laser History of right hip replacement History of partial hysterectomy History of cholecystectomy Family History Father No problems noted. Mother No problems noted. Social History Household Members: Family Housing: House Do you presently have visiting nurse or other home services: No Alcohol intake: never Patient Tobacco Use Status: Never used Tobacco e-Cigarette/Vaping Use: Never Used Second Hand Smoke Exposure: Yes Advance Directives Date on File: 05/20/23 service: No Current occupational status: retired Cognitive needs: Yes (walker ) Hearing needs: No Vision needs: Yes Questionnaire Medicare Wellness Checkup What is your age?: 82 or older What gender do you identify with?: female During the past 4 weeks, how much have you been bothered by emotional problems such as feeling anxious, depressed, irritable, sad or downhearted, and blue?: not at all During the past 4 weeks, has your physical & emotional health limited your social activities with family, friends, neighbors, or groups?: not at all During the past 4 weeks, how much bodily pain have you generally had?: moderate pain During the past 4 weeks, was someone available to help you if you needed & wanted help?: yes, as much as I wanted During the past 4 weeks, what was the hardest physical activity you could do for at least 2 minutes?: light Can you get to places out of walking distance without help? (For eg., can you travel alone on buses, taxis or drive your car?): No Can you go shopping for groceries or clothes without someone's help?: No Can you prepare your own meals?: Yes Can you do your housework without help?: Yes Because of any health problems, do you need the help of another person with your personal care needs such as eating, bathing, dressing or getting around the house?: No Can you handle your own money without help?: Yes During the past 4 weeks, how would you rate your health in general?: good During the past 4 weeks how have things been going for you?: pretty well Are you having difficulties driving your car?: not applicable, I don't use a car Do you always fasten your seat belt when you are in a car?: yes, usually During past 4 weeks, have you been bothered by the following: never: Sexual problems?, Trouble eating well?, Teeth or denture problems?, Problems using the telephone? and Tiredness or fatigue? and seldom: Falling or dizzy when standing up Have you fallen 2 or more times in the past year?: No Are you afraid of falling?: No Are you a smoker?: no During the past 4 weeks, how many drinks of wine, beer, or other alcoholic beverages did you have?: no alcohol at all Do you exercise for about 20 minutes 3 or more times a week?: no, I usually do not exercise this much Have you been given information to help with the following?: yes: Hazards in your house that might hurt you? and yes: Keeping track of your medications? How often do you have trouble taking medicines the way you have been told to take them?: I always take medicine as prescribed How confident are you that you can control & manage most of your health problems?: very confident What is your race?: White PHQ-9 Over the last 2 weeks, how often have you been bothered by any of the following problems? 1. Little interest or pleasure in doing things: not at all 2. Feeling down, depressed, or hopeless: not at all 3. Trouble falling or staying asleep, or sleeping too much: not at all 4. Feeling tired or having little energy: several days 5. Poor appetite or overeating: not at all 6. Feeling bad about yourself - or that you are a failure or have let yourself or your family down: not at all 7. Trouble concentrating on things, such as reading the newspaper or watching television: not at all 8. Moving or speaking so slowly that other people could have noticed. Or the opposite - being so fidgety or restless that you have been moving around a lot more than usual: not at all 9. Thoughts that you would be better off or of hurting yourself in some way: not at all Total score: 1 Depression Screening Interpretation: Negative Depression Screening Done: Yes 05146 - PHQ-9 Billing: Yes Source: Developed by Drs. Enrrique Avila, Asmita Quigley, Demond Aviles and colleagues, with an educational ruma from [employer]. Review of Systems Const Denies poor appetite and Denies weakness Eyes Denies no additional complaints ENT Reports Normal hearing present, Denies dizziness, Denies nasal congestion, Denies tinnitus and Denies sore throat Card Denies chest pain, Denies syncope, Denies rapid heart rate and Denies dyspnea Resp Denies cough and Denies dyspnea GI Denies change in stool character, Reports constipation, Denies diarrhea, Denies nausea and Denies vomiting Denies urinary frequency, Denies difficulty voiding and Denies dysuria Neuro Reports Normal hearing present, Denies confusion, Denies dizziness, Denies syncope and Denies weakness Psych Denies confusion Physical Exam Vital Signs: Last Vital Signs Pulse 70 12/30/23 12:19 BP 116/56 L 12/30/23 12:19 Pulse Ox 95 12/30/23 12:19 Oxygen Delivery Method Room Air 12/30/23 12:19 BMI result Body Mass Index 37.7 Const General: No confusion Orientation/consciousness: No confusion HEENT Head: Yes normocephalic Ears: external ears normal and TM's normal bilaterally Face and sinus: Yes normal facial exam Mouth: moist mucous membranes Throat: Yes tonsils normal Eyes Conjunctivae: conjunctivae normal Pupils: Equal, round and reactive pupils present and Pupil accommodation reflex normal Direct Ophthalmoscopy: normal light reflex Neck Neck: No lymphadenopathy Thyroid: Thyroid normal Chest Chest palpation & inspection: normal inspection of the chest Resp Effort & Inspection: normal respiratory effort and no audible wheezes Auscultation: clear to auscultation bilaterally, no crackles, no wheezes and lung sounds not diminished Cardio Rate: regular rate Rhythm: regular rhythm Peripheral pulses: radial pulses present and dorsalis pedis present GI Palpation (GI): no masses Auscultation: normal bowel sounds and normoactive bowel sounds Rectal Exam - Female: deferred Skin General skin exam: no rashes or lesions noted Rashes: no rashes Neuro General: No confusion Cranial nerves: Yes Equal, round and reactive pupils present and Yes Normal hearing present Cognition (Neuro): normal cognition Gait exam (Neuro): Normal gait present Motor exam (neuro): 5/5 motor strength present throughout Deep tendon reflexes (DTR's): Right brachioradialis reflex intensity grade: 2+, Left brachioradialis reflex intensity grade: 2+, Right patellar reflex intensity grade: 2+ and Left patellar reflex intensity grade: 2+ Extrem General: No edema Results AMB Hemoglobin A1c AMB Hemoglobin A1c 6.6 % Last Edit by RASHAWN Fraire on 12/30/23 12:43 Results Reviewed Results Reviewed: Laboratory Last Values Hgb A1c (Clinic) 6.6 % (4.0-6.0) H 12/30/23 12:19 Assessment & Plan Assessment & Plan (1) Medicare annual wellness visit, subsequent: Code(s): Z00.00 - Encounter for general adult medical examination without abnormal findings Plan: Keep active, keep well hydrated eat healthy (2) Paroxysmal atrial fibrillation: Comment: Cardioversion May 2020 Code(s): I48.0 - Paroxysmal atrial fibrillation Plan: Continue with anticoagulation and amiodarone (3) Status post transcatheter aortic valve replacement (TAVR) using bioprosthesis: Comment: September 2021, echocardiogram October 2022 Code(s): Z95.3 - Presence of xenogenic heart valve Plan: Continue to follow-up with cardiology (4) Chronic diastolic (congestive) heart failure: Code(s): I50.32 - Chronic diastolic (congestive) heart failure Plan: Weigh daily, continue with the diuretic (5) CKD (chronic kidney disease) stage 4, GFR 15-29 ml/min: Code(s): N18.4 - Chronic kidney disease, stage 4 (severe) Plan: Patient is being followed up by Nephrology placed on [facility] (6) Hypertension: Comment: Cardiac catheterization no obstruction July 2015 Code(s): I10 - Essential (primary) hypertension Qualifiers: Hypertension type: essential hypertension Qualified Code(s): I10 - Essential (primary) hypertension Plan: Continue with blood pressure medication. Decrease salt intake and exercise on amlodipine 5 mg once a day (7) Hypercholesterolemia: Code(s): E78.00 - Pure hypercholesterolemia, unspecified Plan: Avoid fried foods, chicken skin, eggs, butter margarine, pastries and meat. Be it pork or beef they have a lot of cholesterol LDL goal of less than 70 and triglyceride of less than 150. (8) Obesity: Code(s): E66.9 - Obesity, unspecified Qualifiers: Body mass index: BMI 40.0-44.9 Obesity classification: adult class 3 (BMI >= 40) Obesity type: due to excess calories Serious obesity comorbidity presence: with serious comorbidity Qualified Code(s): E66.01 - Morbid (severe) obesity due to excess calories; Z68.41 - Body mass index [BMI]40.0-44.9, adult Plan: Diet and exercise (9) Type 2 diabetes mellitus with hyperglycemia: Comment: Dr. Cisse 11/2022 Code(s): E11.65 - Type 2 diabetes mellitus with hyperglycemia Qualifiers: Diabetes mellitus intermediate insulin use: with equipment operator intermodal yard use Qualified Code(s): E11.65 - Type 2 diabetes mellitus with hyperglycemia; Z79.4 - [facility]FP (current) use of insulin Plan: Decrease the amount of carbohydrate intake, pasta, bread, rice and potatoes are all sugar and that is aside from all the sweet stuff, remember that fruits are good but they are Sweet also. Hemoglobin A1c goal of less than 7.0 on Lantus and Humalog Trulicity [facility] (10) Peripheral vascular disease: Code(s): I73.9 - Peripheral vascular disease, unspecified Plan: When sitting down elevate the legs, exercise, and support stockings Orders: Orders Complete Blood Count Auto Diff Today I50.32 - Chronic diastolic (congestive) heart failure AMB Hemoglobin A1c Today Z13.9 - Encounter for screening, unspecified B Type Natriuretic Peptide Today I50.32 - Chronic diastolic (congestive) heart failure Comprehensive Met. Panel Today I50.32 - Chronic diastolic (congestive) heart failure Medications: New compress.stocking,knee,reg,lrg As directed 20-30 mm HG 12 ea 0RF E11.65 - Type 2 diabetes mellitus with hyperglycemia, I73.9 - Peripheral vascular disease, unspecified, Z79.4 - MCFP (current) use of insulin Quality Reporting (2019) Depression/Bipolar (159/160/161/177) PHQ-9: Total score: 1 Coding Level of Care Code Medicare Subsequent (G0439) Diagnoses Medicare annual wellness visit, subsequent Z00.00 Paroxysmal atrial fibrillation I48.0 Status post transcatheter aortic valve replacement (TAVR) using bioprosthesis Z95.3 Chronic diastolic (congestive) heart failure I50.32 CKD (chronic kidney disease) stage 4, GFR 15-29 ml/min N18.4 Essential hypertension I10 Hypertension type: essential hypertension Hypercholesterolemia E78.00 Class 3 severe obesity due to excess calories with serious comorbidity and body mass index (BMI) of 40.0 to 44.9 in adult E66.01; Z68.41 Body mass index: BMI 40.0-44.9 Obesity classification: adult class 3 (BMI >= 40) Obesity type: due to excess calories Serious obesity comorbidity presence: with serious comorbidity Type 2 diabetes mellitus with hyperglycemia, with long-term current use of insulin E11.65; Z79.4 Diabetes mellitus intermediate insulin use: with equipment operator intermodal yard use Peripheral vascular disease I73.9
== END 2023-12-30 13:17 | disposition home or self-care (01) ==
PROVIDERS: PCP Internal Medicine; Visit Provider Internal Medicine
DX: E11.65 Type 2 diabetes mellitus with hyperglycemia (principal)
CPT/HCPCS: 83036; G0439

== ENCOUNTER 2024-03-10 06:55 | Outpatient (REF) | payer MEDICARE, SELFPAY ==
[2023-10-20 15:41] VITALS: BP 108/60; BP 118/64; BP 124/60; BMI 35.9
[2024-03-10 07:22] LABS: MANUAL DIFF FLAG NO
[2024-03-10 09:10] LABS: Basophils Percent Auto 0.5 % (0-2); Eosinophils Absolute Auto 0.2 X10*3/uL (0.0-0.4); Eosinophils Percent Auto 4.1 % (0-4); Hematocrit 35.9 % (37.0-47.0); Hemoglobin 11.4 g/dl (12.0-16.0); Imm Gran Abs Auto 0.02 X10*3/uL (0.00-0.03); Imm Gran Pct Auto 0.3 % (0.0-0.4); Lymphocytes Absolute Auto 0.5 X10*3/uL (1.2-4.9); Mean Corpuscular HGB Conc 31.8 g/dl (31.0-35.0); Mean Corpuscular Hemoglobin 28.9 pg (27.0-33.0); Mean Corpuscular Volume 91.1 fL (80.0-98.0); Monocytes Absolute Auto 0.6 X10*3/uL (0.1-1.2); Monocytes Percent Auto 9.5 % (2-11); Neutrophils Absolute Auto 4.5 x10*3/uL (2.0-8.3); Neutrophils Percent Auto 76.6 % (45-73); Platelet Count 154 X10*3/uL (160-400); Red Blood Count 3.94 X10*6/uL (4.20-5.50); Red Cell Distribution Width 18.6 % (11.0-16.0); White Blood Count 5.9 X10*3/uL (4.8-10.8)
[2024-03-10 09:44] LABS: B Type Natriuretic Peptide 815 pg/mL (<100)
[2024-03-10 10:09] LABS: Creatinine Urine 64.31 mg/dL; Microalbum/Creatinine Ratio Ur 188.1 ug/mg cr (<30); Total Protein Urine Random 23 mg/dL (<12)
[2024-03-10 10:11] LABS: Alanine Aminotransferase 17 U/L (0-31); Albumin Level 4.4 g/dL (3.5-5.0); Alkaline Phosphatase 102 U/L (39-117); Anion Gap 17 (12-20); Aspartate Amino Transferase 20 U/L (5-31); Bilirubin Total 0.7 mg/dL (0.0-1.0); Blood Urea Nitrogen 52 mg/dL (9-16); Calcium 9.6 mg/dL (8.4-10.2); Carbon Dioxide 26 mmol/L (22-29); Chloride 103 mmol/L (96-108); Estimated Glomerular Filt Rate 17; Glucose Random 111 mg/dL (60-115); Potassium 4.6 mmol/L (3.3-5.1); Sodium 141 mmol/L (135-145); Total Protein 7.4 g/dL (6.5-8.0)
[2024-03-10 10:13] LABS: Parathyroid Hormone Intact 307.1 pg/mL (8.7-77.1)
[2024-03-10 10:18] LABS: Albumin Level 4.4 g/dL (3.5-5.0); Magnesium 2.8 mg/dL (1.6-2.6); Phosphorus 4.7 mg/dL (2.7-4.5)
[2024-03-10 10:45] LABS: Appearance Urine Clear; Color Urine Yellow; Glucose Urine UA 500 mg/dL (Negative); Leukocyte Esterase Urine Small (1+) (Negative); Nitrite Urine Negative (Negative); PH 5.5 (5.0-9.0); Specific Gravity - Urine 1.015 (1.005-1.025); UMIC TRIGGER UACC YES; Urine Blood Negative (Negative); Urine Ketones Negative (Negative); Urine Protein 30 (1+) mg/dL (Neg-Trace)
[2024-03-10 10:46] LABS: Bacteria Urine Trace (None Seen); Hyaline Casts Urine 0-2 /LPF (0-2); RBC Urine 0-2 /HPF (0-2); UACC Culture Trigger YES
[2024-03-14 15:43] LABS: VITAMIN D (1,25 OH) D3 13 pg/mL; Vit D (1,25-Dihydroxy) Total 13 pg/mL (18-72); Vitamin D (1,25 OH) D2 <8 pg/mL
--- NOTE | 2024-03-22 13:50 | PM.CNNEP ---
History of Present Illness Reason for Consult Consult date: 03/22/24 Reason for consult: CKD 4 Chief Complaint Chief complaint: N18.4, E11.22, N25.0, I12.9 History of Present Illness Narrative: RTANE Patient for many tears with adv CKD 4 PT seen today for routine f/u ( full note available at our office) Note sent to PCP from today Call any questions PMFSH Past Medical History Medical History (Updated 12/30/23 @ 12:37 by Roberto Mckinney MD) Bacteremia due to Gram-positive bacteria Paroxysmal atrial fibrillation CHF (congestive heart failure) Type 2 diabetes mellitus with unspecified complications Normally functioning cardiac pacemaker present URI (upper respiratory infection) Heart block atrioventricular Chronic heart failure with preserved ejection fraction Thrombosis of right saphenous vein Hypercholesterolemia Cataract Hypertension Obesity Aortic stenosis, moderate CKD (chronic kidney disease) stage 4, GFR 15-29 ml/min DVT (deep venous thrombosis) Type 2 diabetes mellitus with hyperglycemia Family History Family History Father No problems noted. Mother No problems noted. Surgical History Surgical History Status post transcatheter aortic valve replacement (TAVR) using bioprosthesis History of permanent cardiac pacemaker placement (~05/06/21) History of eye surgery History of surgical procedure on eye proper using laser History of right hip replacement History of partial hysterectomy History of cholecystectomy Social History Social History Household Members: Family Housing: House Do you presently have visiting nurse or other home services: No Alcohol intake: never Patient Tobacco Use Status: Never used Tobacco e-Cigarette/Vaping Use: Never Used Second Hand Smoke Exposure: Yes Advance Directives Date on File: 05/20/23 service: No Current occupational status: retired Cognitive needs: Yes (walker ) Hearing needs: No Vision needs: Yes Meds Allergies Allergy/AdvReac Type Severity Reaction Status Date / Time Penicillins [PENICILLINS] Allergy Severe SWELLING Verified 12/30/23 12:20 codeine [CODEINE] Allergy Intermediate SWELLING, Verified 12/30/23 12:20 Hives Home Medications ?Medication ?Instructions ?Recorded ?Confirmed ?Last Taken ?Type acetaminophen 325 mg tablet 325 mg PO QID PRN Pain 07/15/20 12/30/23 Unknown History (Tylenol) latanoprost 0.005 % eye drops 1 drp ophthalmic (eye) BEDTIME 07/14/21 12/30/23 05/19/23 History calcium carbonate 600 mg-vitamin 1 tab PO DAILY 05/20/23 12/30/23 05/19/23 History D3 10 mcg (400 unit) tablet (Calcium 600 + D(3)) diclofenac sodium 1 % topical gel 2 g topical QD-BID PRN Pain 05/20/23 12/30/23 Unknown History fexofenadine 180 mg tablet 180 mg PO DAILY 05/20/23 12/30/23 05/19/23 History multivitamin 1 tab PO DAILY 05/20/23 12/30/23 05/19/23 History propylene glycol 0.6 % eye drops 1 drp ophthalmic (eye) TID PRN Dry 05/20/23 12/30/23 Unknown History (Systane Complete) Eyes amiodarone 200 mg tablet 200 mg PO DAILY 09/26/23 12/30/23 Unknown History Results Lab Results 03/10/24 07:21 03/10/24 07:21 Procedures Date of Service Date of Service: 03/22/24
== END 2024-03-10 06:56 | disposition home or self-care (01) ==
LOC: HO.LAB 06:55
PROVIDERS: PCP Internal Medicine; Visit Provider Internal Medicine Nephrology
DX: E11.22 Type 2 diabetes mellitus with diabetic chronic kidney disease (principal); I48.0 Paroxysmal atrial fibrillation; I13.0 Hypertensive heart and chronic kidney disease with heart failure and stage 1 through stage 4 chronic kidney disease, or unspecified chronic kidney disease; I50.32 Chronic diastolic (congestive) heart failure; N18.4 Chronic kidney disease, stage 4 (severe); N25.0 Renal osteodystrophy; E11.65 Type 2 diabetes mellitus with hyperglycemia; R30.0 Dysuria; Z79.4 Long term (current) use of insulin
CPT/HCPCS: 36415; 80053; 81001; 81003; 82040; 82043; 82570; 82652; 83735; 83880; 83970; 84100; 84156; 85025; 87086

== ENCOUNTER 2024-04-09 13:16 | Outpatient (AMB) | payer MEDICARE, SELFPAY ==
[2023-10-20 15:41] VITALS: BP 108/60; BP 118/64; BP 124/60; BMI 35.9
[2024-04-09 13:45] VITALS: BP 130/56; PULSE 66; BMI 36.5
--- NOTE | 2024-04-09 13:45 | A.OFFVIS_ITS ---
Vital Signs 04/09/24 13:45 Height 5 ft 3 in Weight 205 lb 14.588 oz BMI 36.5 BP 130/56 L Blood Pressure Location Lt brachial Position Sitting Pulse 66 Intake Visit Reasons: 6 month follow up w/ [employer] device check Inspector Golf Ball Required: No Accompanied by: Family/Other Allergies Penicillins [PENICILLINS] Allergy (Severe, Verified 12/30/23 12:20) SWELLING codeine [CODEINE] Allergy (Intermediate, Verified 12/30/23 12:20) SWELLING, Hives Medication List - Last Reconciled 04/09/24 by Greg Thomas MD acetaminophen (Tylenol) 325 mg PO QID PRN allopurinol 100 mg PO DAILY amiodarone 200 mg orally qod; alternate days amlodipine 5 mg PO DAILY apixaban (Eliquis) 2.5 mg PO BID 90 days atorvastatin 10 mg PO DAILY blood sugar diagnostic (FreeStyle Lite Strips) 1 strip miscellaneous TID 90 days calcium carbonate-vitamin D3 600 mg-10 mcg (400 unit) (Calcium 600 + D(3)) 1 tab PO DAILY compress.stocking,knee,reg,lrg As directed 20-30 mm HG compress.stocking,knee,reg,lrg As directed 20-30 mm HG dapagliflozin propanediol (Farxiga) 5 mg PO DAILY 90 days diclofenac sodium 1% 2 grams topical QD-BID PRN dulaglutide (Trulicity) 0.75 mg (0.5 mL) subcut QWEEK fexofenadine 180 mg PO DAILY furosemide 20 mg PO DIRECTED 30 days insulin glargine (Lantus Solostar U-100 Insulin) 5 units (0.05 mL) subcut BEDTIME insulin lispro (Humalog KwikPen (U-100) Insulin) inject 1 u TID 30 days latanoprost 0.005% 1 drp ophthalmic (eye) BEDTIME metolazone 2.5 mg PO DIRECTED PRN multivitamin 1 tab PO DAILY pen needle, diabetic As directed propylene glycol 0.6% (Systane Complete) 1 drp ophthalmic (eye) TID PRN HPI Comments Details: Allie returns for follow-up regarding various cardiac issues including TAVR, pacemaker, heart failure among others. In 2022, she had congestive heart failure related to atrial fibrillation. Subsequently, had cardioversion and then recovered very well. No recent issues otherwise. Getting along. [facility] Medical History (Updated 12/30/23 @ 12:37 by Roberto Mckinney MD) Bacteremia due to Gram-positive bacteria Paroxysmal atrial fibrillation CHF (congestive heart failure) Type 2 diabetes mellitus with unspecified complications Normally functioning cardiac pacemaker present URI (upper respiratory infection) Heart block atrioventricular Chronic heart failure with preserved ejection fraction Thrombosis of right saphenous vein Hypercholesterolemia Cataract Hypertension Obesity Aortic stenosis, moderate CKD (chronic kidney disease) stage 4, GFR 15-29 ml/min DVT (deep venous thrombosis) Type 2 diabetes mellitus with hyperglycemia Surgical History Status post transcatheter aortic valve replacement (TAVR) using bioprosthesis History of permanent cardiac pacemaker placement (~05/06/21) History of eye surgery History of surgical procedure on eye proper using laser History of right hip replacement History of partial hysterectomy History of cholecystectomy Family History Father No problems noted. Mother No problems noted. Social History Household Members: Family Housing: House Do you presently have visiting nurse or other home services: No Alcohol intake: never Patient Tobacco Use Status: Never used Tobacco e-Cigarette/Vaping Use: Never Used Second Hand Smoke Exposure: Yes Advance Directives Date on File: 05/20/23 service: No Current occupational status: retired Cognitive needs: Yes (walker ) Hearing needs: No Vision needs: Yes Review of Systems Const Denies chills, Denies fatigue, Denies fever(s), Denies weight gain and Denies weight loss ENT Denies dizziness Card Denies chest pain, Denies leg edema, Denies lightheadedness, Denies palpitations, Denies dyspnea on exertion, Denies orthopnea and Denies other Resp Denies cough and Denies dyspnea on exertion GI Denies hematochezia and Denies change in stool character Musc Denies abnormal gait, Denies muscle weakness, Denies numbness, Denies radiating pain into limb and Denies tingling Neuro Denies abnormal gait, Denies dizziness, Denies numbness and Denies tingling Endo Denies fatigue and Denies palpitations Physical Exam Vital Signs: Last Vital Signs Pulse 66 08/12/24 13:45 BP 130/56 L 04/09/24 13:45 BMI result Body Mass Index 36.5 Const General: comfortable and no acute distress Orientation/consciousness: patient oriented x3 HEENT Other: Unremarkable Head: Yes normal to inspection Neck Neck: Yes normal visual inspection Chest Chest palpation & inspection: normal inspection of the chest Resp Other: Few basal inspiratory crackles Cardio Palpation: normal PMI Heart sounds: S1 normal heart sound present, S2 normal heart sound present, no gallops, Murmur heart sound present systolic II/ and at the right sternal border and no rubs GI Palpation (GI): Soft to palpation Back/Spine/Pelvis Other: unremarkable Skin General skin exam: no rashes or lesions noted Neuro General: patient oriented x3 Extrem Other: No significant edema General: Yes normal to inspection Psych Mental Status: mental status grossly normal Office Procedures Cardiac Device Check Cardiac Device Check Details: Pacemaker interrogated today. Dual-chamber device, programmed DDD mode. Battery status 9.4 years. No episodes. Normal lead parameters. Atrial pacing 2.6%. Ventricular pacing 99.9%. Overall, normal device function. [id number] Cardiac Device Check, pacemaker dual lead Procedure code (CPT) selection complete Assessment & Plan Assessment & Plan (1) Paroxysmal atrial fibrillation: Comment: Cardioversion May 2020 Code(s): I48.0 - Paroxysmal atrial fibrillation Category: Medical Plan: She remains on Amiodarone. Decrease the dose as she has not had any recurrent issues-she can take it alternate days. There is some prolongation of QT but it is because of a widened QRS. Continue anticoagulation without changes. (2) Chronic diastolic (congestive) heart failure: Code(s): I50.32 - Chronic diastolic (congestive) heart failure Category: Medical Plan: Continue diuretics. (3) Status post transcatheter aortic valve replacement: Code(s): Z95.2 - Presence of prosthetic heart valve Category: Surgical Plan: Last echocardiogram with normal prosthetic valve function. Usual infective endocarditis prophylaxis. In the past, nonobstructive disease on cardiac catheterization. (4) Heart block atrioventricular: Code(s): I44.30 - Unspecified atrioventricular block Category: Medical Plan: Status post pacemaker implantation. (5) Essential hypertension: Code(s): I10 - Essential (primary) hypertension Category: Medical Plan: Stable. (6) Type 2 diabetes mellitus with unspecified complications: Code(s): E11.8 - Type 2 diabetes mellitus with unspecified complications Category: Medical Plan: On insulin, Trulicity, Farxiga. Last hemoglobin A1c 6.6%. (7) CKD (chronic kidney disease) stage 4, GFR 15-29 ml/min: Code(s): N18.4 - Chronic kidney disease, stage 4 (severe) Category: Medical Plan: Most recently, 2.8. She would like to switch skin care therapist and hence referred to [facility]. Plan Discussed with family who came for appointment. Orders: Referrals Nephrology Referral N18.4 - Chronic kidney disease, stage 4 (severe) Coding Level of Care Code Est Pt Level 4 (29871) Diagnoses Paroxysmal atrial fibrillation I48.0 Chronic diastolic (congestive) heart failure I50.32 Status post transcatheter aortic valve replacement Z95.2 Heart block atrioventricular I44.30 Essential hypertension I10 Type 2 diabetes mellitus with unspecified complications E11.8 CKD (chronic kidney disease) stage 4, GFR 15-29 ml/min N18.4 CPT Codes Cardiac Device Check - Cardiac Device 2: [id number] Cardiac Device Check, pacemaker dual lead ([id number])
== END 2024-04-09 14:13 | disposition home or self-care (01) ==
PROVIDERS: PCP Internal Medicine; Visit Provider Internal Medicine
DX: I48.0 Paroxysmal atrial fibrillation (principal); I50.32 Chronic diastolic (congestive) heart failure; Z95.2 Presence of prosthetic heart valve; I44.30 Unspecified atrioventricular block; I12.9 Hypertensive chronic kidney disease with stage 1 through stage 4 chronic kidney disease, or unspecified chronic kidney disease; E11.8 Type 2 diabetes mellitus with unspecified complications; N18.4 Chronic kidney disease, stage 4 (severe)
CPT/HCPCS: 93010; 93280; 99214

== ENCOUNTER → 2024-04-09 13:16 | Outpatient (BNVA) | payer MEDICARE, SELFPAY ==
[2023-10-20 15:41] VITALS: BP 108/60; BP 118/64; BP 124/60; BMI 35.9
== END ==
PROVIDERS: PCP Internal Medicine; Visit Provider Internal Medicine
DX: I13.0 Hypertensive heart and chronic kidney disease with heart failure and stage 1 through stage 4 chronic kidney disease, or unspecified chronic kidney disease (principal); I50.32 Chronic diastolic (congestive) heart failure; I48.0 Paroxysmal atrial fibrillation; I44.30 Unspecified atrioventricular block; E11.22 Type 2 diabetes mellitus with diabetic chronic kidney disease; N18.4 Chronic kidney disease, stage 4 (severe); Z45.018 Encounter for adjustment and management of other part of cardiac pacemaker; Z95.2 Presence of prosthetic heart valve
CPT/HCPCS: 93005; 93280; 99212

== ENCOUNTER 2024-04-16 14:41 | Outpatient (AMB) | payer MEDICARE, SELFPAY ==
[2024-04-09 14:10] VITALS: BP 108/60; BP 118/64; BP 124/60; BMI 35.9
[2024-04-16 14:44] VITALS: BP 140/60; PULSE 81; O2SAT 94; BMI 36.7
--- NOTE | 2024-04-16 14:44 | HO.NEPHOV ---
Vital Signs 04/16/24 14:44 Height 5 ft 3 in Weight 207 lb 6 oz BMI 36.7 BP 140/60 H Blood Pressure Location Rt brachial Position Sitting Pulse 81 Pulse Source Pulse Oximeter Pulse Oximetry (%) 94 Oxygen Delivery Method Room Air Intake Visit Reasons: CKD- Creatinine 2.5-3 / Conf Software Product Manager Required: No Accompanied by: Daughter Allergies Penicillins [PENICILLINS] Allergy (Severe, Verified 04/16/24 14:46) SWELLING codeine [CODEINE] Allergy (Intermediate, Verified 04/16/24 14:46) SWELLING, Hives HPI Comments Details: I had the pleasure of seeing Allie in consultation for transfer of her renal care to me as requested by the patient and her family. 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 She had aortic stenosis and is currently status post TAVR. She has had atrial fibrillation needing cardioversion as well as medical treatment. Her blood sugar control has been better. She had been unable to handle JOB inhibitor or ARB. She is tolerating Farxiga. Kerendia has been considered for her diabetic kidney disease management. Her shortness of breath on exertion is remarkably better of late. She e is very careful with her low-sodium diet and fluid restriction. She weighs herself every day. She has been having gout issues and is on allopurinol. She avoids nonsteroidal anti-inflammatories. Her PTH has been high and had been started on calcitriol after discontinuation of [id number]-agwdkma calcium and vitamin-D medications. She does not have any urinary symptoms. She denies any chest pain, shortness of breath, paroxysmal nocturnal dyspnea, orthopnea, hematuria, UTIs, renal calculi or orthostatic symptoms. Her recent serum creatinine has been 2.7. [facility] Medical History (Updated 04/16/24 @ 21:12 by Teodoro Lindsey MD) Bacteremia due to Gram-positive bacteria Paroxysmal atrial fibrillation CHF (congestive heart failure) Type 2 diabetes mellitus with unspecified complications Normally functioning cardiac pacemaker present URI (upper respiratory infection) Heart block atrioventricular Chronic heart failure with preserved ejection fraction Thrombosis of right saphenous vein Hypercholesterolemia Cataract Hypertension Obesity Aortic stenosis, moderate CKD (chronic kidney disease) stage 4, GFR 15-29 ml/min DVT (deep venous thrombosis) Type 2 diabetes mellitus with hyperglycemia Surgical History Status post transcatheter aortic valve replacement (TAVR) using bioprosthesis History of permanent cardiac pacemaker placement (~05/06/21) History of eye surgery History of surgical procedure on eye proper using laser History of right hip replacement History of partial hysterectomy History of cholecystectomy Family History Father No problems noted. Mother No problems noted. Social History Household Members: Family Housing: House Do you presently have visiting nurse or other home services: No Alcohol intake: never Patient Tobacco Use Status: Never used Tobacco e-Cigarette/Vaping Use: Never Used Second Hand Smoke Exposure: Yes Advance Directives Date on File: 05/20/23 service: No Current occupational status: retired Cognitive needs: Yes (walker ) Hearing needs: No Vision needs: Yes Review of Systems Const All systems reviewed & are unremarkable except as noted in HPI and below Physical Exam Vital Signs: Last Vital Signs Pulse 81 04/16/24 14:44 BP 140/60 H 04/16/24 14:44 Pulse Ox 94 04/16/24 14:44 Oxygen Delivery Method Room Air 04/16/24 14:44 BMI result Body Mass Index 36.7 Const General: healthy appearing and comfortable HEENT Head: Yes normocephalic Eyes Other: 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 Neck Other: No JVD Neck: Yes supple Resp Auscultation: diminished lung sounds Cardio Rate: regular rate GI Palpation (GI): Soft to palpation General: Yes no CVA tenderness Back/Spine/Pelvis Back: no CVA tenderness Skin General skin exam: no rashes or lesions noted Extrem General: Yes edema Results Reviewed Nephrology Results: Hgb 11.4 g/dl (12.0-16.0) L 03/10/24 WBC 5.9 X10*3/uL (4.8-10.8) 03/10/24 Plt Count 154 X10*3/uL (160-400) L 03/10/24 Sodium 141 mmol/L (135-145) 03/10/24 Potassium 4.6 mmol/L (3.3-5.1) 03/10/24 Chloride 103 mmol/L (96-108) 03/10/24 Carbon Dioxide 26 mmol/L (22-29) 03/10/24 BUN 52 mg/dL (9-16) H 03/10/24 Creatinine 2.70 mg/dL (0.5-1.4) H 03/10/24 Calcium 9.6 mg/dL (8.4-10.2) 03/10/24 Phosphorus 4.7 mg/dL (2.7-4.5) H 03/10/24 PTH Intact 307.1 pg/mL (8.7-77.1) H 03/10/24 Urine Protein 30 (1+) mg/dL (Neg-Trace) H 03/10/24 Urine Creatinine 64.31 mg/dL 03/10/24 Protein/Creatinin Ratio 0.29 (<0.2) H 11/10/23 Assessment & Plan Assessment & Plan (1) CKD (chronic kidney disease) stage 4, GFR 15-29 ml/min: Code(s): N18.4 - Chronic kidney disease, stage 4 (severe) Category: Medical (2) Hypertension: Comment: Cardiac catheterization no obstruction July 2015 Code(s): I10 - Essential (primary) hypertension Category: Medical Qualifiers: Hypertension type: essential hypertension Qualified Code(s): I10 - Essential (primary) hypertension (3) Anemia in chronic kidney disease (CKD): Code(s): N18.9 - Chronic kidney disease, unspecified; D63.1 - Anemia in chronic kidney disease Category: Medical Qualifiers: Chronic kidney disease stage: stage 4 (severe) Qualified Code(s): N18.4 - Chronic kidney disease, stage 4 (severe); D63.1 - Anemia in chronic kidney disease (4) Secondary hyperparathyroidism (of renal origin): Code(s): N25.81 - Secondary hyperparathyroidism of renal origin Category: Medical (5) Edema: Code(s): R60.9 - Edema, unspecified Category: Medical Qualifiers: Edema type: localized Qualified Code(s): R60.0 - Localized edema Theresa Kelley has 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 She had multiple hemodynamic AKIs with resultant loss of GFR. She could continue current dose of her diuretics. She abstains from excess sodium and maintain fluid restriction. She weighs herself every day. I am considering switching her from amlodipine to isosorbide given edema issues. She can continue current dose of Farxiga. Her blood pressure and blood sugar need to be maintained at goal. She has no hypoglycemias. She is on allopurinol 100 mg daily. I shall recheck her uric acid level and a 24 hour urine collection for creatinine clearance after next visit. She could continue her current dose of calcitriol. All these have been explained in detail. Time spent retrieving all her renal data from the past renal provider, reviewing her medical records from different specialist as well as primary carer along with the patient encounter and documentation 65 minutes. All questions answered. Follow-up appointment given. Orders: Orders Creatinine 2 Months N18.4 - Chronic kidney disease, stage 4 (severe) Blood Urea Nitrogen 2 Months N18.4 - Chronic kidney disease, stage 4 (severe) Calcium 2 Months N18.4 - Chronic kidney disease, stage 4 (severe) Electrolytes 2 Months N18.4 - Chronic kidney disease, stage 4 (severe) Phosphorus 2 Months N18.4 - Chronic kidney disease, stage 4 (severe) Coding Level of Care Code New Pt Level 5 (58599) Diagnoses CKD (chronic kidney disease) stage 4, GFR 15-29 ml/min N18.4 Essential hypertension I10 Hypertension type: essential hypertension Anemia in stage 4 chronic kidney disease N18.4; D63.1 Chronic kidney disease stage: stage 4 (severe) Secondary hyperparathyroidism (of renal origin) N25.81 Localized edema R60.0 Edema type: localized
== END 2024-04-16 15:41 | disposition home or self-care (01) ==
PROVIDERS: PCP Internal Medicine; Referring Provider Internal Medicine; Visit Provider Internal Medicine Nephrology
DX: I13.0 Hypertensive heart and chronic kidney disease with heart failure and stage 1 through stage 4 chronic kidney disease, or unspecified chronic kidney disease (principal); I50.9 Heart failure, unspecified; E11.22 Type 2 diabetes mellitus with diabetic chronic kidney disease; N18.4 Chronic kidney disease, stage 4 (severe); N25.81 Secondary hyperparathyroidism of renal origin; D63.1 Anemia in chronic kidney disease; R60.0 Localized edema
CPT/HCPCS: 99205

== ENCOUNTER → 2024-04-16 14:41 | Outpatient (BNVA) | payer MEDICARE, SELFPAY ==
[2024-04-09 14:10] VITALS: BP 108/60; BP 118/64; BP 124/60; BMI 35.9
== END ==
PROVIDERS: PCP Internal Medicine; Referring Provider Internal Medicine; Visit Provider Internal Medicine Nephrology
DX: I12.9 Hypertensive chronic kidney disease with stage 1 through stage 4 chronic kidney disease, or unspecified chronic kidney disease (principal); N18.4 Chronic kidney disease, stage 4 (severe); D63.1 Anemia in chronic kidney disease; N25.81 Secondary hyperparathyroidism of renal origin; R60.0 Localized edema
CPT/HCPCS: 99202

== ENCOUNTER 2024-05-05 07:04 | Outpatient (REF) | payer MEDICARE, SELFPAY ==
[2024-04-09 14:10] VITALS: BP 108/60; BP 118/64; BP 124/60; BMI 35.9
[2024-05-05 08:42] LABS: B Type Natriuretic Peptide 707 pg/mL (<100)
[2024-05-05 09:00] LABS: Appearance Urine Clear; Color Urine Yellow; Glucose Urine UA 500 mg/dL (Negative); Leukocyte Esterase Urine Small (1+) (Negative); Nitrite Urine Negative (Negative); PH 6.5 (5.0-9.0); Specific Gravity - Urine 1.015 (1.005-1.025); UMIC TRIGGER UACC YES; Urine Blood Negative (Negative); Urine Ketones Negative (Negative); Urine Protein 30 (1+) mg/dL (Neg-Trace)
[2024-05-05 09:04] LABS: Alanine Aminotransferase 14 U/L (0-31); Albumin Level 4.2 g/dL (3.5-5.0); Alkaline Phosphatase 93 U/L (39-117); Anion Gap 16 (12-20); Aspartate Amino Transferase 19 U/L (5-31); Bilirubin Total 0.8 mg/dL (0.0-1.0); Blood Urea Nitrogen 48 mg/dL (9-16); Calcium 9.9 mg/dL (8.4-10.2); Carbon Dioxide 26 mmol/L (22-29); Chloride 103 mmol/L (96-108); Estimated Glomerular Filt Rate 16; Glucose Random 109 mg/dL (60-115); Potassium 4.1 mmol/L (3.3-5.1); Sodium 141 mmol/L (135-145); Total Protein 7.1 g/dL (6.5-8.0)
[2024-05-05 09:17] LABS: Bacteria Urine 4+ (None Seen); Hyaline Casts Urine 0-2 /LPF (0-2); RBC Urine 0-2 /HPF (0-2); UACC Culture Trigger YES; WBC Urine 0-5 /HPF (0-5)
== END 2024-05-05 07:05 | disposition home or self-care (01) ==
LOC: HO.LAB 07:04
PROVIDERS: PCP Internal Medicine; Visit Provider Internal Medicine
DX: I50.32 Chronic diastolic (congestive) heart failure (principal); R30.0 Dysuria; E11.65 Type 2 diabetes mellitus with hyperglycemia; Z79.4 Long term (current) use of insulin; R82.79 Other abnormal findings on microbiological examination of urine
CPT/HCPCS: 36415; 80053; 81001; 81003; 83880; 87086; 87088; 87186

== ENCOUNTER 2024-05-18 12:46 | Outpatient (AMB) | payer MEDICARE, SELFPAY ==
[2024-04-09 14:10] VITALS: BP 108/60; BP 118/64; BP 124/60; BMI 35.9
--- NOTE | 2024-05-18 12:49 | MHC.PC.OV ---
Vital Signs 05/18/24 12:50 Height 5 ft 3 in Weight 207 lb 4 oz BMI 36.7 BP 120/60 Blood Pressure Location Lt brachial Position Sitting Pulse 71 Pulse Source Pulse Oximeter Pulse Oximetry (%) 94 Oxygen Delivery Method Room Air Intake Visit Reasons: CHF, CKD, DM Intake Note: Patient is here to follow up on CHF, CKD, DM. Machine Gun Mechanic Required: No Deliverer Pharmacy: Present Accompanied by: Daughter inlvictoria Allergies Penicillins [PENICILLINS] Allergy (Severe, Verified 05/18/24 12:50) SWELLING codeine [CODEINE] Allergy (Intermediate, Verified 05/18/24 12:50) SWELLING, Hives Tobacco use date assessed: 05/18/24 Fall risk assessment: No Falls in past year Last assessed Fall Risk: 05/18/24 Dental Screening Dental Screen Date: 05/18/24 Did you have a dental visit in the last 12 months?: Yes Did you have a dental problem in the last 6 months where you did not have access to dental care?: No Was dental information given to patient?: Patient has dentist HPI CHF, CKD, DM HPI Details 88-year-old obese female with atrial fibrillation status post TAVR congestive heart failure chronic kidney disease hypertension hypercholesterolemia diabetes mellitus and peripheral vascular disease last seen in December 2023. 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 Considering amlodipine switch to isosorbide. Patient has also seen Cardiology remains on amiodarone for the atrial fibrillation can take it alternate days. Patient is very happy with the Nephrology referral and continuing to be monitored presently. Noted some rash on the left groin and wants to have this treated. Otherwise does daily weights. Stable breathing stable. Has some upcoming dental procedure and was advised to hold anticoagulation 3 days before discussed that the standard of moderate risk for bleeding is 2 days. [facility] Medical History (Updated 05/18/24 @ 13:16 by Roberto Mckinney MD) Bacteremia due to Gram-positive bacteria Paroxysmal atrial fibrillation CHF (congestive heart failure) Type 2 diabetes mellitus with unspecified complications Normally functioning cardiac pacemaker present URI (upper respiratory infection) Heart block atrioventricular Chronic heart failure with preserved ejection fraction Thrombosis of right saphenous vein Hypercholesterolemia Cataract Hypertension Obesity Aortic stenosis, moderate CKD (chronic kidney disease) stage 4, GFR 15-29 ml/min DVT (deep venous thrombosis) Type 2 diabetes mellitus with hyperglycemia Surgical History Status post transcatheter aortic valve replacement (TAVR) using bioprosthesis History of permanent cardiac pacemaker placement (~05/06/21) History of eye surgery History of surgical procedure on eye proper using laser History of right hip replacement History of partial hysterectomy History of cholecystectomy Family History Father No problems noted. Mother No problems noted. Social History Household Members: Family Housing: House Do you presently have visiting nurse or other home services: No Alcohol intake: never Patient Tobacco Use Status: Never used Tobacco e-Cigarette/Vaping Use: Never Used Second Hand Smoke Exposure: Yes Advance Directives Date on File: 05/20/23 service: No Current occupational status: retired Cognitive needs: Yes (walker ) Hearing needs: No Vision needs: Yes Questionnaire Thrive Questionnaire Date Thrive assessed: 09/26/23 Are you currently unemployed and looking for a job?: No AZAR-7 AMB Questionnaire AZAR-7 Date AZAR - 7 assessed: 09/26/23 Source: Developed by Drs. Enrrique Avila, Asmita Quigley, Demond Aviles and colleagues, with an educational ruma from [employer]. Physical exam (Primary Care) Vital Signs: Last Vital Signs Pulse 71 05/18/24 12:50 BP 120/60 05/18/24 12:50 Pulse Ox 94 05/18/24 12:50 Oxygen Delivery Method Room Air 05/18/24 12:50 BMI result Body Mass Index 36.7 Tobacco/Smoking Status: Tobacco use Status Tobacco use date assessed 05/18/24 05/18/24 12:54 Patient Tobacco Use Status Never used Tobacco 05/18/24 12:54 e-Cigarette/Vaping Use Never Used 05/18/24 12:54 Thrive Assessment: Date of Thrive Assessment Date Thrive assessed 09/26/23 05/18/24 12:54 Const General: alert; No acute distress Eyes Conjunctivae: conjunctivae normal Resp Auscultation: clear to auscultation bilaterally Cardio Rate: regular rate Rhythm: regular rhythm GI Inspection: Yes normal to inspection Skin Other: Satellite lesions with mild erythema on the left groin Extrem General: Yes normal to inspection and No edema Results AMB Hemoglobin A1c AMB Hemoglobin A1c 6.9 % Last Edit by RASHAWN Calero on 05/18/24 13:07 Immunizations tetanus-diphtheria toxoids-Td 2 Lf unit-2 Lf unit/0.5 mL IM suspension Performing Provider: Roberto Mckinney MD [facility] Administered by: KUSHAL Martínez on 05/18/24 13:40 Dose Route Admin Location Dispensed Lot Number Expiration Date NDC Visitor Use Assistant 0.5 mL IM Left Deltoid 0.5 mL [id number] 10/08/24 [id number] [employer] VIS Given Date VIS Provided VIS Publication Date 05/18/24 Single Vaccine 21 Eligibility Eligibility Date Funding Source Not [facility] Eligible 05/18/24 State funds Results Reviewed Results Reviewed: Laboratory Last Values Hgb A1c (Clinic) 6.9 % (4.0-6.0) H 05/18/24 12:48 Assessment and Plan Assessment & Plan (1) Paroxysmal atrial fibrillation: Comment: Cardioversion May 2020 Code(s): I48.0 - Paroxysmal atrial fibrillation Plan: Continue with amiodarone and anticoagulation. Continue to monitor renal function (2) Status post transcatheter aortic valve replacement (TAVR) using bioprosthesis: Comment: September 2021, echocardiogram October 2022 Code(s): Z95.3 - Presence of xenogenic heart valve Plan: Patient follows up with Cardiology doing good stable (3) Chronic diastolic (congestive) heart failure: Code(s): I50.32 - Chronic diastolic (congestive) heart failure Plan: Continue with the diuretic furosemide keeping an eye on weight. (4) CKD (chronic kidney disease) stage 4, GFR 15-29 ml/min: Code(s): N18.4 - Chronic kidney disease, stage 4 (severe) Plan: Patient has been seen by Nephrology, continue with present medication avoid NSAIDs (5) Hypertension: Comment: Cardiac catheterization no obstruction July 2015 Code(s): I10 - Essential (primary) hypertension Qualifiers: Hypertension type: essential hypertension Qualified Code(s): I10 - Essential (primary) hypertension Plan: Continue with blood pressure medication. Decrease salt intake and exercise on amlodipine 5 mg once a day received notes from Nephrology on plan changing amlodipine. (6) Hypercholesterolemia: Code(s): E78.00 - Pure hypercholesterolemia, unspecified Plan: Avoid fried foods, chicken skin, eggs, butter margarine, pastries and meat. Be it pork or beef they have a lot of cholesterol LDL goal of less than 70 and triglyceride of less than 150 on atorvastatin 10 mg once a day (7) Type 2 diabetes mellitus with hyperglycemia: Comment: Dr. Cisse 11/2022 Code(s): E11.65 - Type 2 diabetes mellitus with hyperglycemia Qualifiers: Diabetes mellitus custodial insulin use: with custodial use Qualified Code(s): E11.65 - Type 2 diabetes mellitus with hyperglycemia; Z79.4 - care home (current) use of insulin Plan: Decrease the amount of carbohydrate intake, pasta, bread, rice and potatoes are all sugar and that is aside from all the sweet stuff, remember that fruits are good but they are Sweet also. Hemoglobin A1c goal of less than 7.0 (8) Tinea corporis: Code(s): B35.4 - Tinea corporis Plan: Sent in for cream antifungal and the powder to prevent it. Orders: Orders AMB Hemoglobin A1c Today E11.65 - Type 2 diabetes mellitus with hyperglycemia, Z79.4 - rat exterminator (current) use of insulin Comprehensive Met. Panel 3 Months N18.4 - Chronic kidney disease, stage 4 (severe) Complete Blood Count Auto Diff 3 Months N18.4 - Chronic kidney disease, stage 4 (severe) Td State Immunization Today Z23 - Encounter for immunization B Type Natriuretic Peptide Today N18.4 - Chronic kidney disease, stage 4 (severe) Medications: New miconazole nitrate 2% (Zeasorb AF) 1 appl topical BID 85 grams 0RF B35.4 - Tinea corporis clotrimazole 1% 1 appl topical BID 4 weeks 45 grams 0RF B35.4 - Tinea corporis tetanus-diphtheria toxoids-Td 0.5 mL IM ONCE 0.5 mL 0RF Z23 - Encounter for immunization Coding Level of Care Code Est Pt Level 4 (38752) Complex EM visit Add On G2211 Diagnoses Paroxysmal atrial fibrillation I48.0 Status post transcatheter aortic valve replacement (TAVR) using bioprosthesis Z95.3 Chronic diastolic (congestive) heart failure I50.32 CKD (chronic kidney disease) stage 4, GFR 15-29 ml/min N18.4 Essential hypertension I10 Hypertension type: essential hypertension Hypercholesterolemia E78.00 Type 2 diabetes mellitus with hyperglycemia, with long-term current use of insulin E11.65; Z79.4 Diabetes mellitus custodial insulin use: with keno terminal operator use Tinea corporis B35.4
[2024-05-18 12:50] VITALS: BP 120/60; PULSE 71; O2SAT 94; BMI 36.7
== END 2024-05-18 13:33 | disposition home or self-care (01) ==
PROVIDERS: PCP Internal Medicine; Visit Provider Internal Medicine
DX: E11.65 Type 2 diabetes mellitus with hyperglycemia (principal); Z79.4 Long term (current) use of insulin; I48.0 Paroxysmal atrial fibrillation; I50.32 Chronic diastolic (congestive) heart failure; N18.4 Chronic kidney disease, stage 4 (severe); I12.9 Hypertensive chronic kidney disease with stage 1 through stage 4 chronic kidney disease, or unspecified chronic kidney disease; Z95.3 Presence of xenogenic heart valve; E78.00 Pure hypercholesterolemia, unspecified; B35.4 Tinea corporis; Z23 Encounter for immunization

== ENCOUNTER → 2024-05-18 12:46 | Outpatient (BNVA) | payer MEDICARE, SELFPAY ==
[2024-04-09 14:10] VITALS: BP 108/60; BP 118/64; BP 124/60; BMI 35.9
== END ==
PROVIDERS: PCP Internal Medicine; Visit Provider Internal Medicine
DX: Z23 Encounter for immunization (principal); I48.0 Paroxysmal atrial fibrillation; I12.9 Hypertensive chronic kidney disease with stage 1 through stage 4 chronic kidney disease, or unspecified chronic kidney disease; N18.4 Chronic kidney disease, stage 4 (severe); B35.4 Tinea corporis; E78.00 Pure hypercholesterolemia, unspecified; E11.65 Type 2 diabetes mellitus with hyperglycemia; Z79.4 Long term (current) use of insulin; Z95.3 Presence of xenogenic heart valve
CPT/HCPCS: 83036; 90471; 90714; 99212

== ENCOUNTER 2024-06-02 07:02 | Outpatient (REF) | payer MEDICARE, SELFPAY ==
[2024-04-09 14:10] VITALS: BP 108/60; BP 118/64; BP 124/60; BMI 35.9
[2024-06-02 08:02] LABS: Anion Gap 19 (12-20); Blood Urea Nitrogen 47 mg/dL (9-16); Calcium 10.5 mg/dL (8.4-10.2); Carbon Dioxide 25 mmol/L (22-29); Chloride 102 mmol/L (96-108); Estimated Glomerular Filt Rate 17; Phosphorus 4.7 mg/dL (2.7-4.5); Potassium 4.2 mmol/L (3.3-5.1); Sodium 142 mmol/L (135-145)
== END 2024-06-02 07:03 | disposition home or self-care (01) ==
LOC: HO.LAB 07:02
PROVIDERS: PCP Internal Medicine; Visit Provider Internal Medicine Nephrology
DX: N18.4 Chronic kidney disease, stage 4 (severe) (principal)
CPT/HCPCS: 36415; 80051; 82310; 82565; 84100; 84520

== ENCOUNTER 2024-06-15 13:45 | Outpatient (AMB) | payer MEDICARE, SELFPAY ==
[2024-04-09 14:10] VITALS: BP 108/60; BP 118/64; BP 124/60; BMI 35.9
--- NOTE | 2024-06-15 14:06 | HO.NEPHOV_ITS ---
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 She had aortic stenosis and is currently status post TAVR. She has had atrial fibrillation needing cardioversion as well as medical treatment. Her blood sugar control has been better. She had been unable to handle JOB inhibitor or ARB. She is tolerating Farxiga. Kerendia has been considered for her diabetic kidney disease management. Her shortness of breath on exertion is remarkably better of late. She e is very careful with her low-sodium diet and fluid restriction. She weighs herself every day. She has been having gout issues and is on allopuri nol. She avoids nonsteroidal anti-inflammatories. Her PTH has been high and had been started on calcitriol after discontinuation of [id number] calcium and vitamin-D medications. She does not have any urinary symptoms. She denies any chest pain, shortness of breath, paroxysmal nocturnal dyspnea, orthopnea, hematuria, UTIs, renal calculi or orthostatic symptoms. Her recent serum creatinine has been stable [facility] Medical History (Updated 06/15/24 @ 14:12 by Teodoro Lindsey MD) Bacteremia due to Gram-positive bacteria Paroxysmal atrial fibrillation CHF (congestive heart failure) Type 2 diabetes mellitus with unspecified complications Normally functioning cardiac pacemaker present URI (upper respiratory infection) Heart block atrioventricular Chronic heart failure with preserved ejection fraction Thrombosis of right saphenous vein Hypercholesterolemia Cataract Hypertension Obesity Aortic stenosis, moderate CKD (chronic kidney disease) stage 4, GFR 15-29 ml/min DVT (deep venous thrombosis) Type 2 diabetes mellitus with hyperglycemia Surgical History Status post transcatheter aortic valve replacement (TAVR) using bioprosthesis History of permanent cardiac pacemaker placement (~05/06/21) History of eye surgery History of surgical procedure on eye proper using laser History of right hip replacement History of partial hysterectomy History of cholecystectomy Family History Father No problems noted. Mother No problems noted. Social History Household Members: Family Housing: House Do you presently have visiting nurse or other home services: No Alcohol intake: never Patient Tobacco Use Status: Never used Tobacco e-Cigarette/Vaping Use: Never Used Second Hand Smoke Exposure: Yes Advance Directives Date on File: 05/20/23 service: No Current occupational status: retired Cognitive needs: Yes (walker ) Hearing needs: No Vision needs: Yes Review of Systems Const All systems reviewed & are unremarkable except as noted in HPI and below Physical Exam Const General: comfortable and no acute distress Orientation/consciousness: patient oriented x3 HEENT Head: Yes normocephalic Mouth: Normal oral and palatal mucosa present Eyes EOM: EOMs intact bilaterally Neck Neck: Yes supple Resp Auscultation: clear to auscultation bilaterally Cardio Jugular venous distension: no JVD Rate: regular rate GI Palpation (GI): Soft to palpation Auscultation: normal bowel sounds General: Yes no CVA tenderness Back/Spine/Pelvis Back: no CVA tenderness Skin General skin exam: no rashes or lesions noted Neuro General: patient oriented x3 and moves all extremities Extrem General: Yes no pedal edema Results Reviewed Nephrology Results: Hgb 11.4 g/dl (12.0-16.0) L 03/10/24 WBC 5.9 X10*3/uL (4.8-10.8) 03/10/24 Plt Count 154 X10*3/uL (160-400) L 03/10/24 Sodium 142 mmol/L (135-145) 06/02/24 Potassium 4.2 mmol/L (3.3-5.1) 06/02/24 Chloride 102 mmol/L (96-108) 06/02/24 Carbon Dioxide 25 mmol/L (22-29) 06/02/24 BUN 47 mg/dL (9-16) H 06/02/24 Creatinine 2.64 mg/dL (0.5-1.4) H 06/02/24 Calcium 10.5 mg/dL (8.4-10.2) H 06/02/24 Phosphorus 4.7 mg/dL (2.7-4.5) H 06/02/24 PTH Intact 307.1 pg/mL (8.7-77.1) H 03/10/24 Urine Protein 30 (1+) mg/dL (Neg-Trace) H 05/05/24 Urine Creatinine 64.31 mg/dL 03/10/24 Protein/Creatinin Ratio 0.29 (<0.2) H 11/10/23 Assessment & Plan Assessment & Plan (1) Secondary hyperparathyroidism (of renal origin): Code(s): N25.81 - Secondary hyperparathyroidism of renal origin Category: Medical (2) Anemia in chronic kidney disease (CKD): Code(s): N18.9 - Chronic kidney disease, unspecified; D63.1 - Anemia in chronic kidney disease Category: Medical Qualifiers: Chronic kidney disease stage: stage 4 (severe) Qualified Code(s): N18.4 - Chronic kidney disease, stage 4 (severe); D63.1 - Anemia in chronic kidney disease (3) CKD (chronic kidney disease) stage 4, GFR 15-29 ml/min: Code(s): N18.4 - Chronic kidney disease, stage 4 (severe) Category: Medical (4) Hypertension: Code(s): I10 - Essential (primary) hypertension Category: Medical Qualifiers: Hypertension type: essential hypertension Qualified Code(s): I10 - Essential (primary) hypertension Plan Allie has 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 She had multiple hemodynamic AKIs with resultant loss of GFR. She could continue current dose of her diuretics. She abstains from excess sodium and maintain fluid restriction. She weighs herself every day. I may considering switching her from amlodipine to isosorbide given edema issues. She can continue current dose of Farxiga. Her blood pressure and blood sugar need to be maintained at goal. She has no hypoglycemias. She is on allopurinol 100 mg daily. I held her calcitriol given high calcium. I may re start it after reviewing labs next visit . All questions answered. Follow-up appointment given Orders: Orders Blood Urea Nitrogen 4 Months D63.1 - Anemia in chronic kidney disease, I10 - Essential (primary) hypertension, N18.4 - Chronic kidney disease, stage 4 (severe), N25.81 - Secondary hyperparathyroidism of renal origin Electrolytes 4 Months D63.1 - Anemia in chronic kidney disease, I10 - Essential (primary) hypertension, N18.4 - Chronic kidney disease, stage 4 (severe), N25.81 - Secondary hyperparathyroidism of renal origin Creatinine 4 Months D63.1 - Anemia in chronic kidney disease, I10 - Essential (primary) hypertension, N18.4 - Chronic kidney disease, stage 4 (severe), N25.81 - Secondary hyperparathyroidism of renal origin Calcium 4 Months D63.1 - Anemia in chronic kidney disease, I10 - Essential (primary) hypertension, N18.4 - Chronic kidney disease, stage 4 (severe), N25.81 - Secondary hyperparathyroidism of renal origin Parathyroid Hormone Intact 4 Months D63.1 - Anemia in chronic kidney disease, I10 - Essential (primary) hypertension, N18.4 - Chronic kidney disease, stage 4 (severe), N25.81 - Secondary hyperparathyroidism of renal origin Vitamin D 25-OH Total 4 Months D63.1 - Anemia in chronic kidney disease, I10 - Essential (primary) hypertension, N18.4 - Chronic kidney disease, stage 4 (severe), N25.81 - Secondary hyperparathyroidism of renal origin Complete Blood Count no Diff 4 Months D63.1 - Anemia in chronic kidney disease, I10 - Essential (primary) hypertension, N18.4 - Chronic kidney disease, stage 4 (severe), N25.81 - Secondary hyperparathyroidism of renal origin Coding Level of Care Code Est Pt Level 4 (52564) Diagnoses Secondary hyperparathyroidism (of renal origin) N25.81 Anemia in stage 4 chronic kidney disease N18.4; D63.1 Chronic kidney disease stage: stage 4 (severe) CKD (chronic kidney disease) stage 4, GFR 15-29 ml/min N18.4 Essential hypertension I10 Hypertension type: essential hypertension
[2024-06-15 14:07] VITALS: BP 126/60; PULSE 70; O2SAT 93; BMI 35.8
== END 2024-06-15 14:35 | disposition home or self-care (01) ==
PROVIDERS: PCP Internal Medicine; Visit Provider Internal Medicine Nephrology
DX: N25.81 Secondary hyperparathyroidism of renal origin (principal); I12.9 Hypertensive chronic kidney disease with stage 1 through stage 4 chronic kidney disease, or unspecified chronic kidney disease; N18.4 Chronic kidney disease, stage 4 (severe); D63.1 Anemia in chronic kidney disease
CPT/HCPCS: 99214

== ENCOUNTER → 2024-06-15 13:45 | Outpatient (BNVA) | payer MEDICARE, SELFPAY ==
[2024-04-09 14:10] VITALS: BP 108/60; BP 118/64; BP 124/60; BMI 35.9
== END ==
PROVIDERS: PCP Internal Medicine; Visit Provider Internal Medicine Nephrology
DX: I13.0 Hypertensive heart and chronic kidney disease with heart failure and stage 1 through stage 4 chronic kidney disease, or unspecified chronic kidney disease (principal); E11.22 Type 2 diabetes mellitus with diabetic chronic kidney disease; I50.32 Chronic diastolic (congestive) heart failure; N18.4 Chronic kidney disease, stage 4 (severe); D63.1 Anemia in chronic kidney disease; N25.81 Secondary hyperparathyroidism of renal origin
CPT/HCPCS: 99212

== ENCOUNTER 2024-08-03 09:48 | Outpatient (REF) | payer MEDICARE, SELFPAY ==
[2024-04-09 14:10] VITALS: BP 108/60; BP 118/64; BP 124/60; BMI 35.9
[2024-08-03 13:53] LABS: Alanine Aminotransferase 15 U/L (0-31); Albumin Level 4.4 g/dL (3.5-5.0); Alkaline Phosphatase 105 U/L (39-117); Anion Gap 16 (12-20); Aspartate Amino Transferase 23 U/L (5-31); Bilirubin Total 0.8 mg/dL (0.0-1.0); Blood Urea Nitrogen 52 mg/dL (9-16); Calcium 10.1 mg/dL (8.4-10.2); Carbon Dioxide 28 mmol/L (22-29); Chloride 103 mmol/L (96-108); Estimated Glomerular Filt Rate 19; Glucose Random 104 mg/dL (60-115); Potassium 3.9 mmol/L (3.3-5.1); Sodium 143 mmol/L (135-145); Total Protein 7.5 g/dL (6.5-8.0); Uric Acid 6.1 mg/dL (2.4-5.7)
[2024-08-03 13:54] LABS: Parathyroid Hormone Intact 314.5 pg/mL (8.7-77.1)
[2024-08-06 12:54] LABS: Prot Elec - Albumin 4.5 g/dL (3.8-4.8); Prot Elec - Alpha1 0.4 g/dL (0.2-0.3); Prot Elec - Alpha2 0.8 g/dL (0.5-0.9); Prot Elec - Beta 1 0.4 g/dL (0.4-0.6); Prot Elec - Beta 2 0.3 g/dL (0.2-0.5); Prot Elec - Total Protein 7.4 g/dL (6.1-8.1)
[2024-08-08 14:28] LABS: Vitamin D 25-OH, D2 <4 ng/mL; Vitamin D 25-OH, D3 45 ng/mL; Vitamin D 25-OH, Total 45 ng/mL (30-100)
== END 2024-08-03 09:49 | disposition home or self-care (01) ==
LOC: HO.LAB 09:48
PROVIDERS: PCP Internal Medicine; Visit Provider Student in an Organized Health Care Education/Training Program
DX: M15.4 Erosive (osteo)arthritis (principal); M1A.9XX1 Chronic gout, unspecified, with tophus (tophi); M81.0 Age-related osteoporosis without current pathological fracture; Z51.81 Encounter for therapeutic drug level monitoring; Z79.620 Long term (current) use of immunosuppressive biologic
CPT/HCPCS: 36415; 80053; 82306; 83970; 84165; 84550; 99212

== ENCOUNTER 2024-08-03 09:48 | Outpatient (AMB) | payer MEDICARE, SELFPAY ==
[2024-04-09 14:10] VITALS: BP 108/60; BP 118/64; BP 124/60; BMI 35.9
[2024-08-03 10:05] VITALS: BP 124/74; PULSE 74; O2SAT 97; BMI 36.5
--- NOTE | 2024-08-03 10:05 | MHC.OFFVIS ---
Vital Signs 08/03/24 10:05 Height 5 ft 3 in Weight 205 lb 14.588 oz BMI 36.5 BP 124/74 Blood Pressure Location Lt brachial Position Sitting Pulse 74 Pulse Source Pulse Oximeter Pulse Oximetry (%) 97 Oxygen Delivery Method Room Air Intake Visit Reasons: gout/lm Intake Note: Patient is here for gout today. Allergies Penicillins [PENICILLINS] Allergy (Severe, Verified 08/03/24 10:08) SWELLING codeine [CODEINE] Allergy (Intermediate, Verified 08/03/24 10:08) SWELLING, Hives Medication List - Last Reconciled 08/03/24 by Nicole Escobar MD acetaminophen (Tylenol) 325 mg PO QID PRN allopurinol 100 mg PO DAILY amiodarone 200 mg orally qod; alternate days amlodipine 5 mg PO DAILY apixaban (Eliquis) 2.5 mg PO BID 90 days atorvastatin 10 mg PO DAILY blood sugar diagnostic (FreeStyle Lite Strips) 1 strip miscellaneous TID 90 days calcitriol mcg PO Q OTHER DAY clindamycin HCl 600 mg PO ONCE PRN clotrimazole 1% 1 appl topical BID 4 weeks compress.stocking,knee,reg,lrg As directed 20-30 mm HG compress.stocking,knee,reg,lrg As directed 20-30 mm HG dapagliflozin propanediol (Farxiga) 5 mg PO DAILY 90 days diclofenac sodium 1% 2 grams topical QD-BID PRN dulaglutide (Trulicity) 0.75 mg (0.5 mL) subcut QWEEK fexofenadine 180 mg PO DAILY furosemide 20 mg PO DIRECTED 30 days insulin glargine (Lantus Solostar U-100 Insulin) 5 units (0.05 mL) subcut BEDTIME insulin lispro (Humalog KwikPen (U-100) Insulin) inject 1 u TID 30 days latanoprost 0.005% 1 drp ophthalmic (eye) BEDTIME meclizine 25 mg PO TID PRN metolazone 2.5 mg PO DIRECTED PRN miconazole nitrate 2% (Zeasorb AF) 1 appl topical BID multivitamin 1 tab PO DAILY pen needle, diabetic As directed propylene glycol 0.6% (Systane Complete) 1 drp ophthalmic (eye) TID PRN HPI Comments Details: Patient is an 89-year-old female with hypertension, diabetes, hyperlipidemia, AFib on Eliquis, heart failure with reduced ejection fraction who presents today for follow up of gout and polyarticular osteoarthritis Interval History: Patient last seen 08/03/2023. At that time she was stable with respect to her gout. Remained on allopurinol 100 mg twice a day. She had previously stopped colchicine and had had no flare-up since then. Today patient reports she has doing overall well. At times she gets swelling to her bilateral lower extremities which she attributes to her heart failure. Her left leg is always more swollen than her right leg. No further gout attacks Has morning stiffness but overall this does not limit her daily activities Rheumatologic History: Patient was initially seen 05/06/2022 for evaluation of painful right 2nd finger. At that time there was some drainage from the 2nd PIP region and it was thought to be MSU crystals. She received colchicine and topical diclofenac. X-rays were obtained and they confirmed rat bite erosions to the right 2nd PIP the also evidence of erosive osteoarthritis. She was started on allopurinol and has been tolerating same Current Rheumatology Medication(s): Allopurinol 200 mg daily [facility] Medical History (Updated 08/03/24 @ 14:45 by Nicole Escobar MD) Encounter for monitoring denosumab therapy Osteoporosis Erosive osteoarthritis of both hands Bacteremia due to Gram-positive bacteria Paroxysmal atrial fibrillation CHF (congestive heart failure) Type 2 diabetes mellitus with unspecified complications Normally functioning cardiac pacemaker present URI (upper respiratory infection) Heart block atrioventricular Chronic heart failure with preserved ejection fraction Thrombosis of right saphenous vein Hypercholesterolemia Cataract Hypertension Obesity Aortic stenosis, moderate CKD (chronic kidney disease) stage 4, GFR 15-29 ml/min DVT (deep venous thrombosis) Type 2 diabetes mellitus with hyperglycemia Surgical History Status post transcatheter aortic valve replacement (TAVR) using bioprosthesis History of permanent cardiac pacemaker placement (~05/06/21) History of eye surgery History of surgical procedure on eye proper using laser History of right hip replacement History of partial hysterectomy History of cholecystectomy Family History Father No problems noted. Mother No problems noted. Social History Household Members: Family Housing: House Do you presently have visiting nurse or other home services: No Alcohol intake: never Patient Tobacco Use Status: Never used Tobacco e-Cigarette/Vaping Use: Never Used Second Hand Smoke Exposure: Yes Advance Directives Date on File: 05/20/23 service: No Current occupational status: retired Cognitive needs: Yes (walker ) Hearing needs: No Vision needs: Yes Review of Systems Const Details: Review of Systems Constitutional: Denies fever, chills, weight loss ENT: Denies vision changes, eye pain or eye redness, dental caries, dry mouth GI: Denies nausea, vomiting, diarrhea, abdominal pain, change in BM Pulm: Denies SOB, PÉREZ, hemoptysis, wheezing Cards: Denies chest pain, palpitations Skin: Denies Raynaud's, rash, nail changes, photosensitivity, [employer]: Denies headaches, weakness, paresthesias, recurrent falls MSK: as per HPI All other systems reviewed and are unremarkable except noted above Physical Exam Vital Signs: Last Vital Signs Pulse 74 08/03/24 10:05 BP 124/74 08/03/24 10:05 Pulse Ox 97 08/03/24 10:05 Oxygen Delivery Method Room Air 08/03/24 10:05 BMI result Body Mass Index 36.5 Physical Examination CONSTITUITIONAL Patient alert and cooperative. Well appearing and in no apparent painful distress. Uses a walker HEENT Conjunctiva and sclera clear. ?Pupils equal round and reactive to light. ?No tophi noted to bilateral jazz of ears. CHEST/RESPIRATORY SYSTEM Normal respiratory effort and able to speak in complete sentences. ?Clear to auscultation bilaterally. ?No crackles, rales, rhonchi, wheezes heard. CARDIAC SYSTEM Regular rate and rhythm. ?S1 and S2 heard no murmurs. ?Radial pulses intact bilaterally MSK Hands: ?There is mild bony enlargement at the thumb IP and all the PIP joints.? Enlargement is most prominent at the 4th PIP with there is decreased range of motion. There is mild bony enlargement at the 3rd through 5th DIP joints and these are not tender.? There is bony enlargement but no tenderness at the 2nd DIP.? That joint also has a flexion deformity and slight ulnar deviation. It has no palpable nodule today. There is laxity of the joints in all planes of motion. It is not able to be actively flex. ? There is no break in the skin currently.? There is minimal nontender in moderate bony enlargement at the base of the thumb.? Left:? There is bony enlargement at all the PIP and the IP joints.? Range of motion at many of the PIP is is somewhat limited.? None of these are particularly tender.? No soft tissue swelling, thenar atrophy or sensory loss. Wrists: ?Full range of motion at the wrists without pain. ?No tenderness to palpation or synovitis noted to the wrists. Elbows: Full range of motion without pain. No tenderness, weakness, swelling, increased warmth or erythema. Shoulders: Full range of motion without pain. No tenderness, weakness, swelling, increased warmth or erythema. Hips: Full range of motion without pain. Hip bursa: No tenderness to palpation Knees: ?Full range of motion. ?No tenderness, swelling, increased warmth or erythema.? Crepitations noted Bilateral lower extremity edema pitting up to posterior thigh. Left worse than right. Ankles: Full range of motion. ?No tenderness, swelling, increased warmth or erythema.? Feet: ?Negative squeeze test. ?No tenderness to palpation or swelling of the MTPs. Tender points:??No tenderness to palpation of the neck, shoulders, chest, elbows, hips, buttocks or knees. SKIN Skin intact without rashes. No tophi noted Results Reviewed Results Reviewed: DEXA 01/07/23 FINDINGS: AP SPINE L3-L4 (excluding L1 and L2): The data of L1-L4 has been changed to exclude the L1 and L2 vertebral bodies, because degenerative changes at these levels may cause overestimation of lumbar spine density. BMD 1.665 g/cm2, Z-score 4.7, T-score 3.9, normal. LEFT FEMUR, NECK: BMD 0.769 g/cm2, Z-score -0.3, T-score -1.9, osteopenia. LEFT FEMUR, TOTAL: BMD 0.795 g/cm2, Z-score -0.2, T-score -1.7, osteopenia. Bilateral Hand XRs 05/15/22 FINDINGS: Right Hand: Diffuse periarticular erosions throughout the interphalangeal joints as well as at to a lesser degree within the metacarpophalangeal joints. Findings are most severe at the 2nd distal interphalangeal joint where the head of the middle phalanx and distal phalanx are severely attenuated. There is prominent adjacent soft tissue swelling. Additional joint space narrowing with prominent marginal osteophytes and subchondral cystic change at the triscaphe and 1st carpometacarpal joints. No acute fracture or dislocation. Left Hand: Diffuse periarticular erosions with bony remodeling throughout the interphalangeal joints and to a lesser degree at the metacarpophalangeal joints. There is surrounding soft tissue swelling with small soft tissue calcifications adjacent to the 2nd distal interphalangeal joint. Additional severe joint space narrowing with subchondral cystic change and marginal osteophytes at the triscaphe and 1st carpometacarpal joints. No acute fracture or dislocation. Assessment & Plan Assessment & Plan (1) Erosive osteoarthritis of both hands: Code(s): M15.4 - Erosive (osteo)arthritis Category: Medical Plan: #Erosive Osteoarthritis Patient with radiographic (gull-wing) changes consistent with erosive OA. Discussed with patient using prolia which has been shown to induce remodeling and prevent new erosive joints She is amenable Plan - start PA for denosumab - denosumab every 3 months x 1 year then reassess - RTC in August for first dose 1. Urmila R, Roma G, Jacqueline T, Kalee R, Tanner Boyer. RANKL blockade for erosive hand osteoarthritis: a randomized placebo-controlled phase 2a trial. [facility] Med. 2023;30(3):829-836. doi: 10.1038/z63731-123-77599-5. Ep2023Oct 13. PMID: [id number]; PMCID: [id number] (2) Tophaceous gout: Comment: R 2nd DIP; allopurinol started 04/2022 Code(s): M1A.9XX1 - Chronic gout, unspecified, with tophus (tophi) Category: Medical Plan: #Erosive Tophaceous gout Large rat bite erosion to the right 2nd DIP UA goal < 5 No further gout flares since on allopurinol Plan - check UA - Continue allopurinol 200mg daily - Increase allopurinol if not at goal (3) Osteoporosis: Code(s): M81.0 - Age-related osteoporosis without current pathological fracture Category: Medical Qualifiers: Osteoporosis type: age-related Presence of current pathological fracture: without current pathological fracture Qualified Code(s): M81.0 - Age-related osteoporosis without current pathological fracture Plan: #Osteopenia with elevated FRAX score Patient meets treatment requirements for osteoporosis with T score -1.9 at the left femur neck and FRAX 5.9% Given her concurrent erosive OA, the best course of treatment is prolia Plan - Prolia - Check CMP and Vit D (4) Encounter for monitoring denosumab therapy: Code(s): Z51.81 - Encounter for therapeutic drug level monitoring; Z79.620 - buttermaker continuous churn (current) use of immunosuppressive biologic Category: Medical Plan: #Long-term use of Denosumab Discussed with patient the risks and benefits of denosumab (Prolia) for the management of their osteoporosis and erosive OA Benefits include improved bone density, decreased fracture risk Risks include rapid bone loss if denosumab stopped, osteonecrosis of the jaw especially in patients with poor oral hygiene/diabetes/use of glucocorticoids/age greater than 65 years, atypical femoral fractures, injection site reactions. Mild increased risk of infections due to RANKL on T helper cells, increased risk of hypocalcemia especially in CKD patients Advised to delay non emergent dental procedures to toward the end of the 6 month cycle and if they plan to stop denosumab would need to continue antiresorptive to maintain the effects of denosumab Patient with CKD and is at increased risk of hypocalcemia with denosumab therapy. Risk factors for hypocalcemia include elevated Alk Phos, CrCl <50, pre-existing hypocalcemia. Once therapy is started will check calcium, including phos once a week for 4 weeks then every 3 months with therapy 1. Delvin Marquez, Moses T, Ricarda J, Kriss T, Joycelyn A, N, Ashley KK. Denosumab in chronic kidney disease: a narrative review of treatment efficacy and safety. Arch Osteoporos. 2020Mar 25;16(1):116. doi: 10.1007/[id number]. PMID: [id number]. Plan I spent 45 minutes reviewing the record and labs, seeing the patient, discussing the treatment plan, printing documents about diagnosis and documenting in the medical record Orders: Orders Uric Acid Today M1A.9XX1 - Chronic gout, unspecified, with tophus (tophi) Vitamin D 25-OH (D2 and D3) Today M15.4 - Erosive (osteo)arthritis Parathyroid Hormone Intact Today M15.4 - Erosive (osteo)arthritis Comprehensive Met. Panel Today M15.4 - Erosive (osteo)arthritis Protein Electrophoresis, Serum Today M15.4 - Erosive (osteo)arthritis Coding Level of Care Code Est Pt Level 5 (52874) Complex EM visit Add On G2211 Diagnoses Erosive osteoarthritis of both hands M15.4 Tophaceous gout M1A.9XX1 Age-related osteoporosis without current pathological fracture M81.0 Osteoporosis type: age-related Presence of current pathological fracture: without current pathological fracture Encounter for monitoring denosumab therapy Z51.81; Z79.620
--- OUTSIDE RECORDS SUMMARY | 2024-08-08 07:10 | XMS_ITS | Patient Health Record ---
Author Organization [facility] Address [address] [place] [address] Care Team Providers Care Electrician Office Name Role Phone Roberto Mckinney Primary Care Provider Von Velasquez Unavailable [phone] Allergies Allergen (clinical drug ingredient) Drug/Non Drug Allergy documented on EMR Reaction Allergy Type Onset Date Status amoxicillin Amoxicillin anaphylaxis Drug Allergy A ctive Codeine Phosphate anaphylaxis Drug Allergy Active Penicillin anaphylaxis Drug Allergy Acti ve Results Component Value Reference Range Notes HEMOGLOBIN A1C (GLYCOHEMOGLO BIN) Reviewed date:05/23/2024 03:07:38 PM Interpretation: Performing Lab: Notes/Report: TOTAL HEMOGLOBIN (HGBA1C) 6.9 Reason For Referral No Information Medications Medication SIG (Take, Route, Frequency, Duration) Notes Start Date End Date Status Meclizine HCl prn PRN Active Furosemide 80mg AM 60mg PM Daily Active Farxiga 5 MG 1 tablet Orally Once a day Active dilTIAZem HCl ER 240 MG TK 1 C PO ON ANEMPTY STOMACH QD Oral for 90 Not-Taking Actos Not-Taking amLODIPine Besylate Not-Taking oxyCODONE-Acetaminop hen Not-Taking glipiZIDE 5 MG 1 tablet Orally Once a day Not-Taking glyBURIDE Not-Taking Cartia XT Not-Taking Latanoprost 0.005 % 1 drop into affected eye in the evening Ophthalmic Once a day Active Tylenol Active Lantus Active Multivitamin Active metFORMIN HCl Not-Ta daysi Trulicity Active Diovan Not-Taking Systane Active Plavix 75 MG 1 tablet Orally A ctive metOLazone 2.5 MG 1 tablet Orally Two times a Week for 30 day(s) Active Colchicine Not-Takin g Aspirin 81 MG 1 tablet Once a day Not-Taking Extra Depth Orthopedic Shoes (1 Pair) with Customized Heat Molded Multidensity Innersoles (3 Pair) as directed Dx: IDDM/Polyneuropathy (E10.42), Hammertoe Foot Deformity (M20.41,M20.42), Preulcerative Skin Lesion(s) (L85.1) 10/10/2023 Active Bernadette Allergy Acti ve Dorzolamide-Timolol Not-Taking Dorzolamide HCl-Timolol Mal Not-Taking Coumadin Not-Taking Fexofenadine HCl Not -Taking amLODIPine Besylate Active Allopurinol 100 MG as directed Orally twice a day Active eliquis Active Amiodarone HCl Activ e Clopidogrel Bisulfate Active HumaLOG 10unit prn Activ e Calcium Active Clindamycin HCl PRN dentist Ac tive Atorvastatin Calcium 10 MG as directed Orally Active Immunizations Vaccine Route Administration Date Status Comme nts COVID-19 Pfizer BioNTech Vaccine Unknown 06/08/2022 Administered 10/13/20,11/03/20 07/01/21 Influenza Unknown 05/01/2007 Administered Influenza Unknown 05/02/2017 Administered Influenza Unknown 05/29/2018 Administered Influenza Unknown 04/30/2019 Administered Influenza Unknown 06/08/2022 Administered Social History Tobacco Use: Social History Observation Description Date Details (start date - stop date) Never Smoker NA - NA Tobacco Use/Smoking Question Answer Notes Are you a: nonsmoker Additional Findings: Tobacco Non-User Current no n-smoker Alcohol Screen Question Answer Notes Did you have a drink containing alcohol in the p ast year? No Points 0 Interpretation Negative Tobacco use other than smoking: Question Answer Notes Are you an other tobacco user? No Problems Problem Type SNOMED Code ICD Code Onset Dates Problem Status W/U Status Risk Notes Problem Acquired hammer toe of right foot (2308450338862524 ) Other hammer toe(s) (acquired), right foot (M20.41) Active confirmed Response to treatment, Improvemen t Problem Acquired hammer toe of left foot (6949814177416822 ) Other hammer toe(s) (acquired), left foot (M20.42) Active confirmed Response to treatment, Improvemen t Problem Polyneuropathy due to diabetes mellitus type I (256550118) Type 1 diabetes mellitus with diabetic polyneuropathy (E10.42) Active confirmed Vital Signs Height 5 ft 6 in in 05/23/2024 Weight 207 lbs 05/23/2024 BMI 33.41 kg/m2 05/23/2024 Procedures Procedure Date Ordered Date Performed Result Body Sit e 09412-PNABNLP NAIL, 6 OR MORE 10/10/2023 N/A 96440-GBUI SKIN LESIONS, OVER 4 10/10/2023 N/A 21477-DFYHKNP NAIL, 6 OR MORE 12/19/2023 N/A 81755 I&D ABSCESS- SIMPLE,SINGLE 12/19/2023 N/A 71547-BWCP SKIN LESIONS, OVER 4 12/19/2023 N/A 45340-JYTIUHK NAIL, 6 OR MORE 03/07/2024 N/A 80772-YSVL SKIN LESIONS, OVER 4 03/07/2024 N/A 80380-WAPKTJD NAIL, 6 OR MORE 05/23/2024 N/A 44459-FMXD SKIN LESIONS, OVER 4 05/23/2024 N/A Encounters Encounter Location Date Provider Diagnosis [address] [address] 10/10/2023 Von Mejia Type 1 diabetes mellitus with diabetic polyneuropathy E10.42 ; Tinea unguium B35.1 ; Other hammer toe(s) (acquired), right foot M20.41 and Other hammer toe(s) (acquired), left foot M20.[address] [address] 12/19/2023 Vonterrence Mejia Type 1 diabetes mellitus with diabetic polyneuropathy E10.42 ; Tinea unguium B35.1 and Abscess of toe, left L02.[address] [address] 03/07/2024 Vonterrence Mejia Type 1 diabetes mellitus with diabetic polyneuropathy E10.42 and Tinea unguium B35.[address] [address] 05/23/2024 Von Mejia Type 1 diabetes mellitus with diabetic polyneuropathy E10.42 ; Tinea unguium B35.1 ; Other hammer toe(s) (acquired), right foot M20.41 and Other hammer toe(s) (acquired), left foot M20.42 Assessments Encounter Date Diagnosis (ICD Code) Assessment Notes Treatment Notes Treatment Clinical Notes Section Notes 10/10/2023 Type 1 diabetes mellitus with diabetic polyneuropathy (ICD-10 - E10.42) 12/19/2023 Type 1 diabetes mellitus with diabetic polyneuropathy (ICD-10 - E10.42) 12/19/2023 Tinea unguium (ICD-10 - B35.1) 03/07/2024 Type 1 diabetes mellitus with diabetic polyneuropathy (ICD-10 - E10.42) 03/07/2024 Tinea unguium (ICD-10 - B35.1) 10/10/2023 Tinea unguium (ICD-10 - B35.1) 05/23/2024 Type 1 diabetes mellitus with diabetic polyneuropathy (ICD-10 - E10.42) 05/23/2024 Tinea unguium (ICD-10 - B35.1) 05/23/2024 Other hammer toe(s) (acquired), right foot (ICD-10 - M20.41) Response to treatment,Impro vement 12/19/2023 Abscess of toe, left (ICD-10 - L02.612) Patient Educated with: WOUND CARE INSTRUCTIONS. pdf (WOUND CARE INSTRUCTIONS. pdf) 10/10/2023 Other hammer toe(s) (acquired), right foot (ICD-10 - M20.41) Patient Educated with: DIABETIC FOOT CARE INSTRUCTIONS. pdf (DIABETIC FOOT CARE INSTRUCTIONS. pdf) 05/23/2024 Other hammer toe(s) (acquired), left foot (ICD-10 - M20.42) Response to treatment,Impro vement 10/10/2023 Other hammer toe(s) (acquired), left foot (ICD-10 - M20.42) 10/10/2023 Other 12/19/2023 Other Patient Educated with: WOUND CARE INSTRUCTIONS. pdf (WOUND CARE INSTRUCTIONS. pdf) 03/07/2024 Other 05/23/2024 Other Plan Of Treatment Pending Test Test Name Order Date Hemoglobin A1c 09/19/2015 43422-KUHKFWI NAIL, 6 OR MORE 12/26/2015 40241-MJOXGJC NAIL, 6 OR MORE 03/26/2016 30072-MGZAFRM NAIL, 6 OR MORE 06/17/2015 48485-BGSSTHE NAIL, 6 OR MORE 12/03/2014 91877-AIIOBEB NAIL, 6 OR MORE 03/11/2015 59891-PSXIOCI NAIL, 6 OR MORE 02/26/2014 69158-ORPPCPS NAIL, 6 OR MORE 11/20/2013 41900-REULXMJ NAIL, 6 OR MORE 06/04/2014 26227-RCOZKCX NAIL, 6 OR MORE 09/03/2014 71017-VZDUTVG NAIL, 6 OR MORE 04/23/2011 74896-YJXMTET NAIL, 6 OR MORE 07/16/2011 08800-WPHBMHN NAIL, 6 OR MORE 10/15/2011 76063-JTMGXHK NAIL, 6 OR MORE 12/31/2011 14451-YKNRBVZ NAIL, 6 OR MORE 03/17/2012 27666-ARPJUAZ NAIL, 6 OR MORE 05/26/2012 29358-NWJOAUN NAIL, 6 OR MORE 08/11/2012 81931-NIBZMYD NAIL, 6 OR MORE 11/17/2012 30556-OFZGAON NAIL, 6 OR MORE 02/02/2013 45735-HZCKKQE NAIL, 6 OR MORE 05/08/2013 03654-DXSVOWE NAIL, 6 OR MORE 08/07/2013 44417-LDPKBOX NAIL, 6 OR MORE 06/25/2016 29449-HEVSSYE NAIL, 6 OR MORE 09/24/2016 36314-UOQZGZE NAIL, 6 OR MORE 12/03/2016 49581-ZCHLGIO NAIL, 6 OR MORE 09/19/2015 98977-IIXEBIF NAIL, 6 OR MORE 02/08/2017 95336-KGVFKEC NAIL, 6 OR MORE 04/12/2017 37140-DUBUMGG NAIL, 6 OR MORE 06/24/2017 08927-NJDPDKE NAIL, 6 OR MORE 10/04/2017 58154-DCOBHEQ NAIL, 6 OR MORE 12/23/2017 14596-LHLMCSS NAIL, 6 OR MORE 02/24/2018 44256-KLNTSLM NAIL, 6 OR MORE 06/27/2018 60747-KKQWQJA NAIL, 6 OR MORE 09/26/2018 67877-MRFQJQK NAIL, 6 OR MORE 12/26/2018 28002-JXNUNJU NAIL, 6 OR MORE 02/27/2019 50393-QGLJZGD NAIL, 6 OR MORE 06/01/2019 65570-PVTZEMZ NAIL, 6 OR MORE 08/10/2019 90223-GTMAVYY NAIL, 6 OR MORE 10/12/2019 35121-SIIJDQM NAIL, 6 OR MORE 12/18/2019 73896-JGYAYVD NAIL, 6 OR MORE 02/22/2020 75585-BTYIXRS NAIL, 6 OR MORE 04/29/2020 86585-BGLFPTU NAIL, 6 OR MORE 07/08/2020 25187-DRIYOOR NAIL, 6 OR MORE 09/09/2020 73874-ZOFDWNH NAIL, 6 OR MORE 11/18/2020 21991-JAFHLYV NAIL, 6 OR MORE 01/20/2021 37658-YJOOSPW NAIL, 6 OR MORE 03/24/2021 82335-HFOUKUR NAIL, 6 OR MORE 07/07/2021 38023-SCANTAN NAIL, 6 OR MORE 09/15/2021 70013-PDPJECN NAIL, 6 OR MORE 12/01/2021 75879-AUMXFOP NAIL, 6 OR MORE 03/12/2022 27577-WCNYEDG NAIL, 6 OR MORE 06/25/2022 56765-CRJBORN NAIL, 6 OR MORE 09/03/2022 06786-NMHEPXG NAIL, 6 OR MORE 11/23/2022 36040-ADNQKVN NAIL, 6 OR MORE 01/26/2023 34087-UUUDDJK NAIL, 6 OR MORE 04/06/2023 05359-YSPBJSE NAIL, 6 OR MORE 08/01/2023 90516-XEEFZMZ NAIL, 6 OR MORE 10/10/2023 80305-JZFLJRC NAIL, 6 OR MORE 12/19/2023 57981-BKIMWVB NAIL, 6 OR MORE 03/07/2024 00719-BEJRTIM NAIL, 6 OR MORE 05/23/2024 49749-Xqvlahqt Plate 08/01/2023 00902-Bgmrzeqd Plate 09/24/2016 13559-Zxklprrw Plate 08/07/2013 21782-Acyqohgl Plate 05/08/2013 74060-Nwnnofmh Plate 02/02/2013 00009-Eathuwyq Plate 11/17/2012 32969-Rbcehfaa Plate 08/11/2012 89700-Kbkxiwsz Plate 04/23/2011 84148-Dperzkoj Plate 12/31/2011 19029-Urfcqyfo Plate 09/03/2014 15167-Idyiqtnw Plate 06/04/2014 45187-Vikivvqu Plate 11/20/2013 99122-Krmshtcw Plate 02/26/2014 03034-Gmvgulml Plate 03/11/2015 62336-Adgiqdnw Plate 12/03/2014 00233-Tsufpkvm Plate 06/17/2015 41850-Xqejaisf Plate 09/19/2015 61939-Wiomdwrb Plate Each Additional 02/2015 33488-Dyyslzdv Plate Each Additional 02/2014 27382-Wznnroti Plate Each Additional 01/2015 92918-Xyvfgnqh Plate Each Additional 55484-Ifcdywgd Plate Each Additional 69839-Xbglpjfo Plate Each Additional 02/2013 96605-Dywcktld Plate Each Additional 05/2013 57072- Debride <25 sq cm 08/17/2013 03955 I&D ABSCESS- SIMPLE,SINGLE 013 49932 I&D ABSCESS- SIMPLE,SINGLE 014 62622 I&D ABSCESS- SIMPLE,SINGLE 014 36305 I&D ABSCESS- SIMPLE,SINGLE 015 69385 I&D ABSCESS- SIMPLE,SINGLE 016 62079 I&D ABSCESS- SIMPLE,SINGLE 016 94044 I&D ABSCESS- SIMPLE,SINGLE 017 93619 I&D ABSCESS- SIMPLE,SINGLE 017 25271 I&D ABSCESS- SIMPLE,SINGLE 024 53931 I&D ABSCESS- SIMPLE,SINGLE 019 79137 I&D ABSCESS- SIMPLE,SINGLE 023 77846- I&D ABSCESS-COMPLICATED,MULTI 08/2013 47879-XDSZ SKIN LESIONS, OVER 4 04/12/20 17 42782-WBXN SKIN LESIONS, OVER 4 10/04/19 18 53429-YOUK SKIN LESIONS, OVER 4 06/24/20 17 94271-QCOK SKIN LESIONS, OVER 4 02/09/20 17 47592-YGBG SKIN LESIONS, OVER 4 08/10/20 19 57526-EBLH SKIN LESIONS, OVER 4 06/01/20 19 34779-YIFL SKIN LESIONS, OVER 4 02/28/20 19 46865-PAFA SKIN LESIONS, OVER 4 12/27/19 19 19459-ZKMC SKIN LESIONS, OVER 4 09/26/19 19 80683-VEMO SKIN LESIONS, OVER 4 06/27/20 71060-ABZA SKIN LESIONS, OVER 4 02/25/20 78812-RBKB SKIN LESIONS, OVER 4 12/24/19 18 68852-HHPM SKIN LESIONS, OVER 4 11/24/19 04210-SSFY SKIN LESIONS, OVER 4 09/03/19 41057-GFFG SKIN LESIONS, OVER 4 06/25/20 05972-IQYS SKIN LESIONS, OVER 4 03/12/20 43672-NVHY SKIN LESIONS, OVER 4 12/02/19 34056-LXSD SKIN LESIONS, OVER 4 09/15/19 78945-DPDY SKIN LESIONS, OVER 4 07/07/20 17775-OCXH SKIN LESIONS, OVER 4 03/24/20 19293-SDOD SKIN LESIONS, OVER 4 01/21/20 84971-XEWT SKIN LESIONS, OVER 4 11/19/19 41555-KJKC SKIN LESIONS, OVER 4 09/09/19 75107-XFJW SKIN LESIONS, OVER 4 07/08/20 56027-FDHV SKIN LESIONS, OVER 4 04/29/20 29151-YZHZ SKIN LESIONS, OVER 4 02/22/20 87962-RSDI SKIN LESIONS, OVER 4 12/18/19 55694-LOYZ SKIN LESIONS, OVER 4 10/12/19 22528-NZYZ SKIN LESIONS, OVER 4 01/27/20 04588-HHWX SKIN LESIONS, OVER 4 08/01/20 94037-IGWP SKIN LESIONS, OVER 4 04/06/20 45814-NSZU SKIN LESIONS, OVER 4 03/07/20 98264-XPER SKIN LESIONS, OVER 4 12/19/19 74928-ETVH SKIN LESIONS, OVER 4 10/10/19 24 43814-PRVM SKIN LESIONS, OVER 4 05/23/20 11938-BFMV SKIN LESIONS, 2 TO 4 12/04/19 17 10528-LFKW SKIN LESIONS, 2 TO 4 06/25/20 16 79266-WMKI SKIN LESIONS, 2 TO 4 09/24/19 17 45784-MQTJ SKIN LESIONS, 2 TO 4 11/21/19 14 38681-QOLC SKIN LESIONS, 2 TO 4 02/27/20 14 50154-RSAK SKIN LESIONS, 2 TO 4 09/03/19 15 27059-UVPM SKIN LESIONS, 2 TO 4 06/04/20 14 05372-DAWE SKIN LESIONS, 2 TO 4 12/26/19 16 27647-GTRU SKIN LESIONS, 2 TO 4 03/26/20 16 95305-QBVQ SKIN LESIONS, 2 TO 4 09/19/19 16 44131-UIXV SKIN LESIONS, 2 TO 4 06/17/20 15 06824-LJAC SKIN LESIONS, 2 TO 4 03/11/20 15 62458-FWDK SKIN LESIONS, 2 TO 4 12/04/19 15 90605-BFKY SKIN LESIONS, 2 TO 4 08/07/20 13 95321-ODMU SKIN LESIONS, 2 TO 4 05/08/20 13 47172-BMHD SKIN LESIONS, 2 TO 4 02/03/20 13 81523-WOYT SKIN LESIONS, 2 TO 4 11/18/19 13 84966-XRWH SKIN LESIONS, 2 TO 4 08/11/20 12 63414-RMTN SKIN LESIONS, 2 TO 4 05/26/20 12 30445-TBZQ SKIN LESIONS, 2 TO 4 03/17/20 12 25342-WKEO SKIN LESIONS, 2 TO 4 12/31/19 12 35505-VHFH SKIN LESIONS, 2 TO 4 10/15/19 12 07231-WUSZ SKIN LESIONS, 2 TO 4 04/23/20 11 84118-RVJN SKIN LESIONS, 2 TO 4 07/16/20 11 Next Appt Details Provider Name:[place] Roberto , 08/15/2024 12:30:00 PM, [facility] [address], [place], [address], Insurance Providers Payer Name Payer Address Payer Phone Subscriber Number Group Number Insured Name Patient Relationship to Insured Coverage Start Date Coverage End Date Medicare National [employer] [address] [facility] [place] [address] [id number] Allie Gonzalez Self - patient is the insured [employer] [facility] [address] [place] [address] [id number] Allie Gonzalez Self - patient is the insured Medical (General) History Medical History History ICD Code Arthritis back, hip, knee pain broken bones chicken pox chronic sinusitis Diabetic type ll gall bladder problems hypertension measles mumps rheumatic fever transfusions vertigo Surgical History Surgery Date(Month/Year) cholecystectomy 1973 hysterectomy 1981 Right Hip Replacement 10/21/2015 LT eye cataract surgery 06/21/17 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 06/2015
--- OUTSIDE RECORDS SUMMARY | 2024-08-08 07:10 | XMS_ITS ---
Author Organization [facility] Address [address] [place] [address] Care Team Providers Care Tech Brazer Tester Name Role Phone Roberto Mckinney Primary Care Provider Von Velasquez Unavailable [phone] Allergies Allergen (clinical drug ingredient) Drug/Non Drug Allergy documented on EMR Reaction Allergy Type Onset Date Status amoxicillin Amoxicillin anaphylaxis Drug Allergy A ctive Codeine Phosphate anaphylaxis Drug Allergy Active Penicillin anaphylaxis Drug Allergy Acti ve REASON FOR VISIT At Risk Footcare, Toe Irritation Medications Medication SIG (Take, Route, Frequency, Duration) Notes Start Date End Date Status Actos Not-Taking amLODIPine Besylate Not-Taking oxyCODONE-Acetaminop hen Not-Taking glyBURIDE Not-Taking Cartia XT Not-Taking glipiZIDE 5 MG 1 tablet Orally Once a day Not-Taking Dorzolamide-Timolol Not-Taking dilTIAZem HCl ER 240 MG TK 1 C PO ON ANEMPTY STOMACH QD Oral for 90 Not-Taking metFORMIN HCl Not-Ta daysi Diovan Not-Taking Colchicine Not-Takin g Aspirin 81 MG 1 tablet Once a day Not-Taking Dorzolamide HCl-Timolol Mal Not-Taking Coumadin Not-Taking Fexofenadine HCl Not -Taking Extra Depth Orthopedic Shoes (1 Pair) with Customized Heat Molded Multidensity Innersoles (3 Pair) as directed Dx: IDDM/Polyneuropathy (E10.42), Hammertoe Foot Deformity (M20.41,M20.42), Preulcerative Skin Lesion(s) (L85.1) 10/10/2023 Active Bernadette Allergy Acti ve HumaLOG 10unit prn Activ e Trulicity Active Systane Active Latanoprost 0.005 % 1 drop into affected eye in the evening Ophthalmic Once a day Active Tylenol Active Lantus Active Multivitamin Active Plavix 75 MG 1 tablet Orally A ctive Meclizine HCl prn PRN Active Furosemide 80mg AM 60mg PM Daily Active Farxiga 5 MG 1 tablet Orally Once a day Active Clopidogrel Bisulfate Active Calcium Active amLODIPine Besylate Active Allopurinol 100 MG as directed Orally twice a day Active eliquis Active Clindamycin HCl PRN dentist Ac tive Atorvastatin Calcium 10 MG as directed Orally Active metOLazone 2.5 MG 1 tablet Orally Two times a Week for 30 day(s) Active Amiodarone HCl Activ e Social History Tobacco Use: Social History Observation [...] Are you an other tobacco user? No Vital Signs Height 5 ft 6 in in 05/23/2024 Weight 207 lbs 05/23/2024 BMI 33.41 kg/m2 05/23/2024 Procedures Procedure Date Ordered Date Performed Result Body Sit e 94095-REQBJXT NAIL, 6 OR MORE 05/23/2024 N/A 71080-JKPY SKIN LESIONS, OVER 4 05/23/2024 N/A Encounters Encounter Location Date Provider Diagnosis [facility] [address] [address] 05/23/2024 Von Mejia Type 1 diabetes mellitus with diabetic polyneuropathy E10.42 ; Tinea unguium B35.1 ; Other hammer toe(s) (acquired), right foot M20.41 and Other hammer toe(s) (acquired), left foot M20.42 Assessments Encounter Date Diagnosis (ICD Code) Assessment Notes Treatment Notes Treatment Clinical Notes Section Notes 05/23/2024 Type 1 diabetes mellitus with diabetic polyneuropathy (ICD-10 - E10.42) 05/23/2024 Tinea unguium (ICD-10 - B35.1) 05/23/2024 Other hammer toe(s) (acquired), right foot (ICD-10 - M20.41) Response to treatment,Impro vement 05/23/2024 Other hammer toe(s) (acquired), left foot (ICD-10 - M20.42) Response to treatment,Impro vement 05/23/2024 Other Plan Of Treatment Pending Test Test Name Order Date [id number] NAIL, 6 OR MORE 05/23/2024 91239-ACOL SKIN LESIONS, OVER 4 05/23/20 24 Next Appt Details Follow Up: prn, Reason: Provider Name:Von Mejia , 08/15/2024 12:30:00 PM, [address] , [address], [place], [address], Procedure Notes * Category Sub-Category Detail Notes Debride Nail 6-10 Nail debridement Performance o f this nail treatment by a nonprofessional would put this patients foot and overall health at risk. Therefore, nail debridement was performed extensively to reduce/remove overall nail length, girth, thickness, subungual debris, and necrotic tissue, by manual and/or electrical means through the use of a nail nipper and/or dremel-type internal grinder tender, to a more viable healthy nail plate or bed tissue 6-10. Silver nitrate used for any petechial bleeding as necessary. Definitive antifungal treatment options have been reviewed and discussed with the patient. The patient chooses, no pharmaceutical tx - 23300 Keratoma Treatment Parring or Cutting o f Benign Hyperkeratotic Lesion(s) (-57) More than 4 Lesions - The Benign hyperkeratotic lesions, as described above were pared, and/or cut utilizing a sterile 15 blade, tissue nippers, and/or dremel - 92585 Progress Notes * Allie GOZNALEZ MDOB: [birth year] (88 yo F)Acc No.[id number]:05/23/2024 Progress Note Patient:?Allie Gonzalez Provider:?Von Mejia DPM :1935???Age:88 Y???Sex:Female D ate:05/23/2024 Address:[address] [place], [place] [id number] Pcp:Roberto Mckinney Subjective: * Chief Complaints: * ???At Risk FootcareToe Irrit ation * HPI: ???At Risk footcare:?Pt States Last PCP Visit:?Date?05/08/2024 ???Toe pain:?Treatments:?Rx shoes.? * ROS:?General/Constitutional:?Nausea?denies.?Vomiting?denies.?Hunger Thirst?denies.?Loss appetite?denies.?Chills?denies.?Fatigue?denies.?Fever?denies.?Night Sweats?denies.?Unexplained weight loss?denies.?Ophthalmologic:?Blurred vision?denies.?Red eye?denies.?HEENTM:?Dentures?denies.?Dizziness?denies.?Glasses/contacts?admits.?Retinopathy?de nies.?Blurred/double vision?denies.?TMJ?denies.?Discharge/drainage?denies.?Implants?denies.?Hard of hearing denies.?Difficulty chewing/swallowing/speaking?denies.?Nose bleeds?denies.?Sore mouth?denies.?Swollen glands?denies.?Respiratory:?On Oxygen?denies.?Pneumonia/pleurisy?denies.?Bronchitis?denies.?Emphysema?denies.?C oughing?denies.?Cough blood?denies.?Shortness of breath?denies.?Wheezing?denies.?Cardiovascular:?Pacemaker?denies.?MVP?denies.?WPW?denies.?CHF?denies.?Heart attack?denies.?Septal defect?denies.?Rapid beat?denies.?Chest pain ?denies.?Atrial Fib.?denies.?Murmur/Palpitations?denies.?Gastrointestinal:?Hemorrhoids?denies.?Stomach/Abdominal pain?denies.?Dark blood stool?denies.?Irritable bowel ?denies.?Constipation?denies.?Diarrhea?denies.?Vomiting?denies.?Hematology:?Swelling?admits.?Bruising??admits, on anticoagulants.?Bleeding problem??admits, on anticoagulants.?Genitourinary:?Blood urine?denies.?Frequent/Painfu/urination/bladder control?denies.?Kidney stones?denies.?Infection (UTI)?denies.?Nephropathy?denies.?Musculoskeletal:?Hammertoes?admits.?Bunions?denies.?Scoliosis/kyphosis?denies.?Muscle cramps / walking?denies.?Generalized aches and pains?denies.?Weakness?denies.?Integ.:?Beckman?denies.?Scars?denies.?Corns/calluses?admits.?Ingrown nails?admits.?Painful nails?denies.?Rashes?denies.?Neurologic:?Difficulty sleeping?denies.?Bipolar?denies.?Brain disorder?denies.?Balance trouble?denies.?Confusion?denies.?Fainting/blackouts?denies.?Headache?denies.?Tr emors?denies.? * Medical History:? * Surgical History:?cholecyste ctomy 1973hysterectomy 1981Right Hip Replacement 10/21/2015LT eye cataract surgery 06/21/17cardiac pacemeker 04/2021Heart valve surgery 10/02/21 * Hospitalization/Major Diagno stic Procedure:?Pt went to [facility] for heart catherization. 06/2015[facility] for Hip Replacement 10/21/15pneumonia 5 day stay rehab 1 month due to pace maker HF 05/2023[facility] * Family History:?Mother: dece ased, diagnosed with Family history of arthritis, Diabetic - NIDDM.?Father: , diagnosed with Diabetic - NIDDM.?Spouse: .?3 son(s) , 1 daughter(s) . .? * Social History:?Tobacco Use:?Tobacco Use/Smoking?Are you a:?nonsmoker ?Additional Findings: Tobacco Non-User?Current non-smoker ?Tobacco use other than smoking?Are you an other tobacco user??No ???Drugs/Alcohol:?Drugs?Have you used drugs other than those for medical reasons in the past 12 months??No ?Alcohol Screen?Did you have a drink containing alcohol in the past year??No ?Points?0 ?Interpretation?Negative ???Miscellaneous:?Caffeine: yes, frequency:, 1-2 cups per day. ?Children: yes, 4. ?Exercise: yes, housework, Cardiac Rehab 3 times per week. ?Marital status: . ?Occupation: Retired. * Medications:?TakingmetOLazon e 2.5 MG Tablet 1 tablet Orally Two times a WeekAmiodarone HCl eliquis Allopurinol 100 MG Tablet as directed Orally twice a dayamLODIPine Besylate Atorvastatin Calcium 10 MG Tablet as directed Orally Clindamycin HCl , Notes: PRN dentistCalcium Clopidogrel Bisulfate Farxiga 5 MG Tablet 1 tablet Orally Once a dayFurosemide , Notes: 80mg AM 60mg PM DailyMeclizine HCl prn , Notes: PRNMultivitamin Lantus Tylenol Latanoprost 0.005 % Solution 1 drop into affected eye in the evening Ophthalmic Once a dayPlavix 75 MG Tablet 1 tablet Orally Systane Trulicity HumaLOG 10unit , Notes: prnAllegra Allergy Extra Depth Orthopedic Shoes (1 Pair) with Customized Heat Molded Multidensity Innersoles (3 Pair) as directed Dx: IDDM/Polyneuropathy (E10.42), Hammertoe Foot Deformity (M20.41,M20.42), Preulcerative Skin Lesion(s) (L85.1)Taking metOLazone 2.5 MG Tablet 1 tablet Orally Two times a WeekTaking Amiodarone HCl Taking eliquis Taking Allopurinol 100 MG Tablet as directed Orally twice a dayTaking amLODIPine Besylate Taking Atorvastatin Calcium 10 MG Tablet as directed Orally Taking Clindamycin HCl , Notes: PRN dentistTaking Calcium Taking Clopidogrel Bisulfate Taking Farxiga 5 MG Tablet 1 tablet Orally Once a dayTaking Furosemide , Notes: 80mg AM 60mg PM DailyTaking Meclizine HCl prn , Notes: PRNTaking Multivitamin Taking Lantus Taking Tylenol Taking Latanoprost 0.005 % Solution 1 drop into affected eye in the evening Ophthalmic Once a dayTaking Plavix 75 MG Tablet 1 tablet Orally Taking Systane Taking Trulicity Taking HumaLOG 10unit , Notes: prnTaking Bernadette Allergy Taking Extra Depth Orthopedic Shoes (1 Pair) with Customized Heat Molded Multidensity Innersoles (3 Pair) as directed Dx: IDDM/Polyneuropathy (E10.42), Hammertoe Foot Deformity (M20.41,M20.42), Preulcerative Skin Lesion(s) (L85.1)Not-Taking/PRNAspirin 81 MG 1 tablet Once a dayColchicine Fexofenadine HCl Coumadin Dorzolamide HCl-Timolol Mal Dorzolamide-Timolol dilTIAZem HCl ER 240 MG Capsule Extended Release 24 Hour TK 1 C PO ON ANEMPTY STOMACH QD Oral Diovan metFORMIN HCl glipiZIDE 5 MG Tablet 1 tablet Orally Once a dayoxyCODONE-Acetaminophen amLODIPine Besylate Actos Cartia XT glyBURIDE Medication List reviewed and reconciled with the patientNot-Taking/PRN Aspirin 81 MG 1 tablet Once a dayNot-Taking/PRN Colchicine Not-Taking/PRN Fexofenadine HCl Not- Taking/PRN Coumadin Not-Taking/PRN Dorzolamide HCl-Timolol Mal Not-Taking/PRN Dorzolamide-Timolol Not-Taking/PRN dilTIAZem HCl ER 240 MG Capsule Extended Release 24 Hour TK 1 C PO ON ANEMPTY STOMACH QD Oral Not-Taking/PRN Diovan Not- Taking/PRN metFORMIN HCl Not-Taking/PRN glipiZIDE 5 MG Tablet 1 tablet Orally Once a dayNot-Taking/PRN oxyCODONE-Acetaminophen Not-Taking/PRN amLODIPine Besylate Not-Taking/PRN Actos Not-Taking/PRN Cartia XT Not-Taking/PRN glyBURIDE Medication List reviewed and reconciled with the patient * Allergies:?Codeine Phosphate : anaphylaxisAmoxicillin: anaphylaxisPenicillin: anaphylaxisyes[Allergies Verified] Objective: * Vitals:?Ht: 5 ft 6 in, Wt: 2 07, BMI: 33.41, Shoe size: 10, BS: 121, Wt-k.89 kg. * ???Past Orders: ???Lab:HEMOGLOBIN A1C (GLYCO HEMOGLOBIN) (Order Date - 05/23/2024) (Collection Date - 05/23/2024) ? Value Reference Range ?TOTAL HEMOGLOBIN (HGBA1C) 6.9 * Examination: ???Neurological: ?SENSORY:?Neurological exam demonstrates, reduced light touch sensation, B/L, reduced sharp/dull pin prick discrimination , 5.07 monofilament test performed at plantar aspects of 5 varied sites per foot shows sensation, reduced, B/L, Pt still relates tingling, burning, anesthesia, pins and needles sensation, shooting sensation, B/L.?Nails: ?NAILS are:?Elongated, overgrown, dystrophic, lytic, greater than 3mm thick, discolored and friable with crumbly malodorous subungual debris, TA, T1, T3, T4, T5, T6, T8, T9.?Dermatologic: ?SKIN FINDINGS:?Skin exam reveals Keratotic lesion(s) located at Medial, IPJ, TA, Dorsal, PIPJ, T4, Medial, IPJ, T5, Dorsal, PIPJ, T6, Dorsal, PIPJ, T9, SUB MTH (s), 1, B/L, Heel(s) , B/L .?Orthopedic: ?DIGITAL DEFORMITIES:?Digital contracture, PIPJ, 2-5 B/L, incompl-reducible to push-up test, no over, nor underlapping, no longer, with evidence of shoe producing skin irritation.?FOOTWEAR:?good condition, exhibit proper fit and accommodation for pedal deformities. OT were inspected and noted to be worn, but in good condition giving proper support at the present time.? Assessment: * Assessment: 1.?Type 1 diabetes mellitus with diabetic polyneuropathy - E10.42?2.?Tinea unguium - B35.1?3.?Other hammer toe(s) (acquired), right foot - M20.41, Chronic problem, Stable (1=3,2=4), Response to treatment,Improvement?4.?Other hammer toe(s) (acquired), left foot - M20.42, Chronic problem, Stable (1=3,2=4), Response to treatment,Improvement? Plan: * Treatment: * Procedures:?Debride Nail 6-10:?Nail debridement?Performance of this nail treatment by a nonprofessional would put this patients foot and overall health at risk. Therefore, nail debridement was performed extensively to reduce/remove overall nail length, girth, thickness, subungual debris, and necrotic tissue, by manual and/or electrical means through the use of a nail nipper and/or dremel-type internal grinder tender, to a more viable healthy nail plate or bed tissue 6-10. Silver nitrate used for any petechial bleeding as necessary. Definitive antifungal treatment options have been reviewed and discussed with the patient. The patient chooses, no pharmaceutical tx - 14315.?Keratoma Treatment:?Parring or Cutting of Benign Hyperkeratotic Lesion(s)?(-57) More than 4 Lesions - The Benign hyperkeratotic lesions, as described above were pared, and/or cut utilizing a sterile 15 blade, tissue nippers, and/or dremel - 68134.? * Procedure Codes:?95465 DEBRI DE NAIL, 6 OR MORE, Modifiers: XS 69561 TRIM SKIN LESIONS, OVER 4, Modifiers: XS * Preventive Medicine:? ??Counseling:?Discussion:?-13: Office or other outpatient visit for the evaluation and management of an established patient, which required a medically appropriate history and/or examination and LOW level of DECISION MAKING for: 1 STABLE ACUTE UNCOMPLICATED PROBLEM, 2 OR MORE MINOR PROBLEMS, OR 1 STABLE CHRONIC PROBLEM, THAT POSE(S) A LOW RISK FOR MORBIDITY/MORTALITY. The visit on the day of the encounter encompassed interpreting the data and educating the patient as to the nature of their condition, treatment options available according to their individual PMH, meds, allergies, and overall health/living conditions, as well as any potential risks or complications that may occur from a failure to adhere to, and participate in, the recommended course of therapy. The discussion included a complete verbal, and/or written explanation of the examination results, any x-rays taken, the proposed diagnosis, and outline of the treatment plan. A schedule for future care needs was also explained. The patient verbalized an understanding of the instructions at this time and agreed to be an active participant in their treatment. If the patient should think of any questions or concerns after the visit, I have encouraged the patient to call the office.?Shoe Gear Counseling:?Patient to obtain shoes hopefully soon, A thorough inspection of the patients Rxed shoegear and inserts was performed and findings communicated. We reviewed the many important medical advantages for adhering to regularly wearing these shoe and insert accomidative devices daily as well as reviewed the fact that a failure in accepting these recommedations may be deleterious, unable to prevent, and disadvantagely result in, many pedal complications such as skin irritation, skin ulceration, infection, and even loss of toe/foot/leg/or even their life. Time was also spent reviewing the proper footcare techniques including daily skin moisturization, daily foot inspection for any interruption in skin integrity, open lesions, or sign of infection such as redness/malodor/drainage/swelling as well as daily shoe inspection for the presence of internal foreign bodies and shoe as well as insert wear. Patient questions re: shoes, inserts, and self foot inspections were answered to their satisfaction as the patient verbally confirmed a full understanding of the above information.? * Follow Up:?prn * Images: * Sign off status: Completed true * Provider:?Von Mejia DPM Date:?2023 Generated for Hanna haeys/Francois/Bhavna on:?08/08/2024 07:09 AM EST History and Physical Notes * HPI (History of Present Illness) Category Sub-Category Detail Notes Category Not es Toe pain Treatments: Rx shoes At Risk footcare Pt States Last PCP Visit: Date: 4 Examination Category Sub-Category Detail Notes Category Not es Neurological SENSORY: Neurological exa m demonstrates, reduced light touch sensation, B/L, reduced sharp/dull pin prick discrimination , 5.07 monofilament test performed at plantar aspects of 5 varied sites per foot shows sensation, reduced, B/L, Pt still relates tingling, burning, anesthesia, pins and needles sensation, shooting sensation, B/L Dermatologic SKIN FINDINGS: Skin exam reveal s Keratotic lesion(s) located at Medial, IPJ, TA, Dorsal, PIPJ, T4, Medial, IPJ, T5, Dorsal, PIPJ, T6, Dorsal, PIPJ, T9, SUB MTH (s), 1, B/L, Heel(s) , B/L Orthopedic FOOTWEAR: good condition, exhibit proper fit and accommodation for pedal deformities. OT were inspected and noted to be worn, but in good condition giving proper support at the present time DIGITAL DEFORMITIES: Digital contracture , PIPJ, 2-5 B/L, incompl-reducible to push-up test, no over, nor underlapping, no longer, with evidence of shoe producing skin irritation Nails NAILS are: Elongated, overg rown, dystrophic, lytic, greater than 3mm thick, discolored and friable with crumbly malodorous subungual debris, TA, T1, T3, T4, T5, T6, T8, T9
--- OUTSIDE RECORDS SUMMARY | 2024-08-08 07:10 | XMS_ITS ---
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 Name Role Phone Roberto Mckinney Primary Care Provider Von Velasquez Unavailable [phone] Allergies Allergen (clinical drug ingredient) Drug/Non Drug Allergy documented on EMR Reaction Allergy Type Onset Date Status amoxicillin Amoxicillin anaphylaxis Drug Allergy A ctive Codeine Phosphate anaphylaxis Drug Allergy Active Penicillin anaphylaxis Drug Allergy Acti ve REASON FOR VISIT At Risk Footcare, Possible Infection Medications Medication SIG (Take, Route, Frequency, Duration) Notes Start Date End Date Status glyBURIDE Not-Taking Cartia XT Not-Taking oxyCODONE-Acetaminop hen Not-Taking Actos Not-Taking amLODIPine Besylate Not-Taking metFORMIN HCl Not-Ta daysi Diovan Not-Taking dilTIAZem HCl ER 240 MG TK 1 C PO ON ANEMPTY STOMACH QD Oral for 90 Not-Taking Dorzolamide-Timolol Not-Taking glipiZIDE 5 MG 1 tablet Orally Once a day Not-Taking Coumadin Not-Taking Fexofenadine HCl Not -Taking Dorzolamide HCl-Timolol Mal Not-Taking Colchicine Not-Takin g Extra Depth Orthopedic Shoes (1 Pair) with Customized Heat Molded Multidensity Innersoles (3 Pair) as directed Dx: IDDM/Polyneuropathy (E10.42), Hammertoe Foot Deformity (M20.41,M20.42), Preulcerative Skin Lesion(s) (L85.1) 10/10/2023 Active Systane Active Plavix 75 MG 1 tablet Orally A ctive Trulicity Active Bernadette Allergy Acti ve HumaLOG 10unit Activ e Lantus Active Multivitamin Active Latanoprost 0.005 % 1 drop into affected eye in the evening Ophthalmic Once a day Active Tylenol Active Meclizine HCl prn PRN Active Clindamycin HCl PRN dentist Ac tive Clopidogrel Bisulfate Active Calcium Active Farxiga 5 MG 1 tablet Orally Once a day Active Furosemide 80mg AM 60mg PM Daily Active Atorvastatin Calcium 10 MG as directed Orally Active Allopurinol 100 MG as directed Orally twice a day Active eliquis Active Aspirin 81 MG 1 tablet Once a day Active amLODIPine Besylate Active Amiodarone HCl Activ e Social History [...] Signs Height 5 ft 6 in in 12/19/2023 Weight 208 lbs 12/19/2023 BMI 33.57 kg/m2 12/19/2023 Procedures Procedure Date Ordered Date Performed Result Body Sit e 68476-AFMJMGU NAIL, 6 OR MORE 12/19/2023 N/A 80795 I&D ABSCESS- SIMPLE,SINGLE 12/19/2023 N/A 29994-NPDV SKIN LESIONS, OVER 4 12/19/2023 N/A Encounters Encounter Location Date Provider Diagnosis [facility] [address] [address] 12/19/2023 Von Mejia Type 1 diabetes mellitus with diabetic polyneuropathy E10.42 ; Tinea unguium B35.1 and Abscess of toe, left L02.612 Assessments Encounter Date Diagnosis (ICD Code) Assessment Notes Treatment Notes Treatment Clinical Notes Section Notes 12/19/2023 Type 1 diabetes mellitus with diabetic polyneuropathy (ICD-10 - E10.42) 12/19/2023 Tinea unguium (ICD-10 - B35.1) 12/19/2023 Abscess of toe, left (ICD-10 - L02.612) Patient Educated with: WOUND CARE INSTRUCTIONS. pdf (WOUND CARE INSTRUCTIONS. pdf) 12/19/2023 Other Patient Educated with: WOUND CARE INSTRUCTIONS. pdf (WOUND CARE INSTRUCTIONS. pdf) Plan Of Treatment Treatment Notes Assessment Notes Abscess of toe, left Patient Educated wi th: WOUND CARE INSTRUCTIONS.pdf (WOUND CARE INSTRUCTIONS.pdf) Other Patient Educated wit h: WOUND CARE INSTRUCTIONS.pdf (WOUND CARE INSTRUCTIONS.pdf) Pending Test Test Name Order Date 33725-PZLPCXI NAIL, 6 OR MORE 12/19/2023 22597 I&D ABSCESS- SIMPLE,SINGLE 024 13287-EJKR SKIN LESIONS, OVER 4 12/19/19 24 Next Appt Details Follow Up: prn, Reason: Provider Name:Von Mejia , 08/15/2024 12:30:00 PM, [address] [facility], [address], [place], [address], Procedure Notes * Category Sub-Category Detail Notes Debride Nail 6-10 Nail debridement Nail debridem ent performed extensively to reduce/remove overall nail length, girth, thickness, subungual debris, and necrotic tissue, by manual and electrical means through the use of a nail nipper and/or dremel, to more viable healthy nail plate or bed tissue 1-5. Silver nitrate used for any petechial bleeding as necessary. Patient chooses, no pharmaceutical tx (47987) I&D nail abscess Location TA , As per exa m Procedure Performed incision a nd drainage of Subungual Abscess. Incised and Drained involved toenail with sterile nipper and curettaged infected devitalized tissue to healthy bleeding bed. Approximately 0.1cc purulent fluid material was drained. Any granuloma present was removed at this time. No underlying bone was visualized. There was minimal bleeding as hemostasis was achieved through the temporary use of either a digital tournaquet or the aforementioned local with epinephrine. Application of sterile Bacitracin dressing performed. Local wound care instructions discussed and dispensed. Recommended Tylenol or Motrin for pain/discomfort (32113) , DIABETES: Pt was advised as to the risk of delayed or nonhealing due to diabetes. Pt is to call the office with any questions, concerns, or complications Type Subungual abscess Anesthesia was deferred - NEURO MIRTHA: patient has medically documented neuropathic condition affecting sensation Keratoma Treatment Parring or Cutting o f Benign Hyperkeratotic Lesion(s) 45051 ( >4 Lesions) - The Benign hyperkeratotic lesions, as described above were pared, and/or cut utilizing a sterile #15 blade, tissue nippers, and/or dremel Progress Notes * Allie CUELLAR MDOB: [birth year] (88 yo F)Acc No.[id number]:12/19/2023 Progress Note Patient:?Lisa Allie Beto Provider:?Von Mejia DPM :1935???Age:88 Y???Sex:Female D ate:12/19/2023 Address:[address] [facility] Pcp:Roberto Mckinney Subjective: * Chief Complaints: * ???At Risk FootcarePossible Infection * HPI: ???At Risk footcare:?Pt States Last PCP Visit:?Date?09/05/2023 ???Toe pain:?Treatments:?Rx shoes , states still needs - awaiting PCP certification.? * ROS:?General/Constitutional:?Nausea?denies.?Vomiting?denies.?Hunger Thirst?denies.?Loss appetite?denies.?Chills?denies.?Fatigue?denies.?Fever?denies.?Night Sweats?denies.?Unexplained weight loss?denies.?Ophthalmologic:?Blurred [...] * Hospitalization/Major Diagno stic Procedure:?Pt went to [facility] for heart catherization. 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 ?Marital status: . ?Occupation: Retired. * Medications:?TakingAmiodaron e HCl eliquis Allopurinol 100 MG Tablet as directed Orally twice a dayamLODIPine Besylate Aspirin 81 MG 1 tablet Once a dayAtorvastatin Calcium 10 MG Tablet as directed Orally [...] 1 tablet Orally Systane Trulicity HumaLOG 10unit Bernadette Allergy Extra Depth Orthopedic Shoes (1 Pair) with Customized Heat Molded Multidensity Innersoles (3 Pair) as directed Dx: IDDM/Polyneuropathy (E10.42), Hammertoe Foot Deformity (M20.41,M20.42), Preulcerative Skin Lesion(s) (L85.1)Taking Amiodarone HCl Taking eliquis Taking Allopurinol 100 MG Tablet as directed Orally twice a dayTaking amLODIPine Besylate Taking Aspirin 81 MG 1 tablet Once a dayTaking Atorvastatin Calcium 10 MG Tablet as directed [...] Taking Systane Taking Trulicity Taking HumaLOG 10unit Taking Bernadette Allergy Taking Extra Depth Orthopedic Shoes (1 Pair) with Customized Heat Molded Multidensity Innersoles (3 Pair) as directed Dx: IDDM/Polyneuropathy (E10.42), Hammertoe Foot Deformity (M20.41,M20.42), Preulcerative Skin Lesion(s) (L85.1)Not-Taking/PRNColchicine Fexofenadine HCl Coumadin Dorzolamide HCl-Timolol Mal Dorzolamide-Timolol dilTIAZem HCl ER 240 MG Capsule Extended Release 24 Hour TK 1 C PO ON ANEMPTY STOMACH QD Oral Diovan metFORMIN HCl glipiZIDE 5 MG Tablet 1 tablet Orally Once a dayoxyCODONE-Acetaminophen amLODIPine Besylate Actos Cartia XT glyBURIDE Medication List reviewed and reconciled with the patientNot-Taking/PRN Colchicine Not-Taking/PRN Fexofenadine HCl Not-Taking/PRN Coumadin Not-Taking/PRN Dorzolamide HCl-Timolol Mal Not-Taking/PRN Dorzolamide-Timolol [...] Objective: * Vitals:?Ht: 5 ft 6 in, Wt:20 8, BMI: 33.57, Shoe size:10, BS:117, Wt-k.35 kg. * Examination: ???Neurological: ?SENSORY:?Neurological exam demonstrates, reduced [...] MTH (s), 1, B/L, Heel(s) , B/L .?Abscess/infected nail: ?INSPECTION?Reveals Subungual Abscess with nail fluctuance, mild localized erythema, and yellow purulent fluid with pre-operative size approximately ( 1-2 ) mm square, but without exposed bone , TA.? Assessment: * Assessment: 1.?Type 1 diabetes mellitus with diabetic polyneuropathy - E10.42?2.?Tinea unguium - B35.1?3.?Abscess of toe, left - L02.612? Plan: * Treatment: 2.?Abscess of toe, left?Procedure: 02427 I&D ABSCESS- SIMPLE,SINGLE Notes: Patient Educated with: WOUND CARE INSTRUCTIONS.pdf (WOUND CARE INSTRUCTIONS.pdf)?? 3.?Others? Notes: Patient Educated with: WOUND CARE INSTRUCTIONS.pdf (WOUND CARE INSTRUCTIONS.pdf)?? * Procedures:?Debride Nail 6-10:?Nail debridement?Nail debridement performed extensively to reduce/remove overall nail length, girth, thickness, subungual debris, and necrotic tissue, by manual and electrical means through the use of a nail nipper and/or dremel, to more viable healthy nail plate or bed tissue 1-5. Silver nitrate used for any petechial bleeding as necessary. Patient chooses, no pharmaceutical tx (22829).?I&D nail abscess:?Type?Subungual abscess.?Anesthesia?was deferred - NEUROPATHY: patient has medically documented neuropathic condition affecting sensation.?Location?TA , As per exam.?Procedure?Performed incision and drainage of Subungual Abscess. Incised and Drained involved toenail with sterile nipper and curettaged infected devitalized tissue to healthy bleeding bed. Approximately 0.1cc purulent fluid material was drained. Any granuloma present was removed at this time. No underlying bone was visualized. There was minimal bleeding as hemostasis was achieved through the temporary use of either a digital tournaquet or the aforementioned local with epinephrine. Application of sterile Bacitracin dressing performed. Local wound care instructions discussed and dispensed. Recommended Tylenol or Motrin for pain/discomfort (98995) , DIABETES: Pt was advised as to the risk of delayed or nonhealing due to diabetes. Pt is to call the office with any questions, concerns, or complications.?Keratoma Treatment:?Parring or Cutting of Benign Hyperkeratotic Lesion(s)?48372 ( >4 Lesions) - The Benign hyperkeratotic lesions, as described above were pared, and/or cut utilizing a sterile #15 blade, tissue nippers, and/or dremel.? * Procedure Codes:?65287 DRAIN AGE OF SKIN ABSCESS, Modifiers: XS , [id number] DEBRIDE NAIL, 6 OR MORE, Modifiers: XS 19830 TRIM SKIN LESIONS, OVER 4, Modifiers: XS * Preventive Medicine:? ??Counseling:?Shoe Gear Counseling:?Patient to obtain shoes hopefully soon.? * Follow Up:?prn * Images: * Sign off status: Completed Addendum: * ? true * Provider:?Von Mejia DPM Date:?2023 Generated for Hanna hayes/Francois/Bhavna on:?08/08/2024 07:10 AM EST History and Physical Notes * HPI (History of Present Illness) Category Sub-Category Detail Notes Category Not es Toe pain Treatments: Rx shoes , state s still needs - awaiting PCP certification At Risk footcare Pt States Last PCP Visit: Date: 09/05/2023 Examination Category Sub-Category Detail Notes Category Not [...] MTH (s), 1, B/L, Heel(s) , B/L Nails NAILS are: Elongated, overg rown, dystrophic, lytic, greater than 3mm thick, discolored and friable with crumbly malodorous subungual debris, TA, T1, T3, T4, T5, T6, T8, T9 Abscess/infected nail INSPECTION Reveals Mcbride bungual Abscess with nail fluctuance, mild localized erythema, and yellow purulent fluid with pre-operative size approximately ( 1-2 ) mm square, but without exposed bone , TA
--- OUTSIDE RECORDS SUMMARY | 2024-08-08 07:10 | XMS_ITS ---
Author Organization [facility] Address [address] [place] [phone] Care Team Providers Care Leather Scraper Name Role Phone Roberto Mckinney Primary Care Provider Von Velasquez Unavailable [phone] Allergies Allergen (clinical drug ingredient) Drug/Non Drug Allergy documented on EMR Reaction Allergy Type Onset Date Status amoxicillin Amoxicillin anaphylaxis Drug Allergy A ctive Codeine Phosphate anaphylaxis Drug Allergy Active Penicillin anaphylaxis Drug Allergy Acti ve REASON FOR VISIT At Risk Footcare Medications Medication SIG (Take, Route, Frequency, Duration) Notes Start Date End Date Status amLODIPine Besylate Not-Taking oxyCODONE-Acetaminop hen Not-Taking glyBURIDE Not-Taking Cartia XT Not-Taking Actos Not-Taking glipiZIDE 5 MG 1 tablet Orally Once a day Not-Taking metFORMIN HCl Not-Ta daysi Diovan Not-Taking dilTIAZem HCl ER 240 MG TK 1 C PO ON ANEMPTY STOMACH QD Oral for 90 Not-Taking Dorzolamide-Timolol Not-Taking Extra Depth Orthopedic Shoes (1 Pair) with Customized Heat Molded Multidensity Innersoles (3 Pair) as directed Dx: IDDM/Polyneuropathy (E10.42), Hammertoe Foot Deformity (M20.41,M20.42), Preulcerative Skin Lesion(s) (L85.1) 10/10/2023 Active Dorzolamide HCl-Timolol Mal Not-Taking Coumadin Not-Taking Fexofenadine HCl Not -Taking Colchicine Not-Takin g Bernadette Allergy Acti ve Trulicity Active Systane Active Plavix 75 MG 1 tablet Orally A ctive HumaLOG 10unit prn Activ e Tylenol Active Lantus Active Multivitamin Active Meclizine HCl prn PRN Active Latanoprost 0.005 % 1 drop into affected eye in the evening Ophthalmic Once a day Active Furosemide 80mg AM 60mg PM Daily Active Farxiga 5 MG 1 tablet Orally Once a day Active Clopidogrel Bisulfate Active Calcium Active Clindamycin HCl PRN dentist Ac tive Allopurinol 100 MG as directed Orally twice a day Active eliquis Active Atorvastatin Calcium 10 MG as directed Orally Active Aspirin 81 MG 1 tablet Once [...] Signs Height 5 ft 6 in in 03/07/2024 Weight 205 lbs 03/07/2024 BMI 33.08 kg/m2 03/07/2024 Procedures Procedure Date Ordered Date Performed Result Body Sit e 36129-LUMFIJM NAIL, 6 OR MORE 03/07/2024 N/A 19428-ICHQ SKIN LESIONS, OVER 4 03/07/2024 N/A Encounters Encounter Location Date Provider Diagnosis [facility] [address] [address] 03/07/2024 Von Mejia Type 1 diabetes mellitus with diabetic polyneuropathy E10.42 and Tinea unguium B35.1 Assessments Encounter Date Diagnosis (ICD Code) Assessment Notes Treatment Notes Treatment Clinical Notes Section Notes 03/07/2024 Type 1 diabetes mellitus with diabetic polyneuropathy (ICD-10 - E10.42) 03/07/2024 Tinea unguium (ICD-10 - B35.1) 03/07/2024 Other Plan Of Treatment Pending Test Test Name Order Date 41626-FSAYHWL NAIL, 6 OR MORE 03/07/2024 44259-UCRD SKIN LESIONS, OVER 4 03/07/20 24 Next Appt Details Follow Up: prn, Reason: Provider Name:Von Mejia , 08/15/2024 12:30:00 PM, [address] [facility], [address], [place], [address], Procedure Notes * Category Sub-Category Detail Notes [...] as necessary. Patient chooses, no pharmaceutical tx (94871) Keratoma Treatment Parring or Cutting o f Benign Hyperkeratotic Lesion(s) 66054 ( >4 Lesions) - The Benign hyperkeratotic lesions, as described above were pared, and/or cut utilizing a sterile #15 blade, tissue nippers, and/or dremel Progress Notes * Allie GONZALEZ MDOB: [birth year] (88 yo F)Acc No.[id number]:03/07/2024 Progress Note Patient:?Allie Gonzalez Provider:?Von Mejia DPM :1935???Age:88 Y???Sex:Female D ate:03/07/2024 Address:[address] [place], [place] [address]m[place], [place] Pcp:Roberto Mckinney Subjective: * Chief Complaints: * ???At Risk Footcare * HPI: ???At Risk footcare:?Pt States Last PCP Visit:?Date?09/05/2023 ???Toe pain:?Treatments:?Rx shoes , states still needs - appt scheduled for Mar.? * ROS:?General/Constitutional:?Nausea?denies.?Vomiting?denies.?Hunger Thirst?denies.?Loss appetite?denies.?Chills?denies.?Fatigue?denies.?Fever?denies.?Night Sweats?denies.?Unexplained weight loss?denies.?Ophthalmologic:?Blurred [...] * Hospitalization/Major Diagno stic Procedure:?Pt went to [facility] for heart catherization. 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 10/14/23 [...] reviewed and reconciled with the patientNot-Taking/PRN Colchicine Not- Taking/PRN Fexofenadine HCl Not-Taking/PRN Coumadin Not-Taking/PRN Dorzolamide HCl-Timolol Mal Not-Taking/PRN Dorzolamide-Timolol Not-Taking/PRN dilTIAZem HCl ER 240 MG Capsule Extended Release 24 Hour TK 1 C PO ON ANEMPTY STOMACH QD Oral Not-Taking/PRN Diovan Not-Taking/PRN metFORMIN HCl Not-Taking/PRN glipiZIDE 5 MG Tablet 1 tablet Orally Once a dayNot-Taking/PRN oxyCODONE-Acetaminophen Not-Taking/PRN amLODIPine Besylate Not-Taking/PRN Actos Not-Taking/PRN Cartia XT Not-Taking/PRN glyBURIDE Medication List reviewed and reconciled with the patient * Allergies:?Codeine Phosphate : anaphylaxisAmoxicillin: anaphylaxisPenicillin: anaphylaxisyes[Allergies Verified] Objective: * Vitals:?Ht: 5 ft 6 in, Wt: 2 05, BMI: 33.08, Shoe size: 10, BS: 120, Wt-k.99 kg. * ???Past Orders: ???Lab:HEMOGLOBIN A1C (GLYCO HEMOGLOBIN) (Order Date - 04/06/2023) (Collection Date - 04/06/2023) ? Value Reference Range ?HEMOGLOBIN A1C % (HH) 6.3 * Examination: ???Neurological: ?SENSORY:?Neurological exam demonstrates, reduced [...] MTH (s), 1, B/L, Heel(s) , B/L .? Assessment: * Assessment: 1.?Type 1 diabetes mellitus with diabetic polyneuropathy - E10.42?2.?Tinea unguium - B35.1? Plan: * Treatment: * Procedures:?Debride Nail 6-10:?Nail debridement?Nail debridement performed extensively to reduce/remove overall nail length, girth, thickness, subungual debris, and necrotic tissue, by manual and electrical means through the use of a nail nipper and/or dremel, to more viable healthy nail plate or bed tissue 1-5. Silver nitrate used for any petechial bleeding as necessary. Patient chooses, no pharmaceutical tx (05160).?Keratoma Treatment:?Parring or Cutting of Benign Hyperkeratotic Lesion(s)?19718 ( >4 Lesions) - The Benign hyperkeratotic lesions, as described above were pared, and/or cut utilizing a sterile #15 blade, tissue nippers, and/or dremel.? * Procedure Codes:?26847 DEBRI DE NAIL, 6 OR MORE, Modifiers: XS 32406 TRIM SKIN LESIONS, OVER 4, Modifiers: XS * Preventive Medicine:? ??Counseling:?Shoe Gear Counseling:?Patient to obtain shoes hopefully soon.? * Follow Up:?prn * Images: * Sign off status: Completed Addendum: * ? true * Provider:?Von Mejia DPM Date:?2023 Generated for Hanna hayes/Francois/Bhavna on:?08/08/2024 07:09 AM EST History and Physical Notes * HPI (History of Present Illness) Category Sub-Category Detail Notes Category Not es Toe pain Treatments: Rx shoes , state s still needs - appt scheduled for Aug At Risk footcare Pt States Last PCP [...]
== END 2024-08-03 11:07 | disposition home or self-care (01) ==
PROVIDERS: PCP Internal Medicine; Visit Provider Student in an Organized Health Care Education/Training Program
DX: M15.4 Erosive (osteo)arthritis (principal); M1A.9XX1 Chronic gout, unspecified, with tophus (tophi); M81.0 Age-related osteoporosis without current pathological fracture; Z51.81 Encounter for therapeutic drug level monitoring; Z79.620 Long term (current) use of immunosuppressive biologic
CPT/HCPCS: 99215; G2211

== ENCOUNTER 2024-08-18 07:05 | Outpatient (REF) | payer MEDICARE, SELFPAY ==
[2024-04-09 14:10] VITALS: BP 108/60; BP 118/64; BP 124/60; BMI 35.9
[2024-08-18 07:16] LABS: MANUAL DIFF FLAG NO
[2024-08-18 07:54] LABS: Basophils Percent Auto 0.8 % (0-2); Eosinophils Absolute Auto 0.3 X10*3/uL (0.0-0.4); Eosinophils Percent Auto 6.2 % (0-4); Hematocrit 36.9 % (37.0-47.0); Hemoglobin 11.6 g/dl (12.0-16.0); Imm Gran Abs Auto 0.01 X10*3/uL (0.00-0.03); Imm Gran Pct Auto 0.2 % (0.0-0.4); Lymphocytes Absolute Auto 0.6 X10*3/uL (1.2-4.9); Lymphocytes Percent Auto 12.1 % (20-40); Mean Corpuscular HGB Conc 31.4 g/dl (31.0-35.0); Mean Corpuscular Hemoglobin 29.5 pg (27.0-33.0); Mean Corpuscular Volume 93.9 fL (80.0-98.0); Mean Platelet Volume 10.3 fL (9.4-12.3); Monocytes Absolute Auto 0.5 X10*3/uL (0.1-1.2); Monocytes Percent Auto 9.9 % (2-11); Neutrophils Absolute Auto 3.6 x10*3/uL (2.0-8.3); Neutrophils Percent Auto 70.8 % (45-73); Platelet Count 159 X10*3/uL (160-400); Red Blood Count 3.93 X10*6/uL (4.20-5.50); Red Cell Distribution Width 16.5 % (11.0-16.0); White Blood Count 5.1 X10*3/uL (4.8-10.8)
[2024-08-18 08:24] LABS: Alanine Aminotransferase 15 U/L (0-31); Albumin Level 4.6 g/dL (3.5-5.0); Alkaline Phosphatase 112 U/L (39-117); Anion Gap 17 (12-20); Aspartate Amino Transferase 25 U/L (5-31); Bilirubin Total 1.1 mg/dL (0.0-1.0); Blood Urea Nitrogen 45 mg/dL (9-16); Carbon Dioxide 26 mmol/L (22-29); Chloride 103 mmol/L (96-108); Estimated Glomerular Filt Rate 19; Glucose Random 100 mg/dL (60-115); Sodium 142 mmol/L (135-145); Total Protein 7.8 g/dL (6.5-8.0)
== END 2024-08-18 07:06 | disposition home or self-care (01) ==
LOC: HO.LAB 07:05
PROVIDERS: PCP Internal Medicine; Visit Provider Internal Medicine
DX: N18.4 Chronic kidney disease, stage 4 (severe) (principal)
CPT/HCPCS: 36415; 80053; 85025

== ENCOUNTER 2024-09-03 13:00 | Outpatient (AMB) | payer MEDICARE, SELFPAY ==
[2024-04-09 14:10] VITALS: BP 108/60; BP 118/64; BP 124/60; BMI 35.9
[2024-09-03 13:29] VITALS: BP 136/68; PULSE 75; O2SAT 96; BMI 36.0
--- NOTE | 2024-09-03 13:29 | MHC.PC.OV ---
Vital Signs 09/03/24 13:29 Height 5 ft 3 in Weight 203 lb BMI 36.0 BP 136/68 Blood Pressure Location Lt brachial Position Sitting Pulse 75 Pulse Source Pulse Oximeter Pulse Oximetry (%) 96 Oxygen Delivery Method Room Air Intake Visit Reasons: chf Allergies Penicillins [PENICILLINS] Allergy (Severe, Verified 09/03/24 13:29) SWELLING codeine [CODEINE] Allergy (Intermediate, Verified 09/03/24 13:29) SWELLING, Hives Tobacco use date assessed: 09/03/24 Fall risk assessment: No Falls in past year Last assessed Fall Risk: 09/03/24 Dental Screening Dental Screen Date: 09/03/24 Did you have a dental visit in the last 12 months?: Yes Did you have a dental problem in the last 6 months where you did not have access to dental care?: No Was dental information given to patient?: Patient has dentist [facility] Medical History (Updated 08/03/24 @ 14:45 by Nicole Escobar MD) Encounter for monitoring denosumab therapy Osteoporosis Erosive osteoarthritis of both hands Bacteremia due to Gram-positive bacteria Paroxysmal atrial fibrillation CHF (congestive heart failure) Type 2 diabetes mellitus with unspecified complications Normally functioning cardiac pacemaker present URI (upper respiratory infection) Heart block atrioventricular Chronic heart failure with preserved ejection fraction Thrombosis of right saphenous vein Hypercholesterolemia Cataract Hypertension Obesity Aortic stenosis, moderate CKD (chronic kidney disease) stage 4, GFR 15-29 ml/min DVT (deep venous thrombosis) Type 2 diabetes mellitus with hyperglycemia Surgical History Status post transcatheter aortic valve replacement (TAVR) using bioprosthesis History of permanent cardiac pacemaker placement (~05/06/21) History of eye surgery History of surgical procedure on eye proper using laser History of right hip replacement History of partial hysterectomy History of cholecystectomy Family History Father No problems noted. Mother No problems noted. Social History Household Members: Family Housing: House Do you presently have visiting nurse or other home services: No Alcohol intake: never Patient Tobacco Use Status: Never used Tobacco Tobacco use type: Cigarette e-Cigarette/Vaping Use: Never Used Second Hand Smoke Exposure: Yes Advance Directives Date on File: 05/20/23 service: No Current occupational status: retired Cognitive needs: Yes (walker ) Hearing needs: No Vision needs: Yes Questionnaire PHQ-9 Over the last 2 weeks, how often have you been bothered by any of the following problems? 1. Little interest or pleasure in doing things: not at all 2. Feeling down, depressed, or hopeless: not at all 3. Trouble falling or staying asleep, or sleeping too much: not at all 4. Feeling tired or having little energy: several days 5. Poor appetite or overeating: not at all 6. Feeling bad about yourself - or that you are a failure or have let yourself or your family down: not at all 7. Trouble concentrating on things, such as reading the newspaper or watching television: not at all 8. Moving or speaking so slowly that other people could have noticed. Or the opposite - being so fidgety or restless that you have been moving around a lot more than usual: not at all 9. Thoughts that you would be better off or of hurting yourself in some way: not at all Total score: 1 Depression Screening Interpretation: Negative Depression Screening Done: Yes 70611 - PHQ-9 Billing: Yes Source: Developed by Drs. Enrrique Avila, Asmita Quigley, Demond Aviles and colleagues, with an educational ruma from [employer]. Thrive Questionnaire Date Thrive assessed: 09/03/24 I am a: Patient What is your living situation today?: I have a steady place to live Within the past 12 months, did the food you bought not last and you didn't have the money to get more?: Never true Within the past 12 months, did you worry whether your food would run out before you got money to buy more?: Never true Do you have trouble paying for medicines?: No Do you have trouble getting transportation to medical appointments?: No Do you have trouble paying your heating and electricity bill?: No Do you have trouble taking care of your child, family member or friend?: No Do you have trouble with day-to-day activities such as bathing, preparing meals, shopping, managing finances, etc.?: No Are you currently unemployed and looking for a job?: No Are you interested in more education?: No Currently or been in a relationship where the following occur: No concerns reported THRIVE Score: 0 AUDIT C Alcohol Use Questionnaire (AUDIT-C) 1. How often do you have a drink containing alcohol?: Never 3. How often do you have six or more drinks on one occasion?: Never Total Score: 0 Score Reviewed/Action Taken: No AZAR-7 AMB Questionnaire AZAR-7 Date AZAR - 7 assessed: 09/03/24 Feeling nervous, anxious, or on edge: 0 = Not at all Not being able to stop or control worryin = Not at all Worrying too much about different things: 0 = Not at all Trouble relaxin = Not at all Being so restless that it is hard to sit still: 0 = Not at all Becoming easily annoyed or irritable: 0 = Not at all Feeling afraid as if something awful might happen: 0 = Not at all Total AZAR-7 score (0-4 normal; 5-9 mild; 10-14 moderate; 15-21 severe): 0 Source: Developed by Drs. Enrrique Avila, Asmita Quigley, Demond Aviles and colleagues, with an educational ruma from [employer]. AZAR-7 Assessment Billing AZAR-7 Assessment Tool: AZAR-7 Assessment 61295 Physical exam (Primary Care) Vital Signs: Last Vital Signs Pulse 75 09/03/24 13:29 BP 136/68 09/03/24 13:29 Pulse Ox 96 09/03/24 13:29 Oxygen Delivery Method Room Air 09/03/24 13:29 BMI result Body Mass Index 36.0 Tobacco/Smoking Status: Tobacco use Status Tobacco use date assessed 09/03/24 09/03/24 13:34 Patient Tobacco Use Status Never used Tobacco 09/03/24 13:30 Tobacco use type Cigarette 09/03/24 13:34 e-Cigarette/Vaping Use Never Used 09/03/24 13:30 PHQ-9: PHQ-9 Score PHQ-9: Total score 1 09/03/24 13:34 Depression Screening Interpretation: Negative Thrive Assessment: Date of Thrive Assessment Date Thrive assessed 09/03/24 09/03/24 13:34 Currently or been in a relationship where the following occur: No concerns reported Const General: alert; No acute distress Eyes Conjunctivae: conjunctivae normal Resp Auscultation: clear to auscultation bilaterally Cardio Rate: regular rate Rhythm: regular rhythm GI Inspection: Yes normal to inspection Skin Other: noted hematoma mid thigh posterior area with bilateral leg swelloing L > R, patient has PVD. has the eliquis blood thinner Extrem General: Yes normal to inspection and No edema Results AMB Hemoglobin A1c AMB Hemoglobin A1c 6.6 % Last Edit by Nani Powell CMA on 09/03/24 14:00 Coding Level of Care Code Est Pt Level 4 (96512) Complex EM visit Add On G2211 Diagnoses Type 2 diabetes mellitus with hyperglycemia, with long-term current use of insulin E11.65; Z79.4 Diabetes mellitus terminal worker insulin use: with intermediate use CKD (chronic kidney disease) stage 4, GFR 15-29 ml/min N18.4 Status post transcatheter aortic valve replacement (TAVR) using bioprosthesis Z95.3 Erosive osteoarthritis of both hands M15.4 Hypercholesterolemia E78.00 Additional Codes AZAR-7 Assessment Billing - AZAR-7 Assessment Tool: AZAR-7 Assessment 86758 ([id number]) PHQ-9 - 97599 - PHQ-9 Billing: Yes ([id number]) Assessment & Plan Assessment & Plan (1) Type 2 diabetes mellitus with hyperglycemia: Comment: Dr. Cisse 11/2022 Code(s): E11.65 - Type 2 diabetes mellitus with hyperglycemia Category: Medical Qualifiers: Diabetes mellitus terminal worker insulin use: with terminal worker use Qualified Code(s): E11.65 - Type 2 diabetes mellitus with hyperglycemia; Z79.4 - intermediate teacher (current) use of insulin Plan: Decrease the amount of carbohydrate intake, pasta, bread, rice and potatoes are all sugar and that is aside from all the sweet stuff, remember that fruits are good but they are Sweet also. Continue with Lantus and Humalog and sent in a prescription for dulaglutide. Reminded director medical writing regarding prior authorization (2) CKD (chronic kidney disease) stage 4, GFR 15-29 ml/min: Code(s): N18.4 - Chronic kidney disease, stage 4 (severe) Category: Medical Plan: Continue keep well hydrated patient follows up with Nephrology. (3) Status post transcatheter aortic valve replacement (TAVR) using bioprosthesis: Comment: September 2021, echocardiogram October 2022 Code(s): Z95.3 - Presence of xenogenic heart valve Category: Surgical Plan: Stable continue to follow-up with cardiology (4) Erosive osteoarthritis of both hands: Code(s): M15.4 - Erosive (osteo)arthritis Category: Medical Plan: Discussed rheumatology evaluation and management patient has started with Prolia shots (5) Hypercholesterolemia: Code(s): E78.00 - Pure hypercholesterolemia, unspecified Category: Medical Plan: Avoid fried foods, chicken skin, eggs, butter margarine, pastries and meat. Be it pork or beef they have a lot of cholesterol will do a repeat cholesterol test LDL goal of less than 100. Orders: Orders AMB Hemoglobin A1c Today Z13.9 - Encounter for screening, unspecified Medications: Refilled dulaglutide (Trulicity) 0.75 mg (0.5 mL) subcut QWEEK 6 mL 5RF E11.65 - Type 2 diabetes mellitus with hyperglycemia, Z79.4 - FPC (current) use of insulin
== END 2024-09-03 14:21 | disposition home or self-care (01) ==
PROVIDERS: PCP Internal Medicine; Visit Provider Internal Medicine
DX: E11.65 Type 2 diabetes mellitus with hyperglycemia (principal); Z79.4 Long term (current) use of insulin; N18.4 Chronic kidney disease, stage 4 (severe); Z95.3 Presence of xenogenic heart valve; M15.4 Erosive (osteo)arthritis; E78.00 Pure hypercholesterolemia, unspecified; Z13.9 Encounter for screening, unspecified

== ENCOUNTER → 2024-09-03 13:00 | Outpatient (BNVA) | payer MEDICARE, SELFPAY ==
[2024-04-09 14:10] VITALS: BP 108/60; BP 118/64; BP 124/60; BMI 35.9
== END ==
PROVIDERS: PCP Internal Medicine; Visit Provider Internal Medicine
DX: E11.65 Type 2 diabetes mellitus with hyperglycemia (principal); I50.9 Heart failure, unspecified; N18.4 Chronic kidney disease, stage 4 (severe); M15.4 Erosive (osteo)arthritis; E78.00 Pure hypercholesterolemia, unspecified; Z79.4 Long term (current) use of insulin; Z95.3 Presence of xenogenic heart valve
CPT/HCPCS: 83036; 96127; 99212

== ENCOUNTER 2024-09-19 11:04 | Outpatient (AMB) | payer MEDICARE, SELFPAY ==
[2024-04-09 14:10] VITALS: BP 108/60; BP 118/64; BP 124/60; BMI 35.9
--- NOTE | 2024-09-19 11:05 | A.OFFVIS_ITS ---
Vital Signs 09/19/24 11:10 Height 5 ft 3 in Weight 199 lb 15.348 oz BMI 35.4 BP 122/60 Blood Pressure Location Lt brachial Position Sitting Respiration 16 Pulse 74 Pulse Source Pulse Oximeter Pulse Oximetry (%) 99 Oxygen Delivery Method Room Air Intake Visit Reasons: follow up Intake Note: Patient presents for follow up. Allergies Penicillins [PENICILLINS] Allergy (Severe, Verified 09/19/24 11:10) SWELLING codeine [CODEINE] Allergy (Intermediate, Verified 09/19/24 11:10) SWELLING, Hives Medication List - Last Reconciled 09/19/24 by Nicole Escobar MD acetaminophen (Tylenol) 325 mg PO QID PRN allopurinol 300 mg PO DAILY 90 days amiodarone 200 mg orally qod; alternate days amlodipine 5 mg PO DAILY apixaban (Eliquis) 2.5 mg PO BID 90 days atorvastatin 10 mg PO DAILY blood sugar diagnostic (FreeStyle Lite Strips) 1 strip miscellaneous TID 90 days calcitriol mcg PO Q OTHER DAY clindamycin HCl 600 mg PO ONCE PRN clotrimazole 1% 1 appl topical BID 4 weeks compress.stocking,knee,reg,lrg As directed 20-30 mm HG compress.stocking,knee,reg,lrg As directed 20-30 mm HG dapagliflozin propanediol (Farxiga) 5 mg PO DAILY 90 days denosumab (Prolia) 60 mg subcut [id number] diclofenac sodium 1% 2 grams topical QD-BID PRN dulaglutide (Trulicity) 0.75 mg (0.5 mL) subcut QWEEK fexofenadine 180 mg PO DAILY furosemide 20 mg PO DIRECTED 30 days insulin glargine (Lantus Solostar U-100 Insulin) 5 units (0.05 mL) subcut BEDTIME insulin lispro (Humalog KwikPen (U-100) Insulin) inject 1 u TID 30 days latanoprost 0.005% 1 drp ophthalmic (eye) BEDTIME meclizine 25 mg PO TID PRN metolazone 2.5 mg PO DIRECTED PRN miconazole nitrate 2% (Zeasorb AF) 1 appl topical BID multivitamin 1 tab PO DAILY pen needle, diabetic As directed propylene glycol 0.6% (Systane Complete) 1 drp ophthalmic (eye) TID PRN HPI Comments Details: Patient is an 89-year-old female with hypertension, diabetes, hyperlipidemia, AFib on Eliquis, heart failure with reduced ejection fraction who presents today for follow up of gout and polyarticular osteoarthritis Interval History: Patient last seen 08/01/24. At that time she was stable with respect to her gout. Remained on allopurinol 100 mg twice a day. She had previously stopped colchicine and had had no flare-up since then. Evaluation of her XRs were consistent with erosive OA and gout. Plan to start prolia for the concomitant treatment of her erosive OA to prevent further erosions and her osteoporosis Today, she is here for her first prolia injection Rheumatologic History: Patient was initially seen 05/06/2022 for evaluation of painful right 2nd finger. At that time there was some drainage from the 2nd PIP region and it was thought to be MSU crystals. She received colchicine and topical diclofenac. X-rays were obtained and they confirmed rat bite erosions to the right 2nd PIP the also evidence of erosive osteoarthritis. She was started on allopurinol and has been tolerating same Current Rheumatology Medication(s): Allopurinol 200 mg daily [facility] Medical History (Updated 09/19/24 @ 14:04 by Nicole Escobar MD) On allopurinol therapy Encounter for monitoring denosumab therapy Osteoporosis Erosive osteoarthritis of both hands Bacteremia due to Gram-positive bacteria Paroxysmal atrial fibrillation CHF (congestive heart failure) Type 2 diabetes mellitus with unspecified complications Normally functioning cardiac pacemaker present URI (upper respiratory infection) Heart block atrioventricular Chronic heart failure with preserved ejection fraction Thrombosis of right saphenous vein Hypercholesterolemia Cataract Hypertension Obesity Aortic stenosis, moderate CKD (chronic kidney disease) stage 4, GFR 15-29 ml/min DVT (deep venous thrombosis) Type 2 diabetes mellitus with hyperglycemia Surgical History Status post transcatheter aortic valve replacement (TAVR) using bioprosthesis History of permanent cardiac pacemaker placement (~05/06/21) History of eye surgery History of surgical procedure on eye proper using laser History of right hip replacement History of partial hysterectomy History of cholecystectomy Family History Father No problems noted. Mother No problems noted. Social History Household Members: Family Housing: House Do you presently have visiting nurse or other home services: No Alcohol intake: never Patient Tobacco Use Status: Never used Tobacco Tobacco use type: Cigarette e-Cigarette/Vaping Use: Never Used Second Hand Smoke Exposure: Yes Advance Directives Date on File: 05/20/23 service: No Current occupational status: retired Cognitive needs: Yes (walker ) Hearing needs: No Vision needs: Yes Review of Systems Const Details: Review of Systems Constitutional: Denies fever, chills, weight loss ENT: Denies vision changes, eye pain or eye redness, dental caries, dry mouth GI: Denies nausea, vomiting, diarrhea, abdominal pain, change in BM Pulm: Denies SOB, PÉREZ, hemoptysis, wheezing Cards: Denies chest pain, palpitations Skin: Denies Raynaud's, rash, nail changes, photosensitivity, OCEAN FREIGHT FORWARDER: Denies headaches, weakness, paresthesias, recurrent falls MSK: as per HPI All other systems reviewed and are unremarkable except noted above Physical Exam Vital Signs: Last Vital Signs Pulse 74 09/19/24 11:10 Resp 16 09/19/24 11:10 BP 122/60 09/19/24 11:10 Pulse Ox 99 09/19/24 11:10 Oxygen Delivery Method Room Air 09/19/24 11:10 BMI result Body Mass Index 35.4 Physical Examination CONSTITUITIONAL Patient alert and cooperative. Well appearing and in no apparent painful distress. Uses a walker HEENT Conjunctiva and sclera clear. ?Pupils equal round and reactive to light. ?No tophi noted to bilateral jazz of ears. CHEST/RESPIRATORY SYSTEM Normal respiratory effort and able to speak in complete sentences. ?Clear to auscultation bilaterally. ?No crackles, rales, rhonchi, wheezes heard. CARDIAC SYSTEM Regular rate and rhythm. ?S1 and S2 heard no murmurs. ?Radial pulses intact bilaterally MSK Hands: ?There is mild bony enlargement at the thumb IP and all the PIP joints.? Enlargement is most prominent at the 4th PIP with there is decreased range of motion. There is mild bony enlargement at the 3rd through 5th DIP joints and these are not tender.? There is bony enlargement but no tenderness at the 2nd DIP.? That joint also has a flexion deformity and slight ulnar deviation. It has no palpable nodule today. There is laxity of the joints in all planes of motion. It is not able to be actively flex. ? There is no break in the skin currently.? There is minimal nontender in moderate bony enlargement at the base of the thumb.? Left:? There is bony enlargement at all the PIP and the IP joints.? Range of motion at many of the PIP is is somewhat limited.? None of these are particularly tender.? No soft tissue swelling, thenar atrophy or sensory loss. Wrists: ?Full range of motion at the wrists without pain. ?No tenderness to palpation or synovitis noted to the wrists. Elbows: Full range of motion without pain. No tenderness, weakness, swelling, increased warmth or erythema. Shoulders: Full range of motion without pain. No tenderness, weakness, swelling, increased warmth or erythema. Hips: Full range of motion without pain. Hip bursa: No tenderness to palpation Knees: ?Full range of motion. ?No tenderness, swelling, increased warmth or erythema.? Crepitations noted Bilateral lower extremity edema pitting up to posterior thigh. Left worse than right. Ankles: Full range of motion. ?No tenderness, swelling, increased warmth or erythema.? Feet: ?Negative squeeze test. ?No tenderness to palpation or swelling of the MTPs. Tender points:??No tenderness to palpation of the neck, shoulders, chest, elbows, hips, buttocks or knees. SKIN Skin intact without rashes. No tophi noted Office Meds Prolia 60 mg/mL subcutaneous syringe Performing Provider: Nicole Escobar MD Performing Location: [facility] Rheumatology Administered by: Nicole Escobar MD on 09/19/24 12:41 Dose Route Admin Location Dispensed Lot Number Expiration Date [facility] Call Worker Person 60 mg subcut Left upper arm 1 mL [id number] 02/25/27 94735-485-62 [employer]GEN Results Reviewed Results Reviewed: Laboratory Tests 12/03/22 07/02/23 06/02/24 06:59 07:16 07:11 Sodium 142 Potassium 4.2 Chloride 102 Carbon Dioxide 25 BUN 47 H Creatinine 2.64 H Uric Acid 5.0 5.4 Laboratory Tests 08/03/24 12:19 Uric Acid 6.1 H Assessment & Plan Assessment & Plan (1) Erosive osteoarthritis of both hands: Code(s): M15.4 - Erosive (osteo)arthritis Category: Medical Plan: #Erosive Osteoarthritis Patient with radiographic (gull-wing) changes consistent with erosive OA. Discussed with patient using prolia which has been shown to induce remodeling and prevent new erosive joints She is amenable. Received 1st dose of Prolia today. Plan - Denosumab every 3 months x 1 year then reassess - RTC 3 months 1. Urmila R, Roma G, Jacqueline T, Kalee Naranjo, Tanner Boyer. RANKL blockade for erosive hand osteoarthritis: a randomized placebo-controlled phase 2a trial. Meliza Med. 2023;30(3):829836. doi: 10.1038/[id number]. Ep2023Oct 13. 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 to the right 2nd DIP UA goal < 5 No further gout flares since on allopurinol Uric acid not currently at goal Plan - increase allopurinol to 300 mg daily - RTC 3 months check uric acid at that time (3) Osteoporosis: Code(s): M81.0 - Age-related osteoporosis without current pathological fracture Category: Medical Qualifiers: Osteoporosis type: age-related Presence of current pathological fracture: without current pathological fracture Qualified Code(s): M81.0 - Age- related osteoporosis without current pathological fracture Plan: #Osteopenia with elevated FRAX score Patient meets treatment requirements for osteoporosis with T score -1.9 at the left femur neck and FRAX 5.9% Given her concurrent erosive OA, the best course of treatment is prolia Plan - Prolia - Check CMP and Vit D in the form of calcitriol (receives this from renal) (4) Encounter for monitoring denosumab therapy: Code(s): Z51.81 - Encounter for therapeutic drug level monitoring; Z79.620 - health safety coordinator (current) use of immunosuppressive biologic Category: Medical Plan: #Long-term use of Denosumab Discussed with patient the risks and benefits of denosumab (Prolia) for the management of their osteoporosis Benefits include improved bone density, decreased fracture risk Risks include rapid bone loss if denosumab stopped, osteonecrosis of the jaw especially in patients with poor oral hygiene/diabetes/use of glucocorticoids/age greater than 65 years, atypical femoral fractures, injection site reactions. Mild increased risk of infections due to RANKL on T helper cells, increased risk of hypocalcemia especially in CKD patients Keep vitamin-D at least 35 ng/mL Advised to delay non emergent dental procedures to toward the end of the 6 month cycle and if they plan to stop denosumab would need to continue antiresorptive to maintain the effects of denosumabe (5) On allopurinol therapy: Code(s): Z79.899 - Other deputy sheriff/investigator (current) drug therapy Category: Medical Plan: #Long-term Current Use of Allopurinol Risks and benefits of allopurinol discussed with patient Benefits include decreased gout flares, remission of gout and reduction of tophi Risks include allopurinol hypersensitivity syndrome which is a severe cutaneous adverse reaction associated with allopurinol use particularly in patients who are HLA B*5801 positive, increased transaminases, GI upset including diarrhea, nausea and vomiting, and other dermatologic manifestations. Plan I spent 25 minutes reviewing the record and labs, seeing the patient, discussing the treatment plan, printing documents about diagnosis and documenting in the medical record Orders: Orders Uric Acid 3 Months M15.4 - Erosive (osteo)arthritis, M1A.9XX1 - Chronic gout, unspecified, with tophus (tophi), M81.0 - Age-related osteoporosis without current pathological fracture, Z51.81 - Encounter for therapeutic drug level monitoring, Z79.620 - health safety coordinator (current) use of immunosuppressive biologic Comprehensive Met. Panel 3 Months M15.4 - Erosive (osteo)arthritis, M1A.9XX1 - Chronic gout, unspecified, with tophus (tophi), M81.0 - Age-related osteoporosis without current pathological fracture, Z51.81 - Encounter for therapeutic drug level monitoring, Z79.620 - correction (current) use of immunosuppressive biologic C Reactive Protein 3 Months M15.4 - Erosive (osteo)arthritis, M1A.9XX1 - Chronic gout, unspecified, with tophus (tophi), M81.0 - Age-related osteoporosis without current pathological fracture, Z51.81 - Encounter for therapeutic drug level monitoring, Z79.620 - health safety coordinator (current) use of immunosuppressive biologic Immunofixation Pnl, Serum Today M15.4 - Erosive (osteo)arthritis AMB Denosumab Injection Practice Supplied Today M81.0 - Age-related osteoporosis without current pathological fracture Erythrocyte Sedimentation Rate 3 Months M15.4 - Erosive (osteo)arthritis, M1A.9XX1 - Chronic gout, unspecified, with tophus (tophi), M81.0 - Age-related osteoporosis without current pathological fracture, Z51.81 - Encounter for therapeutic drug level monitoring, Z79.620 - health safety coordinator (current) use of immunosuppressive biologic Vitamin D 25-OH (D2 and D3) 3 Months M15.4 - Erosive (osteo)arthritis, M1A.9XX1 - Chronic gout, unspecified, with tophus (tophi), M81.0 - Age-related osteoporosis without current pathological fracture, Z51.81 - Encounter for therapeutic drug level monitoring, Z79.620 - health safety coordinator (current) use of immunosuppressive biologic Medications: Changed From allopurinol 200 mg (2 x 100 mg) PO DAILY 180 tabs 5RF M1A.9XX1 - Chronic gout, unspecified, with tophus (tophi) To allopurinol 300 mg PO DAILY 90 days 90 tabs 1RF M1A.9XX1 - Chronic gout, unspecified, with tophus (tophi) Coding Level of Care Code Est Pt Level 3 (85940) Complex EM visit Add On G2211 Diagnoses Erosive osteoarthritis of both hands M15.4 Tophaceous gout M1A.9XX1 Age-related osteoporosis without current pathological fracture M81.0 Osteoporosis type: age-related Presence of current pathological fracture: without current pathological fracture Encounter for monitoring denosumab therapy Z51.81; Z79.620 On allopurinol therapy Z79.899
[2024-09-19 11:10] VITALS: BP 122/60; PULSE 74; RESP 16; O2SAT 99; BMI 35.4
--- OUTSIDE RECORDS SUMMARY | 2024-09-19 12:36 | XMS_ITS | Encounter Summary ---
Author Organization [facility] Address [address] [place] [address] Phone Care Team Providers Care Bone Drier Name Role Phone Roberto Mckinney MD Primary Care Provider [phone] Encounter Details Date Type Department Care Team (Late st Contact Info) Description 10/28/2020 Orders Only [facility] [address] [place] [address] ProviderElvira MD [address] [place] [address] Social History Tobacco Use Types Packs/Day Years Used Date Smoking Tobacco: Never Alcohol Use Standard Drinks/Week Comments No 0 (1 standard drink = 0.6 oz pur e alcohol) Comments Unknown Sex and Gender Information Value Date Recorded Sex Assigned at Not on file Legal Sex Female 4:43 PM EST Gender Identity Not on file Sexual Orientation Not on file documented as of this encounter Plan of Treatment Not on file documented as of this encounter Procedures Procedure Name Priority Date/Time Associated Diagnosis Comments EXT RESULT ENTRY Routine 10/28/2020 EXT RESULT ENTRY Routine 10/28/2020 documented in this encounter Results * EXT RESULT ENTRY (10/28/2020) Historical Provider LAB BLOOD ORDERABLES Gabby l Result * EXT RESULT ENTRY (10/28/2020) Historical Provider LAB BLOOD ORDERABLES Gabby l Result documented in this encounter Visit Diagnoses Not on filedocumented in this encounter Care Teams Bone Drier Relationship Specialty Start Date End Date Po, Lorenver, MD [facility] [place] [address] [place] PCP - General Internal Medicine 12/17/20 documented as of this encounter
--- OUTSIDE RECORDS SUMMARY | 2024-09-19 12:36 | XMS_ITS ---
Author Organization [facility] Address [address] [place] [address] Care Team Providers Care Museum Specialist Name Role Phone Roberto Mckinney Primary Care Provider Von Velasquez Unavailable [phone] Allergies Allergen (clinical drug ingredient) Drug/Non Drug [...] Ordered Date Performed Result Body Sit e 88196-[id number] NAIL, 6 OR MORE 05/23/2024 N/A 85859-EDSV SKIN LESIONS, OVER 4 05/23/2024 N/A Encounters Encounter Location Date Provider Diagnosis [facility] [address] [address] 05/23/2024 Von Mejia Type 1 diabetes mellitus [...] Treatment Pending Test Test Name Order Date [id number] NAIL, 6 OR MORE 05/23/2024 61393-[id number] SKIN LESIONS, OVER 4 05/23/20 24 Next Appt Details Follow Up: prn, Reason: Provider Name:Von Mejia , 10/25/2024 03:00:00 PM, [address], [place], [address], Procedure Notes * Category Sub-Category Detail Notes Debride Nail 6-10 Nail debridement Performance o f this nail treatment by a nonprofessional would put this patients foot and overall health at risk. Therefore, nail debridement was performed extensively to reduce/remove overall nail length, girth, thickness, subungual debris, and necrotic tissue, by manual and/or electrical means through the use of a nail nipper and/or dremel-type laboratory apparatus glass grinder, to a more viable healthy nail plate or bed tissue 6-10. Silver nitrate used for any petechial bleeding as necessary. Definitive antifungal treatment options have been reviewed and discussed with the patient. The patient chooses, no pharmaceutical tx - 32250 Keratoma Treatment Parring or Cutting o f Benign Hyperkeratotic Lesion(s) (-57) More than 4 Lesions - The Benign hyperkeratotic lesions, as described above were pared, and/or cut utilizing a sterile 15 blade, tissue nippers, and/or dremel - 82616 Progress Notes * Allie CUELLAR MDOB: [birth year] (89 yo F)Acc No.[id number]:05/23/2024 Progress Note Patient:?Allie CUELLAR Provider:?Von Mejia DPM :1935???Age:88 Y???Sex:Female D ate:05/23/2024 Address:[address] [place], [place] [id number] Pcp:Roberto Mckinney Subjective: * Chief Complaints: * [...] * Hospitalization/Major Diagno stic Procedure:?Pt went to [facility] for heart catherization. 06/2015[facility] 10/21/15pneumonia 5 day stay rehab 1 month due to pace maker HF [place] [place] [facility], [facility]14/23 * [...] Tablet 1 tablet Orally Two times a Week Amiodarone HCl eliquis Allopurinol 100 MG Tablet as directed Orally twice a day amLODIPine Besylate Atorvastatin Calcium 10 MG Tablet as directed Orally Clindamycin HCl , Notes to Pharmacist: PRN dentistCalcium Clopidogrel Bisulfate Farxiga 5 MG Tablet 1 tablet Orally Once a day Furosemide , Notes to Pharmacist: 80mg AM 60mg PM DailyMeclizine HCl prn , Notes to Pharmacist: PRNMultivitamin Lantus Tylenol Latanoprost 0.005 % Solution 1 drop into affected eye in the evening Ophthalmic Once a day Plavix 75 MG Tablet 1 tablet Orally Systane Trulicity HumaLOG 10unit , Notes to Pharmacist: prnAllegra Allergy Extra Depth Orthopedic Shoes (1 Pair) with Customized Heat Molded Multidensity Innersoles (3 Pair) as directed Dx: IDDM/Polyneuropathy (E10.42), Hammertoe Foot Deformity (M20.41,M20.42), Preulcerative Skin Lesion(s) (L85.1) Taking metOLazone 2.5 MG Tablet 1 tablet Orally Two times a Week Taking Amiodarone HCl Taking eliquis Taking Allopurinol 100 MG Tablet as directed Orally twice a day Taking amLODIPine Besylate Taking Atorvastatin Calcium 10 MG Tablet as directed Orally Taking Clindamycin HCl , Notes to Pharmacist: PRN dentistTaking Calcium Taking Clopidogrel Bisulfate Taking Farxiga 5 MG Tablet 1 tablet Orally Once a day Taking Furosemide , Notes to Pharmacist: 80mg AM 60mg PM DailyTaking Meclizine HCl prn , Notes to Pharmacist: PRNTaking Multivitamin Taking Lantus Taking Tylenol Taking Latanoprost 0.005 % Solution 1 drop into affected eye in the evening Ophthalmic Once a day Taking Plavix 75 MG Tablet 1 tablet Orally Taking Systane Taking Trulicity Taking HumaLOG 10unit , Notes to Pharmacist: prnTaking Bernadette Allergy Taking Extra Depth Orthopedic Shoes (1 Pair) with Customized Heat Molded Multidensity Innersoles (3 Pair) as directed Dx: IDDM/Polyneuropathy (E10.42), Hammertoe Foot Deformity (M20.41,M20.42), Preulcerative Skin Lesion(s) (L85.1) Not-Taking/PRNAspirin 81 MG 1 tablet Once a day Colchicine Fexofenadine HCl Coumadin Dorzolamide HCl-Timolol Mal Dorzolamide-Timolol dilTIAZem HCl ER 240 MG Capsule Extended Release 24 Hour TK 1 C PO ON ANEMPTY STOMACH QD Oral Diovan metFORMIN HCl glipiZIDE 5 MG Tablet 1 tablet Orally Once a day oxyCODONE-Acetaminophen amLODIPine Besylate Actos Cartia XT glyBURIDE Medication List reviewed and reconciled with the patientNot-Taking/PRN Aspirin 81 MG 1 tablet Once a day Not-Taking/PRN Colchicine Not-Taking/PRN Fexofenadine HCl Not-Taking/PRN Coumadin Not-Taking/PRN Dorzolamide HCl-Timolol Mal Not-Taking/PRN Dorzolamide-Timolol Not-Taking/PRN dilTIAZem HCl ER 240 MG Capsule Extended Release 24 Hour TK 1 C PO ON ANEMPTY STOMACH QD Oral Not-Taking/PRN Diovan Not-Taking/PRN metFORMIN HCl Not-Taking/PRN glipiZIDE 5 MG Tablet 1 tablet Orally Once a day Not-Taking/PRN oxyCODONE-Acetaminophen Not-Taking/PRN amLODIPine Besylate Not-Taking/PRN Actos Not-Taking/PRN Cartia XT Not-Taking/PRN glyBURIDE Medication List reviewed and reconciled with the patient * Allergies:?Codeine Phosphate : anaphylaxisAmoxicillin: anaphylaxisPenicillin: anaphylaxisyes[Allergies Verified] Objective: * Vitals:?Ht: 5 ft 6 in, Wt: 2 07, BMI: 33.41, Shoe size: 10, BS: 121, Wt-k.89 kg. * ???Past Orders: Lab:HEMOGLOBIN A1C (GLYCOHEM OGLOBIN) * Collection Date 05/23/2024 04/06/2023 09/28/2019 Collection Time 03:07 PM 03:04 PM Order Date 05/23/2024 04/06/2023 09/28/2019 HEMOGLOBIN A1C % (HH) NR 6.3 6.5 TOTAL HEMOGLOBIN (HGBA1C) 6.9 NR NR * Examination: ???Neurological: ?SENSORY:?Neurological exam demonstrates, reduced [...] 1 diabetes mellitus with diabetic polyneuropathy - E10.42???2.?Tinea unguium - B35.1???3.?Other hammer toe(s) (acquired), right foot - M20.41???Specify :Chronic problem, Stable (1=3,2=4)???Notes :Response to treatment,Improvement???4.?Other hammer toe(s) (acquired), left foot - M20.42???Specify :Chronic problem, Stable (1=3,2=4)???Notes :Response to treatment,Improvement??? Plan: * Treatment: * Procedures:?Debride Nail 6-10:?Nail debridement?Performance of this nail treatment by a nonprofessional would put this patients foot and overall health at risk. Therefore, nail debridement was performed extensively to reduce/remove overall nail length, girth, thickness, subungual debris, and necrotic tissue, by manual and/or electrical means through the use of a nail nipper and/or dremel-type laboratory apparatus glass grinder, to a more viable healthy nail plate or bed tissue 6-10. Silver nitrate used for any petechial bleeding as necessary. Definitive antifungal treatment options have been reviewed and discussed with the patient. The patient chooses, no pharmaceutical tx - 09440.?Keratoma Treatment:?Parring or Cutting of Benign Hyperkeratotic Lesion(s)?(-57) More than 4 Lesions - The Benign hyperkeratotic lesions, as described above were pared, and/or cut utilizing a sterile 15 blade, tissue nippers, and/or dremel - 51021.? * Procedure Codes:?65721 DEBRI DE NAIL, 6 OR MORE, Modifiers: XS 43316 TRIM SKIN LESIONS, OVER 4, Modifiers: XS [...] Mejia DPM Date:?2023 Generated for Hanna hayes/Francois/Bhavna on:?09/19/2024 12:36 PM EST History and Physical Notes * HPI [...]
--- OUTSIDE RECORDS SUMMARY | 2024-09-19 12:36 | XMS_ITS | Clinical Summary ---
Author Organization [facility] Facility Address [address] [address] Care Team Providers Care Picu Nurse Name Role Phone Rboerto Mckinney MD Primary Care Provider [phone] Allergies Active Allergy Reactions Criticality Noted Date Comments Codeine Other (see comments) 11/28/2020 Penicillin V Other (see comments) 11/28/2020 Medications Fexofenadine HCl (TA ALLERGY PO) as needed Active Multiple Vitamin (multivitamin) capsule Take 1 capsule by mouth 1 (one) time each day Active acetaminophen (TYLENOL 8 HOUR) 650 MG 8 hr tablet Active atorvastatin (LIPITOR) 10 MG tablet Take 10 mg by mouth 1 (one) time each day 1 Active Calcium Carb-Cholecalcif alex (Oyster Shell Calcium) 500-400 MG-UNIT tablet Take 1 tablet by mouth 2 (two) times a day Active Dulaglutide (Trulicity) 1.5 MG/0.5ML solution pen-injector Inject 75 mg under the skin 1 (one) time per week Every Active furosemide (LASIX) 20 MG tablet Take 80 mg by mouth in the morning and 80 mg in the evening. 60 mg in morning 60 in the after noon. 6 Active insulin glargine (Lantus) 100 UNIT/ML injection Inject 5 Units under the skin every night Active insulin lispro (HumaLOG) 100 UNIT/ML injection Inject 3 Units under the skin 1 (one) time each day before breakfast 2 unit before lunch 3 unit before supper Active meclizine (ANTIVERT) 25 MG tablet Take 1 tablet by mouth 3 (three) times a day Active amLODIPine (NORVASC) 5 MG tablet Take 5 mg by mouth 1 (one) time each day Active Dapagliflozin Propanediol (Farxiga) 10 MG tablet Take 10 mg by mouth 1 (one) time each day 90 tablet 3 2 Active metOLazone 2.5 MG tablet Take 1 tablet (2.5 mg total) by mouth 3 times weekly: Tue and Tuesday morning 12 tablet 1 2 Active predniSONE (DELTASONE) 10 MG tablet TAKE 2 TABLETS BY MOUTH X3 DAYS THEN 1 TABLET X3 DAYS THEN STOP 2 Active allopurinol (ZYLOPRIM) 100 MG tablet 3 Active amiodarone (PACERONE) 200 MG tablet PLEASE SEE ATTACHED FOR DETAILED DIRECTIONS 3 Active Eliquis 2.5 MG tablet Take 2.5 mg by mouth in the morning and 2.5 mg in the evening. TAKE 1 TABLET BY MOUTH TWICE A DAY FOR 90 DAYS. 3 Active latanoprost (XALATAN) 0.005 % ophthalmic solution 1 drop every night Active clindamycin (CLEOCIN) 300 MG capsule TAKE 2 CAPSULES BY MOUTH 1 HOUR BEFORE DENTAL APPOINTMENT 4 Active calcitriol (Rocaltrol) 0.25 MCG capsule Take 1 capsule (0.25 mcg total) by mouth every other day 45 capsule 4 Active Active Problems Problem Noted Date Diagnosed Date Severe obesity 03/15/2023 Polyneuropathy due to type 1 diabetes mellitus 0 03/25/2022 Acquired hammer toe of right foot 03/25/2022 Chronic kidney disease, stage 4 (severe) 022 Type 2 diabetes mellitus wit h diabetic chronic kidney disease 03/25/2022 Gout 03/25/2022 Obese class II 11/24/2021 Hypertensive disorder 11/24/2021 Hyperlipidemia 11/24/2021 Diabetes mellitus 11/24/2021 Coronary arteriosclerosis 11/24/2021 Aortic valve stenosis 11/24/2021 Stage 3b chronic kidney disease 12/01/2020 Renal osteodystrophy 12/01/2020 Acute nontraumatic kidney injury 11/28/2020 Anemia of chronic renal failure 11/28/2020 Chronic kidney disease stage 4 11/28/2020 Hypertensive renal disease 11/28/2020 Renal disorder due to type 2 diabetes mellitus 0 11/28/2020 Immunizations Name Administration Dates Next Due Influenza (IM) Preservative Free 022,06/08/2021,04/30/2019,2017,05/02/2017,05/01/2007 Influenza Vaccine, Quadrival ent, Adjuvanted 05/15/2020 Pfizer SARS-COV-2 06/08/2022, 1,11/03/2020,2020 Zoster 11/01/2019 Social History Tobacco Use Types Packs/Day Years Used Date Smoking Tobacco: Never Alcohol Use Standard Drinks/Week Comments No 0 (1 standard drink = 0.6 oz pur e alcohol) Comments Unknown Sex and Gender Information Value Date Recorded Sex Assigned at Not on file Legal Sex Female 4:43 PM EST Gender Identity Not on file Sexual Orientation Not on file Last Filed Vital Signs Vital Sign Reading Time Taken Comments Blood Pressure 132/62 03/22/2024 1:33 PM EDT Pulse 74 03/22/2024 1:33 PM EDT Temperature - - Respiratory Rate - - Oxygen Saturation 97% 03/22/2024 1:33 PM EDT Inhaled Oxygen Concentration - - Weight 97.3 kg (214 lb 9.6 oz) 03/22/2024 1:33 P M EDT Height 167.6 cm (5' 6 ) 06/18/2019 12:00 PM EDT Body Mass Index 34.64 06/18/2019 12:00 PM EDT Plan of Treatment Health Maintenance Due Date Last Done Comments Pneumococcal Vaccine: 65+ Years (1 of 2 - PCV) 1941 Diabetes: Ophthalmology Exam 09/29/2020 Diabetes: Pedal Pulse Checked 09/29/2020 Diabetes: Sensory Foot Exam 09/29/2020 Diabetes: Visual Foot Exam 09/29/2020 Diabetes: Hemoglobin A1C 12/09/2021 09/10/2021 Influenza Vaccine (#1) 2024 2, 06/08/2021, 05/15/2020, Additional history exists Hepatitis B Vaccine Aged Out No longe r eligible based on patient's age to complete this topic Procedures Procedure Name Priority Date/Time Associated Diagnosis Comments EXT RESULT ENTRY Routine 09/10/2021 from Last 3 Months or Most Recently Relevant to Health Maintenance Results * (ABNORMAL) EXT RESULT ENTRY (09/10/2021) WBC 7.0 3.3 - 10.0 10*3/ML Red Blood Cell Count 3.97 Hemoglobin 10.9(A) 12.0 - 16.0 Hematocrit 36.1 36.0 - 46.0 Platelets 195 150 - 399 10*3/UL MCV 90.9 82.0 - 108.0 Sodium 143 137 - 147 Potassium 4.2 3.4 - 5.5 Chloride 102.0 99.0 - 108.0 Anion Gap 17 <=30 MMOL/L BUN 32(A) 4 - 21 mg/dL Creatinine 1.99(A) 0.50 - 1.10 mg/dL Albumin 4.3 3.5 - 5.0 g/dL Calcium 10.1 8.7 - 10.7 mg/dL Hemoglobin A1C 6.4(A) 4.0 - 6.0 09/10/2021 Historical Provider LAB BLOOD ORDERABLES Gabby l Result from Last 3 Months or Most Recently Relevant to Health Maintenance Insurance [facility] MEDICARE [facility] MEDIC[facility] Care Teams Picu Nurse Relationship Specialty Start Date End Date Roberto Mckinney MD [facility] [place] [address] [place], [place] PCP - General Internal Medicine 12/17/20
--- OUTSIDE RECORDS SUMMARY | 2024-09-19 12:36 | XMS_ITS ---
Author Organization [facility] Address [address] [place] [address] Care Team Providers Care Billet Driller Name Role Phone Roberto Mckinney Primary Care Provider Von Velasquez Unavailable [phone] Allergies Allergen (clinical drug ingredient) Drug/Non Drug Allergy documented on EMR Reaction Allergy Type Onset Date Status amoxicillin Amoxicillin anaphylaxis Drug Allergy A ctive Codeine Phosphate anaphylaxis Drug Allergy Active Penicillin anaphylaxis Drug Allergy Acti ve REASON FOR VISIT At Risk Footcare Medications Medication SIG (Take, Route, Frequency, Duration) Notes Start Date End Date Status Trulicity Active Systane Active Bernadette Allergy Acti ve HumaLOG 10unit prn Activ e Extra Depth Orthopedic Shoes (1 Pair) with Customized Heat Molded Multidensity Innersoles (3 Pair) as directed Dx: IDDM/Polyneuropathy (E10.42), Hammertoe Foot Deformity (M20.41,M20.42), Preulcerative Skin Lesion(s) (L85.1) 10/10/2023 Active Multivitamin Active Tylenol Active Lantus Active Plavix 75 MG 1 tablet Orally A ctive Latanoprost 0.005 % 1 drop into affected eye in the evening Ophthalmic Once a day Active Calcium Active Farxiga 5 MG 1 tablet Orally Once a day Active Clopidogrel Bisulfate Active Meclizine HCl prn PRN Active Furosemide 80mg AM 60mg PM Daily Active Allopurinol 100 MG as directed Orally twice a day Active eliquis Active Atorvastatin Calcium 10 MG as directed Orally Active amLODIPine Besylate Active Clindamycin HCl PRN dentist Ac tive glyBURIDE Not-Taking Cartia XT Not-Taking metOLazone 2.5 MG 1 tablet Orally Two times a Week for 30 day(s) Active Actos Not-Taking Amiodarone HCl Activ e metFORMIN HCl Not-Ta daysi Kristine Not-Taking oxyCODONE-Acetaminop hen Not-Taking glipiZIDE 5 MG 1 tablet Orally Once a day Not-Taking amLODIPine Besylate Not-Taking Fexofenadine HCl Not -Taking Dorzolamide HCl-Timolol Mal Not-Taking Coumadin Not-Taking dilTIAZem HCl ER 240 MG TK 1 C PO ON ANEMPTY STOMACH QD Oral for 90 Not-Taking Dorzolamide-Timolol Not-Taking Colchicine Not-Takin g Aspirin 81 MG 1 tablet Once a day Not-Taking Social History Tobacco Use: Social History Observation [...] Problem Status W/U Status Risk Notes Problem Essential hypertension (90492608) Essential hypertension (I10) Active confirmed Vital Signs Height 5 ft 6 in in 08/15/2024 Weight 210 lbs 08/15/2024 BMI 33.89 kg/m2 08/15/2024 Blood pressure systolic 125 mm Hg 08/15/20 24 Blood pressure diastolic 71 mm Hg 024 Procedures Procedure Date Ordered Date Performed Result Body Sit e 97993-QXJSRWH NAIL, 6 OR MORE 08/15/2024 N/A 27794-MCXQ SKIN LESIONS, OVER 4 08/15/2024 N/A Encounters Encounter Location Date Provider Diagnosis [facility] [address] [place] [address] 08/15/2024 Von Mejia Type 1 diabetes mellitus with diabetic polyneuropathy E10.42 and Tinea unguium B35.1 Assessments Encounter Date Diagnosis (ICD Code) Assessment Notes Treatment Notes Treatment Clinical Notes Section Notes 08/15/2024 Type 1 diabetes mellitus with diabetic polyneuropathy (ICD-10 - E10.42) 08/15/2024 Tinea unguium (ICD-10 - B35.1) 08/15/2024 Other Plan Of Treatment Pending Test Test Name Order Date [id number]-ZLEVTJG NAIL, 6 OR MORE 08/15/2024 56120-SECW SKIN LESIONS, OVER 4 08/15/20 24 Next Appt Details Follow Up: prn, Reason: Provider Name:Von Mejia , 10/25/2024 03:00:00 PM, [address] , [address], [place], [address], Procedure Notes * Category Sub-Category Detail Notes Debride Nail 6-10 Nail debridement Due to the cl inical pathology outlined in the exam findings, performance of this nail treatment is medically necessary as its management by an unskilled/untrained nonprofessional would put this patients foot and overall health at risk. Therefore, debridement to affected nail(s), as described in exam ( TA, T1, T3, T4, T5, T6, T8, T9), was performed exclusively by the physician of record to reduce/remove overall nail length, girth, thickness, subungual debris, and necrotic tissue, by manual and/or electrical means through the use of a nail nipper and/or dremel-type profile grinder technician, to a more viable healthy nail plate or bed tissue 6-10 nails in total. Silver nitrate was used for any petechial bleeding as necessary. Definitive antifungal treatment options, both pharmaceutical and surgical, have been reviewed and discussed with the patient. The patient solely prefers the use of intermittent/as needed professional debridement services for their nail condition and understands the need for additional periodic treatments to maintain effectiveness in symptomatic relief - 49030 Keratoma Treatment Parring or Cutting o f Benign Hyperkeratotic Lesion(s) (-57) More than 4 Lesions - Due to the at risk nature of the patients medical condition as documented in the exam findings, performance of this keratoderma treatment is medically necessary as its management by an unskilled/untrained nonprofessional would put this patients foot and overall health at risk. Therefore, the benign hyperkeratotic lesions, ( 9) in total, locations as stated and described in the exam ( Medial, IPJ, TA, Dorsal, PIPJ, T4, Medial, IPJ, T5, Dorsal, PIPJ, T6, Dorsal, PIPJ, T9, SUB MTH (s), 1, B/L, Plantar, Heel(s) , B/L), were pared, and/or cut utilizing a sterile 15 blade, tissue nippers, and/or power dremel instrumentation by the physician of record - 70799 Progress Notes * Allie CUELLAR MDOB: [birth year] (89 yo F)Acc No.[id number]:08/15/2024 Progress Note Patient:?Rosalia CUELLARann Beto Provider:?Von Mejia DPM :1935???Age:89 Y???Sex:Female D ate:08/15/2024 [address] [id number] Pcp:Roberto Mckinney Subjective: * Chief Complaints: * ???At Risk Footcare * HPI: ???At Risk footcare:?Pt States Last PCP Visit:?Date?05/08/2024 * ROS:?General/Constitutional:?Nausea?denies.?Vomiting?denies.?Hunger Thirst?denies.?Loss appetite?denies.?Chills?denies.?Fatigue?denies.?Fever?denies.?Night Sweats?denies.?Unexplained weight loss?denies.?Ophthalmologic:?Blurred [...] * Hospitalization/Major Diagno stic Procedure:?Pt went to [facility] for heart catherization. 06/2015[facility] for Hip Replacement 10/21/15pneumonia 5 day stay rehab 1 month due to pace maker HF 05[facility] * Family History:?Mother: dece ased, diagnosed with Diabetic - NIDDM, Family history of arthritis.?Father: , diagnosed with Diabetic - NIDDM.?Spouse: .?3 [...] Vitals:?Ht: 5 ft 6 in, Wt: 2 10, BMI: 33.89, Shoe size: 10, BP: 125/71 mm Hg, BS: 101, Wt-k.25 kg. * ???Past Orders: Lab:HEMOGLOBIN A1C (GLYCOHEM OGAZAM) * Collection Date 05/23/2024 04/06/2023 09/28/2019 Collection [...] TA, T1, T3, T4, T5, T6, T8, T9, all other nails not described with characteristics as possessing mycosis are elongated, overgrown, and dystrophic.?Dermatologic: ?SKIN FINDINGS:?Skin exam reveals Keratotic lesion(s) located at Medial, IPJ, TA, Dorsal, PIPJ, T4, Medial, IPJ, T5, Dorsal, PIPJ, T6, Dorsal, PIPJ, T9, SUB MTH (s), 1, B/L, Plantar, Heel(s) , B/L .? Assessment: * Assessment: 1.?Type 1 diabetes mellitus with diabetic polyneuropathy - E10.42 (Primary)???2.?Tinea unguium - B35.1??? Plan: * Treatment: * Procedures:?Debride Nail 6-10:?Nail debridement?Due to the clinical pathology outlined in the exam findings, performance of this nail treatment is medically necessary as its management by an unskilled/untrained nonprofessional would put this patients foot and overall health at risk. Therefore, debridement to affected nail(s), as described in exam (?TA,?T1,?T3,?T4,?T5,?T6,?T8,?T9), was performed exclusively by the physician of record to reduce/remove overall nail length, girth, thickness, subungual debris, and necrotic tissue, by manual and/or electrical means through the use of a nail nipper and/or dremel- type profile grinder technician, to a more viable healthy nail plate or bed tissue 6-10 nails in total. Silver nitrate was used for any petechial bleeding as necessary. Definitive antifungal treatment options, both pharmaceutical and surgical, have been reviewed and discussed with the patient. The patient solely prefers the use of intermittent/as needed professional debridement services for their nail condition and understands the need for additional periodic treatments to maintain effectiveness in symptomatic relief - 25371.?Keratoma Treatment:?Parring or Cutting of Benign Hyperkeratotic Lesion(s)?(-57) More than 4 Lesions - Due to the at risk nature of the patients medical condition as documented in the exam findings, performance of this keratoderma treatment is medically necessary as its management by an unskilled/untrained nonprofessional would put this patients foot and overall health at risk. Therefore, the benign hyperkeratotic lesions, ( 9) in total, locations as stated and described in the exam (?Medial,?IPJ,?TA,?Dorsal,?PIPJ,?T4,?Medial,?IPJ,?T5,?Dorsal,?PIPJ,?T6,?Dorsal,? PIPJ,?T9,?SUB MTH (s),?1,?B/L,?Plantar,?Heel(s)?,?B/L), were pared, and/or cut utilizing a sterile 15 blade, tissue nippers, and/or power dremel instrumentation by the physician of record - 76142.? * Procedure Codes:?91322 DEBRI DE NAIL, 6 OR MORE, Modifiers: XS 36895 TRIM SKIN LESIONS, OVER 4, Modifiers: XS * Follow Up:?prn * Images: * Sign off status: Completed true * Provider:?Von Mejia DPM Date:?2023 Generated for Hanna hayes/Francois/Bhavna on:?09/19/2024 12:36 PM EST History and Physical Notes * HPI (History of Present Illness) Category Sub-Category Detail Notes Category Not es At Risk footcare Pt States Last PCP [...] PIPJ, T9, SUB MTH (s), 1, B/L, Plantar, Heel(s) , B/L Nails NAILS are: Elongated, overg rown, dystrophic, lytic, greater than 3mm thick, discolored and friable with crumbly malodorous subungual debris, TA, T1, T3, T4, T5, T6, T8, T9, all other nails not described with characteristics as possessing mycosis are elongated, overgrown, and dystrophic
--- OUTSIDE RECORDS SUMMARY | 2024-09-19 12:37 | XMS_ITS | Patient Health Record ---
Author Organization [facility] Address [address] [place] [address] Care Team Providers Care Clinical Support Nurse Name Role Phone Roberto Mckinney Primary Care Provider Von Velasquez Unavailable [phone] Allergies Allergen (clinical drug ingredient) Drug/Non Drug [...] Duration) Notes Start Date End Date Status Colchicine Not-Takin g Aspirin 81 MG 1 tablet Once a day Not-Taking Allopurinol 100 MG as directed Orally twice a day Active Fexofenadine HCl Not -Taking eliquis Active Atorvastatin Calcium 10 MG as directed Orally Active Dorzolamide HCl-Timolol Mal Not-Taking amLODIPine Besylate Active Coumadin Not-Taking Calcium Active dilTIAZem HCl ER 240 MG TK 1 C PO ON ANEMPTY STOMACH QD Oral for 90 Not-Taking Clindamycin HCl PRN dentist Ac tive Dorzolamide-Timolol Not-Taking Farxiga 5 MG 1 tablet Orally Once a day Active metFORMIN HCl Not-Ta daysi Clopidogrel Bisulfate Active Diovan Not-Taking Meclizine HCl prn PRN Active Furosemide 80mg AM 60mg PM Daily Active glyBURIDE Not-Taking Cartia XT Not-Taking Multivitamin Active Tylenol Active Lantus Active Plavix 75 MG 1 tablet Orally A ctive Latanoprost 0.005 % 1 drop into affected eye in the evening Ophthalmic Once a day Active Trulicity Active Systane Active Bernadette Allergy Acti ve HumaLOG 10unit prn Activ e metOLazone 2.5 MG 1 tablet Orally Two times a Week for 30 day(s) Active oxyCODONE-Acetaminop hen Not-Taking Extra Depth Orthopedic Shoes (1 Pair) with Customized Heat Molded Multidensity Innersoles (3 Pair) as directed Dx: IDDM/Polyneuropathy (E10.42), Hammertoe Foot Deformity (M20.41,M20.42), Preulcerative Skin Lesion(s) (L85.1) 10/10/2023 Active glipiZIDE 5 MG 1 tablet Orally Once a day Not-Taking Actos Not-Taking Amiodarone HCl Activ e amLODIPine Besylate Not-Taking Immunizations Vaccine Route Administration Date Status Comme nts COVID-19 Pfizer BioNTcortical.io Vaccine Unknown 06/08/2022 Administered 10/13/20,11/03/20 07/01/21 Influenza [...] Problem Acquired hammer toe of right foot ([id number] ) Other hammer toe(s) (acquired), right foot (M20.41) Active confirmed Response to treatment, Improvemen t Problem Acquired hammer toe of left foot (2685468761245260 ) Other hammer toe(s) (acquired), left foot (M20.42) Active confirmed Response to treatment, Improvemen t Problem Polyneuropathy due to diabetes mellitus type I (280524092) Type 1 diabetes mellitus with diabetic polyneuropathy (E10.42) Active confirmed Problem Essential hypertension (18486510) Essential hypertension (I10) Active confirmed Vital Signs Blood pressure diastolic 71 mm Hg 08/15/2024 Height 5 ft 6 in in 08/15/2024 Blood pressure systolic 125 mm Hg 08/15/2024 Weight 210 lbs 08/15/2024 BMI 33.89 kg/m2 08/15/2024 Procedures Procedure Date Ordered Date Performed Result Body Sit e 32269-ZRGUUMR NAIL, 6 OR MORE 10/10/2023 N/A 39655-LZIH SKIN LESIONS, OVER 4 10/10/2023 N/A 63110-OWYJFTC NAIL, 6 OR MORE 12/19/2023 N/A 78688 I&D ABSCESS- SIMPLE,SINGLE 12/19/2023 N/A 32909-UQAT SKIN LESIONS, OVER 4 12/19/2023 N/A 18049-YEZBEUM NAIL, 6 OR MORE 03/07/2024 N/A 23353-TYFB SKIN LESIONS, OVER 4 03/07/2024 N/A 49597-MSBBUPY NAIL, 6 OR MORE 05/23/2024 N/A 07142-KPWK SKIN LESIONS, OVER 4 05/23/2024 N/A 19245-CDNMRUM NAIL, 6 OR MORE 08/15/2024 N/A 83175-FKUM SKIN LESIONS, OVER 4 08/15/2024 N/A Encounters Encounter Location Date Provider Diagnosis [address] [address] 10/10/2023 Von Mejia Type 1 diabetes mellitus with diabetic polyneuropathy E10.42 ; Tinea unguium B35.1 ; Other hammer toe(s) (acquired), right foot M20.41 and Other hammer toe(s) (acquired), left foot M20.[address] [address] 12/19/2023 Vonterrence Mejia Type 1 diabetes mellitus with diabetic polyneuropathy E10.42 ; Tinea unguium B35.1 and Abscess of toe, left L02.[address] [address] 03/07/2024 Vonterrence Mejia Type 1 diabetes mellitus with diabetic polyneuropathy E10.42 and Tinea unguium B35.[address] [address] 05/23/2024 Von Mejia Type 1 diabetes mellitus with diabetic polyneuropathy E10.42 ; Tinea unguium B35.1 ; Other hammer toe(s) (acquired), right foot M20.41 and Other hammer toe(s) (acquired), left foot M20.[address] [address] 08/15/2024 Von Mejia Type 1 diabetes mellitus [...] E10.42) 03/07/2024 Tinea unguium (ICD-10 - B35.1) 05/23/2024 Type 1 diabetes mellitus with diabetic polyneuropathy (ICD-10 - E10.42) 05/23/2024 Tinea unguium (ICD-10 - B35.1) 08/15/2024 Type 1 diabetes mellitus with diabetic polyneuropathy (ICD-10 - E10.42) 08/15/2024 Tinea unguium (ICD-10 - B35.1) 10/10/2023 Tinea unguium (ICD-10 - B35.1) 05/23/2024 Other [...] CARE INSTRUCTIONS. pdf) 03/07/2024 Other 05/23/2024 Other 08/15/2024 Other Plan Of Treatment Pending Test Test Name Order Date Hemoglobin A1c 09/19/2015 93886-AKVFMTY NAIL, 6 OR MORE 12/26/2015 09530-VZSIWJY NAIL, 6 OR MORE 03/26/2016 90855-HREQMKS NAIL, 6 OR MORE 06/17/2015 65450-YMNRLAU NAIL, 6 OR MORE 12/03/2014 12084-YYHECAW NAIL, 6 OR MORE 03/11/2015 44320-YTHKJAN NAIL, 6 OR MORE 02/26/2014 09627-XFHJLMQ NAIL, 6 OR MORE 11/20/2013 67787-VFQLDZK NAIL, 6 OR MORE 06/04/2014 09272-WAEYBFC NAIL, 6 OR MORE 09/03/2014 13861-BVMNPIB NAIL, 6 OR MORE 04/23/2011 03580-KORLZZP NAIL, 6 OR MORE 07/16/2011 72724-KLJMVQG NAIL, 6 OR MORE 10/15/2011 21466-EYNGJCD NAIL, 6 OR MORE 12/31/2011 55892-LPIBNCJ NAIL, 6 OR MORE 03/17/2012 49160-BROZVIG NAIL, 6 OR MORE 05/26/2012 99203-BRPBZCF NAIL, 6 OR MORE 08/11/2012 55349-YGCMZZE NAIL, 6 OR MORE 11/17/2012 54503-MHZRXPJ NAIL, 6 OR MORE 02/02/2013 38341-FDAAKRR NAIL, 6 OR MORE 05/08/2013 56336-TQNELHK NAIL, 6 OR MORE 08/07/2013 70124-SJKQNYF NAIL, 6 OR MORE 06/25/2016 87727-HSBBFLG NAIL, 6 OR MORE 09/24/2016 56237-OLDOBXQ NAIL, 6 OR MORE 12/03/2016 08394-SZGESRV NAIL, 6 OR MORE 09/19/2015 65651-ZVEZJKQ NAIL, 6 OR MORE 02/08/2017 44978-UWRQDSM NAIL, 6 OR MORE 04/12/2017 91458-QZUOPUS NAIL, 6 OR MORE 06/24/2017 15077-YRMCZLP NAIL, 6 OR MORE 10/04/2017 87058-BWDWMBK NAIL, 6 OR MORE 12/23/2017 01180-VAZWRJE NAIL, 6 OR MORE 02/24/2018 35414-SNGCSMG NAIL, 6 OR MORE 06/27/2018 82105-VFVHXNU NAIL, 6 OR MORE 09/26/2018 81477-SMJLOXW NAIL, 6 OR MORE 12/26/2018 13372-YPQAWTV NAIL, 6 OR MORE 02/27/2019 14270-LMVKJLH NAIL, 6 OR MORE 06/01/2019 65333-YQFCKVZ NAIL, 6 OR MORE 08/10/2019 63910-MSXAVUL NAIL, 6 OR MORE 10/12/2019 42105-MIIFQNY NAIL, 6 OR MORE 12/18/2019 73560-BKCODZR NAIL, 6 OR MORE 02/22/2020 46746-JEZZJHD NAIL, 6 OR MORE 04/29/2020 62717-TLILHTF NAIL, 6 OR MORE 07/08/2020 91931-NLFVHPY NAIL, 6 OR MORE 09/09/2020 08129-UKFJXZM NAIL, 6 OR MORE 11/18/2020 35995-OJDQOZT NAIL, 6 OR MORE 01/20/2021 70536-XVDZNNM NAIL, 6 OR MORE 03/24/2021 97073-ZQNPHXI NAIL, 6 OR MORE 07/07/2021 23527-CNDBXJL NAIL, 6 OR MORE 09/15/2021 90865-FMBCLOI NAIL, 6 OR MORE 12/01/2021 40952-DJUXSKM NAIL, 6 OR MORE 03/12/2022 23091-QNVJVMI NAIL, 6 OR MORE 06/25/2022 46704-CCRHZIT NAIL, 6 OR MORE 09/03/2022 31051-MJOCCUG NAIL, 6 OR MORE 11/23/2022 85192-PYEVGDU NAIL, 6 OR MORE 01/26/2023 83525-QFJSKYE NAIL, 6 OR MORE 04/06/2023 40048-DDUHVIN NAIL, 6 OR MORE 08/01/2023 65978-ZCOCOHX NAIL, 6 OR MORE 10/10/2023 63400-ZKROLBC NAIL, 6 OR MORE 12/19/2023 51681-TNFRYVO NAIL, 6 OR MORE 03/07/2024 36439-PAMNJCD NAIL, 6 OR MORE 05/23/2024 62539-ACFTHKO NAIL, 6 OR MORE 08/15/2024 57068-Wwifgzeg Plate 08/01/2023 52118-Txkxiqzg Plate 09/24/2016 21178-Sewoickb Plate 08/07/2013 42943-Anzuzmex Plate 05/08/2013 52997-Jwsybmkj Plate 02/02/2013 91163-Dpxdrjst Plate 11/17/2012 93880-Iaacdtls Plate 08/11/2012 18364-Krvdlpbl Plate 04/23/2011 98977-Qyzpujhb Plate 12/31/2011 83542-Qopvzgek Plate 09/03/2014 30134-Qwtzdwfv Plate 06/04/2014 79639-Lckglrnn Plate 11/20/2013 04114-Tbxpuizl Plate 02/26/2014 82085-Uooyrldo Plate 03/11/2015 84925-Husoniey Plate 12/03/2014 75656-Tqlxiisg Plate 06/17/2015 16112-Ugdemxrq Plate 09/19/2015 95165-Ezpznrnu Plate Each Additional 02/2015 48673-Gcpamjur Plate Each Additional 02/2014 69867-Itpntpdy Plate Each Additional 01/2015 41232-Khlhqtis Plate Each Additional 56739-Tnqxftvf Plate Each Additional 11842-Eydgzvcj Plate Each Additional 02/2013 30378-Jtpczqyc Plate Each Additional 05/2013 70934- Debride <25 sq cm 08/17/2013 32971 I&D ABSCESS- SIMPLE,SINGLE 013 76974 I&D ABSCESS- SIMPLE,SINGLE 014 59190 I&D ABSCESS- SIMPLE,SINGLE 014 93687 I&D ABSCESS- SIMPLE,SINGLE 015 29208 I&D ABSCESS- SIMPLE,SINGLE 016 73635 I&D ABSCESS- SIMPLE,SINGLE 016 42233 I&D ABSCESS- SIMPLE,SINGLE 017 07723 I&D ABSCESS- SIMPLE,SINGLE 017 26492 I&D ABSCESS- SIMPLE,SINGLE 024 34304 I&D ABSCESS- SIMPLE,SINGLE 019 83634 I&D ABSCESS- SIMPLE,SINGLE 023 05687- I&D ABSCESS-COMPLICATED,MULTI 08/2013 01272-AODX SKIN LESIONS, OVER 4 04/12/20 17 64119-BDTG SKIN LESIONS, OVER 4 10/04/19 18 18583-SXAX SKIN LESIONS, OVER 4 06/24/20 17 58028-TOBM SKIN LESIONS, OVER 4 02/09/20 17 28506-GLNY SKIN LESIONS, OVER 4 08/10/20 19 87891-QEXM SKIN LESIONS, OVER 4 06/01/20 64820-WWEV SKIN LESIONS, OVER 4 02/28/20 75245-VPOM SKIN LESIONS, OVER 4 12/27/19 60843-EFFB SKIN LESIONS, OVER 4 09/26/19 62023-MIDI SKIN LESIONS, OVER 4 06/27/20 18 61459-AYWL SKIN LESIONS, OVER 4 02/25/20 18 56502-RYIR SKIN LESIONS, OVER 4 12/24/19 18 01014-LVJF SKIN LESIONS, OVER 4 11/24/19 23 11661-TZWE SKIN LESIONS, OVER 4 09/03/19 23 25729-QDLI SKIN LESIONS, OVER 4 06/25/20 39427-OEWM SKIN LESIONS, OVER 4 03/12/20 09392-QTSI SKIN LESIONS, OVER 4 12/02/19 04864-BEAQ SKIN LESIONS, OVER 4 09/15/19 65181-KAWA SKIN LESIONS, OVER 4 07/07/20 12653-DRLW SKIN LESIONS, OVER 4 03/24/20 21 81531-QUYS SKIN LESIONS, OVER 4 01/21/20 45891-NENE SKIN LESIONS, OVER 4 11/19/19 21 65888-XTAE SKIN LESIONS, OVER 4 09/09/19 45681-NRNJ SKIN LESIONS, OVER 4 07/08/20 12343-FQHU SKIN LESIONS, OVER 4 04/29/20 06332-FKZT SKIN LESIONS, OVER 4 02/22/20 20 75166-CFNJ SKIN LESIONS, OVER 4 12/18/19 20 85210-XCDB SKIN LESIONS, OVER 4 10/12/19 20 06021-KVYR SKIN LESIONS, OVER 4 01/27/20 23 27368-NXAD SKIN LESIONS, OVER 4 12/04/20 23 09345-EDNM SKIN LESIONS, OVER 4 04/06/20 23 19097-KRBW SKIN LESIONS, OVER 4 03/07/20 24 16685-BIDU SKIN LESIONS, OVER 4 12/19/19 24 19594-KRZL SKIN LESIONS, OVER 4 10/10/19 24 93740-BWXU SKIN LESIONS, OVER 4 08/15/20 24 72542-EZJY SKIN LESIONS, OVER 4 05/23/20 24 78194-OZTH SKIN LESIONS, 2 TO 4 12/04/19 17 72813-VLQE SKIN LESIONS, 2 TO 4 06/25/20 16 90241-GNEO SKIN LESIONS, 2 TO 4 09/24/19 17 89468-ZSDF SKIN LESIONS, 2 TO 4 11/21/19 14 87982-FJYC SKIN LESIONS, 2 TO 4 02/27/20 14 68294-JKIH SKIN LESIONS, 2 TO 4 09/03/19 15 40488-DZPU SKIN LESIONS, 2 TO 4 06/04/20 14 64784-JJNL SKIN LESIONS, 2 TO 4 12/26/19 16 29352-XMRT SKIN LESIONS, 2 TO 4 03/26/20 16 70873-TIUA SKIN LESIONS, 2 TO 4 09/19/19 16 00809-JNOX SKIN LESIONS, 2 TO 4 06/17/20 15 17035-QKNY SKIN LESIONS, 2 TO 4 03/11/20 15 24315-SKAY SKIN LESIONS, 2 TO 4 12/04/19 15 78051-KUMT SKIN LESIONS, 2 TO 4 08/07/20 13 79877-XTPA SKIN LESIONS, 2 TO 4 05/08/20 13 49555-JVSU SKIN LESIONS, 2 TO 4 02/03/20 13 44840-JVDA SKIN LESIONS, 2 TO 4 11/18/19 13 74031-KPKG SKIN LESIONS, 2 TO 4 08/11/20 12 69816-VUUF SKIN LESIONS, 2 TO 4 05/26/20 12 68088-TXQQ SKIN LESIONS, 2 TO 4 03/17/20 12 01195-QVEE SKIN LESIONS, 2 TO 4 12/31/19 12 04678-ZFJY SKIN LESIONS, 2 TO 4 10/15/19 12 56527-KUEY SKIN LESIONS, 2 TO 4 04/23/20 11 14477-AHMH SKIN LESIONS, 2 TO 4 07/16/20 11 Next Appt Details Provider Name:Von Strat[place] Roberto , 10/25/2024 03:00:00 PM, [address], [address], [place], [address], Insurance Providers Payer Name Payer Address Payer Phone Subscriber Number Group Number Insured Name Patient Relationship to Insured Coverage Start Date Coverage End Date Medicare National [facility] [address] [place] [address] [id number] Allie Gonzalez Self - patient is the insured [employer] [address] [place] [address] [phone] [id number] Allie Gonzalez Self - patient is the [...] [facility], fell and hit head 10/14/23 [facility] slid off bed, UTI 07/2023 CHF 05/2023 pneumonia 5 day stay rehab 1 month due t o pace maker 03/2021 [facility] for Hip Replacement 10/21/15 Pt went to [facility] for heart cat herization. 06/2015
--- OUTSIDE RECORDS SUMMARY | 2024-09-19 12:37 | XMS_ITS ---
Author Organization [employer] [facility] Address [address] [place] [address] Care Team Providers Care Supervisor Grinding Name Role Phone Roberto Mckinney Primary Care Provider Von Velasquez Unavailable [phone] Allergies Allergen (clinical drug ingredient) Drug/Non Drug [...] Ordered Date Performed Result Body Sit e 33153-DKNYWLQ NAIL, 6 OR MORE 03/07/2024 N/A 86331-IXVY SKIN LESIONS, OVER 4 03/07/2024 N/A Encounters Encounter Location Date Provider Diagnosis [facility] [address] [address] 03/07/2024 Von Mejia Type 1 diabetes mellitus with diabetic polyneuropathy E10.42 and Tinea unguium B35.1 Assessments Encounter Date Diagnosis (ICD Code) Assessment Notes Treatment Notes Treatment Clinical Notes Section Notes 03/07/2024 Type 1 diabetes mellitus with diabetic polyneuropathy (ICD-10 - E10.42) 03/07/2024 Tinea unguium (ICD-10 - B35.1) 03/07/2024 Other Plan Of Treatment Pending Test Test Name Order Date 24369-ZCQZBZH NAIL, 6 OR MORE 03/07/2024 26539-FKKQ SKIN LESIONS, OVER 4 03/07/20 24 Next Appt Details Follow Up: prn, Reason: Provider Name:Von Mejia , 10/25/2024 03:00:00 PM, [address] [facility], [address], [place], [address], Procedure Notes * Category Sub-Category Detail Notes [...] as necessary. Patient chooses, no pharmaceutical tx (93173) Keratoma Treatment Parring or Cutting o f Benign Hyperkeratotic Lesion(s) 45764 ( >4 Lesions) - The Benign hyperkeratotic lesions, as described above were pared, and/or cut utilizing a sterile #15 blade, tissue nippers, and/or dremel Progress Notes * Allie GONZALEZ MDOB: [birth year] (88 yo F)Acc No.[id number]:03/07/2024 Progress Note Patient:?Allie Gonzalez Provider:?Von Mejia DPM :1935???Age:88 Y???Sex:Female D ate:03/07/2024 Address:[address] [place], [place] [address] Pcp:Roberto Mckinney Subjective: * Chief Complaints: * [...] * Hospitalization/Major Diagno stic Procedure:?Pt went to [facility] for heart catherization. 06/2015[facility] 10/21/15pneumonia 5 day stay rehab 1 month due to pace maker HF 05/20[facility] 10/14/23 * [...] as necessary. Patient chooses, no pharmaceutical tx (41498).?Keratoma Treatment:?Parring or Cutting of Benign Hyperkeratotic Lesion(s)?31003 ( >4 Lesions) - The Benign hyperkeratotic lesions, as described above were pared, and/or cut utilizing a sterile #15 blade, tissue nippers, and/or dremel.? * Procedure Codes:?22922 DEBRI DE NAIL, 6 OR MORE, Modifiers: XS 85249 TRIM SKIN LESIONS, OVER 4, Modifiers: XS [...]
== END 2024-09-19 11:58 | disposition home or self-care (01) ==
PROVIDERS: PCP Internal Medicine; Visit Provider Student in an Organized Health Care Education/Training Program
DX: M15.4 Erosive (osteo)arthritis (principal); M1A.9XX1 Chronic gout, unspecified, with tophus (tophi); M81.0 Age-related osteoporosis without current pathological fracture; Z51.81 Encounter for therapeutic drug level monitoring; Z79.620 Long term (current) use of immunosuppressive biologic; Z79.899 Other long term (current) drug therapy
CPT/HCPCS: 99213; G2211

== ENCOUNTER → 2024-09-19 11:04 | Outpatient (BNVA) | payer MEDICARE, SELFPAY ==
[2024-04-09 14:10] VITALS: BP 108/60; BP 118/64; BP 124/60; BMI 35.9
== END ==
PROVIDERS: PCP Internal Medicine; Visit Provider Student in an Organized Health Care Education/Training Program
DX: M15.4 Erosive (osteo)arthritis (principal); M1A.9XX1 Chronic gout, unspecified, with tophus (tophi); M81.0 Age-related osteoporosis without current pathological fracture; Z51.81 Encounter for therapeutic drug level monitoring; Z79.899 Other long term (current) drug therapy; Z79.620 Long term (current) use of immunosuppressive biologic
CPT/HCPCS: 96372; 99212; J0897

== ENCOUNTER 2024-10-06 07:04 | Outpatient (REF) | payer MEDICARE, SELFPAY ==
[2024-04-09 14:10] VITALS: BP 108/60; BP 118/64; BP 124/60; BMI 35.9
[2024-10-06 08:24] LABS: Hematocrit 33.4 % (37.0-47.0); Hemoglobin 10.7 g/dl (12.0-16.0); Mean Corpuscular Hemoglobin 28.5 pg (27.0-33.0); Mean Corpuscular Volume 88.8 fL (80.0-98.0); Mean Platelet Volume 10.2 fL (9.4-12.3); Platelet Count 181 X10*3/uL (160-400); Red Blood Count 3.76 X10*6/uL (4.20-5.50); Red Cell Distribution Width 16.7 % (11.0-16.0); White Blood Count 5.9 X10*3/uL (4.8-10.8)
[2024-10-06 09:00] LABS: Anion Gap 17 (12-20); Blood Urea Nitrogen 62 mg/dL (9-16); Carbon Dioxide 27 mmol/L (22-29); Chloride 101 mmol/L (96-108); Estimated Glomerular Filt Rate 23; Potassium 4.1 mmol/L (3.3-5.1); Sodium 141 mmol/L (135-145)
[2024-10-06 09:18] LABS: Vitamin D 25-OH Total 42.8 ng/mL (>30)
[2024-10-06 09:21] LABS: Parathyroid Hormone Intact 1274.9 pg/mL (8.7-77.1)
[2024-10-09 10:38] LABS: IgA 132 mg/dL (70-320); IgG 1184 mg/dL (600-1540); IgM 90 mg/dL (50-300)
== END 2024-10-06 07:05 | disposition home or self-care (01) ==
LOC: HO.LAB 07:04
PROVIDERS: Student in an Organized Health Care Education/Training Program; PCP Internal Medicine; Visit Provider Internal Medicine Nephrology
DX: N18.4 Chronic kidney disease, stage 4 (severe) (principal); D63.1 Anemia in chronic kidney disease; N25.81 Secondary hyperparathyroidism of renal origin; I12.9 Hypertensive chronic kidney disease with stage 1 through stage 4 chronic kidney disease, or unspecified chronic kidney disease; M15.4 Erosive (osteo)arthritis
CPT/HCPCS: 36415; 80051; 82306; 82310; 82565; 82784; 83970; 84520; 85027; 86334

== ENCOUNTER 2024-10-08 12:15 | Outpatient (AMB) | payer MEDICARE, SELFPAY ==
[2024-04-09 14:10] VITALS: BP 108/60; BP 118/64; BP 124/60; BMI 35.9
--- NOTE | 2024-10-08 12:53 | MHC.OFFVIS ---
Vital Signs 10/08/24 12:54 Height 5 ft 3 in Weight 207 lb 3.752 oz BMI 36.7 BP 118/60 Blood Pressure Location Lt brachial Position Sitting Pulse 81 Pulse Source Monitor Intake Visit Reasons: 6 mth f/up w/ medtronic ck Allergies Penicillins [PENICILLINS] Allergy (Severe, Verified 09/19/24 11:10) SWELLING codeine [CODEINE] Allergy (Intermediate, Verified 09/19/24 11:10) SWELLING, Hives Medication List - Last Reconciled 10/08/24 by Greg Thomas MD acetaminophen (Tylenol) 325 mg PO QID PRN allopurinol 300 mg PO DAILY 90 days amiodarone 200 mg orally qod; alternate days amlodipine 5 mg PO DAILY apixaban (Eliquis) 2.5 mg PO BID 90 days atorvastatin 10 mg PO DAILY blood sugar diagnostic (FreeStyle Lite Strips) 1 strip miscellaneous TID 90 days calcitriol mcg PO Q OTHER DAY clindamycin HCl 600 mg PO ONCE PRN clotrimazole 1% 1 appl topical BID 4 weeks compress.stocking,knee,reg,lrg As directed 20-30 mm HG compress.stocking,knee,reg,lrg As directed 20-30 mm HG dapagliflozin propanediol (Farxiga) 5 mg PO DAILY 90 days denosumab (Prolia) 60 mg subcut [id number] diclofenac sodium 1% 2 grams topical QD-BID PRN dulaglutide (Trulicity) 0.75 mg (0.5 mL) subcut QWEEK fexofenadine 180 mg PO DAILY furosemide 20 mg PO DIRECTED 30 days insulin glargine (Lantus Solostar U-100 Insulin) 5 units (0.05 mL) subcut BEDTIME insulin lispro (Humalog KwikPen (U-100) Insulin) inject 1 u TID 30 days latanoprost 0.005% 1 drp ophthalmic (eye) BEDTIME meclizine 25 mg PO TID PRN metolazone 2.5 mg PO DIRECTED PRN miconazole nitrate 2% (Zeasorb AF) 1 appl topical BID multivitamin 1 tab PO DAILY pen needle, diabetic As directed propylene glycol 0.6% (Systane Complete) 1 drp ophthalmic (eye) TID PRN HPI Comments Details: Allie returns for follow-up regarding various cardiac issues including TAVR, pacemaker, heart failure among others. In 2022, she had congestive heart failure related to atrial fibrillation. Subsequently, had cardioversion and then recovered very well. Since last seen, no new cardiac concerns. She is doing fine. [facility] Medical History (Updated 10/08/24 @ 13:20 by Greg Thomas MD) On allopurinol therapy Encounter for monitoring denosumab therapy Osteoporosis Erosive osteoarthritis of both hands Bacteremia due to Gram-positive bacteria Paroxysmal atrial fibrillation CHF (congestive heart failure) Type 2 diabetes mellitus with unspecified complications Normally functioning cardiac pacemaker present URI (upper respiratory infection) Heart block atrioventricular Chronic heart failure with preserved ejection fraction Thrombosis of right saphenous vein Hypercholesterolemia Cataract Hypertension Obesity Aortic stenosis, moderate CKD (chronic kidney disease) stage 4, GFR 15-29 ml/min DVT (deep venous thrombosis) Type 2 diabetes mellitus with hyperglycemia Surgical History Status post transcatheter aortic valve replacement (TAVR) using bioprosthesis History of permanent cardiac pacemaker placement (~05/06/21) History of eye surgery History of surgical procedure on eye proper using laser History of right hip replacement History of partial hysterectomy History of cholecystectomy Family History Father No problems noted. Mother No problems noted. Social History Household Members: Family Housing: House Do you presently have visiting nurse or other home services: No Alcohol intake: never Patient Tobacco Use Status: Never used Tobacco Tobacco use type: Cigarette e-Cigarette/Vaping Use: Never Used Second Hand Smoke Exposure: Yes Advance Directives Date on File: 05/20/23 service: No Current occupational status: retired Cognitive needs: Yes (walker ) Hearing needs: No Vision needs: Yes Review of Systems Const Denies weakness ENT Denies dizziness Card Denies chest pain, Denies chest pain with activity, Denies syncope, Denies rapid heart rate, Denies pedal edema, Denies edema, Denies leg edema, Denies lightheadedness, Denies palpitations, Denies dyspnea, Denies dyspnea on exertion and Denies orthopnea Resp Denies cough, Denies dyspnea and Denies dyspnea on exertion GI Denies hematochezia and Denies change in stool character Musc Denies abnormal gait, Denies muscle cramps, Denies muscle weakness, Denies numbness, Denies radiating pain into limb and Denies tingling Neuro Denies abnormal gait, Denies dizziness, Denies syncope, Denies numbness, Denies tingling and Denies weakness Endo Denies palpitations Physical Exam Vital Signs: Last Vital Signs Pulse 81 10/08/24 12:54 BP 118/60 10/08/24 12:54 BMI result Body Mass Index 36.7 Const General: comfortable and no acute distress Orientation/consciousness: patient oriented x3 HEENT Other: Unremarkable Head: Yes normal to inspection Neck Neck: Yes normal visual inspection Chest Chest palpation & inspection: normal inspection of the chest Resp Other: Few basal inspiratory crackles Cardio Palpation: normal PMI Heart sounds: S1 normal heart sound present, S2 normal heart sound present, no gallops, Murmur heart sound present systolic II/ and at the right sternal border and no rubs GI Palpation (GI): Soft to palpation Back/Spine/Pelvis Other: unremarkable Skin General skin exam: no rashes or lesions noted Neuro General: patient oriented x3 Extrem Other: No significant edema General: Yes normal to inspection Psych Mental Status: mental status grossly normal Office Procedures Cardiac Device Check Cardiac Device Check Details: Pacemaker interrogated today. Dual-chamber device, programmed DDD. Battery status 8.9 years. Normal lead parameters. Atrial pacing 3%. Ventricular pacing 99.9%. Brief AT/AF but nothing prolonged. Overall, normal device function. 72504-DR Cardiac Device Check, pacemaker dual lead Procedure code (CPT) selection complete EKG Details: EKG with atrial sensed, ventricular paced rhythm at 81/Min. Corrected QT 559 milliseconds. There is also some contribution from ventricular pacing/QRS prolongation from that. 20382-Mctcqgdunuhyinutx, Complete Assessment & Plan Assessment & Plan (1) Paroxysmal atrial fibrillation: Comment: Cardioversion May 2020 Code(s): I48.0 - Paroxysmal atrial fibrillation Category: Medical Plan: On amiodarone, alternate days. Continue anticoagulation. There is some prolongation of QT but it is also partly due to widened QRS from pacing. She is on minimal dose of amiodarone and not much of a choice otherwise. May continue. (2) Chronic diastolic (congestive) heart failure: Code(s): I50.32 - Chronic diastolic (congestive) heart failure Category: Medical Plan: Stable. No new heart failure issues. Continue diuretics. (3) Status post transcatheter aortic valve replacement: Code(s): Z95.2 - Presence of prosthetic heart valve Category: Surgical Plan: Last echocardiogram with normal prosthetic valve function. Usual infective endocarditis prophylaxis. In the past, nonobstructive disease on cardiac catheterization. (4) Non-rheumatic mitral regurgitation: Code(s): I34.0 - Nonrheumatic mitral (valve) insufficiency Category: Medical Plan: Xkubwwdb-gr-tgnaof mitral regurgitation on echocardiogram from 2023. We can recheck an echocardiogram before next visit. (5) Heart block atrioventricular: Code(s): I44.30 - Unspecified atrioventricular block Category: Medical Plan: Status post pacemaker implantation. (6) Essential hypertension: Code(s): I10 - Essential (primary) hypertension Category: Medical Plan: Stable. (7) Type 2 diabetes mellitus with unspecified complications: Code(s): E11.8 - Type 2 diabetes mellitus with unspecified complications Category: Medical Plan: On insulin, Trulicity, Farxiga. Last hemoglobin A1c 6.6%. (8) CKD (chronic kidney disease) stage 4, GFR 15-29 ml/min: Code(s): N18.4 - Chronic kidney disease, stage 4 (severe) Category: Medical Plan: Most recently, 10.06. Plan Discussed with family who came for appointment. Orders: Orders CA echo transthoracic complete 6 Months I34.0 - Nonrheumatic mitral (valve) insufficiency, Z95.3 - Presence of xenogenic heart valve TSH reflex Free T4 Today R94.6 - Abnormal results of thyroid function studies Coding Level of Care Code Est Pt Level 4 (18550) Diagnoses Paroxysmal atrial fibrillation I48.0 Chronic diastolic (congestive) heart failure I50.32 Status post transcatheter aortic valve replacement Z95.2 Non-rheumatic mitral regurgitation I34.0 Heart block atrioventricular I44.30 Essential hypertension I10 Type 2 diabetes mellitus with unspecified complications E11.8 CKD (chronic kidney disease) stage 4, GFR 15-29 ml/min N18.4 CPT Codes Cardiac Device Check - Cardiac Device 2: 53045-CY Cardiac Device Check, pacemaker dual lead ([id number]) EKG - CPT: 55686-Eqeomipckbnzvjxoy, Complete ([id number])
[2024-10-08 12:54] VITALS: BP 118/60; PULSE 81; BMI 36.7
== END 2024-10-08 13:26 | disposition home or self-care (01) ==
PROVIDERS: PCP Internal Medicine; Visit Provider Internal Medicine
DX: I48.0 Paroxysmal atrial fibrillation (principal); I50.32 Chronic diastolic (congestive) heart failure; Z95.2 Presence of prosthetic heart valve; I34.0 Nonrheumatic mitral (valve) insufficiency; I44.30 Unspecified atrioventricular block; I12.9 Hypertensive chronic kidney disease with stage 1 through stage 4 chronic kidney disease, or unspecified chronic kidney disease; E11.8 Type 2 diabetes mellitus with unspecified complications; N18.4 Chronic kidney disease, stage 4 (severe)
CPT/HCPCS: 93010; 93280; 99214

== ENCOUNTER → 2024-10-08 12:15 | Outpatient (BNVA) | payer MEDICARE, SELFPAY ==
[2024-04-09 14:10] VITALS: BP 108/60; BP 118/64; BP 124/60; BMI 35.9
== END ==
PROVIDERS: PCP Internal Medicine; Visit Provider Internal Medicine
DX: Z45.018 Encounter for adjustment and management of other part of cardiac pacemaker (principal); I48.0 Paroxysmal atrial fibrillation; I34.0 Nonrheumatic mitral (valve) insufficiency; I44.30 Unspecified atrioventricular block; E11.22 Type 2 diabetes mellitus with diabetic chronic kidney disease; I13.0 Hypertensive heart and chronic kidney disease with heart failure and stage 1 through stage 4 chronic kidney disease, or unspecified chronic kidney disease; I50.32 Chronic diastolic (congestive) heart failure; N18.4 Chronic kidney disease, stage 4 (severe); E11.8 Type 2 diabetes mellitus with unspecified complications; Z95.2 Presence of prosthetic heart valve; R94.31 Abnormal electrocardiogram [ECG] [EKG]
CPT/HCPCS: 93005; 93280; 99212

== ENCOUNTER 2024-10-12 13:05 | Outpatient (AMB) | payer MEDICARE, SELFPAY ==
[2024-04-09 14:10] VITALS: BP 108/60; BP 118/64; BP 124/60; BMI 35.9
--- OUTSIDE RECORDS SUMMARY | 2024-10-12 13:26 | XMS_ITS ---
Author [facility] Address [address] [place] [address] Care Team Providers Care General Passenger Agent Name Role Phone Roberto Mckinney Primary Care Provider Von Velasquez Unavailable [phone] Allergies Allergen (clinical drug ingredient) Drug/Non Drug [...] Ordered Date Performed Result Body Sit e 41776-FFJSLEQ NAIL, 6 OR MORE 03/07/2024 N/A 15797-WHNJ SKIN LESIONS, OVER 4 03/07/2024 N/A Encounters Encounter Location Date Provider Diagnosis [facility] [address] [address] 03/07/2024 Von Mejia Type 1 diabetes mellitus with diabetic polyneuropathy E10.42 and Tinea unguium B35.1 Assessments Encounter Date Diagnosis (ICD Code) Assessment Notes Treatment Notes Treatment Clinical Notes Section Notes 03/07/2024 Type 1 diabetes mellitus with diabetic polyneuropathy (ICD-10 - E10.42) 03/07/2024 Tinea unguium (ICD-10 - B35.1) 03/07/2024 Other Plan Of Treatment Pending Test Test Name Order Date 55331-KWXLIOE NAIL, 6 OR MORE 03/07/2024 69882-ZRZF SKIN LESIONS, OVER 4 03/07/20 24 Next Appt Details Follow Up: prn, Reason: Provider Name:Von Mejia , 10/25/2024 03:00:00 PM, [address] [facility], [address], [place], [address], Procedure Notes * Category Sub-Category Detail Notes [...] as necessary. Patient chooses, no pharmaceutical tx (73633) Keratoma Treatment Parring or Cutting o f Benign Hyperkeratotic Lesion(s) 49385 ( >4 Lesions) - The Benign hyperkeratotic lesions, as described above were pared, and/or cut utilizing a sterile #15 blade, tissue nippers, and/or dremel Progress Notes * Allie GONZALEZ MDOB: [birth year] (88 yo F)Acc No.[id number]:03/07/2024 Progress Note Patient:?Allie Gonzalez Provider:?Von Mejia DPM :1935???Age:88 Y???Sex:Female D ate:03/07/2024 Address:[address] [place], [place] [address] Pcp:Roberto Mckinney Subjective: * Chief Complaints: * [...] * Hospitalization/Major Diagno stic Procedure:?Pt went to [facility] for [facility] catherization. 06/2015[facility] 10/21/15pneumonia 5 day stay rehab 1 month due to pace maker HF 05/2023[facility] 10/14/23 [...] as necessary. Patient chooses, no pharmaceutical tx (73369).?Keratoma Treatment:?Parring or Cutting of Benign Hyperkeratotic Lesion(s)?70586 ( >4 Lesions) - The Benign hyperkeratotic lesions, as described above were pared, and/or cut utilizing a sterile #15 blade, tissue nippers, and/or dremel.? * Procedure Codes:?99268 DEBRI DE NAIL, 6 OR MORE, Modifiers: XS 71175 TRIM SKIN LESIONS, OVER 4, Modifiers: XS * Preventive Medicine:? ??Counseling:?Shoe Gear Counseling:?Patient to obtain shoes hopefully soon.? * Follow Up:?prn * Images: * Sign off status: Completed Addendum: * ? true * Provider:?Von Mejia DPM Date:?2023 Generated for Hanna hayes/Francois/Bhavna on:?10/12/2024 01:26 PM EST History and Physical Notes * [...]
--- OUTSIDE RECORDS SUMMARY | 2024-10-12 13:26 | XMS_ITS | Encounter Summary ---
Author Organization [facility] Address [address] [place] [address] Phone Care Team Providers Care Air Traffic Systems Technician Name Role Phone Roberto Mckinney MD Primary Care Provider [phone] Encounter Details Date Type Department Care Team (Late st Contact Info) Description 10/28/2020 Orders Only [facility] [address] [place] [address] ProviderElvira MD [address] [place] [address] Social History Tobacco Use Types Packs/Day [...] on filedocumented in this encounter Care Teams Air Traffic Systems Technician Relationship Specialty Start Date End Date Po, Lorenver, MD [facility] [address] [place] PCP - General Internal Medicine 12/17/20 documented as of this encounter
--- OUTSIDE RECORDS SUMMARY | 2024-10-12 13:26 | XMS_ITS ---
Author Organization [facility] Address [address] [place] [address] Care Team Providers Care Crutching Contractor Name Role Phone Roberto Mckinney Primary Care Provider oVn Velasquez Unavailable [phone] Allergies Allergen (clinical drug ingredient) Drug/Non Drug [...] W/U Status Risk Notes Problem Essential hypertension (46300119) Essential hypertension (I10) Active confirmed Vital Signs Height 5 ft 6 in in 08/15/2024 Weight 210 lbs 08/15/2024 BMI 33.89 kg/m2 08/15/2024 Blood pressure systolic 125 mm Hg 08/15/20 24 Blood pressure diastolic 71 mm Hg 024 Procedures Procedure Date Ordered Date Performed Result Body Sit e 47214-SCSUAFB NAIL, 6 OR MORE 08/15/2024 N/A 73078-WVEW SKIN LESIONS, OVER 4 08/15/2024 N/A Encounters Encounter Location Date Provider Diagnosis [facility] [place] [address] [place] [address] 08/15/2024 Von Mejia Type 1 diabetes mellitus with diabetic polyneuropathy E10.42 and Tinea unguium B35.1 Assessments Encounter Date Diagnosis (ICD Code) Assessment Notes Treatment Notes Treatment Clinical Notes Section Notes 08/15/2024 Type 1 diabetes mellitus with diabetic polyneuropathy (ICD-10 - E10.42) 08/15/2024 Tinea unguium (ICD-10 - B35.1) 08/15/2024 Other Plan Of Treatment Pending Test Test Name Order Date 95290-XDFQWVR NAIL, 6 OR MORE 08/15/2024 63605-JCSW SKIN LESIONS, OVER 4 08/15/20 24 Next Appt Details Follow Up: prn, Reason: Provider Name:Von Mejia , 10/25/2024 03:00:00 PM, [address], [place], [address], Procedure Notes * Category Sub-Category Detail Notes [...] use of a nail nipper and/or dremel-type outer diameter grinder, to a more viable healthy nail [...] to maintain effectiveness in symptomatic relief - 43194 Keratoma Treatment Parring or Cutting o f [...] instrumentation by the physician of record - 53748 Progress Notes * Allie CUELLAR MDOB: [birth year] (89 yo F)Acc No.[id number]:08/15/2024 Progress Note Patient:?Rosalia CUELLARann Beto Provider:?Von Mejia DPM :1935???Age:89 Y???Sex:Female D ate:08/15/2024 [facility] [address] Pcp:Roberto Mckinney Subjective: * Chief Complaints: * [...] * Hospitalization/Major Diagno stic Procedure:?Pt went to [facility] for heart cathe[facility]. 06/2015[facility] 10/21/15pneumonia 5 day stay rehab 1 month due to pace maker HF [facility], [facility]/14/23 [...] of a nail nipper and/or dremel- type outer diameter grinder, to a more viable healthy nail [...] to maintain effectiveness in symptomatic relief - 00015.?Keratoma Treatment:?Parring or Cutting of Benign Hyperkeratotic Lesion(s)?(-57) [...] instrumentation by the physician of record - 91082.? * Procedure Codes:?34419 DEBRI DE NAIL, 6 OR MORE, Modifiers: XS 45442 TRIM SKIN LESIONS, OVER 4, Modifiers: XS [...]
--- OUTSIDE RECORDS SUMMARY | 2024-10-12 13:26 | XMS_ITS | Clinical Summary ---
Author Organization [facility] Address [address] [address] Care Team Providers Care Buggy Ladle Tender Name Role Phone Roberto Mckinney MD Primary Care Provider [phone] Allergies Active Allergy Reactions Criticality Noted Date [...] Most Recently Relevant to Health Maintenance Insurance [facility] MEDICARE [facility] MEDICARE Care Teams Buggy Ladle Tender Relationship Specialty Start Date End Date Roberto Mckinney MD [facility] [address] [place], [place] PCP - General Internal Medicine 12/17/20
--- OUTSIDE RECORDS SUMMARY | 2024-10-12 13:27 | XMS_ITS | Patient Health Record ---
[facility] Address [address] [place] [address] Care Team Providers Care Agency Sales Director Name Role Phone Roberto Mckinney Primary Care Provider Von Velasquez Unavailable [phone] Allergies Allergen (clinical drug ingredient) Drug/Non Drug [...] Administration Date Status Comme nts COVID-19 Pfizer BioNTRormix Vaccine Unknown 06/08/2022 Administered 10/13/20,11/03/20 07/01/21 Influenza [...] Problem Acquired hammer toe of right foot ([id number] ) Other hammer toe(s) (acquired), right foot (M20.41) Active confirmed Response to treatment, Improvemen t Problem Acquired hammer toe of left foot (2442264738400588 ) Other hammer toe(s) (acquired), left foot (M20.42) Active confirmed Response to treatment, Improvemen t Problem Polyneuropathy due to diabetes mellitus type I (635052010) Type 1 diabetes mellitus with diabetic polyneuropathy (E10.42) Active confirmed Problem Essential hypertension (62716577) Essential hypertension (I10) Active confirmed Vital Signs Blood pressure diastolic 71 mm Hg 08/15/2024 Height 5 ft 6 in in 08/15/2024 Blood pressure systolic 125 mm Hg 08/15/2024 Weight 210 lbs 08/15/2024 BMI 33.89 kg/m2 08/15/2024 Procedures Procedure Date Ordered Date Performed Result Body Sit e 11384-PMXTVRY NAIL, 6 OR MORE 12/19/2023 N/A 11407 I&D ABSCESS- SIMPLE,SINGLE 12/19/2023 N/A 88219-XDNM SKIN LESIONS, OVER 4 12/19/2023 N/A 37695-EXXHVBH NAIL, 6 OR MORE 03/07/2024 N/A 92483-VURE SKIN LESIONS, OVER 4 03/07/2024 N/A 96549-IGIXBRR NAIL, 6 OR MORE 05/23/2024 N/A 97176-UDFS SKIN LESIONS, OVER 4 05/23/2024 N/A 17760-AUTFIVT NAIL, 6 OR MORE 08/15/2024 N/A 65004-JKIA SKIN LESIONS, OVER 4 08/15/2024 N/A Encounters Encounter Location Date Provider Diagnosis [address] [address] 12/19/2023 Von Mejia Type 1 diabetes mellitus with diabetic polyneuropathy E10.42 ; Tinea unguium B35.1 and Abscess of toe, left L02.[address] [address] 03/07/2024 Von Mejia Type 1 diabetes mellitus with diabetic polyneuropathy E10.42 and Tinea unguium B35.[address] [address] 05/23/2024 Vonterrence Mejia Type 1 diabetes mellitus with diabetic polyneuropathy E10.42 ; Tinea unguium B35.1 ; Other hammer toe(s) (acquired), right foot M20.41 and Other hammer toe(s) (acquired), left foot M20.[address] [address] 08/15/2024 Vno Mejia Type 1 diabetes mellitus with diabetic [...] E10.42) 08/15/2024 Tinea unguium (ICD-10 - B35.1) 05/23/2024 Other hammer toe(s) (acquired), right foot (ICD-10 - M20.41) Response to treatment,Impro vement 12/19/2023 Abscess of toe, left (ICD-10 - L02.612) Patient Educated with: WOUND CARE INSTRUCTIONS. pdf (WOUND CARE INSTRUCTIONS. pdf) 05/23/2024 Other hammer toe(s) (acquired), left foot (ICD-10 - M20.42) Response to treatment,Impro vement 12/19/2023 Other Patient Educated with: WOUND CARE INSTRUCTIONS. pdf (WOUND CARE INSTRUCTIONS. pdf) 03/07/2024 Other 05/23/2024 Other 08/15/2024 Other Plan Of Treatment Pending Test Test Name Order Date Hemoglobin A1c 09/19/2015 47169-MEAGOCB NAIL, 6 OR MORE 12/26/2015 65440-RKDHNTF NAIL, 6 OR MORE 03/26/2016 26271-KUQRVOJ NAIL, 6 OR MORE 06/17/2015 08084-AZXMCNF NAIL, 6 OR MORE 12/03/2014 82137-QZZLVGV NAIL, 6 OR MORE 03/11/2015 32004-ZWBZHLV NAIL, 6 OR MORE 02/26/2014 52338-KOIHVJA NAIL, 6 OR MORE 11/20/2013 64900-ZPTCVMD NAIL, 6 OR MORE 06/04/2014 67584-KOIWPPO NAIL, 6 OR MORE 09/03/2014 41031-BVCSSWG NAIL, 6 OR MORE 04/23/2011 26580-ZNYBWVD NAIL, 6 OR MORE 07/16/2011 81843-FNQUURD NAIL, 6 OR MORE 10/15/2011 38849-EKUFPWE NAIL, 6 OR MORE 12/31/2011 11930-DMLPNDX NAIL, 6 OR MORE 03/17/2012 62420-WEXOFZN NAIL, 6 OR MORE 05/26/2012 20006-KZALBIH NAIL, 6 OR MORE 08/11/2012 80521-DWXFTIA NAIL, 6 OR MORE 11/17/2012 14254-NXKQXPX NAIL, 6 OR MORE 02/02/2013 40483-EUNTSXM NAIL, 6 OR MORE 05/08/2013 34914-VCJGAHV NAIL, 6 OR MORE 08/07/2013 98694-LFPROTG NAIL, 6 OR MORE 06/25/2016 85077-GMQMHHK NAIL, 6 OR MORE 09/24/2016 64697-QGHGVPR NAIL, 6 OR MORE 12/03/2016 09166-LLVEEBH NAIL, 6 OR MORE 09/19/2015 02842-ULMNZMK NAIL, 6 OR MORE 02/08/2017 03985-EXYPAKQ NAIL, 6 OR MORE 04/12/2017 07953-KNEBNUC NAIL, 6 OR MORE 06/24/2017 75777-ZHQLLHR NAIL, 6 OR MORE 10/04/2017 84179-GWCNLEV NAIL, 6 OR MORE 12/23/2017 85184-CLDEZYQ NAIL, 6 OR MORE 02/24/2018 05655-LLUBNAL NAIL, 6 OR MORE 06/27/2018 66965-MOHLWTU NAIL, 6 OR MORE 09/26/2018 34946-VPWLAZI NAIL, 6 OR MORE 12/26/2018 68405-UHNZTQG NAIL, 6 OR MORE 02/27/2019 38207-YJWQFFD NAIL, 6 OR MORE 06/01/2019 78832-PUFPCGV NAIL, 6 OR MORE 08/10/2019 03857-XJKXLTQ NAIL, 6 OR MORE 10/12/2019 57881-IFFMFDT NAIL, 6 OR MORE 12/18/2019 86126-BLERXQK NAIL, 6 OR MORE 02/22/2020 10966-IJONZJD NAIL, 6 OR MORE 04/29/2020 83987-BFKQPAS NAIL, 6 OR MORE 07/08/2020 22056-QMPSFVQ NAIL, 6 OR MORE 09/09/2020 00929-HPNZQPN NAIL, 6 OR MORE 11/18/2020 84309-KDZMCSP NAIL, 6 OR MORE 01/20/2021 77652-LAZWRFX NAIL, 6 OR MORE 03/24/2021 85952-NCCMBRT NAIL, 6 OR MORE 07/07/2021 08729-IXQVYTA NAIL, 6 OR MORE 09/15/2021 72099-IUFUZGU NAIL, 6 OR MORE 12/01/2021 57615-GQSFLIN NAIL, 6 OR MORE 03/12/2022 07226-IYMVTWH NAIL, 6 OR MORE 06/25/2022 56187-WFSKKNB NAIL, 6 OR MORE 09/03/2022 92779-OTKRLEC NAIL, 6 OR MORE 11/23/2022 15526-VOKHOPX NAIL, 6 OR MORE 01/26/2023 29216-VOPAOLG NAIL, 6 OR MORE 04/06/2023 72164-EDOQCJC NAIL, 6 OR MORE 08/01/2023 33993-VUOMPJY NAIL, 6 OR MORE 10/10/2023 42889-NOAZAPV NAIL, 6 OR MORE 12/19/2023 18231-LZWCVAY NAIL, 6 OR MORE 03/07/2024 71158-OSNWISK NAIL, 6 OR MORE 05/23/2024 11587-QBZNTFJ NAIL, 6 OR MORE 08/15/2024 28227-Kspdojyh Plate 08/01/2023 29391-Idhgebcd Plate 09/24/2016 50287-Ezbconnw Plate 08/07/2013 21695-Oczxwjzc Plate 05/08/2013 78918-Xhirwnxp Plate 02/02/2013 31653-Hjslvnug Plate 11/17/2012 20094-Fhjgsqjt Plate 08/11/2012 03627-Xgavvyyf Plate 04/23/2011 69670-Egnntatd Plate 12/31/2011 06947-Treuwijd Plate 09/03/2014 98047-Ufcfbxli Plate 06/04/2014 76911-Mjuqpwme Plate 11/20/2013 65308-Lqbhmzng Plate 02/26/2014 36105-Apjbbnfm Plate 03/11/2015 22611-Dboktvwh Plate 12/03/2014 82164-Smhudbss Plate 06/17/2015 12651-Hcxpwcky Plate 09/19/2015 60296-Lftgrqcp Plate Each Additional 02/2015 79757-Bjhuejnm Plate Each Additional 02/2014 21213-Ktyckfpv Plate Each Additional 01/2015 97018-Wwtbywug Plate Each Additional 47807-Oajlkjgk Plate Each Additional 30504-Ykzbmevr Plate Each Additional 02/2013 20581-Oxcixwhf Plate Each Additional 05/2013 22282- Debride <25 sq cm 08/17/2013 60068 I&D ABSCESS- SIMPLE,SINGLE 013 37297 I&D ABSCESS- SIMPLE,SINGLE 014 21899 I&D ABSCESS- SIMPLE,SINGLE 014 12594 I&D ABSCESS- SIMPLE,SINGLE 015 26332 I&D ABSCESS- SIMPLE,SINGLE 016 34805 I&D ABSCESS- SIMPLE,SINGLE 016 88010 I&D ABSCESS- SIMPLE,SINGLE 017 17500 I&D ABSCESS- SIMPLE,SINGLE 017 77946 I&D ABSCESS- SIMPLE,SINGLE 024 08828 I&D ABSCESS- SIMPLE,SINGLE 019 13645 I&D ABSCESS- SIMPLE,SINGLE 023 56557- I&D ABSCESS-COMPLICATED,MULTI 08/2013 08482-OGGB SKIN LESIONS, OVER 4 04/12/20 17 13470-JXTH SKIN LESIONS, OVER 4 10/04/19 18 48954-IYGF SKIN LESIONS, OVER 4 06/24/20 17 61285-DZDJ SKIN LESIONS, OVER 4 02/09/20 17 51507-DAIF SKIN LESIONS, OVER 4 08/10/20 19 36341-OYDV SKIN LESIONS, OVER 4 06/01/20 19 73167-QTOQ SKIN LESIONS, OVER 4 02/28/20 19 39337-UTOT SKIN LESIONS, OVER 4 12/27/19 19 03476-EMKY SKIN LESIONS, OVER 4 09/26/19 19 97530-ZFGH SKIN LESIONS, OVER 4 06/27/20 18 71139-UBZC SKIN LESIONS, OVER 4 02/25/20 18 73234-CDHQ SKIN LESIONS, OVER 4 12/24/19 18 41311-IVTA SKIN LESIONS, OVER 4 11/24/19 23 01580-LKVI SKIN LESIONS, OVER 4 09/03/19 09594-QPQO SKIN LESIONS, OVER 4 06/25/20 84982-OXPL SKIN LESIONS, OVER 4 03/12/20 07688-FGOT SKIN LESIONS, OVER 4 12/02/19 75134-RAOG SKIN LESIONS, OVER 4 09/15/19 96920-NJIH SKIN LESIONS, OVER 4 07/07/20 45949-ELAJ SKIN LESIONS, OVER 4 03/24/20 25862-RCOM SKIN LESIONS, OVER 4 01/21/20 35375-PVFH SKIN LESIONS, OVER 4 11/19/19 54280-IHAO SKIN LESIONS, OVER 4 09/09/19 34802-WXZQ SKIN LESIONS, OVER 4 07/08/20 88268-POEC SKIN LESIONS, OVER 4 04/29/20 50731-TAWF SKIN LESIONS, OVER 4 02/22/20 05212-DMPY SKIN LESIONS, OVER 4 12/18/19 48742-DPQC SKIN LESIONS, OVER 4 10/12/19 33097-MNHL SKIN LESIONS, OVER 4 01/27/20 73925-THQR SKIN LESIONS, OVER 4 08/01/20 75799-OVDJ SKIN LESIONS, OVER 4 04/06/20 62337-KSVS SKIN LESIONS, OVER 4 03/07/20 26710-HPZK SKIN LESIONS, OVER 4 12/19/19 39221-SGBH SKIN LESIONS, OVER 4 10/10/19 77412-JLGV SKIN LESIONS, OVER 4 08/15/20 30438-ZYTS SKIN LESIONS, OVER 4 05/23/20 28317-JYSL SKIN LESIONS, 2 TO 4 12/04/19 17 96685-CCBX SKIN LESIONS, 2 TO 4 06/25/20 16 75163-YMDA SKIN LESIONS, 2 TO 4 09/24/19 17 91133-GHEB SKIN LESIONS, 2 TO 4 11/21/19 14 54648-OYTN SKIN LESIONS, 2 TO 4 02/27/20 14 96334-WXSQ SKIN LESIONS, 2 TO 4 09/03/19 15 35610-NDWM SKIN LESIONS, 2 TO 4 06/04/20 14 98571-LTUO SKIN LESIONS, 2 TO 4 12/26/19 16 41477-IWEV SKIN LESIONS, 2 TO 4 03/26/20 16 18742-WSIO SKIN LESIONS, 2 TO 4 09/19/19 16 04187-LMIN SKIN LESIONS, 2 TO 4 06/17/20 15 98962-NSIO SKIN LESIONS, 2 TO 4 03/11/20 15 68440-PVKF SKIN LESIONS, 2 TO 4 12/04/19 15 31257-UAOH SKIN LESIONS, 2 TO 4 08/07/20 13 82194-JVWQ SKIN LESIONS, 2 TO 4 05/08/20 13 84144-ZZYD SKIN LESIONS, 2 TO 4 02/03/20 13 71482-PHLE SKIN LESIONS, 2 TO 4 11/18/19 13 84564-IMXB SKIN LESIONS, 2 TO 4 08/11/20 12 06430-NIYR SKIN LESIONS, 2 TO 4 05/26/20 12 70388-JRCU SKIN LESIONS, 2 TO 4 03/17/20 12 86924-SVWX SKIN LESIONS, 2 TO 4 12/31/19 12 48298-XOEC SKIN LESIONS, 2 TO 4 10/15/19 12 54302-PQWN SKIN LESIONS, 2 TO 4 04/23/20 11 34191-EZOU SKIN LESIONS, 2 TO 4 07/16/20 11 Next Appt Details Provider Name:Von Chayito Mejia , 10/25/2024 03:00:00 PM, [address] [facility] [place], [facility] [address], [place], [address], Insurance Providers Payer Name Payer Address Payer Phone Subscriber Number Group Number Insured Name Patient Relationship to Insured Coverage Start Date Coverage End Date Medicare National [employer] [address] [place] [address] [id number] Allie Gonzalez Self - patient is the insured [facility] [address] [place] [address] [id number] Allie Gonzalez Self - patient is the [...] [facility], fell and hit head 10/14/23 [facility]- slid off bed, UTI 07/2023 CHF 05/2023 pneumonia 5 day stay rehab 1 month due t o pace maker 03/2021 [facility] for Hip Replacement 10/21/15 Pt went to [facility] for heart cat herization. 06/2015
--- OUTSIDE RECORDS SUMMARY | 2024-10-12 13:27 | XMS_ITS ---
Author Organization [facility] Address [address] [place] [address] Care Team Providers Care Plastic Extrusion Operator Name Role Phone Roberto Mckinney Primary Care Provider Von Velasquez Unavailable [phone] Allergies Allergen (clinical drug ingredient) Drug/Non Drug [...] Ordered Date Performed Result Body Sit e 42529-WBWCNGM NAIL, 6 OR MORE 05/23/2024 N/A 48192-VJQX SKIN LESIONS, OVER 4 05/23/2024 N/A Encounters Encounter Location Date Provider Diagnosis [facility] [address] [address] 05/23/2024 Von Mejia Type 1 diabetes mellitus [...] Treatment Pending Test Test Name Order Date 92372-CYCZKMO NAIL, 6 OR MORE 05/23/2024 67063-GYVE SKIN LESIONS, OVER 4 05/23/20 24 Next Appt Details Follow Up: prn, Reason: Provider Name:Von Mejia , 10/25/2024 03:00:00 PM, [address], [place], [address], Procedure Notes * Category Sub-Category Detail Notes Debride Nail 6-10 Nail debridement Performance o f this nail treatment by a nonprofessional would put this patients foot and overall health at risk. Therefore, nail debridement was performed extensively to reduce/remove overall nail length, girth, thickness, subungual debris, and necrotic tissue, by manual and/or electrical means through the use of a nail nipper and/or dremel-type precision grinder external, to a more viable healthy nail plate or bed tissue 6-10. Silver nitrate used for any petechial bleeding as necessary. Definitive antifungal treatment options have been reviewed and discussed with the patient. The patient chooses, no pharmaceutical tx - 35415 Keratoma Treatment Parring or Cutting o f Benign Hyperkeratotic Lesion(s) (-57) More than 4 Lesions - The Benign hyperkeratotic lesions, as described above were pared, and/or cut utilizing a sterile 15 blade, tissue nippers, and/or dremel - 69755 Progress Notes * Allie CUELLAR MDOB: [birth year] (89 yo F)Acc No.[id number]:05/23/2024 Progress Note Patient:?Allie CUELLAR Provider:?Von Mejia DPM :1935???Age:88 Y???Sex:Female D ate:05/23/2024 Address:[address] [place], [place] [id number] Pcp:Roberto Mckinney Subjective: * Chief Complaints: * [...] * Hospitalization/Major Diagno stic Procedure:?Pt went to [facility] for heart catherization. 06/2015[facility] for Hip Replacement 10/21/15pneumonia 5 day stay rehab 1 month due to pace maker HF 05/2023[facility], [facility] * [...] use of a nail nipper and/or dremel-type precision grinder external, to a more viable healthy nail plate or bed tissue 6-10. Silver nitrate used for any petechial bleeding as necessary. Definitive antifungal treatment options have been reviewed and discussed with the patient. The patient chooses, no pharmaceutical tx - 73141.?Keratoma Treatment:?Parring or Cutting of Benign Hyperkeratotic Lesion(s)?(-57) More than 4 Lesions - The Benign hyperkeratotic lesions, as described above were pared, and/or cut utilizing a sterile 15 blade, tissue nippers, and/or dremel - 15013.? * Procedure Codes:?33316 DEBRI DE NAIL, 6 OR MORE, Modifiers: XS 46684 TRIM SKIN LESIONS, OVER 4, Modifiers: XS [...]
--- NOTE | 2024-10-12 13:40 | HO.NEPHOV ---
Vital Signs 10/12/24 13:45 Height 5 ft 3 in Weight 205 lb 6 oz BMI 36.4 BP 120/60 Blood Pressure Location Lt brachial Position Sitting Pulse 77 Pulse Source Pulse Oximeter Pulse Oximetry (%) 96 Oxygen Delivery Method Room Air Intake Visit Reasons: 4mon follow up/ Conf Cylinder Handler Required: No Accompanied by: Daughter Allergies Penicillins [PENICILLINS] Allergy (Severe, Verified 10/12/24 13:44) SWELLING codeine [CODEINE] Allergy (Intermediate, Verified 10/12/24 13:44) SWELLING, Hives HPI Comments Details: Allie is being seen in follow up for CKD. 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 She had aortic stenosis and is currently status post TAVR. She has had atrial fibrillation needing cardioversion as well as medical treatment. Her blood sugar control has been better. She had been unable to handle JOB inhibitor or ARB. She is tolerating Farxiga. Kerendia has been considered for her diabetic kidney disease management. Her shortness of breath on exertion is remarkably better of late. She e is very careful with her low-sodium diet and fluid restriction. She weighs herself every day. She has been having gout issues and is on allopurinol. She avoids nonsteroidal anti-inflammatories. Her PTH has been high and had been started on calcitriol after discontinuation of uadz-awl-rlvzlep calcium and vitamin-D medications. She does not have any urinary symptoms. She denies any chest pain, shortness of breath, paroxysmal nocturnal dyspnea, orthopnea, hematuria, UTIs, renal calculi or orthostatic symptoms. Her recent serum creatinine has been stable [facility] Medical History (Updated 10/08/24 @ 13:20 by Greg Thomas MD) On allopurinol therapy Encounter for monitoring denosumab therapy Osteoporosis Erosive osteoarthritis of both hands Bacteremia due to Gram-positive bacteria Paroxysmal atrial fibrillation CHF (congestive heart failure) Type 2 diabetes mellitus with unspecified complications Normally functioning cardiac pacemaker present URI (upper respiratory infection) Heart block atrioventricular Chronic heart failure with preserved ejection fraction Thrombosis of right saphenous vein Hypercholesterolemia Cataract Hypertension Obesity Aortic stenosis, moderate CKD (chronic kidney disease) stage 4, GFR 15-29 ml/min DVT (deep venous thrombosis) Type 2 diabetes mellitus with hyperglycemia Surgical History Status post transcatheter aortic valve replacement (TAVR) using bioprosthesis History of permanent cardiac pacemaker placement (~05/06/21) History of eye surgery History of surgical procedure on eye proper using laser History of right hip replacement History of partial hysterectomy History of cholecystectomy Family History Father No problems noted. Mother No problems noted. Social History Household Members: Family Housing: House Do you presently have visiting nurse or other home services: No Alcohol intake: never Patient Tobacco Use Status: Never used Tobacco Tobacco use type: Cigarette e-Cigarette/Vaping Use: Never Used Second Hand Smoke Exposure: Yes Advance Directives Date on File: 05/20/23 service: No Current occupational status: retired Cognitive needs: Yes (walker ) Hearing needs: No Vision needs: Yes Review of Systems Const All systems reviewed & are unremarkable except as noted in HPI and below Physical Exam Const General: comfortable and no acute distress Orientation/consciousness: patient oriented x3 HEENT Head: Yes normocephalic Mouth: Normal oral and palatal mucosa present Eyes EOM: EOMs intact bilaterally Neck Neck: Yes supple Resp Auscultation: clear to auscultation bilaterally Cardio Jugular venous distension: no JVD Rate: regular rate GI Palpation (GI): Soft to palpation Auscultation: normal bowel sounds General: Yes no CVA tenderness Back/Spine/Pelvis Back: no CVA tenderness Skin General skin exam: no rashes or lesions noted Neuro General: patient oriented x3 and moves all extremities Extrem General: Yes no pedal edema Results Reviewed Nephrology Results: Hgb 10.7 g/dl (12.0-16.0) L 10/06/24 WBC 5.9 X10*3/uL (4.8-10.8) 10/06/24 Plt Count 181 X10*3/uL (160-400) 10/06/24 Sodium 141 mmol/L (135-145) 10/06/24 Potassium 4.1 mmol/L (3.3-5.1) 10/06/24 Chloride 101 mmol/L (96-108) 10/06/24 Carbon Dioxide 27 mmol/L (22-29) 10/06/24 BUN 62 mg/dL (9-16) H 10/06/24 Creatinine 2.08 mg/dL (0.5-1.4) H 10/06/24 Calcium 9.0 mg/dL (8.4-10.2) 10/06/24 PTH Intact 1274.9 pg/mL (8.7-77.1) H 10/06/24 Assessment & Plan Assessment & Plan (1) Secondary hyperparathyroidism (of renal origin): Code(s): N25.81 - Secondary hyperparathyroidism of renal origin Category: Medical (2) Anemia in chronic kidney disease (CKD): Code(s): N18.9 - Chronic kidney disease, unspecified; D63.1 - Anemia in chronic kidney disease Category: Medical Qualifiers: Chronic kidney disease stage: stage 4 (severe) Qualified Code(s): N18.4 - Chronic kidney disease, stage 4 (severe); D63.1 - Anemia in chronic kidney disease (3) CKD (chronic kidney disease) stage 4, GFR 15-29 ml/min: Code(s): N18.4 - Chronic kidney disease, stage 4 (severe) Category: Medical (4) Hypertension: Code(s): I10 - Essential (primary) hypertension Category: Medical Qualifiers: Hypertension type: essential hypertension Qualified Code(s): I10 - Essential (primary) hypertension Plan Allie had progressive 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 She had multiple hemodynamic AKIs with resultant loss of GFR. She could continue current dose of her diuretics. She abstains from excess sodium and maintain fluid restriction. She weighs herself every day. I may considering switching her from amlodipine to isosorbide given edema issues. She can continue current dose of Farxiga. Her blood pressure and blood sugar need to be maintained at goal. She has no hypoglycemias. She is on allopurinol 100 mg daily. I re started calcitriol 0.25 mcg 3 days a week . All questions answered. Follow-up appointment given Orders: Orders Blood Urea Nitrogen 3 Months D63.1 - Anemia in chronic kidney disease, N18.4 - Chronic kidney disease, stage 4 (severe), N25.81 - Secondary hyperparathyroidism of renal origin Parathyroid Hormone Intact 3 Months D63.1 - Anemia in chronic kidney disease, N18.4 - Chronic kidney disease, stage 4 (severe), N25.81 - Secondary hyperparathyroidism of renal origin Creatinine 3 Months D63.1 - Anemia in chronic kidney disease, N18.4 - Chronic kidney disease, stage 4 (severe), N25.81 - Secondary hyperparathyroidism of renal origin Electrolytes 3 Months D63.1 - Anemia in chronic kidney disease, N18.4 - Chronic kidney disease, stage 4 (severe), N25.81 - Secondary hyperparathyroidism of renal origin Calcium 3 Months D63.1 - Anemia in chronic kidney disease, N18.4 - Chronic kidney disease, stage 4 (severe), N25.81 - Secondary hyperparathyroidism of renal origin Phosphorus 3 Months D63.1 - Anemia in chronic kidney disease, N18.4 - Chronic kidney disease, stage 4 (severe), N25.81 - Secondary hyperparathyroidism of renal origin Medications: New calcitriol 0.25 mcg PO 3XW 14 caps 4RF Coding Level of Care Code Est Pt Level 4 (91291) Diagnoses Secondary hyperparathyroidism (of renal origin) N25.81 Anemia in stage 4 chronic kidney disease N18.4; D63.1 Chronic kidney disease stage: stage 4 (severe) CKD (chronic kidney disease) stage 4, GFR 15-29 ml/min N18.4 Essential hypertension I10 Hypertension type: essential hypertension
[2024-10-12 13:45] VITALS: BP 120/60; PULSE 77; O2SAT 96; BMI 36.4
== END 2024-10-12 14:10 | disposition home or self-care (01) ==
PROVIDERS: PCP Internal Medicine; Visit Provider Internal Medicine Nephrology
DX: N25.81 Secondary hyperparathyroidism of renal origin (principal); I12.9 Hypertensive chronic kidney disease with stage 1 through stage 4 chronic kidney disease, or unspecified chronic kidney disease; N18.4 Chronic kidney disease, stage 4 (severe); D63.1 Anemia in chronic kidney disease
CPT/HCPCS: 99214

== ENCOUNTER → 2024-10-12 13:05 | Outpatient (BNVA) | payer MEDICARE, SELFPAY ==
[2024-04-09 14:10] VITALS: BP 108/60; BP 118/64; BP 124/60; BMI 35.9
== END ==
PROVIDERS: PCP Internal Medicine; Visit Provider Internal Medicine Nephrology
DX: E11.22 Type 2 diabetes mellitus with diabetic chronic kidney disease (principal); I12.9 Hypertensive chronic kidney disease with stage 1 through stage 4 chronic kidney disease, or unspecified chronic kidney disease; N18.4 Chronic kidney disease, stage 4 (severe); D63.1 Anemia in chronic kidney disease; I48.91 Unspecified atrial fibrillation; N25.81 Secondary hyperparathyroidism of renal origin
CPT/HCPCS: 99212

== ENCOUNTER 2024-11-16 16:02 | Emergency (ER) | payer MEDICARE, SELFPAY ==
[2024-04-09 14:10] VITALS: BP 108/60; BP 118/64; BP 124/60; BMI 35.9
--- NOTE | 2024-11-16 16:12 | ED_ITS ---
HPI - CPR General Chief Complaint: Cardiac Arrest/CPR Stated Complaint: cardiac arrest Time Seen by Provider: 11/16/24 16:06 Source: EMS Mode of arrival: EMS Limitations: other History of Present Illness ED Provider: Dr. Lianna Casiano HPI narrative: Patient comes to the emergency room via ambulance in cardiac arrest. According to EMS, the patient had a witnessed cardiac arrest by her daughter. Seems that patient was sitting in the bathroom and then went unresponsive. The patient's daughter could not get her out of her up from the toilet seat and called 911. When fire department arrived, they started CPR. Patient was asystole. 5 minutes later, EMS arrived. EMS determine that the patient had a combination of AFib VFib and PA. An I-gel was inserted for ventilation. By the time that the patient arrive to the emergency department, patient had already received 45 minutes of continuous CPR, 6 epinephrine it is and 7 shocks Related Data Home Medications ?Medication ?Instructions ?Recorded ?Confirmed acetaminophen 325 mg tablet 325 mg PO QID PRN Pain 07/15/20 10/08/24 (Tylenol) latanoprost 0.005 % eye drops 1 drp ophthalmic (eye) BEDTIME 07/14/21 10/08/24 diclofenac sodium 1 % topical gel 2 g topical QD-BID PRN Pain 05/20/23 10/08/24 multivitamin 1 tab PO DAILY 05/20/23 09/19/24 propylene glycol 0.6 % eye drops 1 drp ophthalmic (eye) TID PRN Dry 05/20/23 10/08/24 (Systane Complete) Eyes clindamycin HCl 300 mg capsule 600 mg PO ONCE PRN 04/16/24 10/08/24 meclizine 25 mg tablet 25 mg PO TID PRN 04/16/24 10/08/24 fexofenadine 180 mg tablet 180 mg PO DAILY 10/08/24 10/08/24 amiodarone 200 mg tablet 100 mg PO DAILY 10/12/24 denosumab 60 mg/mL subcutaneous 60 mg subcut [id number] 10/12/24 syringe (Prolia) Previous Rx's ?Medication ?Instructions ?Recorded metolazone 2.5 mg tablet 2.5 mg PO DIRECTED PRN fluid 10/10/23 retention #8 tabs compress.stocking,knee,reg,lrg #12 ea 11/10/23 atorvastatin 10 mg tablet 10 mg PO DAILY #90 tabs 12/19/23 compress.stocking,knee,reg,lrg #12 ea 12/30/23 blood sugar diagnostic (FreeStyle 1 strip miscellaneous TID 90 days 01/06/24 Lite Strips) #300 strips apixaban 2.5 mg tablet (Eliquis) 2.5 mg PO BID 90 days #180 tabs 02/01/24 dapagliflozin propanediol 5 mg 5 mg PO DAILY 90 days #90 tabs 03/16/24 tablet (Farxiga) miconazole nitrate 2 % topical 1 appl topical BID #85 grams 05/18/24 powder (Zeasorb AF) amlodipine 5 mg tablet 5 mg PO DAILY #90 tabs 07/24/24 furosemide 20 mg tablet 20 mg PO DIRECTED 30 days #210 08/14/24 tabs dulaglutide 0.75 mg/0.5 mL 0.75 mg (0.5 mL) subcut QWEEK #6 mL 09/03/24 subcutaneous pen injector (Trulicity) allopurinol 300 mg tablet 300 mg PO DAILY 90 days #90 tabs 09/19/24 calcitriol 0.25 mcg capsule 0.25 mcg PO 3XW #14 caps 10/12/24 clotrimazole 1 % topical cream 1 appl topical BID 4 weeks #45 10/25/24 grams insulin glargine 100 unit/mL (3 5 unit (0.05 mL) subcut BEDTIME 10/25/24 mL) subcutaneous pen (Lantus #15 mL Solostar U-100 Insulin) insulin lispro 100 unit/mL See Rx Instructions .Route 10/25/24 subcutaneous pen (Humalog KwikPen .COMPLEX 30 days #15 mL (U-100) Insulin) pen needle, diabetic 31 gauge x #1,200 ea 10/25/24 5/16 Allergies Allergy/AdvReac Type Severity Reaction Status Date / Time Penicillins [PENICILLINS] Allergy Severe SWELLING Verified 11/16/24 16:31 codeine [CODEINE] Allergy Intermediate SWELLING, Verified 11/16/24 16:31 Hives Review of Systems Review of Systems: Yes Other PMFSH Past Medical History Medical History On allopurinol therapy Encounter for monitoring denosumab therapy Osteoporosis Erosive osteoarthritis of both hands Bacteremia due to Gram-positive bacteria Paroxysmal atrial fibrillation CHF (congestive heart failure) Type 2 diabetes mellitus with unspecified complications Normally functioning cardiac pacemaker present URI (upper respiratory infection) Heart block atrioventricular Chronic heart failure with preserved ejection fraction Thrombosis of right saphenous vein Hypercholesterolemia Cataract Hypertension Obesity Aortic stenosis, moderate CKD (chronic kidney disease) stage 4, GFR 15-29 ml/min DVT (deep venous thrombosis) Type 2 diabetes mellitus with hyperglycemia Surgical History Status post transcatheter aortic valve replacement (TAVR) using bioprosthesis History of permanent cardiac pacemaker placement (~05/06/21) History of eye surgery History of surgical procedure on eye proper using laser History of right hip replacement History of partial hysterectomy History of cholecystectomy Family History Family History Father No problems noted. Mother No problems noted. Social History Social History Household Members: Family Housing: House Do you presently have visiting nurse or other home services: No Alcohol intake: never Patient Tobacco Use Status: Never used Tobacco Tobacco use type: Cigarette e-Cigarette/Vaping Use: Never Used Second Hand Smoke Exposure: Yes Advance Directives Date on File: 05/20/23 service: No Current occupational status: retired Cognitive needs: Yes (walker ) Hearing needs: No Vision needs: Yes Physical Exam Vital Signs: Vital Signs: BMI result Body Mass Index 30.4 Const: Other: Appearance: unresponsive Eyes: Pupils equal, dilated, fixed and dilated, unresponsive to light ENT: I-gel in place Neck: Normal inspection. Neck supple. No lymph nodes noted. No crepitus CVS: Normal heart rate and rhythm. Pulses normal. Normal S1 and S2 Respiratory: No respiratory distress. Breath sounds normal. No Wheezing. No rales Abdomen: Soft and nontender. No rigidity. No distention. there is an ecchymosis to the right groin area/right lower quadrant Skin: Skin warm and cold, mottled Extremities: No lower extremity edema. No Lacerations. No Rash, see abdomen above Neuro: unresponsive Psych: unresponsive Medical Decision Making Medical Decision Making MDM Narrative: by the time that the patient arrived to the emergency room, patient had already gone through 45 minutes of CPR, 6 epinephrine it is and 7 shocks. on arrival, pulse was checked, bradycardia in the 30s, PEA we did 4 minutes of CPR. Then time of was called. In total, patient had approximately 50 minutes of CPR without ROSC patient had significant past medical history including CHF, chronic kidney disease, hypertension, type 2 diabetes, hyperlipidemia, paroxysmal atrial fibrillation on Eliquis, aortic stenosis status post TAVR in 2021, coronary artery disease. The last time that we saw the patient here was over a year ago, in August of 2023. The patient was here for UTI bacteremia given the patient's past medical history, it is possible the patient may have had a vasovagal syncope versus MA versus CHF exacerbation and hypoxia leading to cardiac arrest Patient's daughter is not in the family room. The family reports that yesterday the patient was not feeling too well, nothing specific. The family attributed to a viral syndrome. Today in the morning, the patient told the family that she was feeling better. Patient's family aware of the above-mentioned mail distribution scheme examiner declined the case. Differential Diagnosis Differential Diagnoses: The differential diagnosis associated with the presentation includes Discharge Plan Discharge Clinical Impression: Cardiac arrest Patient Disposition: Prescriptions: No Action metolazone 2.5 mg tablet 2.5 mg PO DIRECTED PRN (Reason: fluid retention) Qty: 8 5RF Rx Instructions: Take 1 tablet in the AM on Tuesday and 1 tablet in the AM on Saturdays ONLY as needed for fluid retention (DME) compress.stocking,knee,reg,lrg Misc See Rx Instructions .Route Qty: 12 0RF Rx Instructions: As directed 20-30 mm HG atorvastatin 10 mg tablet 10 mg PO DAILY Qty: 90 3RF FreeStyle Lite Strips Strip 1 strip miscellaneous TID 90 Days Qty: 300 3RF Eliquis 2.5 mg tablet 2.5 mg PO BID 90 Days Qty: 180 3RF Farxiga 5 mg tablet 5 mg PO DAILY 90 Days Qty: 90 2RF amlodipine 5 mg tablet 5 mg PO DAILY Qty: 90 3RF furosemide 20 mg tablet 20 mg PO DIRECTED 30 Days Qty: 210 3RF Rx Instructions: 4 tabs every AM (80mg) and 3 tabs (60mg) every PM Prolia 60 mg/mL syringe 60 mg subcut [id number] insulin glargine [Lantus Solostar U-100 Insulin] 100 unit/mL (3 mL) insulin pen 5 unit subcut BEDTIME Qty: 15 3RF (DME) pen needle, diabetic 31 gauge x 5/16 needle See Rx Instructions .ROUTE .MEDSUPPLY Qty: 1200 3RF Rx Instructions: As directed clotrimazole 1 % cream 1 appl topical BID 28 Days Qty: 45 0RF insulin lispro [Humalog KwikPen Insulin] 100 unit/mL insulin pen See Rx Instructions .ROUTE .COMPLEX 30 Days Qty: 15 11RF Patient Comments: Dr. Mckinney told patient to hold off on this insulin unless her sugar is greater than 150 per daughter Bree Rx Instructions: inject 1 u TID multivitamin Tablet 1 tab PO DAILY Systane Complete 0.6 % Drops 1 drp OPHTHALMIC (EYE) TID PRN (Reason: Dry Eyes) diclofenac sodium 1 % Gel 2 g TOPICAL QD-BID PRN (Reason: Pain) Rx Instructions: apply to single elbow, wrist or hand; for hand includes palm/fingers/back of hand fexofenadine 180 mg tablet 180 mg PO DAILY acetaminophen [Tylenol] 325 mg tablet 325 mg PO QID PRN (Reason: Pain) (DME) compress.stocking,knee,reg,lrg Misc See Rx Instructions .Route Qty: 12 0RF Rx Instructions: As directed 20-30 mm HG latanoprost 0.005 % drops 1 drp ophthalmic (eye) BEDTIME miconazole nitrate [Zeasorb AF] 2 % powder 1 appl topical BID Qty: 85 0RF allopurinol 300 mg tablet 300 mg PO DAILY 90 Days Qty: 90 1RF amiodarone 200 mg tablet 100 mg PO DAILY clindamycin HCl 300 mg capsule 600 mg PO ONCE PRN meclizine 25 mg tablet 25 mg PO TID PRN Trulicity 0.75 mg/0.5 mL pen injector 0.75 mg subcut QWEEK Qty: 6 5RF calcitriol 0.25 mcg capsule 0.25 mcg PO 3XW Qty: 14 4RF Interventions: Organ Donor Nursing Doc/Post Mortem care Last Done: 11/16/24 16:43 Print Language: Telugu
[2024-11-16 16:28] VITALS: BMI 30.4
--- NOTE | 2024-11-16 16:40 | MHC.EDTECH ---
Contacted medical examinee @[phone] per request of
--- NOTE | 2024-11-16 16:59 | PC.NURSE ---
Pt rick from home for witnessed cardiac arrest. Pt arrived to ED at 1601, per EMS 45 minutes of continuous CPR, 6 epinephrine given, and 7 shocks. Time of 1604. Refer to paper documentation for times. [employer] called @ 1635, Case #[id number]. Pt declined per [employer] senior customer service representative. Pt washed up by this RN and tech, new linens placed. Family at bedside.
[2024-11-16 17:31] LABS: Glucose, Whole Blood 234 mg/dL (60-115)
--- NOTE | 2024-11-16 21:31 | PC.NURSE ---
Bree daughter reports home is [facility] [address] [place]
--- NOTE | 2024-11-16 21:32 | PC.NURSE ---
family took pts clothing and hearing aids
== END 2024-11-16 21:38 | disposition expired ==
LOC: HO.ED 22:29
PROVIDERS: Emergency Provider Emergency Medicine
DX: I46.9 Cardiac arrest, cause unspecified (principal); R40.4 Transient alteration of awareness; Z79.899 Other long term (current) drug therapy
CPT/HCPCS: 82947; 96374; 99283; 99285; J0171